=== PATIENT | female | born 1950 | race Caucasian/White ===

== ENCOUNTER 2017-03-31 23:53 | Emergency (ER) | payer OTHER ==
[2017-04-01] VITALS: BP 119/67; BMI 22.4
--- NOTE | 2017-04-01 00:27 | DR.GENAD ---
HPI - PCP Primary Care Physician: Vik - HPI Comment HPI Comment: PATIENT TOOK MEDS AT HOME THAT IS NOT HELPING. NO FEVER. NON PRODUCTIVE COUGH AND SOB PRESENT. DENIES DIARRHEA. - Complaint/Symptoms Chief Complaint Doctors Comments: CHEST PAIN, VOMINTING AND HEADACHE AT HOME FOR SEVERAL HOURS. Chief Complaint:: " Im steading throwing up and my chest is hurting and i did have a bad headache." Self Treatment fo Chief Complaint: Tylenol - Nurses notes reviewed Nurses Notes Review: Yes - Source History Provided: Patient - Mode of Arrival Mode of Arrival: Ambulatory - Timing Onset of Chief Complaint: 03/31/17 Came on: Suddenly - Duration Duration: Constant Duration: Days - Severity Severity: Moderate PMH - PMH Past Medical History: Yes Past Medical History: Arthritis, COPD, GERD, Hypertension Past Surgical History: Yes Surgical History: Cholecystectomy, INKER Surgery, Hysterectomy - Family History History of Family Medical Conditions: Yes Family Medical History: Diabetes Mellitus, Cancer, [place], Hypertension - Social History Do you use any recreational Drugs:: No - infectious screening Have you traveled outside the country in the last 6 months?: No ROS - Review of Systems Constitutional: Malaise, Weakness, Fatigue, Loss of Appetite. negative: Chills , Diaphoresis, Fever Eyes: No Symptoms Reported. negative: Eye Pain, Discharge ENTM: Nose Congestion. negative: Ear Pain, Nose Discharge, Throat Pain Respiratoy: Non-Productive Cough, Short of Breath, Wheezing. negative: Productive Cough, Hemoptysis Cardiovascular: Chest Pain, Palpitations. negative: Edema, Syncope Gastrointestinal/Abdominal: Abdominal Pain, Nausea, Vomiting Genitourinary: No Symptoms Reported. negative: Dysuria, Frequency, Hematuria Neurological: Headache, Weakness, Dizziness Musculoskeletal: Back Pain, Joint Pain, Joint Swelling, Muscle Pain, Back Integumentary: Dryness. negative: Bruises Endocrine: No Symptoms Reported. negative: Increased Thirst, Increased Urine All Other Systems: Reviewed and Negative PE - Vital Signs Vitals: Temperature 98.0 F Pulse Rate 91 Respiratory Rate 18 Blood Pressure [Left Arm] 141/61 Blood Pressure [Right Arm] 136/71 Blood Pressure 119/67 O2 Sat by Pulse Oximetry 98 - General Limitations: No Limitations General Appearance: Alert - Head Head Exam: Normal Inspection - Eyes Eye exam: Normal Appearance - ENT ENT Exam: Normal External Ear Exam External Ear Exam: Normal External Inspection TM/Canal Exam: Bilateral Normal Nose Exam: Normal Nose Exam Mouth Exam: Normal Inspection Throat Exam: Normal Inspection - Neck Neck Exam: Trachea Midline - Chest Chest Inspection: Symmetric Chest Wall Rise - Respiratory Respiratory Exam: Normal Lung Sounds Bilat Respiratory Exam: Bilateral Clear to Auscultation - Cardiovascular Cardiovascular Exam: Regular Rate, Normal Rhythm, Normal Heart Sounds - Abdominal Exam Abdominal Exam: Normal Bowel Sounds, Soft, Tenderness Abdominal Tenderness: Diffuse, Moderate - Extremities Extremities Exam: Normal Inspection, Joint Swelling (KNEES). negative: Calf Tenderness - Back Back Exam: Paraspinal Tenderness - Neurologic Neurological Exam: Alert, Oriented X3 - Psychiatric Psychiatric Exam: Anxious - Skin Skin Exam: Normal Color MDM - Additional Information Additional Information Obtained From: Family - Differential Diagnosis Differential Diagnosis: CHEST PAIN, HEADACHE, ABDOMINAL PAIN, NAUSEA/VOMITING, HEADACHE Course - Treatment Treatment: SEE ORDERS. MEDS IN ED. N/V PERSIST. - Education/Counseling Education/Counseling: Patient, Family, Education Educated On: Treatment, Diagnosis, Needs for Follow Up ROR - Labs Reviewed Laboratory Results Reviewed?: Yes Result Diagrams: 04/01/17 00:50 04/01/17 00:50 Laboratory: WBC 9.9 X10^3/uL (3.6-10.0) 04/01/17 00:50 RBC 4.65 X10^6/uL (3.5-5.4) 04/01/17 00:50 Hgb 11.2 g/dL (12.0-16.0) L 04/01/17 00:50 Hct 34.9 % (36.0-47.0) L 04/01/17 00:50 MCV 75.0 fL (80.0-100.0) L 04/01/17 00:50 MCH 24.2 pg (27.0-34.0) L 04/01/17 00:50 MCHC 32.2 g/dL (33.0-35.0) L 04/01/17 00:50 RDW 18.2 % (11.6-16.5) H 04/01/17 00:50 Plt Count 296 X10^3/uL (150.0-450.0) 04/01/17 00:50 Plt Count Comment Adequate (ADEQUATE) 04/01/17 00:50 MPV 9.9 fL (7.4-11.0) 04/01/17 00:50 Neut % 78.4 % (42.0-75.0) H 04/01/17 00:50 Lymph % 16.4 % (21.0-51.0) L 04/01/17 00:50 Mower % 4.5 % (0.0-13.0) 04/01/17 00:50 Eos % 0.0 % (0.9-2.9) L 04/01/17 00:50 Baso % 0.7 % (0.2-1.0) 04/01/17 00:50 Neut # 7.7 x10^3/uL (2.2-4.8) H 04/01/17 00:50 Lymph # 1.6 X10^3/uL (1.3-2.9) 04/01/17 00:50 Mower # 0.4 x10^3/uL (0.3-0.8) 04/01/17 00:50 Eos # 0.0 x10^3/uL (0.0-0.2) 04/01/17 00:50 Baso # 0.1 X10^3/uL (0.0-0.1) 04/01/17 00:50 Absolute Nucleated RBC 0.0 /100WBC 04/01/17 00:50 Plt Morphology Comment Normal (NORMAL) 04/01/17 00:50 RBC Morphology Normal (NORMAL) 04/01/17 00:50 Sodium 137 mmol/L (136-145) 04/01/17 00:50 Corrected Sodium 138 mmol/L (136-145) 04/01/17 00:50 Potassium 3.6 mmol/L (3.5-5.1) 04/01/17 00:50 Chloride 104 mmol/L (98-107) 04/01/17 00:50 Carbon Dioxide 23.1 mmol/L (21-32) 04/01/17 00:50 BUN 7 mg/dL (7-18) 04/01/17 00:50 Creatinine 0.76 mg/dL (0.55-1.02) 04/01/17 00:50 Est GFR (MDRD) Af Amer > 60 (>60) 04/01/17 00:50 Est GFR (MDRD) Non-Af > 60 (>60) 04/01/17 00:50 Glucose 146 mg/dL (65-99) H 04/01/17 00:50 Calcium 9.2 mg/dL (8.5-10.1) 04/01/17 00:50 Corrected Calcium TNP 04/01/17 00:50 Total Bilirubin 0.30 mg/dL (0.2-1.0) 04/01/17 00:50 AST 13 Units/L (15-37) L 04/01/17 00:50 ALT 15 Units/L (12-78) 04/01/17 00:50 Alkaline Phosphatase 124 Units/L (46-116) H 04/01/17 00:50 Creatine Kinase 110 Units/L (26-192) 04/01/17 00:50 CK-MB (CK-2) < 1.0 ng/mL (0-4.0) 04/01/17 00:50 CK/CKMB % Calc 0.9 % (<4) 04/01/17 00:50 Troponin I < 0.02 ng/mL (0-1.5) 04/01/17 00:50 B-Natriuretic Peptide 56.2 pg/mL (0-79) 04/01/17 00:50 Total Protein 7.0 g/dL (6.4-8.2) 04/01/17 00:50 Albumin 3.5 g/dL (3.4-5.0) 04/01/17 00:50 Globulin 3.5 g/dL (2.5-4.5) 04/01/17 00:50 Albumin/Globulin Ratio 1.0 Ratio (1.1-2.1) L 04/01/17 00:50 Amylase 36 Units/L (25-115) 04/01/17 00:50 Lipase 56 Units/L (73-393) L 04/01/17 00:50 Specimen Type Clean catch urine 04/01/17 01:09 Urine Color Yellow (YELLOW) 04/01/17 01:09 Urine Appearance Clear (CLEAR) 04/01/17 01:09 Urine pH 5.0 (5.0 - 8.0) 04/01/17 01:09 Ur Specific [place] 1.025 (1.000-1.030) 04/01/17 01:09 Urine Protein 1+ (NEGATIVE) 04/01/17 01:09 Urine Glucose (UA) Negative (NEGATIVE) 04/01/17 01:09 Urine Ketones Negative (NEGATIVE) 04/01/17 01:09 Urine Occult Blood Negative (NEGATIVE) 04/01/17 01:09 Urine Nitrite Negative (NEGATIVE) 04/01/17 01:09 Urine Bilirubin Negative (NEGATIVE) 04/01/17 01:09 Urine Urobilinogen Normal (NORMAL) 04/01/17 01:09 Ur Leukocyte Esterase Negative (NEGATIVE) 04/01/17 01:09 Urine RBC None seen /HPF (NEGATIVE) 04/01/17 01:09 Urine WBC 0-3 /HPF (NEGATIVE) 04/01/17 01:09 Ur Squamous Epith Cells Rare /HPF (NEGATIVE) 04/01/17 01:09 Urine Bacteria Trace /HPF (NEGATIVE) 04/01/17 01:09 Urine Mucus Moderate /HPF (NEGATIVE) 04/01/17 01:09 Ur Culture Indicated? No/not indicated 04/01/17 01:09 - XRAY XRAY Interpreted by: Radiologist XRAY Findings: DISCUSS WITH PATIENT AND HER . - EKG Rhythm: NSR (EKG NOTED.) - Diagnosis Discharge Problem: Abdominal pain Qualifiers: Abdominal location: upper abdomen, unspecified Qualified Code(s): R10.10 - Upper abdominal pain, unspecified Chest pain Qualifiers: Chest pain type: precordial pain Qualified Code(s): R07.2 - Precordial pain Headache Qualifiers: Headache type: unspecified Headache chronicity pattern: acute headache Intractability: intractable Qualified Code(s): R51 - Headache - Discharge Plan Disposition: HOME, SELF-CARE Condition: Stable Prescriptions: Ondansetron HCl [Zofran Tab 4 mg] 4 mg PO Q8H PRN #12 tab PRN Reason: Nausea/Vomiting - Follow ups/Referrals Follow ups/Referrals: Sanket Chery [Primary Care Provider] - 1 day - Instructions Instructions: Chest Pain Observation, Abdominal Pain, Adult, [id number] Additional Instructions: rRETURN TO ED IF WORSE.
[2017-04-01 01:02] LABS: BASOPHILS # (AUTO) 0.1 X10^3/uL (0.0-0.1); BASOPHILS % (AUTO) 0.7 % (0.2-1.0); HEMATOCRIT 34.9 % (36.0-47.0); HEMOGLOBIN 11.2 g/dL (12.0-16.0); LYMPHOCYTES # (AUTO) 1.6 X10^3/uL (1.3-2.9); LYMPHOCYTES % (AUTO) 16.4 % (21.0-51.0); MEAN CORPUSCULAR HEMOGLOBIN 24.2 pg (27.0-34.0); MEAN CORPUSCULAR HGB CONC 32.2 g/dL (33.0-35.0); MEAN PLATELET VOLUME 9.9 fL (7.4-11.0); MONOCYTES # (AUTO) 0.4 x10^3/uL (0.3-0.8); MONOCYTES % (AUTO) 4.5 % (0.0-13.0); NEUTROPHILS # (AUTO) 7.7 x10^3/uL (2.2-4.8); NEUTROPHILS % (AUTO) 78.4 % (42.0-75.0); PLATELET COUNT 296 X10^3/uL (150.0-450.0); RED BLOOD COUNT 4.65 X10^6/uL (3.5-5.4); RED CELL DISTRIBUTION WIDTH 18.2 % (11.6-16.5); WHITE BLOOD COUNT 9.9 X10^3/uL (3.6-10.0)
--- NOTE | 2017-04-01 01:15 | RAD ---
EXAM: Chest X-ray INDICATION: Chest pain COMPARISION: Prior exam from August 15, 2012 TECHNIQUE: Single view FINDINGS: The lungs are clear and the lung volumes are within normal limits. No pleural effusion or pneumothor ax. The cardiac silhouette and mediastinum are normal. The regional skeleton is intact. IMPRESSION: No acute abnormality identified Reported By:
[2017-04-01 01:16] LABS: BLOOD UREA NITROGEN 7 mg/dL (7-18); CALCIUM 9.2 mg/dL (8.5-10.1); CARBON DIOXIDE 23.1 mmol/L (21-32); CHLORIDE 104 mmol/L (98-107); COR NA(FOR HYPERGLY) 138 mmol/L (136-145); CREATININE 0.76 mg/dL (0.55-1.02); GLUCOSE 146 mg/dL (65-99); SODIUM 137 mmol/L (136-145); TROPONIN I < 0.02 ng/mL (0-1.5); eGFR BLACK RACES > 60 (>60); eGFR NON BLACK RACES > 60 (>60)
[2017-04-01 01:16] LABS: BILIRUBIN,URINE NEGATIVE (NEGATIVE); BLOOD/HEMOGLOBIN,URINE NEGATIVE (NEGATIVE); GLUCOSE, URINE NEGATIVE (NEGATIVE); KETONES,URINE NEGATIVE (NEGATIVE); LEUKOCYTE ESTERASE ,URINE NEGATIVE (NEGATIVE); NITRITES,URINE NEGATIVE (NEGATIVE); PROTEIN,URINE 1+ (NEGATIVE); UROBILINOGEN,URINE NORMAL (NORMAL)
[2017-04-01 01:17] LABS: PLATELET MORPHOLOGY COMMENT NORMAL (NORMAL)
[2017-04-01 01:20] LABS: ALANINE AMINOTRANSFERASE 15 Units/L (12-78); ALBUMIN 3.5 g/dL (3.4-5.0); ALKALINE PHOSPHATASE 124 Units/L (46-116); ASPARTATE AMINO TRANSFERASE 13 Units/L (15-37); CKMB % 0.9 % (<4); CREATINE KINASE 110 Units/L (26-192); CREATINE KINASE MB < 1.0 ng/mL (0-4.0)
[2017-04-01 01:23] LABS: APPEARANCE,URINE CLEAR (CLEAR); BACTERIA,URINE TRACE /HPF (NEGATIVE); COLOR,URINE YELLOW (YELLOW); MUCUS,URINE MODERATE /HPF (NEGATIVE); RBC,URINE NONE SEEN /HPF (NEGATIVE); SQUAMOUS EPITHELIAL CELL,UR RARE /HPF (NEGATIVE)
[2017-04-01 01:25] LABS: B-TYPE NATRIURETIC PEPTIDE 56.2 pg/mL (0-79)
[2017-04-01] MEDS ORDERED: ZOFRAN INJ 4 MG VIAL IVP ONE (01:42)
[2017-04-01] MEDS ORDERED: PEPCID 20 MG IV PREMIX* 20 MG/50 ML BAG IV ONE ×2 (01:42→02:09)
[2017-04-01] MEDS ORDERED: MORPHINE SULFATE INJ 4 MG IVP ONE (01:42)
[2017-04-01] MEDS ORDERED: ZOFRAN INJ 4 MG VIAL ONE (01:46)
[2017-04-01] MEDS ORDERED: MORPHINE SULFATE INJ 4 MG ONE (01:47)
[2017-04-01 01:56] LABS: AMYLASE 36 Units/L (25-115); LIPASE 56 Units/L (73-393)
--- NOTE | 2017-04-01 03:14 | CT ---
EXAM: CT ABDOMEN AND PELVIS WITHOUT CONTRAST INDICATION: Abdominal pain COMPARISION: No priors available for comparison TECHNIQUE: Axial CT examination of the abdomen and pelvis was performed without intravenous contrast. Coronal a nd sagittal reconstructions were created using the axial data. FINDINGS: The lung bases are clear. The liver, spleen, pancreas, adrenal glands, and kidneys are normal. The g allbladder has been removed. There is no evidence of biliary ductal dilatation. The aorta and infer ior vena cava are normal in caliber. The bowel loops are nonobstructed. No abnormal mass, lymphadenopathy, or fluid collection. Urinary bladder is normal. The uterus has been removed. The appendix is not visualized. No inflamma tion is seen in the right lower quadrant. The regional skeleton is intact. IMPRESSION: Normal CT examination of the abdomen and pelvis. Reported By:
[2017-04-01] MEDS ORDERED: PHENERGAN INJ 25 MG IVP ONE (03:33)
[2017-04-01] MEDS ORDERED: PHENERGAN INJ 25 MG ONE (03:37)
[2017-04-01] MEDS ORDERED: DUONEB 0.5 MG/3 MG ONE (03:49)
== END 2017-04-01 04:40 | disposition home or self-care (01) ==
LOC: ER 23:53
DX: R10.11 Right upper quadrant pain (principal); R10.12 Left upper quadrant pain; R07.2 Precordial pain; R51 Headache
CPT/HCPCS: 36415; 71010; 74176; 80053; 81001; 82150; 82550; 82553; 83690; 83880; 84484; 85025; 93005; 96374; 96375; 99283; S0028; J2270; J2405; J2550; J7620

== ENCOUNTER 2017-10-13 06:54 | Observation (INO) | payer OTHER ==
[2017-10-13 07:02] VITALS: BMI 22.6
[2017-10-13 07:49] LABS: BASOPHILS # (AUTO) 0.1 X10^3/uL (0.0-0.1); EOSINOPHILS # (AUTO) 0.2 x10^3/uL (0.0-0.2); EOSINOPHILS % (AUTO) 2.1 % (0.9-2.9); HEMATOCRIT 36.5 % (36.0-47.0); HEMOGLOBIN 11.8 g/dL (12.0-16.0); LYMPHOCYTES % (AUTO) 24.5 % (21.0-51.0); MEAN CORPUSCULAR HEMOGLOBIN 25.5 pg (27.0-34.0); MEAN CORPUSCULAR HGB CONC 32.4 g/dL (33.0-35.0); MEAN CORPUSCULAR VOLUME 78.6 fL (80.0-100.0); MEAN PLATELET VOLUME 9.6 fL (7.4-11.0); MONOCYTES # (AUTO) 0.7 x10^3/uL (0.3-0.8); NEUTROPHILS # (AUTO) 5.3 x10^3/uL (2.2-4.8); NEUTROPHILS % (AUTO) 64.4 % (42.0-75.0); PLATELET COUNT 246 X10^3/uL (150.0-450.0); RED BLOOD COUNT 4.65 X10^6/uL (3.5-5.4); WHITE BLOOD COUNT 8.2 X10^3/uL (3.6-10.0)
[2017-10-13 08:02] LABS: ALANINE AMINOTRANSFERASE 16 Units/L (12-78); ALBUMIN 3.6 g/dL (3.4-5.0); ALKALINE PHOSPHATASE 130 Units/L (46-116); ASPARTATE AMINO TRANSFERASE 17 Units/L (15-37); BLOOD UREA NITROGEN 5 mg/dL (7-18); CALCIUM 10.1 mg/dL (8.5-10.1); CARBON DIOXIDE 27.8 mmol/L (21-32); CHLORIDE 105 mmol/L (98-107); COR NA(FOR HYPERGLY) 141 mmol/L (136-145); CREATININE 1.01 mg/dL (0.55-1.02); SODIUM 141 mmol/L (136-145); eGFR BLACK RACES > 60 (>60); eGFR NON BLACK RACES 58 (>60)
[2017-10-13 08:04] LABS: PLATELET MORPHOLOGY COMMENT NORMAL (NORMAL)
--- NOTE | 2017-10-13 08:45 | DR.GENAD ---
HPI - PCP Primary Care Physician: patrick - HPI Comment HPI Comment: SHE IS WEAK AND GETTING WORSE. DENIES FEVER. MEDICATION FOR VOMITING NOT HELPING. NOT HOLDING DOWN MEDICATION. DENIES FEVER. SOB AND SLIGHT CHEST DISCOMFORT PRESENT. - Complaint/Symptoms Chief Complaint Doctors Comments: PERSISTENT VOMITING FOR FEW DAYS. COUGH AND CONGESTION ON MED FOR BRONCHITIS. ON ZITHROMAX. Chief Complaint:: patient stated for the past couple of days she has been vomiting and very sick last night she. 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, 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 - Family History History of Family Medical Conditions: Yes Family Medical History: Diabetes Mellitus, Cancer, [place], Coronary Artery Disease, Hypertension - Social History Does patient currently use any type of tobacco product: No Have you used tobacco products in the last 12 months: No Type of Tobacco Use: None Does any household member use tobacco: No Alcohol Use: None Do you use any recreational Drugs:: No Lives With: Family Lives Where: Home - infectious screening In the last 2 months have you had wt loss of >10#?: NO Have you had fever, night sweats or hemotysis?: No Have you traveled outside the country in the last 6 months?: No Isolation: Standard ROS - Review of Systems Constitutional: Weakness, Fatigue Eyes: No Symptoms Reported ENTM: Nose Discharge, Nose Congestion Respiratoy: Productive Cough Cardiovascular: No Symptoms Reported Gastrointestinal/Abdominal: No Symptoms Reported Genitourinary: No Symptoms Reported Neurological: Weakness, Dizziness Musculoskeletal: No Symptoms Reported Integumentary: No Symptoms Reported Hematologic/Lymphatic: No Symptoms Reported Endocrine: No Symptoms Reported All Other Systems: Reviewed and Negative PE - Vital Signs Vitals: Temperature 98.3 F Pulse Rate 105 Respiratory Rate 16 Blood Pressure [Left Arm] 145/83 Blood Pressure [Right Arm] 169/89 Blood Pressure 128/78 O2 Sat by Pulse Oximetry 98 - General Limitations: No Limitations General Appearance: Alert - Head Head Exam: Normal Inspection - Eyes Eye exam: Normal Appearance - ENT ENT Exam: Normal External Ear Exam External Ear Exam: Normal External Inspection TM/Canal Exam: Bilateral Bulging Nose Exam: Normal Nose Exam Mouth Exam: Normal Inspection Throat Exam: Normal Inspection - Neck Neck Exam: Trachea Midline - Chest Chest Inspection: Symmetric Chest Wall Rise - Respiratory Respiratory Exam: Normal Lung Sounds Bilat Respiratory Exam: Bilateral Clear to Auscultation - Cardiovascular Cardiovascular Exam: Regular Rate, Normal Rhythm, Normal Heart Sounds - Abdominal Exam Abdominal Exam: Normal Bowel Sounds, Soft. negative: Tenderness - Extremities Extremities Exam: Normal Inspection - Back Back Exam: Normal Inspection - Neurologic Neurological Exam: Alert, Oriented X3 - Psychiatric Psychiatric Exam: Normal Affect, Normal Mood - Skin Skin Exam: Normal Color MDM - Additional Information Additional Information Obtained From: Family - Differential Diagnosis Differential Diagnosis: SINUSITIS, BRONCHITIS, GASTROENTERITIS, PERSISTENT VOMITING, GASTRITIS Course - Treatment Treatment: SEE ORDERS. - Consultation Consultation Comments: PATIENT WAS DISCUSS WITH DR. CLARK AND HE WILL ADMIT PATIENT. - Education/Counseling Education/Counseling: Patient, Family, Education Educated On: Diagnosis, Needs for Follow Up ROR - Labs Reviewed Laboratory Results Reviewed?: Yes Result Diagrams: 10/13/17 07:42 10/13/17 07:42 Laboratory: WBC 8.2 X10^3/uL (3.6-10.0) 10/13/17 07:42 RBC 4.65 X10^6/uL (3.5-5.4) 10/13/17 07:42 Hgb 11.8 g/dL (12.0-16.0) L 10/13/17 07:42 Hct 36.5 % (36.0-47.0) 10/13/17 07:42 MCV 78.6 fL (80.0-100.0) L 10/13/17 07:42 MCH 25.5 pg (27.0-34.0) L 10/13/17 07:42 MCHC 32.4 g/dL (33.0-35.0) L 10/13/17 07:42 RDW 17.0 % (11.6-16.5) H 10/13/17 07:42 Plt Count 246 X10^3/uL (150.0-450.0) 10/13/17 07:42 Plt Count Comment Adequate (ADEQUATE) 10/13/17 07:42 MPV 9.6 fL (7.4-11.0) 10/13/17 07:42 Neut % 64.4 % (42.0-75.0) 10/13/17 07:42 Lymph % 24.5 % (21.0-51.0) 10/13/17 07:42 Ritchie % 8.0 % (0.0-13.0) 10/13/17 07:42 Eos % 2.1 % (0.9-2.9) 10/13/17 07:42 Baso % 1.0 % (0.2-1.0) 10/13/17 07:42 Neut # 5.3 x10^3/uL (2.2-4.8) H 10/13/17 07:42 Lymph # 2.0 X10^3/uL (1.3-2.9) 10/13/17 07:42 Ritchie # 0.7 x10^3/uL (0.3-0.8) 10/13/17 07:42 Eos # 0.2 x10^3/uL (0.0-0.2) 10/13/17 07:42 Baso # 0.1 X10^3/uL (0.0-0.1) 10/13/17 07:42 Absolute Nucleated RBC 0.0 /100WBC 10/13/17 07:42 Plt Morphology Comment Normal (NORMAL) 10/13/17 07:42 RBC Morphology Normal (NORMAL) 10/13/17 07:42 Sodium 141 mmol/L (136-145) 10/13/17 07:42 Corrected Sodium 141 mmol/L (136-145) 10/13/17 07:42 Potassium 4.6 mmol/L (3.5-5.1) 10/13/17 07:42 Chloride 105 mmol/L (98-107) 10/13/17 07:42 Carbon Dioxide 27.8 mmol/L (21-32) 10/13/17 07:42 BUN 5 mg/dL (7-18) L 10/13/17 07:42 Creatinine 1.01 mg/dL (0.55-1.02) 10/13/17 07:42 Est GFR (MDRD) Af Amer > 60 (>60) 10/13/17 07:42 Est GFR (MDRD) Non-Af 58 (>60) L 10/13/17 07:42 Glucose 117 mg/dL (65-99) H 10/13/17 07:42 Calcium 10.1 mg/dL (8.5-10.1) 10/13/17 07:42 Corrected Calcium TNP 10/13/17 07:42 Total Bilirubin 0.40 mg/dL (0.2-1.0) 10/13/17 07:42 AST 17 Units/L (15-37) 10/13/17 07:42 ALT 16 Units/L (12-78) 10/13/17 07:42 Alkaline Phosphatase 130 Units/L (46-116) H 10/13/17 07:42 Total Protein 7.0 g/dL (6.4-8.2) 10/13/17 07:42 Albumin 3.6 g/dL (3.4-5.0) 10/13/17 07:42 Globulin 3.4 g/dL (2.5-4.5) 10/13/17 07:42 Albumin/Globulin Ratio 1.1 Ratio (1.1-2.1) 10/13/17 07:42 Amylase 41 Units/L (25-115) 10/13/17 07:42 Lipase 88 Units/L (73-393) 10/13/17 07:42 - XRAY XRAY Interpreted by: Radiologist XRAY Findings: REPORT DISCUSS WITH PATIENT. - Diagnosis Discharge Problem: Vomiting, persistent, in adult, Bronchitis Gastritis Qualifiers: Gastritis type: unspecified gastritis Chronicity: acute Gastritis bleeding: without bleeding Qualified Code(s): K29.00 - Acute gastritis without bleeding - Discharge Plan Disposition: ADMITTED INPATIENT Condition: Stable - Follow ups/Referrals - Instructions
[2017-10-13 09:02] LABS: AMYLASE 41 Units/L (25-115); LIPASE 88 Units/L (73-393)
--- NOTE | 2017-10-13 09:28 | RAD ---
History: Vomiting Study: Acute abdominal series Comparison: April 18 2016 Findings: The lungs are clear and the heart and mediastinum are unremarkable. The gallbladder surgically absent. The bowel gas pattern is within normal limits. There is no free ai r and there is no abnormal calcification demonstrated. No significant bony abnormality is suggested. Impression: No acute disease Reported By:
[2017-10-13] MEDS ORDERED: PHENERGAN INJ 25 MG IVP PRN (10:20)
[2017-10-13] MEDS: NS 1000 ML 1,000 ML IV SCH ×2 (11:14→21:34)
[2017-10-13] MEDS: PEPCID 20 MG IV PREMIX* 20 MG/50 ML BAG IV PRN (11:14)
[2017-10-13] MEDS ORDERED: VIT D3 PO SCH (13:15)
[2017-10-13] MEDS ORDERED: CALCIUM PHOSPHATE TRIB PO SCH (13:15)
[2017-10-13] MEDS: ATARAX TAB 25 MG PO SCH ×2 (14:03→21:30)
[2017-10-13] MEDS: ZOFRAN INJ 4 MG VIAL IVP PRN (19:42)
[2017-10-13] MEDS ORDERED: PATIENT'S HOME MEDICATION (Fluticasone-Salmeterol 500/50 1 PUFF) INH SCH (21:00)
[2017-10-13] MEDS: REQUIP PO SCH (21:30)
[2017-10-13] MEDS: LIPITOR TAB 40 MG PO SCH (21:30)
[2017-10-13] MEDS: MUCINEX EXPECTORANT PO SCH (21:31)
[2017-10-13] MEDS: COREG TAB 3.125 MG PO SCH (21:31)
[2017-10-13] MEDS: UNIPHYL TAB 400 MG PO SCH (21:31)
[2017-10-13] MEDS: PULMICORT NEB TX 0.5 MG NEB SCH (21:44)
[2017-10-13] MEDS: DUONEB 0.5 MG/3 MG NEB SCH (21:44)
[2017-10-14] MEDS: ZOFRAN INJ 4 MG VIAL IVP PRN (03:20)
[2017-10-14] MEDS: PERCOCET TAB 5/325 MG PO PRN ×4 (03:26→20:32)
[2017-10-14] MEDS: ATARAX TAB 25 MG PO SCH ×3 (05:14→21:30)
[2017-10-14] MEDS: NS 1000 ML 1,000 ML IV SCH ×2 (05:59→16:35)
[2017-10-14 06:32] LABS: BASOPHILS # (AUTO) 0.1 X10^3/uL (0.0-0.1); BASOPHILS % (AUTO) 0.8 % (0.2-1.0); EOSINOPHILS # (AUTO) 0.2 x10^3/uL (0.0-0.2); EOSINOPHILS % (AUTO) 3.2 % (0.9-2.9); HEMATOCRIT 34.8 % (36.0-47.0); HEMOGLOBIN 11.3 g/dL (12.0-16.0); LYMPHOCYTES # (AUTO) 2.2 X10^3/uL (1.3-2.9); MEAN CORPUSCULAR HEMOGLOBIN 25.4 pg (27.0-34.0); MEAN CORPUSCULAR HGB CONC 32.5 g/dL (33.0-35.0); MEAN CORPUSCULAR VOLUME 78.3 fL (80.0-100.0); MONOCYTES # (AUTO) 0.7 x10^3/uL (0.3-0.8); MONOCYTES % (AUTO) 10.7 % (0.0-13.0); NEUTROPHILS # (AUTO) 3.1 x10^3/uL (2.2-4.8); NEUTROPHILS % (AUTO) 50.3 % (42.0-75.0); PLATELET COUNT 198 X10^3/uL (150.0-450.0); RED BLOOD COUNT 4.45 X10^6/uL (3.5-5.4); RED CELL DISTRIBUTION WIDTH 16.8 % (11.6-16.5); WHITE BLOOD COUNT 6.2 X10^3/uL (3.6-10.0)
[2017-10-14 06:52] LABS: ALANINE AMINOTRANSFERASE 18 Units/L (12-78); ALBUMIN 3.3 g/dL (3.4-5.0); ALKALINE PHOSPHATASE 119 Units/L (46-116); ASPARTATE AMINO TRANSFERASE 19 Units/L (15-37); BLOOD UREA NITROGEN 3 mg/dL (7-18); CALCIUM 9.1 mg/dL (8.5-10.1); CARBON DIOXIDE 26.1 mmol/L (21-32); CHLORIDE 106 mmol/L (98-107); COR CA(FOR HYPOALB) 9.7 mg/dL (8.5-10.1); CREATININE 0.77 mg/dL (0.55-1.02); SODIUM 140 mmol/L (136-145); TOTAL PROTEIN 6.5 g/dL (6.4-8.2); eGFR BLACK RACES > 60 (>60); eGFR NON BLACK RACES > 60 (>60)
[2017-10-14 07:19] LABS: PLATELET MORPHOLOGY COMMENT NORMAL (NORMAL)
[2017-10-14] MEDS ORDERED: TIOTROPIUM BROMIDE INH SCH (09:00)
[2017-10-14] MEDS: COREG TAB 3.125 MG PO SCH ×2 (09:25→20:27)
[2017-10-14] MEDS: DALIRESP PO SCH (09:25)
[2017-10-14] MEDS: MICRO K EXTEN CAP 10 MEQ PO SCH (09:26)
[2017-10-14] MEDS: PriLOSEC PO SCH (09:26)
[2017-10-14] MEDS: FOLIC ACID TAB 1 MG PO SCH (09:26)
[2017-10-14] MEDS: UNIPHYL TAB 400 MG PO SCH ×2 (09:27→20:28)
[2017-10-14] MEDS: SINGULAIR TAB 10 MG PO SCH (09:27)
[2017-10-14] MEDS: PULMICORT NEB TX 0.5 MG NEB SCH ×2 (12:42→20:34)
[2017-10-14] MEDS: DUONEB 0.5 MG/3 MG NEB SCH ×2 (12:42→20:34)
[2017-10-14] MEDS: FLONASE NASAL SPRAY ENOSTRIL SCH (14:59)
[2017-10-14] MEDS: PEPCID 20 MG IV PREMIX* 20 MG/50 ML BAG IV PRN (20:27)
[2017-10-14] MEDS: LIPITOR TAB 40 MG PO SCH (20:27)
[2017-10-14] MEDS: MUCINEX EXPECTORANT PO SCH (20:27)
[2017-10-14] MEDS: REQUIP PO SCH (20:29)
--- NOTE | 2017-10-14 23:52 | DR.H&P ---
H&P - History & Physical for Day of: H&P Date: 10/13/17 - Chief Complaint Chief Complaint: nausea, vomiting, cough, congestion - Allergies Allergies/Adverse Reactions: Allergies Allergy/AdvReac Type Severity Reaction Status Date / Time cefdinir Allergy Verified 10/13/17 06:55 ciprofloxacin Allergy Verified 10/13/17 06:55 clarithromycin Allergy Verified 10/13/17 06:55 clindamycin Allergy Verified 10/13/17 06:55 doxycycline Allergy Verified 10/13/17 06:55 erythromycin base Allergy Verified 10/13/17 06:55 gabapentin [From Neurontin] Allergy Verified 10/13/17 06:55 levofloxacin [From Levaquin] Allergy Verified 10/13/17 06:55 nitrofurantoin Allergy Verified 10/13/17 06:55 Penicillins Allergy Verified 10/13/17 06:55 phenazopyridine Allergy Verified 10/13/17 06:55 rifampin Allergy Verified 10/13/17 06:55 - History of Present Illness History of Present Illness: is a 67 year old patient of ours who presented to the emergency room with complaints of persistent vomiting, cough, and congestion. Patient reports that symptoms have been present for several days and have progressively gotten worse despite taking Zofran and Zithromax that she had at home. Associated symptoms include weakness, fatigue, nasal discharge, nasal congestion, productive cough, and dizziness. She denies fever or diarrhea. Medical history includes arthritis, COPD, GERD, and hypertension. On examination, heart is regular in rate and rhythm. Lung sounds are diminished. Abdomen is round, soft, and non-tender with normal bowel sounds noted in all quadrants. There is normal range of motion noted to all extremities. On arrival to the emergency room, vital signs were 98.2, 101, 18, 95%NC 2LPM, 158/71. Labs and abdomen xray were obtained. Abnormal lab values include the following: Abnormal Labs: Hgb 11.8, MCV 78.6, MCH 25.5, MCHC 32.4, RDW 17.0, BUN 5, GFR(non) 58, Glucose 117, Alk PHos 130, Theophylline 8.8. Abdomen xray reported: No acute disease. She was given Pepcid 20mg iv in the ER and started on normal saline at 100ml/hr. Only slight improvement in symptoms noted. Patient was admitted for further treatment and evaluation. We plan to follow up with am labs and chest xray and continue to monitor patient. 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 - Family History Family Medical History: Diabetes Mellitus, Cancer, [place], Coronary Artery Disease, Hypertension - Social History Does patient currently use any type of tobacco product: No Have you used tobacco products in the last 12 months: No Type of Tobacco Use: None Does any household member use tobacco: No Alcohol Use: None Drug Use: None - Medications Home Medications: Clarithromycin [CLARITHROMYCIN 500 MG TAB *] 250 mg PO BID 10/13/17 [History Confirmed 10/13/17] Hydroxyzine HCl 25 mg Tab [ATARAX *] 25 mg PO TID 10/13/17 [History Confirmed ] - Review of Systems Constitutional: Weakness, Malaise Eyes: No Symptoms Reported. denies: See HPI, Pain, Vision Change, Conjunctivae Inflammation, Eyelid Inflammation, Redness, Other ENT: See HPI, Nose Discharge, Nose Congestion Respiratory: See HPI, Cough, Shortness of Breath Cardiovascular: Chest Pain, Light Headedness Gastrointestinal: Nausea, Vomiting. denies: Diarrhea, Constipation, Melena, Hematochezia Genitourinary: No Symptoms Reported Musculoskeletal: No Symptoms Reported Skin: No Symptoms Reported Neurological: Weakness - Physical Exam Vital Signs: Temperature 98.2 F Pulse Rate [Apical] 81 Pulse Rate [Right Brachial] 90 Pulse Rate 80 Respiratory Rate 20 Blood Pressure [Left Arm] 125/64 Blood Pressure [Right Arm] 169/89 Blood Pressure 128/78 O2 Sat by Pulse Oximetry 100 Oriented: Normal Eyes: Normal Ear: Normal Nose: Discharge Throat: Normal Respiratory: Clear Throughout Cardiovascular: Normal : Normal Auscultation: Bowel Sounds: Increased Palpation: Normal Tenderness: Normal Skin: Normal Musculoskeletal: Normal Psychiatric: Normal Affect: Normal Speech Pattern: Clear - Assessment/Plan (1) Gastritis Qualifiers: Gastritis type: unspecified gastritis Chronicity: acute Gastritis bleeding: without bleeding Qualified Code(s): K29.00 - Acute gastritis without bleeding Status: Acute Plan: pepcid 20mg iv bid prn, prilosec 20mg po daily, phenergan 12.5mg iv q6h prn, zofran 40mg iv q6h prn, normal saline @ 100ml/hr, continue to monitor labs (2) Bronchitis Status: Acute Plan: continue duonebs, continue mucinex, continue to monitor labs and chest xray
[2017-10-15 00:48] LABS: BILIRUBIN,URINE NEGATIVE (NEGATIVE); BLOOD/HEMOGLOBIN,URINE NEGATIVE (NEGATIVE); GLUCOSE, URINE NEGATIVE (NEGATIVE); KETONES,URINE NEGATIVE (NEGATIVE); LEUKOCYTE ESTERASE ,URINE NEGATIVE (NEGATIVE); NITRITES,URINE NEGATIVE (NEGATIVE); PROTEIN,URINE NEGATIVE (NEGATIVE); UROBILINOGEN,URINE NORMAL (NORMAL)
[2017-10-15 01:01] LABS: APPEARANCE,URINE CLEAR (CLEAR); BACTERIA,URINE NEGATIVE /HPF (NEGATIVE); COLOR,URINE PALE YELLOW (YELLOW); RBC,URINE 0-3 /HPF (NEGATIVE); SQUAMOUS EPITHELIAL CELL,UR RARE /HPF (NEGATIVE)
[2017-10-15] MEDS: ATARAX TAB 25 MG PO SCH (05:36)
[2017-10-15] MEDS: NS 1000 ML 1,000 ML IV SCH (05:39)
[2017-10-15] MEDS: PERCOCET TAB 5/325 MG PO PRN (06:05)
[2017-10-15 06:12] LABS: BASOPHILS # (AUTO) 0.1 X10^3/uL (0.0-0.1); BASOPHILS % (AUTO) 1.2 % (0.2-1.0); EOSINOPHILS # (AUTO) 0.2 x10^3/uL (0.0-0.2); EOSINOPHILS % (AUTO) 3.6 % (0.9-2.9); HEMATOCRIT 34.1 % (36.0-47.0); HEMOGLOBIN 11.4 g/dL (12.0-16.0); LYMPHOCYTES # (AUTO) 2.5 X10^3/uL (1.3-2.9); LYMPHOCYTES % (AUTO) 43.3 % (21.0-51.0); MEAN CORPUSCULAR HEMOGLOBIN 25.8 pg (27.0-34.0); MEAN CORPUSCULAR HGB CONC 33.3 g/dL (33.0-35.0); MEAN CORPUSCULAR VOLUME 77.4 fL (80.0-100.0); MONOCYTES # (AUTO) 0.6 x10^3/uL (0.3-0.8); MONOCYTES % (AUTO) 10.1 % (0.0-13.0); NEUTROPHILS # (AUTO) 2.4 x10^3/uL (2.2-4.8); NEUTROPHILS % (AUTO) 41.8 % (42.0-75.0); PLATELET COUNT 200 X10^3/uL (150.0-450.0); RED BLOOD COUNT 4.41 X10^6/uL (3.5-5.4); RED CELL DISTRIBUTION WIDTH 16.9 % (11.6-16.5); WHITE BLOOD COUNT 5.8 X10^3/uL (3.6-10.0)
[2017-10-15 06:30] LABS: ALANINE AMINOTRANSFERASE 14 Units/L (12-78); ALBUMIN 3.3 g/dL (3.4-5.0); ALKALINE PHOSPHATASE 118 Units/L (46-116); ASPARTATE AMINO TRANSFERASE 14 Units/L (15-37); BLOOD UREA NITROGEN 3 mg/dL (7-18); CALCIUM 9.4 mg/dL (8.5-10.1); CARBON DIOXIDE 24.5 mmol/L (21-32); CHLORIDE 109 mmol/L (98-107); CREATININE 0.67 mg/dL (0.55-1.02); SODIUM 142 mmol/L (136-145); TOTAL PROTEIN 6.5 g/dL (6.4-8.2); eGFR BLACK RACES > 60 (>60); eGFR NON BLACK RACES > 60 (>60)
[2017-10-15 06:43] LABS: PLATELET MORPHOLOGY COMMENT NORMAL (NORMAL)
[2017-10-15 08:40] VITALS: BP 141/66
[2017-10-15] MEDS: FLONASE NASAL SPRAY ENOSTRIL SCH (09:37)
[2017-10-15] MEDS: MICRO K EXTEN CAP 10 MEQ PO SCH (09:38)
[2017-10-15] MEDS: FOLIC ACID TAB 1 MG PO SCH (09:38)
[2017-10-15] MEDS: DALIRESP PO SCH (09:39)
[2017-10-15] MEDS: PriLOSEC PO SCH (09:39)
[2017-10-15] MEDS: COREG TAB 3.125 MG PO SCH (09:39)
[2017-10-15] MEDS: SINGULAIR TAB 10 MG PO SCH (09:39)
[2017-10-15] MEDS: UNIPHYL TAB 400 MG PO SCH (09:39)
[2017-10-15] MEDS: DUONEB 0.5 MG/3 MG NEB SCH (10:10)
[2017-10-15] MEDS: PULMICORT NEB TX 0.5 MG NEB SCH (10:10)
--- NOTE | 2017-10-15 17:44 | PCM.PROG ---
Progress Note - Progress Note for Day of Date: 10/14/17 - Subjective Subjective: WAS ADMITTED FOR PERSISTENT NAUSEA AND VOMITING, GASTRITIS , AND BRONCHITIS. TODAY, SHE CONTINUES WITH COMPLAINTS OF NAUSEA AND COUGH. SHE IS ALSO NOTED WITH COMPLAINTS OF NASAL CONGESTION. ON EXAMINATION, HEART IS REGULAR IN RATE AND RHYTHM. LUNG SOUNDS ARE DIMINISHED THROUGHOUT. ABDOMEN IS ROUND, SOFT, AND NOTED WITH MILD EPIGASTRIC TENDERNESS ON PALPATION. NORMAL BOWEL SOUNDS NOTED IN ALL QUADRANTS. HER VITAL SIGNS THIS MORNING ARE 98.6-99-20 -96%-128/60. LABS WERE OBTAINED THIS MORNING. ABNORMAL LAB VALUES INCLUDE THE FOLLOWING: HGB 11.3, HCT 34.8, BUN 3, ALK PHOS 119, ALBUMIN 3.3. SHE CONTINUES TO RECEIVE ANTIEMETICS AND INHALERS FOR COPD AND BRONCHITIS. TODAY, WE WILL START FLONASE 2 SPRAYS TO EACH NOSTRIL DAILY. WE WILL ORDER A GASTRIC EMPTYING TEST FOR IN THE MONR[place]. OTHERWISE, WE WILL CONTINUE WITH CURRENT PLAN OF CARE. WE PLAN TO FOLLOW UP WITH AM LABS AND CONTINUE TO MONITOR PATIENT. - Past Medical Family Social History Past Med/Fam/Surg Hx: No changes since H&P Allergies: Allergies cefdinir Allergy (Verified 10/13/17 06:55) ciprofloxacin Allergy (Verified 10/13/17 06:55) clarithromycin Allergy (Verified 10/13/17 06:55) clindamycin Allergy (Verified 10/13/17 06:55) doxycycline Allergy (Verified 10/13/17 06:55) erythromycin base Allergy (Verified 10/13/17 06:55) gabapentin [From Neurontin] Allergy (Verified 10/13/17 06:55) levofloxacin [From Levaquin] Allergy (Verified 10/13/17 06:55) nitrofurantoin Allergy (Verified 10/13/17 06:55) Penicillins Allergy (Verified 10/13/17 06:55) phenazopyridine Allergy (Verified 10/13/17 06:55) rifampin Allergy (Verified 10/13/17 06:55) - Review of Systems ROS: No change since H&P - Vital Signs and I&O's Vital Signs: Temperature 98.4 F Pulse Rate [Apical] 90 Pulse Rate [Right Brachial] 90 Pulse Rate 80 Respiratory Rate 18 Blood Pressure [Left Arm] 141/66 Blood Pressure [Right Arm] 169/89 Blood Pressure 128/78 O2 Sat by Pulse Oximetry 92 Intake and Output: Intake & Output 10/13/17 10/14/17 10/15/17 10/16/17 11:59 11:59 11:59 11:59 Intake Total 1680 3175 Output Total 1200 Balance 1680 1974 - Physical Exam Oriented: Normal Eyes: Normal Ear: Normal Nose: Other (NASAL CONGESTION) Throat: Normal Respiratory: Right, Left, Generalized, Diminished Cardiovascular: Normal : Normal Auscultation: Bowel Sounds: Increased Palpation: Normal Tenderness: Normal Skin: Normal Musculoskeletal: Normal Psychiatric: Normal Affect: Normal Speech Pattern: Clear, Appropriate - Laboratory and Diagnostics Result Diagrams: 10/15/17 05:38 10/15/17 05:38 Labs: Laboratory WBC 5.8 X10^3/uL (3.6-10.0) 10/15/17 05:38 RBC 4.41 X10^6/uL (3.5-5.4) 10/15/17 05:38 Hgb 11.4 g/dL (12.0-16.0) L 10/15/17 05:38 Hct 34.1 % (36.0-47.0) L 10/15/17 05:38 MCV 77.4 fL (80.0-100.0) L 10/15/17 05:38 MCH 25.8 pg (27.0-34.0) L 10/15/17 05:38 MCHC 33.3 g/dL (33.0-35.0) 10/15/17 05:38 RDW 16.9 % (11.6-16.5) H 10/15/17 05:38 Plt Count 200 X10^3/uL (150.0-450.0) 10/15/17 05:38 Plt Count Comment Adequate (ADEQUATE) 10/15/17 05:38 MPV 10.0 fL (7.4-11.0) 10/15/17 05:38 Neut % 41.8 % (42.0-75.0) L 10/15/17 05:38 Lymph % 43.3 % (21.0-51.0) 10/15/17 05:38 [place] % 10.1 % (0.0-13.0) 10/15/17 05:38 Eos % 3.6 % (0.9-2.9) H 10/15/17 05:38 Baso % 1.2 % (0.2-1.0) H 10/15/17 05:38 Neut # 2.4 x10^3/uL (2.2-4.8) 10/15/17 05:38 Lymph # 2.5 X10^3/uL (1.3-2.9) 10/15/17 05:38 [place] # 0.6 x10^3/uL (0.3-0.8) 10/15/17 05:38 Eos # 0.2 x10^3/uL (0.0-0.2) 10/15/17 05:38 Baso # 0.1 X10^3/uL (0.0-0.1) 10/15/17 05:38 Absolute Nucleated RBC 0.1 /100WBC 10/15/17 05:38 Plt Morphology Comment Normal (NORMAL) 10/15/17 05:38 RBC Morphology Normal (NORMAL) 10/15/17 05:38 Sodium 142 mmol/L (136-145) 10/15/17 05:38 Corrected Sodium TNP 10/15/17 05:38 Potassium 3.7 mmol/L (3.5-5.1) 10/15/17 05:38 Chloride 109 mmol/L (98-107) H 10/15/17 05:38 Carbon Dioxide 24.5 mmol/L (21-32) 10/15/17 05:38 BUN 3 mg/dL (7-18) L 10/15/17 05:38 Creatinine 0.67 mg/dL (0.55-1.02) 10/15/17 05:38 Est GFR (MDRD) Af Amer > 60 (>60) 10/15/17 05:38 Est GFR (MDRD) Non-Af > 60 (>60) 10/15/17 05:38 Glucose 97 mg/dL (65-99) 10/15/17 05:38 Calcium 9.4 mg/dL (8.5-10.1) 10/15/17 05:38 Corrected Calcium 10.0 mg/dL (8.5-10.1) 10/15/17 05:38 Magnesium 1.7 mg/dL (1.7-2.9) 10/15/17 05:38 Total Bilirubin 0.30 mg/dL (0.2-1.0) 10/15/17 05:38 AST 14 Units/L (15-37) L 10/15/17 05:38 ALT 14 Units/L (12-78) 10/15/17 05:38 Alkaline Phosphatase 118 Units/L (46-116) H 10/15/17 05:38 Total Protein 6.5 g/dL (6.4-8.2) 10/15/17 05:38 Albumin 3.3 g/dL (3.4-5.0) L 10/15/17 05:38 Globulin 3.2 g/dL (2.5-4.5) 10/15/17 05:38 Albumin/Globulin Ratio 1.0 Ratio (1.1-2.1) L 10/15/17 05:38 Amylase 41 Units/L (25-115) 10/13/17 07:42 Lipase 88 Units/L (73-393) 10/13/17 07:42 Specimen Type Clean catch urine 10/15/17 00:32 Urine Color Pale yellow (YELLOW) 10/15/17 00:32 Urine Appearance Clear (CLEAR) 10/15/17 00:32 Urine pH 7.0 (5.0 - 8.0) 10/15/17 00:32 Ur Specific Moodus 1.010 (1.000-1.030) 10/15/17 00:32 Urine Protein Negative (NEGATIVE) 10/15/17 00:32 Urine Glucose (UA) Negative (NEGATIVE) 10/15/17 00:32 Urine Ketones Negative (NEGATIVE) 10/15/17 00:32 Urine Occult Blood Negative (NEGATIVE) 10/15/17 00:32 Urine Nitrite Negative (NEGATIVE) 10/15/17 00:32 Urine Bilirubin Negative (NEGATIVE) 10/15/17 00:32 Urine Urobilinogen Normal (NORMAL) 10/15/17 00:32 Ur Leukocyte Esterase Negative (NEGATIVE) 10/15/17 00:32 Urine RBC 0-3 /HPF (NEGATIVE) 10/15/17 00:32 Urine WBC 0-3 /HPF (NEGATIVE) 10/15/17 00:32 Ur Squamous Epith Cells Rare /HPF (NEGATIVE) 10/15/17 00:32 Urine Bacteria Negative /HPF (NEGATIVE) 10/15/17 00:32 Ur Culture Indicated? No/not indicated 01/12/18 00:32 Theophylline 8.8 ug/mL (10-20) L 10/13/17 07:42 - Plan (1) Intractable vomiting with nausea Status: Acute Qualifiers: Vomiting type: unspecified Qualified Code(s): R11.2 - Nausea with vomiting , unspecified Plan: continue phenergan 12.5mg iv q6h prn, continue zofran 40mg iv q6h prn (2) Gastritis Status: Acute Qualifiers: Gastritis type: unspecified gastritis Chronicity: acute Gastritis bleeding: without bleeding Qualified Code(s): K29.00 - Acute gastritis without bleeding Plan: pepcid 20mg iv bid prn, prilosec 20mg po daily, phenergan 12.5mg iv q6h prn, zofran 40mg iv q6h prn, normal saline @ 100ml/hr, continue to monitor labs (3) Bronchitis Status: Acute Plan: continue duonebs, continue mucinex, continue to monitor labs and chest xray (4) COPD (chronic obstructive pulmonary disease) Status: Chronic Qualifiers: COPD type: COPD with acute exacerbation Qualified Code(s): J44.1 - Chronic obstructive pulmonary disease with (acute) exacerbation Plan: continue spiriva, continue theophylline, continue advair, continue daliresp, continue to monitor
== END 2017-10-15 10:30 | disposition home or self-care (01) | DRG 392 ==
LOC: ER 06:54 → OBS 11:16
PROVIDERS: ADMIT Internal Medicine; ATTEND Internal Medicine
DX: R11.2 Nausea with vomiting, unspecified (principal); J44.1 Chronic obstructive pulmonary disease with (acute) exacerbation; K29.00 Acute gastritis without bleeding; J20.8 Acute bronchitis due to other specified organisms; K52.89 Other specified noninfective gastroenteritis and colitis; R06.02 Shortness of breath; K21.9 Gastro-esophageal reflux disease without esophagitis; I10 Essential (primary) hypertension; R53.1 Weakness; R53.83 Other fatigue
CPT/HCPCS: 36415; 74022; 80053; 80198; 81001; 82150; 83690; 83735; 85025; 94640; 94760; 96365; 96374; 99282; 99284; A4222; S0028; G0378; J2405; J2550; J7620; J7626

== ENCOUNTER → 2017-11-01 | Outpatient (CLI) | payer OTHER ==
[2017-04-03 16:28] VITALS: BP 169/89
--- NOTE | 2017-11-02 16:04 | CT ---
HISTORY: Lung nodule. Study: CT chest without contrast. Comparison: Chest radiograph dated 10/13/2017. CT abdomen pelvis dated 04/02/2017. Technique: Multiple axial images of the chest were obtained from the thoracic inlet to the upper abdo men without the administration of IV contrast. Findings: The thyroid is grossly unremarkable. There is no axillary, mediastinal or hilar lymphadenop athy based on size criteria. There are calcifications of the nonaneurysmal thoracic aorta and coronar y arteries. The heart is normal in size without pericardial effusion. Included portions of the upper abdomen demonstrate the gallbladder to be surgically absent, but are otherwise grossly unremarkable i n their noncontrast CT appearance. There is a chronic appearing compression deformity of the superior endplate of the T3 vertebral body with less than 10% loss of vertebral body height. Evaluation of th e lung parenchyma demonstrates centrilobular emphysematous changes throughout both lungs. There is a 2 mm subpleural granuloma in the left upper lobe. There is nonspecific pleural thickening and subjace nt scarring within the lingula. There is pleural thickening and atelectasis in the left lung base. Fo cris pleural thickening is noted within the mesial aspect of right middle lobe as well (image 47 serie s 4). There are several tiny calcified granulomas in the right lung. IMPRESSION: Unchanged nonspecific pleural thickening involving the lingula, left lower lobe and right middle lobe superimposed on a background of centrilobular emphysematous change. Follow-up chest CT in 6 months i s suggested to evaluate for continued stability. Tiny bilateral granulomas without a suspicious pulmonary nodule evident. Reported By:
== END ==
LOC: RAD 13:37
PROVIDERS: ATTEND Internal Medicine Sleep Medicine
DX: R91.1 Solitary pulmonary nodule (principal)
CPT/HCPCS: 71250

== ENCOUNTER 2018-03-31 10:56 | Inpatient (IN) ==
[2018-03-31] MEDS ORDERED: NS 1/2 1000 ML IV 1,000 ML IV ONE ×2 (11:08→23:13)
[2018-03-31] MEDS ORDERED: DUONEB 0.5 MG/3 MG ONE (11:09)
--- NOTE | 2018-03-31 11:18 | DR.SOBA ---
HPI - Time Seen Time seen: 11:15 - Primary Care Physician Primary Care Physician: CEDRICK VALERA - HPI Comment HPI Comment: GETTING WORSE. PATIENT HAVE COPD ON 2L/MIN OXYGEN. TODAY DUE TO SEE PULMOLOGIST BUT GOT POSTPOND. INCREASE OXYGEN TO 3L BUT DID NOT IMPROVE SOB. - Complaints Chief Complaint Doctors Comments: INCREASING SOB, CHEST PAIN, WEAKNESS AND FEVER TIMES 2 WEEKS. 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 CANCELLED IT ,,,, PT IS SOB WHILE SITTING IN TRIAGE AND WHILE TALKING, PTS LUNGS ARE DEMINISHED AND PT DOES NOT HAVE ALOT OF AIR MOVING,, BR - Reviewed Nurses Notes Reviewed: Yes - Source History Provided: Patient, Family Member - Mode of Arrival Mode of Arrival: Wheelchair - Timing Onset of Chief Complaint: 03/17/18 - Duration Duration: Weeks - Context Onset:: At Rest PE Risk Factors:: None History of:: COPD Prehospital Care:: O2, Inhaled B2 - Associated Signs and Symptoms Associated Signs and Symptoms: Fever, Wheeze, Cough, Chest Pain - If Chest Pain Quality: Pleuritic, Other (TIGHTNESS.) Location: Right Upper Chest, Right Lower Chest, Left Upper Chest, Left Lower Chest - If Cough Cough: Productive, Yellow PMH - PMH Past Medical History: Yes Past Medical History: Arthritis, COPD, GERD, Hypertension Past Surgical History: Yes Surgical History: Abdominal Surgery, Cholecystectomy, 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 - Family History History of Family Medical Conditions: Yes Family Medical History: Diabetes Mellitus, Cancer, [place], Coronary Artery Disease, Hypertension - Social History Does patient currently use any type of tobacco product: No Have you used tobacco products in the last 12 months: No Type of Tobacco Use: None Does any household member use tobacco: No Alcohol Use: None Do you use any recreational Drugs:: No Lives Where: Home - infectious screening In the last 2 months have you had wt loss of >10#?: NO Have you had fever, night sweats or hemotysis?: No Have you traveled outside the country in the last 6 months?: No Isolation: Standard ROS - Review of Systems Constitutional: Fever, Malaise, Weakness, Fatigue. negative: Chills Eyes: negative: Eye Pain, Discharge ENTM: Nose Discharge, Nose Congestion. negative: Ear Pain, Throat Pain Respiratoy: Productive Cough, Short of Breath, Wheezing. negative: Hemoptysis Cardiovascular: Chest Pain Gastrointestinal/Abdominal: No Symptoms Reported Genitourinary: No Symptoms Reported Neurological: Headache, Weakness, Dizziness Musculoskeletal: Muscle Pain Integumentary: No Symptoms Reported Hematologic/Lymphatic: Easy Bleeding, Easy Bruising Endocrine: No Symptoms Reported All Other Systems: Reviewed and Negative PE - General Limitations: No Limitations General Appearance: Alert - Head Head Exam: Normal Inspection - Eyes Eye exam: Normal Appearance - ENT ENT Exam: Normal External Ear Exam - Neck Neck Exam: Trachea Midline - Chest Chest Inspection: Symmetric Chest Wall Rise - Respiratory Respiratory Exam: Normal Lung Sounds Bilat Respiratory Exam: Bilateral Wheezing, Bilateral Rhonchi, Right Wheezing, Right Rhonchi, Upper Wheezing, Upper Rhonchi, Lower Wheezing, Lower Rhonchi - Cardiovascular Cardiovascular Exam: Regular Rate, Normal Rhythm, Normal Heart Sounds - Abdominal Exam Abdominal Exam: Normal Bowel Sounds, Soft. negative: Tenderness - Extremities Extremities Exam: Normal Inspection - Back Back Exam: Normal Inspection - Neurologic Neurological Exam: Alert, Oriented X3, CN II-XII Intact. negative: Motor Sensory Deficit - Psychiatric Psychiatric Exam: Anxious - Skin Skin Exam: Normal Color - Vital Signs Vitals: Temperature 99.6 F Pulse Rate 114 Respiratory Rate 24 Blood Pressure [Left Arm] 137/73 Blood Pressure [Right Arm] 169/89 Blood Pressure 120/57 O2 Sat by Pulse Oximetry 96 MDM - Additional Information Obtained Additional Information Obtained From: Family - Differential Diagnosis Differential Diagnosis: Bronchitis, CHF, COPD, Mycardial Infarction, Pneumonia, Pneumothorax, Respiratory Failure Course - Treatment Treatment: NEB TREATMENT AND IV ANTIBIOTIC IN ED. - Reevaluation 1st: Improved - Consultation Consultation Comments: DISCUSS PATIENT WITH DR. PHILIP. HE WILL ADMIT PATIENT. - Education/Counseling Education/Counseling: Patient, Family, Education Educated On: Treatment, Diagnosis, Needs for Follow Up ROR - Labs Reviewed Laboratory Results Reviewed?: Yes Result Diagrams: 03/31/18 11:30 03/31/18 11:30 - XRAY XRAY Interpreted by: Radiologist XRAY Findings: REPORT DISCUSS WITH PATIENT AND HER . - EKG Rhythm: NSR (EKG NOTED) - Labs Reviewed Laboratory: 03/31/18 12:05 Sputum - Expectorated Sputum - Final WBC 22.3 X10^3/uL (3.6-10.0) H 03/31/18 11:30 RBC 5.12 X10^6/uL (3.5-5.4) 03/31/18 11:30 Hgb 13.1 g/dL (12.0-16.0) 03/31/18 11:30 Hct 39.9 % (36.0-47.0) 03/31/18 11:30 MCV 77.9 fL (80.0-100.0) L 03/31/18 11:30 MCH 25.6 pg (27.0-34.0) L 03/31/18 11:30 MCHC 32.9 g/dL (33.0-35.0) L 03/31/18 11:30 RDW 17.7 % (11.6-16.5) H 03/31/18 11:30 Plt Count 504 X10^3/uL (150.0-450.0) H 03/31/18 11:30 Plt Count Comment Increased (ADEQUATE) A 03/31/18 11:30 MPV 8.0 fL (7.4-11.0) 03/31/18 11:30 Neut % (Auto) 82.5 % (42.0-75.0) H 03/31/18 11:30 Lymph % (Auto) 7.2 % (21.0-51.0) L 03/31/18 11:30 [place] % (Auto) 9.1 % (0.0-13.0) 03/31/18 11:30 Eos % (Auto) 0.7 % (0.9-2.9) L 03/31/18 11:30 Baso % (Auto) 0.5 % (0.2-1.0) 03/31/18 11:30 Neut # (Auto) 18.4 x10^3/uL (2.2-4.8) H 03/31/18 11:30 Lymph # (Auto) 1.6 X10^3/uL (1.3-2.9) 03/31/18 11:30 [place] # (Auto) 2.0 x10^3/uL (0.3-0.8) H 03/31/18 11:30 Eos # (Auto) 0.2 x10^3/uL (0.0-0.2) 03/31/18 11:30 Baso # (Auto) 0.1 X10^3/uL (0.0-0.1) 03/31/18 11:30 Absolute Nucleated RBC 0.0 /100WBC 03/31/18 11:30 Total Counted 100 03/31/18 11:30 Neutrophils % (Manual) 84 % (39-76) H 03/31/18 11:30 Band Neutrophils % 5 % (0-10) 03/31/18 11:30 Lymphocytes % (Manual) 8 % (13-43) L 03/31/18 11:30 Monocytes % (Manual) 3 % (4-9) L 03/31/18 11:30 Plt Morphology Comment Normal (NORMAL) 03/31/18 11:30 RBC Morphology Normal (NORMAL) 03/31/18 11:30 Sample Site Lra 03/31/18 12:05 ABG pH 7.490 (7.35-7.45) H 03/31/18 12:05 ABG pCO2 35.0 mmHg (35.0-45.0) 03/31/18 12:05 ABG pO2 61.0 mmHg (80.0-100.0) L 03/31/18 12:05 ABG HCO3 26.7 mmol/L (22-26) H 03/31/18 12:05 ABG O2 Saturation 93.0 % (90-100) 03/31/18 12:05 ABG Base Excess 3.5 mmol/L (-2.0-2.0) H 03/31/18 12:05 Earle Test Pos 03/31/18 12:05 A-a Gradient 95.0 mmHg 03/31/18 12:05 FiO2 28.000 03/31/18 12:05 Blood Gas Comments Andre well cs 03/31/18 12:05 Sodium 135 mmol/L (136-145) L 03/31/18 11:30 Corrected Sodium 136 mmol/L (136-145) 03/31/18 11:30 Potassium 4.0 mmol/L (3.5-5.1) 03/31/18 11:30 Chloride 98 mmol/L (98-107) 03/31/18 11:30 Carbon Dioxide 27.6 mmol/L (21-32) 03/31/18 11:30 BUN 6 mg/dL (7-18) L 03/31/18 11:30 Creatinine 0.76 mg/dL (0.55-1.02) 03/31/18 11:30 Est GFR (MDRD) Af Amer > 60 (>60) 03/31/18 11:30 Est GFR (MDRD) Non-Af > 60 (>60) 03/31/18 11:30 Glucose 143 mg/dL (65-99) H 03/31/18 11:30 Lactic Acid 1.1 mmol/L (0.4-2.0) 03/31/18 11:30 Calcium 10.2 mg/dL (8.5-10.1) H 03/31/18 11:30 Corrected Calcium 11.4 mg/dL (8.5-10.1) H 03/31/18 11:30 Total Bilirubin 0.40 mg/dL (0.2-1.0) 03/31/18 11:30 AST 12 Units/L (15-37) L 03/31/18 11:30 ALT 11 Units/L (12-78) L 03/31/18 11:30 Alkaline Phosphatase 192 Units/L (46-116) H 03/31/18 11:30 Total Protein 8.1 g/dL (6.4-8.2) 03/31/18 11:30 Albumin 2.5 g/dL (3.4-5.0) L 03/31/18 11:30 Globulin 5.6 g/dL (2.5-4.5) H 03/31/18 11:30 Albumin/Globulin Ratio 0.4 Ratio (1.1-2.1) L 03/31/18 11:30 - Diagnosis Discharge Problem: COPD with acute exacerbation, Acute bronchitis, Respiratory distress - Discharge Plan Disposition: ADMITTED INPATIENT Condition: Stable
[2018-03-31] MEDS ORDERED: DUONEB 0.5 MG/3 MG NEB ONE (11:29)
[2018-03-31] MEDS ORDERED: SOLU-Medrol 125 MG VIAL IVP ONE (11:46)
[2018-03-31 11:47] LABS: BASOPHILS # (AUTO) 0.1 X10^3/uL (0.0-0.1); BASOPHILS % (AUTO) 0.5 % (0.2-1.0); EOSINOPHILS # (AUTO) 0.2 x10^3/uL (0.0-0.2); EOSINOPHILS % (AUTO) 0.7 % (0.9-2.9); HEMATOCRIT 39.9 % (36.0-47.0); HEMOGLOBIN 13.1 g/dL (12.0-16.0); LYMPHOCYTES # (AUTO) 1.6 X10^3/uL (1.3-2.9); LYMPHOCYTES % (AUTO) 7.2 % (21.0-51.0); MEAN CORPUSCULAR HEMOGLOBIN 25.6 pg (27.0-34.0); MEAN CORPUSCULAR HGB CONC 32.9 g/dL (33.0-35.0); MEAN CORPUSCULAR VOLUME 77.9 fL (80.0-100.0); MONOCYTES % (AUTO) 9.1 % (0.0-13.0); NEUTROPHILS # (AUTO) 18.4 x10^3/uL (2.2-4.8); NEUTROPHILS % (AUTO) 82.5 % (42.0-75.0); PLATELET COUNT 504 X10^3/uL (150.0-450.0); RED BLOOD COUNT 5.12 X10^6/uL (3.5-5.4); RED CELL DISTRIBUTION WIDTH 17.7 % (11.6-16.5); WHITE BLOOD COUNT 22.3 X10^3/uL (3.6-10.0)
[2018-03-31] MEDS ORDERED: TYLENOL 325 MG TAB PO ONE ×2 (11:52→12:01)
[2018-03-31] MEDS ORDERED: SOLU-Medrol 125 MG VIAL ONE (11:52)
--- NOTE | 2018-03-31 11:58 | RAD ---
HISTORY: Shortness of breath Study: Single-view chest Comparison: CT chest done 11/01/2017. Findings: Trachea is midline. Heart size is upper normal with mild aortic uncoiling. There is hyperinflation of the lungs with increased interstitial markings and emphysematous changes present involving the right upper lobe. Findings have the appearance of COPD. No infiltrate, CHF, pleural fluid or pneumothorax is seen. Osseous structures are intact. IMPRESSION: COPD without acute abnormality. Hypertensive configuration. Reported By:
[2018-03-31 11:59] LABS: ALANINE AMINOTRANSFERASE 11 Units/L (12-78); ALBUMIN 2.5 g/dL (3.4-5.0); ALKALINE PHOSPHATASE 192 Units/L (46-116); ASPARTATE AMINO TRANSFERASE 12 Units/L (15-37); BLOOD UREA NITROGEN 6 mg/dL (7-18); CALCIUM 10.2 mg/dL (8.5-10.1); CARBON DIOXIDE 27.6 mmol/L (21-32); CHLORIDE 98 mmol/L (98-107); COR CA(FOR HYPOALB) 11.4 mg/dL (8.5-10.1); COR NA(FOR HYPERGLY) 136 mmol/L (136-145); CREATININE 0.76 mg/dL (0.55-1.02); SODIUM 135 mmol/L (136-145); TOTAL PROTEIN 8.1 g/dL (6.4-8.2); eGFR NON BLACK RACES > 60 (>60)
[2018-03-31] MEDS: NS 1/2 1000 ML IV 1,000 ML IV SCH (12:01)
[2018-03-31 12:02] LABS: LACTIC ACID 1.1 mmol/L (0.4-2.0)
[2018-03-31 12:08] LABS: BAND NEUTROPHILS % 5 % (0-10)
[2018-03-31 12:09] LABS: PLATELET MORPHOLOGY COMMENT NORMAL (NORMAL)
[2018-03-31 12:14] LABS: ABG BASE EXCESS 3.5 mmol/L (-2.0-2.0); ABG HCO3 26.7 mmol/L (22-26)
[2018-03-31 12:15] LABS: ABG ALLEN TEST POS
[2018-03-31] MEDS ORDERED: ROCEPHIN 1 GRAM IV PREMIX 1 G/50 ML IV.SOLN. IV ONE (12:49)
[2018-03-31] MEDS ORDERED: ROCEPHIN VIAL 1 GRAM 1 G in NS 100 ML IV + SPIKE MINIBAG* 100 ML IV SCH (13:00)
[2018-03-31] MEDS ORDERED: ZOFRAN INJ 4 MG VIAL ONE (13:45)
[2018-03-31] MEDS ORDERED: ZOFRAN INJ 4 MG VIAL IVP ONE (13:48)
[2018-03-31] MEDS ORDERED: FORTAZ or TAZICEF VIAL INJ 1 G in NS 50 ML IV + SPIKE MINIBAG* 50 ML IV SCH (14:00)
[2018-03-31] MEDS: ZITHROMAX INJ 500 MG VIAL 250 MG in NS 250 ML IV 250 ML IV SCH (14:28)
[2018-03-31] MEDS ORDERED: ZITHROMAX INJ 500 MG VIAL IV ONE (14:29)
[2018-03-31] MEDS ORDERED: NS 250 ML IV 250 ML IV ONE (14:29)
[2018-03-31 16:10] LABS: BILIRUBIN,URINE NEGATIVE (NEGATIVE); BLOOD/HEMOGLOBIN,URINE NEGATIVE (NEGATIVE); GLUCOSE, URINE NEGATIVE (NEGATIVE); KETONES,URINE 1+ (NEGATIVE); LEUKOCYTE ESTERASE ,URINE NEGATIVE (NEGATIVE); NITRITES,URINE NEGATIVE (NEGATIVE); PROTEIN,URINE 1+ (NEGATIVE); UROBILINOGEN,URINE NORMAL (NORMAL)
[2018-03-31 16:11] LABS: APPEARANCE,URINE CLEAR (CLEAR); COLOR,URINE YELLOW (YELLOW)
[2018-03-31] MEDS: DUONEB 0.5 MG/3 MG NEB SCH ×2 (16:15→21:02)
[2018-03-31 16:18] LABS: BACTERIA,URINE NEGATIVE /HPF (NEGATIVE); RBC,URINE 0-2 /HPF (NONE SEEN); SQUAMOUS EPITHELIAL CELL,UR RARE /HPF (NEGATIVE)
[2018-03-31 16:19] VITALS: BMI 30.3
[2018-03-31 16:19] LABS: MUCUS,URINE FEW /HPF (NEGATIVE)
[2018-03-31] MEDS: FORTAZ or TAZICEF VIAL INJ 1 G in NS 100 ML IV + SPIKE MINIBAG* 100 ML IV SCH ×2 (18:00→21:49)
[2018-03-31] MEDS ORDERED: ATARAX TAB 25 MG PO PRN (18:17)
[2018-03-31 18:24] LABS: CKMB % 4.4 % (<4); CREATINE KINASE 23 Units/L (26-192); TROPONIN I < 0.02 ng/mL (0-1.5)
[2018-03-31] MEDS: REQUIP PO SCH (20:03)
[2018-03-31] MEDS: PEPCID TAB 20 MG PO SCH (20:03)
[2018-03-31] MEDS: LIPITOR TAB 40 MG PO SCH (20:03)
[2018-03-31] MEDS: COREG TAB 3.125 MG PO SCH (20:03)
[2018-03-31] MEDS: ROXICODONE TAB 15 MG PO PRN (20:04)
[2018-03-31] MEDS: THEO-DUR TAB 200 MG PO SCH (20:04)
[2018-03-31] MEDS ORDERED: UNIPHYL TAB 400 MG PO SCH (21:00)
[2018-03-31] MEDS: PULMICORT NEB TX 0.5 MG NEB SCH (21:02)
[2018-03-31] MEDS ORDERED: AYR NASAL DROPS PRN (22:54)
[2018-04-01 00:50] LABS: CKMB % 5.4 % (<4); CREATINE KINASE 26 Units/L (26-192); CREATINE KINASE MB 1.4 ng/mL (0-4.0); TROPONIN I < 0.02 ng/mL (0-1.5)
[2018-04-01] MEDS: DUONEB 0.5 MG/3 MG NEB SCH ×6 (01:14→20:10)
[2018-04-01] MEDS: NS 1/2 1000 ML IV 1,000 ML IV SCH ×2 (01:47→18:06)
[2018-04-01] MEDS: PHENERGAN TAB 25 MG PO PRN (02:20)
[2018-04-01 05:24] LABS: BASOPHILS % (AUTO) 0.1 % (0.2-1.0); HEMATOCRIT 33.2 % (36.0-47.0); HEMOGLOBIN 11.1 g/dL (12.0-16.0); LYMPHOCYTES % (AUTO) 6.1 % (21.0-51.0); MEAN CORPUSCULAR HEMOGLOBIN 25.7 pg (27.0-34.0); MEAN CORPUSCULAR HGB CONC 33.5 g/dL (33.0-35.0); MEAN CORPUSCULAR VOLUME 76.9 fL (80.0-100.0); MEAN PLATELET VOLUME 8.3 fL (7.4-11.0); MONOCYTES # (AUTO) 0.6 x10^3/uL (0.3-0.8); MONOCYTES % (AUTO) 3.4 % (0.0-13.0); NEUTROPHILS # (AUTO) 14.6 x10^3/uL (2.2-4.8); NEUTROPHILS % (AUTO) 90.4 % (42.0-75.0); PLATELET COUNT 407 X10^3/uL (150.0-450.0); RED BLOOD COUNT 4.32 X10^6/uL (3.5-5.4); RED CELL DISTRIBUTION WIDTH 17.6 % (11.6-16.5); WHITE BLOOD COUNT 16.2 X10^3/uL (3.6-10.0)
[2018-04-01 05:33] LABS: ALANINE AMINOTRANSFERASE 8 Units/L (12-78); ALBUMIN 1.9 g/dL (3.4-5.0); ALKALINE PHOSPHATASE 155 Units/L (46-116); ASPARTATE AMINO TRANSFERASE 11 Units/L (15-37); BLOOD UREA NITROGEN 8 mg/dL (7-18); CALCIUM 9.7 mg/dL (8.5-10.1); CARBON DIOXIDE 25.8 mmol/L (21-32); CHLORIDE 103 mmol/L (98-107); COR CA(FOR HYPOALB) 11.4 mg/dL (8.5-10.1); COR NA(FOR HYPERGLY) 139 mmol/L (136-145); CREATININE 0.68 mg/dL (0.55-1.02); SODIUM 138 mmol/L (136-145); TOTAL PROTEIN 6.6 g/dL (6.4-8.2); eGFR NON BLACK RACES > 60 (>60)
[2018-04-01] MEDS: FORTAZ or TAZICEF VIAL INJ 1 G in NS 100 ML IV + SPIKE MINIBAG* 100 ML IV SCH ×3 (05:43→21:16)
--- NOTE | 2018-04-01 06:14 | RAD ---
Examination: AP chest history SOB Comparison reference 03/31/2018 Findings: Continued normal heart size with clear lungs and pleural spaces. Impression: No change; no acute findings. Reported By:
[2018-04-01 06:18] LABS: BAND NEUTROPHILS % 3 % (0-10)
[2018-04-01 06:19] LABS: PLATELET MORPHOLOGY COMMENT NORMAL (NORMAL)
[2018-04-01] MEDS: SOLU-Medrol 40 MG VIAL IVP SCH ×2 (08:31→17:08)
[2018-04-01] MEDS: VITAMIN D3 PO SCH (08:31)
[2018-04-01] MEDS: ZITHROMAX INJ 500 MG VIAL 250 MG in NS 250 ML IV 250 ML IV SCH (08:31)
[2018-04-01] MEDS: PriLOSEC PO SCH (08:32)
[2018-04-01] MEDS: CITRACAL + VITAMIN D PO SCH (08:32)
[2018-04-01] MEDS: MICRO K EXTEN CAP 10 MEQ PO SCH (08:32)
[2018-04-01] MEDS: SINGULAIR TAB 10 MG PO SCH (08:33)
[2018-04-01] MEDS: DALIRESP PO SCH (08:33)
[2018-04-01] MEDS: VITAMIN C PO SCH (08:33)
[2018-04-01] MEDS: ZINC SULFATE PO SCH (08:33)
[2018-04-01] MEDS: FOLIC ACID TAB 1 MG PO SCH (08:33)
[2018-04-01] MEDS: COREG TAB 3.125 MG PO SCH ×2 (08:33→20:37)
[2018-04-01] MEDS: THEO-DUR TAB 200 MG PO SCH ×2 (08:34→20:37)
[2018-04-01] MEDS: ROXICODONE TAB 15 MG PO PRN ×3 (08:45→20:41)
[2018-04-01] MEDS ORDERED: TIOTROPIUM BROMIDE IN SCH (09:00)
[2018-04-01] MEDS ORDERED: PATIENT'S HOME MEDICATION (Fluticasone-Salmeterol 1 PUFF) IN SCH (09:00)
[2018-04-01] MEDS: PULMICORT NEB TX 0.5 MG NEB SCH ×2 (09:35→20:10)
[2018-04-01] MEDS ORDERED: TUSSIONEX PENNKINETIC SUSP PO PRN (09:52)
[2018-04-01] MEDS ORDERED: TESSALON PERLES PO PRN (09:52)
[2018-04-01] MEDS: MUCINEX DM PO SCH ×2 (10:43→20:37)
[2018-04-01] MEDS ORDERED: NS 1/2 1000 ML IV 1,000 ML IV ONE (18:02)
[2018-04-01] MEDS: PEPCID TAB 20 MG PO SCH (20:37)
[2018-04-01] MEDS: LIPITOR TAB 40 MG PO SCH (20:37)
[2018-04-01] MEDS: REQUIP PO SCH (20:37)
[2018-04-02] MEDS: DUONEB 0.5 MG/3 MG NEB SCH ×6 (00:25→20:09)
[2018-04-02] MEDS: SOLU-Medrol 40 MG VIAL IVP SCH ×3 (01:35→17:43)
[2018-04-02] MEDS: PHENERGAN TAB 25 MG PO PRN ×2 (02:11→20:06)
[2018-04-02] MEDS: FORTAZ or TAZICEF VIAL INJ 1 G in NS 100 ML IV + SPIKE MINIBAG* 100 ML IV SCH ×3 (05:46→21:05)
[2018-04-02 06:05] LABS: BASOPHILS % (AUTO) 0.1 % (0.2-1.0); HEMATOCRIT 32.9 % (36.0-47.0); LYMPHOCYTES # (AUTO) 1.5 X10^3/uL (1.3-2.9); LYMPHOCYTES % (AUTO) 6.6 % (21.0-51.0); MEAN CORPUSCULAR HEMOGLOBIN 25.7 pg (27.0-34.0); MEAN CORPUSCULAR HGB CONC 33.4 g/dL (33.0-35.0); MEAN CORPUSCULAR VOLUME 77.1 fL (80.0-100.0); MEAN PLATELET VOLUME 8.2 fL (7.4-11.0); MONOCYTES # (AUTO) 0.9 x10^3/uL (0.3-0.8); MONOCYTES % (AUTO) 4.1 % (0.0-13.0); NEUTROPHILS # (AUTO) 19.9 x10^3/uL (2.2-4.8); NEUTROPHILS % (AUTO) 89.2 % (42.0-75.0); PLATELET COUNT 488 X10^3/uL (150.0-450.0); RED BLOOD COUNT 4.27 X10^6/uL (3.5-5.4); RED CELL DISTRIBUTION WIDTH 17.5 % (11.6-16.5); WHITE BLOOD COUNT 22.3 X10^3/uL (3.6-10.0)
[2018-04-02 06:24] LABS: ALANINE AMINOTRANSFERASE 10 Units/L (12-78); ALKALINE PHOSPHATASE 139 Units/L (46-116); ASPARTATE AMINO TRANSFERASE 15 Units/L (15-37); BLOOD UREA NITROGEN 9 mg/dL (7-18); CALCIUM 9.7 mg/dL (8.5-10.1); CHLORIDE 105 mmol/L (98-107); COR CA(FOR HYPOALB) 11.3 mg/dL (8.5-10.1); COR NA(FOR HYPERGLY) 140 mmol/L (136-145); CREATININE 0.71 mg/dL (0.55-1.02); SODIUM 139 mmol/L (136-145); TOTAL PROTEIN 6.4 g/dL (6.4-8.2); eGFR NON BLACK RACES > 60 (>60)
[2018-04-02] MEDS: ROXICODONE TAB 15 MG PO PRN ×3 (06:26→20:06)
[2018-04-02 06:29] LABS: PLATELET MORPHOLOGY COMMENT NORMAL (NORMAL)
--- NOTE | 2018-04-02 07:38 | RAD ---
Examination: AP chest History: SOB Comparison reference 04/01/2018 Findings: Continued normal heart size with probably normal lungs and pleural spaces. A diffuse increa se in opacity over the left danielle thorax may be related to rotation or other technical factors. There is no definite pneumothorax or large pleural effusion. Impression: No significant change or acute findings. Reported By:
[2018-04-02] MEDS: ZITHROMAX INJ 500 MG VIAL 250 MG in NS 250 ML IV 250 ML IV SCH (08:20)
[2018-04-02] MEDS: FOLIC ACID TAB 1 MG PO SCH (08:21)
[2018-04-02] MEDS: MICRO K EXTEN CAP 10 MEQ PO SCH (08:21)
[2018-04-02] MEDS: ZINC SULFATE PO SCH (08:21)
[2018-04-02] MEDS: MUCINEX DM PO SCH ×2 (08:21→20:05)
[2018-04-02] MEDS: THEO-DUR TAB 200 MG PO SCH ×2 (08:21→20:06)
[2018-04-02] MEDS: PriLOSEC PO SCH (08:22)
[2018-04-02] MEDS: CITRACAL + VITAMIN D PO SCH (08:22)
[2018-04-02] MEDS: SINGULAIR TAB 10 MG PO SCH (08:22)
[2018-04-02] MEDS: VITAMIN C PO SCH (08:22)
[2018-04-02] MEDS: COREG TAB 3.125 MG PO SCH ×2 (08:22→20:05)
[2018-04-02] MEDS: DALIRESP PO SCH (08:22)
[2018-04-02] MEDS: PULMICORT NEB TX 0.5 MG NEB SCH ×2 (09:15→20:09)
[2018-04-02] MEDS ORDERED: NS 1/2 1000 ML IV 1,000 ML IV ONE (11:51)
[2018-04-02] MEDS: NS 1/2 1000 ML IV 1,000 ML IV SCH ×2 (11:53→19:53)
[2018-04-02] MEDS: VITAMIN D3 PO SCH (13:04)
[2018-04-02] MEDS: PEPCID TAB 20 MG PO SCH (20:05)
[2018-04-02] MEDS: REQUIP PO SCH (20:05)
[2018-04-02] MEDS: LIPITOR TAB 40 MG PO SCH (20:05)
[2018-04-03] MEDS ORDERED: NS 1/2 1000 ML IV 1,000 ML IV ONE ×2 (00:05→16:20)
[2018-04-03] MEDS: DUONEB 0.5 MG/3 MG NEB SCH ×6 (00:25→21:58)
[2018-04-03] MEDS: NS 1/2 1000 ML IV 1,000 ML IV SCH ×4 (00:27→19:32)
[2018-04-03] MEDS: SOLU-Medrol 40 MG VIAL IVP SCH ×3 (00:41→16:30)
[2018-04-03] MEDS: ROXICODONE TAB 15 MG PO PRN ×3 (02:37→18:18)
[2018-04-03] MEDS: FORTAZ or TAZICEF VIAL INJ 1 G in NS 100 ML IV + SPIKE MINIBAG* 100 ML IV SCH ×3 (05:14→22:11)
[2018-04-03 05:23] LABS: HEMATOCRIT 33.9 % (36.0-47.0); HEMOGLOBIN 11.2 g/dL (12.0-16.0); MEAN CORPUSCULAR HEMOGLOBIN 25.6 pg (27.0-34.0); MEAN CORPUSCULAR HGB CONC 33.1 g/dL (33.0-35.0); MEAN CORPUSCULAR VOLUME 77.3 fL (80.0-100.0); RED BLOOD COUNT 4.38 X10^6/uL (3.5-5.4); WHITE BLOOD COUNT 17.8 X10^3/uL (3.6-10.0)
[2018-04-03 05:24] LABS: BASOPHILS % (AUTO) 0.1 % (0.2-1.0); LYMPHOCYTES # (AUTO) 1.3 X10^3/uL (1.3-2.9); LYMPHOCYTES % (AUTO) 7.5 % (21.0-51.0); MEAN PLATELET VOLUME 8.1 fL (7.4-11.0); MONOCYTES # (AUTO) 0.4 x10^3/uL (0.3-0.8); MONOCYTES % (AUTO) 2.2 % (0.0-13.0); NEUTROPHILS % (AUTO) 90.2 % (42.0-75.0); PLATELET COUNT 527 X10^3/uL (150.0-450.0); RED CELL DISTRIBUTION WIDTH 17.7 % (11.6-16.5)
[2018-04-03 05:40] LABS: ALANINE AMINOTRANSFERASE 19 Units/L (12-78); ALBUMIN 2.2 g/dL (3.4-5.0); ALKALINE PHOSPHATASE 139 Units/L (46-116); ASPARTATE AMINO TRANSFERASE 26 Units/L (15-37); BLOOD UREA NITROGEN 11 mg/dL (7-18); CALCIUM 9.7 mg/dL (8.5-10.1); CARBON DIOXIDE 29.8 mmol/L (21-32); CHLORIDE 104 mmol/L (98-107); COR CA(FOR HYPOALB) 11.1 mg/dL (8.5-10.1); COR NA(FOR HYPERGLY) 140 mmol/L (136-145); CREATININE 0.83 mg/dL (0.55-1.02); SODIUM 139 mmol/L (136-145); TOTAL PROTEIN 6.9 g/dL (6.4-8.2); eGFR NON BLACK RACES > 60 (>60)
--- NOTE | 2018-04-03 06:15 | RAD ---
Examination: AP chest History: SOB Comparison reference 04/02/2018 Findings: Continued normal heart size with no evidence for acute developing pulmonary or pleural lesi on. Pulmonary inflation is symmetric and normal. No consolidation, pneumothorax or large pleural effu robel. Impression: No change. Reported By:
[2018-04-03 06:26] LABS: BAND NEUTROPHILS % 3 % (0-10)
[2018-04-03 06:27] LABS: PLATELET MORPHOLOGY COMMENT NORMAL (NORMAL)
[2018-04-03] MEDS: COREG TAB 3.125 MG PO SCH ×2 (08:26→20:42)
[2018-04-03] MEDS: DALIRESP PO SCH (08:26)
[2018-04-03] MEDS: SINGULAIR TAB 10 MG PO SCH (08:26)
[2018-04-03] MEDS: FOLIC ACID TAB 1 MG PO SCH (08:26)
[2018-04-03] MEDS: PriLOSEC PO SCH (08:26)
[2018-04-03] MEDS: ZINC SULFATE PO SCH (08:27)
[2018-04-03] MEDS: MICRO K EXTEN CAP 10 MEQ PO SCH (08:27)
[2018-04-03] MEDS: ZITHROMAX INJ 500 MG VIAL 250 MG in NS 250 ML IV 250 ML IV SCH (08:27)
[2018-04-03] MEDS: VITAMIN C PO SCH (08:27)
[2018-04-03] MEDS: CITRACAL + VITAMIN D PO SCH (08:36)
[2018-04-03] MEDS: THEO-DUR TAB 200 MG PO SCH ×2 (08:36→20:42)
[2018-04-03] MEDS: MUCINEX DM PO SCH ×2 (08:36→20:42)
[2018-04-03] MEDS: PULMICORT NEB TX 0.5 MG NEB SCH ×2 (08:53→21:58)
[2018-04-03] MEDS: VITAMIN D3 PO SCH (11:23)
--- NOTE | 2018-04-03 11:38 | DR.H&P ---
H&P - History & Physical for Day of: H&P Date: 03/31/18 - Chief Complaint Chief Complaint: short of breath, cough - History of Present Illness History of Present Illness: is a 68 year old patient of ours who presented to the emergency room with reports of increasing shortness of breath, chest pain, weakness and fever. Patient reports symptoms started two weeks ago and have progressively gotten worse since. She is noted with shortness of breath at rest and on exertion. She has a medical history significant for COPD and CHF and uses oxygen at home. On arrival to the hospital, vitals were 101.6, 114, 40, 87% 2L NC, 120/57. Labs were obtained. Abnormal lab values include the following: Abnormal Labs: WBC 22.3, MCV 77.9, MCH 25.6, MCHC 32.9, RDW 17.7, Plt Count 504, Sodium 135, BUN 6, Glucose 143, Calcium 10.2, Corrected Calcium 11.4, AST 12, ALT 11, Alk Phos 192, Creatine Kinase 23, Albumin 2.5, Globulin 5.6, A/G Ratio 0.4. Blood Cultures x2 Pending. Sputum Culture Pending; Gram Stain - Gram Pos Cocci Pairs. Chest X-Ray: COPD without acute abnormality. Hypertensive configuration. EKG: Sinus Tachycardia. Gdxy=332. ABG revealed: pH 7.490, pO2 61.0, HCO3 26.7, Base Excess 3.5. Patient noted with a productive cough with thick yellow sputum. On auscultuation of lung lu patient noted with rhonchi and wheezing throughout. Patient admitted to the hospital with acute exacerbation of COPD and respiratory distress. She started on IV antibiotics, IV steroids, and respiratory treatments. We plan to follow up with AM labs and continue to monitor patient. 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, [employer]OD [employer] TE[employer]ER Surgery - Family History Family Medical History: Diabetes Mellitus, Cancer, [place], Coronary Artery Disease, Hypertension - Social History Does patient currently use any type of tobacco product: No Have you used tobacco products in the last 12 months: No Type of Tobacco Use: None Does any household member use tobacco: No Alcohol Use: None Drug Use: None - Medications Home Medications: cefdinir Allergy (Verified 10/13/17 06:55) ciprofloxacin Allergy (Verified 10/13/17 06:55) clarithromycin Allergy (Verified 10/13/17 06:55) clindamycin Allergy (Verified 10/13/17 06:55) doxycycline Allergy (Verified 10/13/17 06:55) erythromycin base Allergy (Verified 10/13/17 06:55) gabapentin [From Neurontin] Allergy (Verified 10/13/17 06:55) levofloxacin [From Levaquin] Allergy (Verified 10/13/17 06:55) nitrofurantoin Allergy (Verified 10/13/17 06:55) Penicillins Allergy (Verified 10/13/17 06:55) phenazopyridine Allergy (Verified 10/13/17 06:55) rifampin Allergy (Verified 10/13/17 06:55) CONTINUE taking the following medications ascorbic acid (vitamin C) [Vitamin C] 1 tab PO DAILY 03/31/18 [History] atorvastatin 1 tab PO HS 03/31/18 [History] calcium citrate-vitamin D3 1 tab PO DAILY 03/31/18 [History] cholecalciferol (vitamin D3) [Vitamin D3] 1 tab PO DAILY 03/31/18 [History] famotidine [Pepcid] 1 tab PO 03/31/18 [History] fluticasone-salmeterol [Advair Diskus] 1 puff INHALATION DAILY 03/31/18 [History ] hydroxyzine HCl 1 tab PO .Q6-8HR PRN 03/31/18 [History] omeprazole magnesium [Prilosec OTC] 1 tab PO DAILY 03/31/18 [History] oxycodone 1 tab PO QID PRN 03/31/18 [History] promethazine 1 tab PO BID PRN 03/31/18 [History] roflumilast [Daliresp] 1 tab PO DAILY 03/31/18 [History] ropinirole 1 tab PO HS 03/31/18 [History] tiotropium bromide [Spiriva with HandiHaler] 1 inh INHALATION DAILY 03/31/18 [ History] zinc 1 tab PO DAILY 03/31/18 [History] - Review of Systems Constitutional: Weakness Eyes: No Symptoms Reported ENT: No Symptoms Reported Respiratory: See HPI, Cough, Shortness of Breath, Sputum, Wheezing Cardiovascular: Chest Pain Gastrointestinal: No Symptoms Reported Genitourinary: No Symptoms Reported Musculoskeletal: No Symptoms Reported Skin: No Symptoms Reported Neurological: Weakness - Physical Exam Vital Signs: Temperature 98.9 F Pulse Rate [Left Brachial] 102 Pulse Rate 113 Respiratory Rate 20 Blood Pressure [Left Arm] 124/79 Blood Pressure [Right Arm] 134/86 Blood Pressure 120/57 O2 Sat by Pulse Oximetry 97 Oriented: Normal Eyes: Normal Ear: Normal Nose: Normal Throat: Normal Respiratory: Rhonchi Throughout, Wheezes Throughout Cardiovascular: Normal : Normal Auscultation: Bowel Sounds: Normal Palpation: Normal Tenderness: Normal Skin: Normal Musculoskeletal: Normal Psychiatric: Normal Mood Description: Calm Affect: Normal Speech Pattern: Clear - Assessment/Plan (1) COPD with acute exacerbation Status: Acute Plan: admit, solumedrol iv q8h, respiratory treatments, supplemental oxygen, continue to monitor (2) Bronchopneumonia Status: Acute Plan: iv antibiotics, respiratory treatments, supplemental oxygen, continue to monitor - Allergies Allergies/Adverse Reactions: Allergies Allergy/AdvReac Type Severity Reaction Status Date / Time cefdinir Allergy Verified 10/13/17 06:55 ciprofloxacin Allergy Verified 10/13/17 06:55 clarithromycin Allergy Verified 10/13/17 06:55 clindamycin Allergy Verified 10/13/17 06:55 doxycycline Allergy Verified 10/13/17 06:55 erythromycin base Allergy Verified 10/13/17 06:55 gabapentin [From Neurontin] Allergy Verified 10/13/17 06:55 levofloxacin [From Levaquin] Allergy Verified 10/13/17 06:55 nitrofurantoin Allergy Verified 10/13/17 06:55 Penicillins Allergy Verified 10/13/17 06:55 phenazopyridine Allergy Verified 10/13/17 06:55 rifampin Allergy Verified 10/13/17 06:55
--- NOTE | 2018-04-03 11:45 | PCM.PROG ---
Progress Note - Progress Note for Day of Date of Exam: 04/01/18 - Subjective Subjective: WAS ADMITTED FOR AN ACUTE COPD EXACERBATION AND BRONCHOPNEUMONIA. TODAY, SHE IS ALERT AND ORIENTED, LYING IN BED ON MORNING ROUNDS. SHE CONTINUE WITH COMPLAINTS OF SHORTNESS OF BREATH AND COUGH. ON EXAMINATION, SHE IS NOTED TO BE TACHYCARDIC WITH HR 125. BILATERAL LUNGS CONTINUE WITH SCATTERED WHEEZING AND RHONCHI THROUGHOUT. ABDOMEN IS ROUND, SOFT , AND NON-TENDER WITH NORMAL BOWEL SOUNDS NOTED IN ALL QUADRANTS. HER VITALS TODAY ARE 98.3-125-28-95% NC, 152/69. LABS WERE OBTAINED. ABNORMAL LAB VALUES INCLUDE THE FOLLOWING: WBC 16.2, HGB 11.1, HCT 33.2, GLUCOSE 158, AST 11, ALT 8 , GLUCOSE 155, ALBUMIN 1.9. CARDIAC ENZYMES AND EKGS WITHIN NORMAL LIMITS. BLOOD AND SPUTUM CULTURES ARE PENDING. TODAYS CHEST XRAY REPORTS NO CHANGE. TODAY, WE WILL START TUSSIONEX 5ML Q12H PRN, TESSALON PERLES TWO CAPSULES EVERY 8 HOURS PRN, AND MUCINEX BID. OTHERWISE, WE WILL CONTINUE WITH IV ANTIBIOTICS, RESPIRATORY TREATMENTS, AND CURRENT PLAN OF CARE. WE WILL FOLLOW UP WITH AM LABS AND CONTINUE TO MONITOR PATIENT. - Past Medical Family Social History Past Med/Fam/Surg Hx: No changes since H&P Allergies: Allergies cefdinir Allergy (Verified 10/13/17 06:55) ciprofloxacin Allergy (Verified 10/13/17 06:55) clarithromycin Allergy (Verified 10/13/17 06:55) clindamycin Allergy (Verified 10/13/17 06:55) doxycycline Allergy (Verified 10/13/17 06:55) erythromycin base Allergy (Verified 10/13/17 06:55) gabapentin [From Neurontin] Allergy (Verified 10/13/17 06:55) levofloxacin [From Levaquin] Allergy (Verified 10/13/17 06:55) nitrofurantoin Allergy (Verified 10/13/17 06:55) Penicillins Allergy (Verified 10/13/17 06:55) phenazopyridine Allergy (Verified 10/13/17 06:55) rifampin Allergy (Verified 10/13/17 06:55) - Review of Systems ROS: No change since H&P - Vital Signs and I&O's Vital Signs: Temperature 98.9 F Pulse Rate [Left Brachial] 102 Pulse Rate 113 Respiratory Rate 20 Blood Pressure [Left Arm] 124/79 Blood Pressure [Right Arm] 134/86 Blood Pressure 120/57 O2 Sat by Pulse Oximetry 97 Intake and Output: Intake & Output 03/31/18 04/01/18 04/02/18 04/03/18 11:59 11:59 11:59 11:59 Intake Total 1852 / 1852 3450 / 3450 3927 / 3927 Output Total 1700 / 1700 1400 / 1400 800 / 800 Balance 152 / 152 2050 / 2050 3127 / 3127 - Physical Exam Oriented: Normal Eyes: Normal Ear: Normal Nose: Normal Throat: Normal Respiratory: Generalized, Wheezes, Rhonchi Cardiovascular: Tachycardia : Normal Auscultation: Bowel Sounds: Normal Palpation: Normal Tenderness: Normal Skin: Normal Musculoskeletal: Normal Psychiatric: Normal Mood Description: Calm Affect: Normal Speech Pattern: Clear - Laboratory and Diagnostics Result Diagrams: 04/03/18 05:00 04/03/18 05:00 Labs: 03/31/18 12:05 Sputum - Expectorated Sputum Sputum Culture - Preliminary Klebsiella Pneumoniae 03/31/18 12:05 Sputum - Expectorated Sputum - Final 03/31/18 11:20 Blood Blood Culture - Preliminary 03/31/18 11:30 Blood Blood Culture - Preliminary Laboratory WBC 17.8 X10^3/uL (3.6-10.0) H 04/03/18 05:00 RBC 4.38 X10^6/uL (3.5-5.4) 04/03/18 05:00 Hgb 11.2 g/dL (12.0-16.0) L 04/03/18 05:00 Hct 33.9 % (36.0-47.0) L 04/03/18 05:00 MCV 77.3 fL (80.0-100.0) L 04/03/18 05:00 MCH 25.6 pg (27.0-34.0) L 04/03/18 05:00 MCHC 33.1 g/dL (33.0-35.0) 04/03/18 05:00 RDW 17.7 % (11.6-16.5) H 04/03/18 05:00 Plt Count 527 X10^3/uL (150.0-450.0) H 04/03/18 05:00 Plt Count Comment Adequate (ADEQUATE) 04/03/18 05:00 MPV 8.1 fL (7.4-11.0) 04/03/18 05:00 Neut % (Auto) 90.2 % (42.0-75.0) H 04/03/18 05:00 Lymph % (Auto) 7.5 % (21.0-51.0) L 04/03/18 05:00 [place] % (Auto) 2.2 % (0.0-13.0) 04/03/18 05:00 Eos % (Auto) 0.0 % (0.9-2.9) L 04/03/18 05:00 Baso % (Auto) 0.1 % (0.2-1.0) L 04/03/18 05:00 Neut # (Auto) 16.0 x10^3/uL (2.2-4.8) H 04/03/18 05:00 Lymph # (Auto) 1.3 X10^3/uL (1.3-2.9) 04/03/18 05:00 [place] # (Auto) 0.4 x10^3/uL (0.3-0.8) 04/03/18 05:00 Eos # (Auto) 0.0 x10^3/uL (0.0-0.2) 04/03/18 05:00 Baso # (Auto) 0.0 X10^3/uL (0.0-0.1) 04/03/18 05:00 Absolute Nucleated RBC 0.0 /100WBC 04/03/18 05:00 Total Counted 100 04/03/18 05:00 Neutrophils % (Manual) 84 % (39-76) H 04/03/18 05:00 Band Neutrophils % 3 % (0-10) 04/03/18 05:00 Lymphocytes % (Manual) 13 % (13-43) 04/03/18 05:00 Monocytes % (Manual) 4 % (4-9) 04/02/18 05:28 Plt Morphology Comment Normal (NORMAL) 04/03/18 05:00 RBC Morphology Normal (NORMAL) 04/03/18 05:00 Sample Site Lra 03/31/18 12:05 ABG pH 7.490 (7.35-7.45) H 03/31/18 12:05 ABG pCO2 35.0 mmHg (35.0-45.0) 03/31/18 12:05 ABG pO2 61.0 mmHg (80.0-100.0) L 03/31/18 12:05 ABG HCO3 26.7 mmol/L (22-26) H 03/31/18 12:05 ABG O2 Saturation 93.0 % (90-100) 03/31/18 12:05 ABG Base Excess 3.5 mmol/L (-2.0-2.0) H 03/31/18 12:05 Earle Test Pos 03/31/18 12:05 A-a Gradient 95.0 mmHg 03/31/18 12:05 FiO2 28.000 03/31/18 12:05 Blood Gas Comments Andre well cs 03/31/18 12:05 Sodium 139 mmol/L (136-145) 04/03/18 05:00 Corrected Sodium 140 mmol/L (136-145) 04/03/18 05:00 Potassium 4.7 mmol/L (3.5-5.1) 04/03/18 05:00 Chloride 104 mmol/L (98-107) 04/03/18 05:00 Carbon Dioxide 29.8 mmol/L (21-32) 04/03/18 05:00 BUN 11 mg/dL (7-18) 04/03/18 05:00 Creatinine 0.83 mg/dL (0.55-1.02) 04/03/18 05:00 Est GFR (MDRD) Af Amer > 60 (>60) 04/03/18 05:00 Est GFR (MDRD) Non-Af > 60 (>60) 04/03/18 05:00 Glucose 135 mg/dL (65-99) H 04/03/18 05:00 Lactic Acid 1.1 mmol/L (0.4-2.0) 03/31/18 11:30 Calcium 9.7 mg/dL (8.5-10.1) 04/03/18 05:00 Corrected Calcium 11.1 mg/dL (8.5-10.1) H 04/03/18 05:00 Magnesium 2.0 mg/dL (1.7-2.9) 04/01/18 04:31 Total Bilirubin 0.20 mg/dL (0.2-1.0) 04/03/18 05:00 AST 26 Units/L (15-37) 04/03/18 05:00 ALT 19 Units/L (12-78) 04/03/18 05:00 Alkaline Phosphatase 139 Units/L (46-116) H 04/03/18 05:00 Creatine Kinase 26 Units/L (26-192) 04/01/18 00:14 CK-MB (CK-2) 1.4 ng/mL (0-4.0) 04/01/18 00:14 CK/CKMB % Calc 5.4 % (<4) 04/01/18 00:14 Troponin I < 0.02 ng/mL (0-1.5) 04/01/18 00:14 Total Protein 6.9 g/dL (6.4-8.2) 04/03/18 05:00 Albumin 2.2 g/dL (3.4-5.0) L 04/03/18 05:00 Globulin 4.7 g/dL (2.5-4.5) H 04/03/18 05:00 Albumin/Globulin Ratio 0.5 Ratio (1.1-2.1) L 04/03/18 05:00 Specimen Type Random urine 03/31/18 16:03 Urine Color Yellow (YELLOW) 03/31/18 16:03 Urine Appearance Clear (CLEAR) 03/31/18 16:03 Urine pH 7.0 (5.0 - 8.0) 03/31/18 16:03 Ur Specific [place] 1.005 (1.000-1.030) 03/31/18 16:03 Urine Protein 1+ (NEGATIVE) 03/31/18 16:03 Urine Glucose (UA) Negative (NEGATIVE) 03/31/18 16:03 Urine Ketones 1+ (NEGATIVE) 03/31/18 16:03 Urine Occult Blood Negative (NEGATIVE) 03/31/18 16:03 Urine Nitrite Negative (NEGATIVE) 03/31/18 16:03 Urine Bilirubin Negative (NEGATIVE) 03/31/18 16:03 Urine Urobilinogen Normal (NORMAL) 03/31/18 16:03 Ur Leukocyte Esterase Negative (NEGATIVE) 03/31/18 16:03 Urine RBC 0-2 /HPF (NONE SEEN) 03/31/18 16:03 Urine WBC 0-2 /HPF (NONE SEEN) 03/31/18 16:03 Ur Squamous Epith Cells Rare /HPF (NEGATIVE) 03/31/18 16:03 Urine Bacteria Negative /HPF (NEGATIVE) 03/31/18 16:03 Urine Mucus Few /HPF (NEGATIVE) 03/31/18 16:03 Ur Culture Indicated? No/not indicated 03/31/18 16:03 - Plan (1) COPD with acute exacerbation Status: Acute Plan: admit, solumedrol iv q8h, respiratory treatments, supplemental oxygen, continue to monitor (2) Bronchopneumonia Status: Acute Plan: TESSALON PERLES, TUSSIONEX, MUCINEX, iv antibiotics, respiratory treatments, supplemental oxygen, continue to monitor
--- NOTE | 2018-04-03 12:08 | PCM.PROG ---
Progress Note - Progress Note for Day of Date of Exam: 04/02/18 - Subjective Subjective: WAS ADMITTED FOR AN ACUTE COPD EXACERBATION AND BRONCHOPNEUMONIA. TODAY, SHE IS ALERT AND ORIENTED, LYING IN BED ON MORNING ROUNDS. SHE CONTINUE WITH COMPLAINTS OF SHORTNESS OF BREATH AND A PRODUCTIVE COUGH. ON EXAMINATION, SHE CONTINUES TO BE TACHYCARDIC WITH HR 110. WOMEN SPECIALIST REVEALS SINUS TACHYCARDIA. BILATERAL LUNGS CONTINUE WITH SCATTERED WHEEZING AND RHONCHI THROUGHOUT. ABDOMEN IS ROUND, SOFT, AND NON-TENDER WITH NORMAL BOWEL SOUNDS NOTED IN ALL QUADRANTS. HER VITALS TODAY ARE 98.4-94-23-96%- 140/77. LABS WERE OBTAINED. ABNORMAL LAB VALUES INCLUDE THE FOLLOWING: WBC INCREASED TO 22.3, HGB 11.0, HCT 32.9, GLUCOSE 134, ALT 10, ALK PHOS 139, ALBUMIN 2.0. BLOOD AND SPUTUM CULTURES ARE PENDING. TODAYS CHEST XRAY REPORTS A DIFFUSE INCREASE IN OPACITY OVER THE LEFT FIONA THORAX. OTHERWISE, NO CHANGE. TODAY, WE WILL CONTINUE WITH IV ANTIBIOTICS, RESPIRATORY TREATMENTS, AND CURRENT PLAN OF CARE. WE WILL FOLLOW UP WITH AM LABS AND CONTINUE TO MONITOR PATIENT. - Past Medical Family Social History Past Med/Fam/Surg Hx: No changes since H&P Allergies: Allergies cefdinir Allergy (Verified 10/13/17 06:55) ciprofloxacin Allergy (Verified 10/13/17 06:55) clarithromycin Allergy (Verified 10/13/17 06:55) clindamycin Allergy (Verified 10/13/17 06:55) doxycycline Allergy (Verified 10/13/17 06:55) erythromycin base Allergy (Verified 10/13/17 06:55) gabapentin [From Neurontin] Allergy (Verified 10/13/17 06:55) levofloxacin [From Levaquin] Allergy (Verified 10/13/17 06:55) nitrofurantoin Allergy (Verified 10/13/17 06:55) Penicillins Allergy (Verified 10/13/17 06:55) phenazopyridine Allergy (Verified 10/13/17 06:55) rifampin Allergy (Verified 10/13/17 06:55) - Review of Systems ROS: No change since H&P - Vital Signs and I&O's Vital Signs: Temperature 98.9 F Pulse Rate [Left Brachial] 102 Pulse Rate 113 Respiratory Rate 20 Blood Pressure [Left Arm] 124/79 Blood Pressure [Right Arm] 134/86 Blood Pressure 120/57 O2 Sat by Pulse Oximetry 97 Intake and Output: Intake & Output 04/01/18 04/02/18 04/03/18 04/04/18 11:59 11:59 11:59 11:59 Intake Total 1852 / 1852 3450 / 3450 3927 / 3927 Output Total 1700 / 1700 1400 / 1400 800 / 800 Balance 152 / 152 2050 / 2050 3127 / 3127 - Physical Exam Oriented: Normal Eyes: Normal Ear: Normal Nose: Normal Throat: Normal Respiratory: Generalized, Wheezes, Rhonchi Cardiovascular: Tachycardia : Normal Auscultation: Bowel Sounds: Normal Palpation: Normal Tenderness: Normal Skin: Normal Musculoskeletal: Normal Psychiatric: Normal Mood Description: Calm Affect: Normal Speech Pattern: Clear - Laboratory and Diagnostics Result Diagrams: 04/03/18 05:00 04/03/18 05:00 Labs: 03/31/18 12:05 Sputum - Expectorated Sputum Sputum Culture - Preliminary Klebsiella Pneumoniae 03/31/18 12:05 Sputum - Expectorated Sputum - Final 03/31/18 11:20 Blood Blood Culture - Preliminary 03/31/18 11:30 Blood Blood Culture - Preliminary Laboratory WBC 17.8 X10^3/uL (3.6-10.0) H 04/03/18 05:00 RBC 4.38 X10^6/uL (3.5-5.4) 04/03/18 05:00 Hgb 11.2 g/dL (12.0-16.0) L 04/03/18 05:00 Hct 33.9 % (36.0-47.0) L 04/03/18 05:00 MCV 77.3 fL (80.0-100.0) L 04/03/18 05:00 MCH 25.6 pg (27.0-34.0) L 04/03/18 05:00 MCHC 33.1 g/dL (33.0-35.0) 04/03/18 05:00 RDW 17.7 % (11.6-16.5) H 04/03/18 05:00 Plt Count 527 X10^3/uL (150.0-450.0) H 04/03/18 05:00 Plt Count Comment Adequate (ADEQUATE) 04/03/18 05:00 MPV 8.1 fL (7.4-11.0) 04/03/18 05:00 Neut % (Auto) 90.2 % (42.0-75.0) H 04/03/18 05:00 Lymph % (Auto) 7.5 % (21.0-51.0) L 04/03/18 05:00 [place] % (Auto) 2.2 % (0.0-13.0) 04/03/18 05:00 Eos % (Auto) 0.0 % (0.9-2.9) L 04/03/18 05:00 Baso % (Auto) 0.1 % (0.2-1.0) L 04/03/18 05:00 Neut # (Auto) 16.0 x10^3/uL (2.2-4.8) H 04/03/18 05:00 Lymph # (Auto) 1.3 X10^3/uL (1.3-2.9) 04/03/18 05:00 [place] # (Auto) 0.4 x10^3/uL (0.3-0.8) 04/03/18 05:00 Eos # (Auto) 0.0 x10^3/uL (0.0-0.2) 04/03/18 05:00 Baso # (Auto) 0.0 X10^3/uL (0.0-0.1) 04/03/18 05:00 Absolute Nucleated RBC 0.0 /100WBC 04/03/18 05:00 Total Counted 100 04/03/18 05:00 Neutrophils % (Manual) 84 % (39-76) H 04/03/18 05:00 Band Neutrophils % 3 % (0-10) 04/03/18 05:00 Lymphocytes % (Manual) 13 % (13-43) 04/03/18 05:00 Monocytes % (Manual) 4 % (4-9) 04/02/18 05:28 Plt Morphology Comment Normal (NORMAL) 04/03/18 05:00 RBC Morphology Normal (NORMAL) 04/03/18 05:00 Sample Site a 03/31/18 12:05 ABG pH 7.490 (7.35-7.45) H 03/31/18 12:05 ABG pCO2 35.0 mmHg (35.0-45.0) 03/31/18 12:05 ABG pO2 61.0 mmHg (80.0-100.0) L 03/31/18 12:05 ABG HCO3 26.7 mmol/L (22-26) H 03/31/18 12:05 ABG O2 Saturation 93.0 % (90-100) 03/31/18 12:05 ABG Base Excess 3.5 mmol/L (-2.0-2.0) H 03/31/18 12:05 Earle Test Pos 03/31/18 12:05 A-a Gradient 95.0 mmHg 03/31/18 12:05 FiO2 28.000 03/31/18 12:05 Blood Gas Comments Andre well cs 03/31/18 12:05 Sodium 139 mmol/L (136-145) 04/03/18 05:00 Corrected Sodium 140 mmol/L (136-145) 04/03/18 05:00 Potassium 4.7 mmol/L (3.5-5.1) 04/03/18 05:00 Chloride 104 mmol/L (98-107) 04/03/18 05:00 Carbon Dioxide 29.8 mmol/L (21-32) 04/03/18 05:00 BUN 11 mg/dL (7-18) 04/03/18 05:00 Creatinine 0.83 mg/dL (0.55-1.02) 04/03/18 05:00 Est GFR (MDRD) Af Amer > 60 (>60) 04/03/18 05:00 Est GFR (MDRD) Non-Af > 60 (>60) 04/03/18 05:00 Glucose 135 mg/dL (65-99) H 04/03/18 05:00 Lactic Acid 1.1 mmol/L (0.4-2.0) 03/31/18 11:30 Calcium 9.7 mg/dL (8.5-10.1) 04/03/18 05:00 Corrected Calcium 11.1 mg/dL (8.5-10.1) H 04/03/18 05:00 Magnesium 2.0 mg/dL (1.7-2.9) 04/01/18 04:31 Total Bilirubin 0.20 mg/dL (0.2-1.0) 04/03/18 05:00 AST 26 Units/L (15-37) 04/03/18 05:00 ALT 19 Units/L (12-78) 04/03/18 05:00 Alkaline Phosphatase 139 Units/L (46-116) H 04/03/18 05:00 Creatine Kinase 26 Units/L (26-192) 04/01/18 00:14 CK-MB (CK-2) 1.4 ng/mL (0-4.0) 04/01/18 00:14 CK/CKMB % Calc 5.4 % (<4) 04/01/18 00:14 Troponin I < 0.02 ng/mL (0-1.5) 04/01/18 00:14 Total Protein 6.9 g/dL (6.4-8.2) 04/03/18 05:00 Albumin 2.2 g/dL (3.4-5.0) L 04/03/18 05:00 Globulin 4.7 g/dL (2.5-4.5) H 04/03/18 05:00 Albumin/Globulin Ratio 0.5 Ratio (1.1-2.1) L 04/03/18 05:00 Specimen Type Random urine 03/31/18 16:03 Urine Color Yellow (YELLOW) 03/31/18 16:03 Urine Appearance Clear (CLEAR) 03/31/18 16:03 Urine pH 7.0 (5.0 - 8.0) 03/31/18 16:03 Ur Specific [place] 1.005 (1.000-1.030) 03/31/18 16:03 Urine Protein 1+ (NEGATIVE) 03/31/18 16:03 Urine Glucose (UA) Negative (NEGATIVE) 03/31/18 16:03 Urine Ketones 1+ (NEGATIVE) 03/31/18 16:03 Urine Occult Blood Negative (NEGATIVE) 03/31/18 16:03 Urine Nitrite Negative (NEGATIVE) 03/31/18 16:03 Urine Bilirubin Negative (NEGATIVE) 03/31/18 16:03 Urine Urobilinogen Normal (NORMAL) 03/31/18 16:03 Ur Leukocyte Esterase Negative (NEGATIVE) 03/31/18 16:03 Urine RBC 0-2 /HPF (NONE SEEN) 03/31/18 16:03 Urine WBC 0-2 /HPF (NONE SEEN) 03/31/18 16:03 Ur Squamous Epith Cells Rare /HPF (NEGATIVE) 03/31/18 16:03 Urine Bacteria Negative /HPF (NEGATIVE) 03/31/18 16:03 Urine Mucus Few /HPF (NEGATIVE) 03/31/18 16:03 Ur Culture Indicated? No/not indicated 03/31/18 16:03 - Plan (1) COPD with acute exacerbation Status: Acute Plan: admit, solumedrol iv q8h, respiratory treatments, supplemental oxygen, continue to monitor (2) Bronchopneumonia Status: Acute Plan: TESSALON PERLES, TUSSIONEX, MUCINEX, iv antibiotics, respiratory treatments, supplemental oxygen, continue to monitor (3) CAD (coronary artery disease) Status: Chronic Qualifiers: Coronary Disease-Associated Artery/Lesion type: [place] artery [place] vs. transplanted heart: [place] heart Associated angina: angina presence unspecified Qualified Code(s): I25.10 - Atherosclerotic heart disease of [place] coronary artery without angina pectoris Plan: CONTINUE HOME MEDICATIONS, CONTINUE TO MONITOR (4) CHF (congestive heart failure) Status: Chronic Qualifiers: Heart failure type: unspecified Heart failure chronicity: chronic Qualified Code(s): I50.9 - Heart failure, unspecified Plan: CONTINUE HOME MEDICATIONS, CONTINUE TO MONITOR (5) GERD (gastroesophageal reflux disease) Status: Chronic Qualifiers: Esophagitis presence: esophagitis presence not specified Qualified Code(s) : K21.9 - Gastro-esophageal reflux disease without esophagitis Plan: CONTINUE HOME MEDS (6) HTN (hypertension) Status: Chronic Qualifiers: Hypertension type: essential hypertension Qualified Code(s): I10 - Essential (primary) hypertension Plan: CONTINUE HOME MEDICATIONS (7) Hyperlipidemia Status: Chronic Qualifiers: Hyperlipidemia type: mixed hyperlipidemia Qualified Code(s): E78.2 - Mixed hyperlipidemia Plan: CONTINUE HOME MEDICATIONS
[2018-04-03] MEDS: LIPITOR TAB 40 MG PO SCH (20:42)
[2018-04-03] MEDS: REQUIP PO SCH (20:42)
[2018-04-03] MEDS: PEPCID TAB 20 MG PO SCH (20:42)
--- NOTE | 2018-04-03 21:33 | PCM.PROG ---
Progress Note - Progress Note for Day of Date of Exam: 04/03/18 - Subjective Subjective: WAS ADMITTED FOR AN ACUTE COPD EXACERBATION AND BRONCHOPNEUMONIA. TODAY, SHE IS ALERT AND ORIENTED, LYING IN BED ON MORNING ROUNDS. SHE CONTINUE WITH COMPLAINTS OF SHORTNESS OF BREATH AND A PRODUCTIVE COUGH. ON EXAMINATION, SHE CONTINUES TO BE TACHYCARDIC WITH HR 120. LATRINE CLEANER REVEALS SINUS TACHYCARDIA. BILATERAL LUNGS CONTINUE WITH SCATTERED WHEEZING AND RHONCHI THROUGHOUT. ABDOMEN IS ROUND, SOFT, AND NON-TENDER WITH NORMAL BOWEL SOUNDS NOTED IN ALL QUADRANTS. HER VITALS TODAY ARE 98.9-120-23-95% -164/72. LABS WERE OBTAINED. ABNORMAL LAB VALUES INCLUDE THE FOLLOWING: WBC DECREASED TO 17.8, HGB 11.2, HCT 33.9, GLUCOSE 135, ALK PHOS 139, ALBUMIN 2.2, GLOBULIN 4.7. SPUTUM CULTURE REPORTS GROWTH OF KLEBSIELLA PNEUMONIAE. TODAYS CHEST XRAY REPORTS NO CHANGE. TODAY, WE WILL CONTINUE WITH IV ANTIBIOTICS, RESPIRATORY TREATMENTS, AND CURRENT PLAN OF CARE. WE WILL FOLLOW UP WITH AM LABS AND CONTINUE TO MONITOR PATIENT. - Past Medical Family Social History Past Med/Fam/Surg Hx: No changes since H&P Allergies: Allergies cefdinir Allergy (Verified 10/13/17 06:55) ciprofloxacin Allergy (Verified 10/13/17 06:55) clarithromycin Allergy (Verified 10/13/17 06:55) clindamycin Allergy (Verified 10/13/17 06:55) doxycycline Allergy (Verified 10/13/17 06:55) erythromycin base Allergy (Verified 10/13/17 06:55) gabapentin [From Neurontin] Allergy (Verified 10/13/17 06:55) levofloxacin [From Levaquin] Allergy (Verified 10/13/17 06:55) nitrofurantoin Allergy (Verified 10/13/17 06:55) Penicillins Allergy (Verified 10/13/17 06:55) phenazopyridine Allergy (Verified 10/13/17 06:55) rifampin Allergy (Verified 10/13/17 06:55) - Review of Systems ROS: No change since H&P - Vital Signs and I&O's Vital Signs: Temperature 98.5 F Pulse Rate [Left Brachial] 112 Pulse Rate 115 Respiratory Rate 20 Blood Pressure [Left Arm] 113/61 Blood Pressure [Right Arm] 134/86 Blood Pressure 120/57 O2 Sat by Pulse Oximetry 96 Intake and Output: Intake & Output 04/01/18 04/02/18 04/03/18 04/04/18 11:59 11:59 11:59 11:59 Intake Total 1852 / 1852 3450 / 3450 3927 / 3927 1390 / 1390 Output Total 1700 / 1700 1400 / 1400 800 / 800 1350 / 1350 Balance 152 / 152 2050 / 2050 3127 / 3127 40 / 40 - Physical Exam Oriented: Normal Eyes: Normal Ear: Normal Nose: Normal Throat: Normal Respiratory: Generalized, Wheezes, Rhonchi Cardiovascular: Tachycardia : Normal Auscultation: Bowel Sounds: Normal Palpation: Normal Tenderness: Normal Skin: Normal Musculoskeletal: Normal Psychiatric: Normal Mood Description: Calm Affect: Normal Speech Pattern: Clear, Appropriate - Laboratory and Diagnostics Result Diagrams: 04/03/18 05:00 04/03/18 05:00 Labs: 03/31/18 12:05 Sputum - Expectorated Sputum Sputum Culture - Preliminary Klebsiella Pneumoniae 03/31/18 12:05 Sputum - Expectorated Sputum - Final 03/31/18 11:20 Blood Blood Culture - Preliminary 03/31/18 11:30 Blood Blood Culture - Preliminary Laboratory WBC 17.8 X10^3/uL (3.6-10.0) H 04/03/18 05:00 RBC 4.38 X10^6/uL (3.5-5.4) 04/03/18 05:00 Hgb 11.2 g/dL (12.0-16.0) L 04/03/18 05:00 Hct 33.9 % (36.0-47.0) L 04/03/18 05:00 MCV 77.3 fL (80.0-100.0) L 04/03/18 05:00 MCH 25.6 pg (27.0-34.0) L 04/03/18 05:00 MCHC 33.1 g/dL (33.0-35.0) 04/03/18 05:00 RDW 17.7 % (11.6-16.5) H 04/03/18 05:00 Plt Count 527 X10^3/uL (150.0-450.0) H 04/03/18 05:00 Plt Count Comment Adequate (ADEQUATE) 04/03/18 05:00 MPV 8.1 fL (7.4-11.0) 04/03/18 05:00 Neut % (Auto) 90.2 % (42.0-75.0) H 04/03/18 05:00 Lymph % (Auto) 7.5 % (21.0-51.0) L 04/03/18 05:00 [place] % (Auto) 2.2 % (0.0-13.0) 04/03/18 05:00 Eos % (Auto) 0.0 % (0.9-2.9) L 04/03/18 05:00 Baso % (Auto) 0.1 % (0.2-1.0) L 04/03/18 05:00 Neut # (Auto) 16.0 x10^3/uL (2.2-4.8) H 04/03/18 05:00 Lymph # (Auto) 1.3 X10^3/uL (1.3-2.9) 04/03/18 05:00 [place] # (Auto) 0.4 x10^3/uL (0.3-0.8) 04/03/18 05:00 Eos # (Auto) 0.0 x10^3/uL (0.0-0.2) 04/03/18 05:00 Baso # (Auto) 0.0 X10^3/uL (0.0-0.1) 04/03/18 05:00 Absolute Nucleated RBC 0.0 /100WBC 04/03/18 05:00 Total Counted 100 04/03/18 05:00 Neutrophils % (Manual) 84 % (39-76) H 04/03/18 05:00 Band Neutrophils % 3 % (0-10) 04/03/18 05:00 Lymphocytes % (Manual) 13 % (13-43) 04/03/18 05:00 Monocytes % (Manual) 4 % (4-9) 04/02/18 05:28 Plt Morphology Comment Normal (NORMAL) 04/03/18 05:00 RBC Morphology Normal (NORMAL) 04/03/18 05:00 Sample Site Lra 03/31/18 12:05 ABG pH 7.490 (7.35-7.45) H 03/31/18 12:05 ABG pCO2 35.0 mmHg (35.0-45.0) 03/31/18 12:05 ABG pO2 61.0 mmHg (80.0-100.0) L 03/31/18 12:05 ABG HCO3 26.7 mmol/L (22-26) H 03/31/18 12:05 ABG O2 Saturation 93.0 % (90-100) 03/31/18 12:05 ABG Base Excess 3.5 mmol/L (-2.0-2.0) H 03/31/18 12:05 Earle Test Pos 03/31/18 12:05 A-a Gradient 95.0 mmHg 03/31/18 12:05 FiO2 28.000 03/31/18 12:05 Blood Gas Comments Andre well cs 03/31/18 12:05 Sodium 139 mmol/L (136-145) 04/03/18 05:00 Corrected Sodium 140 mmol/L (136-145) 04/03/18 05:00 Potassium 4.7 mmol/L (3.5-5.1) 04/03/18 05:00 Chloride 104 mmol/L (98-107) 04/03/18 05:00 Carbon Dioxide 29.8 mmol/L (21-32) 04/03/18 05:00 BUN 11 mg/dL (7-18) 04/03/18 05:00 Creatinine 0.83 mg/dL (0.55-1.02) 04/03/18 05:00 Est GFR (MDRD) Af Amer > 60 (>60) 04/03/18 05:00 Est GFR (MDRD) Non-Af > 60 (>60) 04/03/18 05:00 Glucose 135 mg/dL (65-99) H 04/03/18 05:00 Lactic Acid 1.1 mmol/L (0.4-2.0) 03/31/18 11:30 Calcium 9.7 mg/dL (8.5-10.1) 04/03/18 05:00 Corrected Calcium 11.1 mg/dL (8.5-10.1) H 04/03/18 05:00 Magnesium 2.0 mg/dL (1.7-2.9) 04/01/18 04:31 Total Bilirubin 0.20 mg/dL (0.2-1.0) 04/03/18 05:00 AST 26 Units/L (15-37) 04/03/18 05:00 ALT 19 Units/L (12-78) 04/03/18 05:00 Alkaline Phosphatase 139 Units/L (46-116) H 04/03/18 05:00 Creatine Kinase 26 Units/L (26-192) 04/01/18 00:14 CK-MB (CK-2) 1.4 ng/mL (0-4.0) 04/01/18 00:14 CK/CKMB % Calc 5.4 % (<4) 04/01/18 00:14 Troponin I < 0.02 ng/mL (0-1.5) 04/01/18 00:14 Total Protein 6.9 g/dL (6.4-8.2) 04/03/18 05:00 Albumin 2.2 g/dL (3.4-5.0) L 04/03/18 05:00 Globulin 4.7 g/dL (2.5-4.5) H 04/03/18 05:00 Albumin/Globulin Ratio 0.5 Ratio (1.1-2.1) L 04/03/18 05:00 Specimen Type Random urine 03/31/18 16:03 Urine Color Yellow (YELLOW) 03/31/18 16:03 Urine Appearance Clear (CLEAR) 03/31/18 16:03 Urine pH 7.0 (5.0 - 8.0) 03/31/18 16:03 Ur Specific [place] 1.005 (1.000-1.030) 03/31/18 16:03 Urine Protein 1+ (NEGATIVE) 03/31/18 16:03 Urine Glucose (UA) Negative (NEGATIVE) 03/31/18 16:03 Urine Ketones 1+ (NEGATIVE) 03/31/18 16:03 Urine Occult Blood Negative (NEGATIVE) 03/31/18 16:03 Urine Nitrite Negative (NEGATIVE) 03/31/18 16:03 Urine Bilirubin Negative (NEGATIVE) 03/31/18 16:03 Urine Urobilinogen Normal (NORMAL) 03/31/18 16:03 Ur Leukocyte Esterase Negative (NEGATIVE) 03/31/18 16:03 Urine RBC 0-2 /HPF (NONE SEEN) 03/31/18 16:03 Urine WBC 0-2 /HPF (NONE SEEN) 03/31/18 16:03 Ur Squamous Epith Cells Rare /HPF (NEGATIVE) 03/31/18 16:03 Urine Bacteria Negative /HPF (NEGATIVE) 03/31/18 16:03 Urine Mucus Few /HPF (NEGATIVE) 03/31/18 16:03 Ur Culture Indicated? No/not indicated 03/31/18 16:03 - Plan (1) COPD with acute exacerbation Status: Acute Plan: admit, solumedrol iv q8h, respiratory treatments, supplemental oxygen, continue to monitor (2) Bronchopneumonia Status: Acute Plan: TESSALON PERLES, TUSSIONEX, MUCINEX, iv antibiotics, respiratory treatments, supplemental oxygen, continue to monitor (3) CAD (coronary artery disease) Status: Chronic Qualifiers: Coronary Disease-Associated Artery/Lesion type: [place] artery [place] vs. transplanted heart: [place] heart Associated angina: angina presence unspecified Qualified Code(s): I25.10 - Atherosclerotic heart disease of [place] coronary artery without angina pectoris Plan: CONTINUE HOME MEDICATIONS, CONTINUE TO MONITOR (4) CHF (congestive heart failure) Status: Chronic Qualifiers: Heart failure type: unspecified Heart failure chronicity: chronic Qualified Code(s): I50.9 - Heart failure, unspecified Plan: CONTINUE HOME MEDICATIONS, CONTINUE TO MONITOR (5) GERD (gastroesophageal reflux disease) Status: Chronic Qualifiers: Esophagitis presence: esophagitis presence not specified Qualified Code(s) : K21.9 - Gastro-esophageal reflux disease without esophagitis Plan: CONTINUE HOME MEDS (6) HTN (hypertension) Status: Chronic Qualifiers: Hypertension type: essential hypertension Qualified Code(s): I10 - Essential (primary) hypertension Plan: CONTINUE HOME MEDICATIONS (7) Hyperlipidemia Status: Chronic Qualifiers: Hyperlipidemia type: mixed hyperlipidemia Qualified Code(s): E78.2 - Mixed hyperlipidemia Plan: CONTINUE HOME MEDICATIONS
[2018-04-04] MEDS: DUONEB 0.5 MG/3 MG NEB SCH ×6 (00:53→21:15)
[2018-04-04] MEDS: SOLU-Medrol 40 MG VIAL IVP SCH ×2 (01:11→08:09)
[2018-04-04 05:46] LABS: BASOPHILS % (AUTO) 0.2 % (0.2-1.0); EOSINOPHILS # (AUTO) 0.1 x10^3/uL (0.0-0.2); EOSINOPHILS % (AUTO) 0.5 % (0.9-2.9); HEMATOCRIT 32.7 % (36.0-47.0); HEMOGLOBIN 10.9 g/dL (12.0-16.0); LYMPHOCYTES # (AUTO) 1.6 X10^3/uL (1.3-2.9); LYMPHOCYTES % (AUTO) 10.4 % (21.0-51.0); MEAN CORPUSCULAR HEMOGLOBIN 25.6 pg (27.0-34.0); MEAN CORPUSCULAR HGB CONC 33.3 g/dL (33.0-35.0); MEAN PLATELET VOLUME 8.1 fL (7.4-11.0); MONOCYTES # (AUTO) 0.6 x10^3/uL (0.3-0.8); MONOCYTES % (AUTO) 3.8 % (0.0-13.0); NEUTROPHILS # (AUTO) 13.3 x10^3/uL (2.2-4.8); NEUTROPHILS % (AUTO) 85.1 % (42.0-75.0); PLATELET COUNT 498 X10^3/uL (150.0-450.0); RED BLOOD COUNT 4.24 X10^6/uL (3.5-5.4); RED CELL DISTRIBUTION WIDTH 18.1 % (11.6-16.5); WHITE BLOOD COUNT 15.7 X10^3/uL (3.6-10.0)
[2018-04-04] MEDS ORDERED: NS 1/2 1000 ML IV 1,000 ML IV ONE (05:48)
[2018-04-04] MEDS: NS 1/2 1000 ML IV 1,000 ML IV SCH ×3 (05:49→20:24)
[2018-04-04] MEDS: FORTAZ or TAZICEF VIAL INJ 1 G in NS 100 ML IV + SPIKE MINIBAG* 100 ML IV SCH (05:49)
[2018-04-04 05:50] LABS: ALANINE AMINOTRANSFERASE 9 Units/L (12-78); ALBUMIN 2.1 g/dL (3.4-5.0); ALKALINE PHOSPHATASE 118 Units/L (46-116); ASPARTATE AMINO TRANSFERASE 23 Units/L (15-37); BLOOD UREA NITROGEN 11 mg/dL (7-18); CALCIUM 9.6 mg/dL (8.5-10.1); CARBON DIOXIDE 30.4 mmol/L (21-32); CHLORIDE 106 mmol/L (98-107); COR CA(FOR HYPOALB) 11.1 mg/dL (8.5-10.1); COR NA(FOR HYPERGLY) 141 mmol/L (136-145); CREATININE 0.74 mg/dL (0.55-1.02); SODIUM 140 mmol/L (136-145); eGFR NON BLACK RACES > 60 (>60)
[2018-04-04 06:43] LABS: BAND NEUTROPHILS % 4 % (0-10); PLATELET MORPHOLOGY COMMENT NORMAL (NORMAL)
[2018-04-04] MEDS: MICRO K EXTEN CAP 10 MEQ PO SCH (08:09)
[2018-04-04] MEDS: SINGULAIR TAB 10 MG PO SCH (08:09)
[2018-04-04] MEDS: PriLOSEC PO SCH (08:09)
[2018-04-04] MEDS: THEO-DUR TAB 200 MG PO SCH ×2 (08:09→20:29)
[2018-04-04] MEDS: ZITHROMAX INJ 500 MG VIAL 250 MG in NS 250 ML IV 250 ML IV SCH (08:09)
[2018-04-04] MEDS: COREG TAB 3.125 MG PO SCH ×2 (08:09→20:28)
[2018-04-04] MEDS: VITAMIN C PO SCH (08:09)
[2018-04-04] MEDS: FOLIC ACID TAB 1 MG PO SCH (08:09)
[2018-04-04] MEDS: DALIRESP PO SCH (08:09)
[2018-04-04] MEDS: CITRACAL + VITAMIN D PO SCH (08:09)
[2018-04-04] MEDS: MUCINEX DM PO SCH ×2 (08:09→20:29)
[2018-04-04] MEDS: ZINC SULFATE PO SCH (08:09)
[2018-04-04] MEDS: ROXICODONE TAB 15 MG PO PRN ×3 (08:10→20:28)
[2018-04-04] MEDS: MILK OF MAGNESIA PO SCH ×2 (08:16→20:26)
[2018-04-04] MEDS: VITAMIN D3 PO SCH (09:06)
[2018-04-04] MEDS: INVANZ INJ 1 GM VIAL 1 GM in NS 100 ML IV + SPIKE MINIBAG* 100 ML IV SCH (09:42)
[2018-04-04] MEDS: PHENERGAN TAB 25 MG PO PRN (10:58)
--- NOTE | 2018-04-04 16:47 | PCM.PROG ---
Progress Note - Progress Note for Day of Date of Exam: 04/04/18 - Subjective Subjective: WAS ADMITTED FOR AN ACUTE COPD EXACERBATION AND BRONCHOPNEUMONIA. TODAY, SHE IS ALERT AND ORIENTED, LYING IN BED ON MORNING ROUNDS. SHE CONTINUE WITH COMPLAINTS OF SHORTNESS OF BREATH AND A PRODUCTIVE COUGH. ON EXAMINATION, SHE CONTINUES TO BE TACHYCARDIC WITH HR 120. GRAVEL TRUCK DRIVER REVEALS SINUS TACHYCARDIA. BILATERAL LUNGS CONTINUE WITH SCATTERED WHEEZING AND RHONCHI THROUGHOUT. ABDOMEN IS ROUND, SOFT, AND NON-TENDER WITH NORMAL BOWEL SOUNDS NOTED IN ALL QUADRANTS. HER VITALS TODAY ARE 99.0-109-21-98% -135/74. LABS WERE OBTAINED. ABNORMAL LAB VALUES INCLUDE THE FOLLOWING: WBC 15.7 , HGB 10.9, HCT 32.7, PLT COUNT 498, GLUCOSE 143, ALT 9, ALK PHOS 118, TOTAL PROTEIN 6.0, ALBUMIN 2.1. SPUTUM CULTURE REPORTS GROWTH OF SERRATIA [place] KLEBSIELLA PNEUMONIAE. THE SERRATIA IS NOT SENSITIVE TO THE FORTAZ THAT SHE IS CURRENTLY RECEIVING. TODAY, WE WILL DISCONTINUE THE FORTAZ AND START INVANZ 1GM IV DAILY. OTHERWISE, WE WILL CONTINUE WITH CURRENT PLAN OF CARE. WE WILL FOLLOW UP WITH AM LABS AND CONTINUE TO MONITOR PATIENT. - Past Medical Family Social History Past Med/Fam/Surg Hx: No changes since H&P Allergies: Allergies cefdinir Allergy (Verified 10/13/17 06:55) ciprofloxacin Allergy (Verified 10/13/17 06:55) clarithromycin Allergy (Verified 10/13/17 06:55) clindamycin Allergy (Verified 10/13/17 06:55) doxycycline Allergy (Verified 10/13/17 06:55) erythromycin base Allergy (Verified 10/13/17 06:55) gabapentin [From Neurontin] Allergy (Verified 10/13/17 06:55) levofloxacin [From Levaquin] Allergy (Verified 10/13/17 06:55) nitrofurantoin Allergy (Verified 10/13/17 06:55) Penicillins Allergy (Verified 10/13/17 06:55) phenazopyridine Allergy (Verified 10/13/17 06:55) rifampin Allergy (Verified 10/13/17 06:55) - Review of Systems ROS: No change since H&P - Vital Signs and I&O's Vital Signs: Temperature 99.0 F Pulse Rate [Left Brachial] 105 Pulse Rate 103 Respiratory Rate 21 Blood Pressure [Left Arm] 131/66 Blood Pressure [Right Arm] 134/86 Blood Pressure 120/57 O2 Sat by Pulse Oximetry 98 Intake and Output: Intake & Output 04/02/18 04/03/18 04/04/18 04/05/18 11:59 11:59 11:59 11:59 Intake Total 3450 / 3450 3927 / 3927 3222 / 3222 1051 / 1051 Output Total 1400 / 1400 800 / 800 5150 / 5150 1300 / 1300 Balance 2049 3127 / 3127 -1928 / -1928 -249 / -249 - Physical Exam Oriented: Normal Eyes: Normal Ear: Normal Nose: Normal Throat: Normal Respiratory: Generalized, Wheezes, Rhonchi Cardiovascular: Tachycardia : Normal Auscultation: Bowel Sounds: Normal Palpation: Normal Tenderness: Normal Skin: Normal Musculoskeletal: Normal Psychiatric: Normal Mood Description: Calm Affect: Normal Speech Pattern: Clear, Appropriate - Laboratory and Diagnostics Result Diagrams: 04/04/18 05:15 04/04/18 05:15 Labs: 03/31/18 12:05 Sputum - Expectorated Sputum Sputum Culture - Final Serratia Marcescens Klebsiella Pneumoniae 03/31/18 12:05 Sputum - Expectorated Sputum - Final 03/31/18 11:20 Blood Blood Culture - Preliminary 03/31/18 11:30 Blood Blood Culture - Preliminary Laboratory WBC 15.7 X10^3/uL (3.6-10.0) H 04/04/18 05:15 RBC 4.24 X10^6/uL (3.5-5.4) 04/04/18 05:15 Hgb 10.9 g/dL (12.0-16.0) L 04/04/18 05:15 Hct 32.7 % (36.0-47.0) L 04/04/18 05:15 MCV 77.0 fL (80.0-100.0) L 04/04/18 05:15 MCH 25.6 pg (27.0-34.0) L 04/04/18 05:15 MCHC 33.3 g/dL (33.0-35.0) 04/04/18 05:15 RDW 18.1 % (11.6-16.5) H 04/04/18 05:15 Plt Count 498 X10^3/uL (150.0-450.0) H 04/04/18 05:15 Plt Count Comment Increased (ADEQUATE) A 04/04/18 05:15 MPV 8.1 fL (7.4-11.0) 04/04/18 05:15 Neut % (Auto) 85.1 % (42.0-75.0) H 04/04/18 05:15 Lymph % (Auto) 10.4 % (21.0-51.0) L 04/04/18 05:15 [place] % (Auto) 3.8 % (0.0-13.0) 04/04/18 05:15 Eos % (Auto) 0.5 % (0.9-2.9) L 04/04/18 05:15 Baso % (Auto) 0.2 % (0.2-1.0) 04/04/18 05:15 Neut # (Auto) 13.3 x10^3/uL (2.2-4.8) H 04/04/18 05:15 Lymph # (Auto) 1.6 X10^3/uL (1.3-2.9) 04/04/18 05:15 [place] # (Auto) 0.6 x10^3/uL (0.3-0.8) 04/04/18 05:15 Eos # (Auto) 0.1 x10^3/uL (0.0-0.2) 04/04/18 05:15 Baso # (Auto) 0.0 X10^3/uL (0.0-0.1) 04/04/18 05:15 Absolute Nucleated RBC 0.3 /100WBC 04/04/18 05:15 Total Counted 100 04/04/18 05:15 Neutrophils % (Manual) 72 % (39-76) 04/04/18 05:15 Band Neutrophils % 4 % (0-10) 04/04/18 05:15 Lymphocytes % (Manual) 22 % (13-43) 04/04/18 05:15 Monocytes % (Manual) 2 % (4-9) L 04/04/18 05:15 Plt Morphology Comment Normal (NORMAL) 04/04/18 05:15 RBC Morphology Normal (NORMAL) 04/04/18 05:15 Sample Site Lra 03/31/18 12:05 ABG pH 7.490 (7.35-7.45) H 03/31/18 12:05 ABG pCO2 35.0 mmHg (35.0-45.0) 03/31/18 12:05 ABG pO2 61.0 mmHg (80.0-100.0) L 03/31/18 12:05 ABG HCO3 26.7 mmol/L (22-26) H 03/31/18 12:05 ABG O2 Saturation 93.0 % (90-100) 03/31/18 12:05 ABG Base Excess 3.5 mmol/L (-2.0-2.0) H 03/31/18 12:05 Earle Test Pos 03/31/18 12:05 A-a Gradient 95.0 mmHg 03/31/18 12:05 FiO2 28.000 03/31/18 12:05 Blood Gas Comments Anrde well cs 03/31/18 12:05 Sodium 140 mmol/L (136-145) 04/04/18 05:15 Corrected Sodium 141 mmol/L (136-145) 04/04/18 05:15 Potassium 4.3 mmol/L (3.5-5.1) 04/04/18 05:15 Chloride 106 mmol/L (98-107) 04/04/18 05:15 Carbon Dioxide 30.4 mmol/L (21-32) 04/04/18 05:15 BUN 11 mg/dL (7-18) 04/04/18 05:15 Creatinine 0.74 mg/dL (0.55-1.02) 04/04/18 05:15 Est GFR (MDRD) Af Amer > 60 (>60) 04/04/18 05:15 Est GFR (MDRD) Non-Af > 60 (>60) 04/04/18 05:15 Glucose 143 mg/dL (65-99) H 04/04/18 05:15 Lactic Acid 1.1 mmol/L (0.4-2.0) 03/31/18 11:30 Calcium 9.6 mg/dL (8.5-10.1) 04/04/18 05:15 Corrected Calcium 11.1 mg/dL (8.5-10.1) H 04/04/18 05:15 Magnesium 2.0 mg/dL (1.7-2.9) 04/01/18 04:31 Total Bilirubin 0.20 mg/dL (0.2-1.0) 04/04/18 05:15 AST 23 Units/L (15-37) 04/04/18 05:15 ALT 9 Units/L (12-78) L 04/04/18 05:15 Alkaline Phosphatase 118 Units/L (46-116) H 04/04/18 05:15 Creatine Kinase 26 Units/L (26-192) 04/01/18 00:14 CK-MB (CK-2) 1.4 ng/mL (0-4.0) 04/01/18 00:14 CK/CKMB % Calc 5.4 % (<4) 04/01/18 00:14 Troponin I < 0.02 ng/mL (0-1.5) 04/01/18 00:14 Total Protein 6.0 g/dL (6.4-8.2) L 04/04/18 05:15 Albumin 2.1 g/dL (3.4-5.0) L 04/04/18 05:15 Globulin 3.9 g/dL (2.5-4.5) 04/04/18 05:15 Albumin/Globulin Ratio 0.5 Ratio (1.1-2.1) L 04/04/18 05:15 Specimen Type Random urine 03/31/18 16:03 Urine Color Yellow (YELLOW) 03/31/18 16:03 Urine Appearance Clear (CLEAR) 03/31/18 16:03 Urine pH 7.0 (5.0 - 8.0) 03/31/18 16:03 Ur Specific [place] 1.005 (1.000-1.030) 03/31/18 16:03 Urine Protein 1+ (NEGATIVE) 03/31/18 16:03 Urine Glucose (UA) Negative (NEGATIVE) 03/31/18 16:03 Urine Ketones 1+ (NEGATIVE) 03/31/18 16:03 Urine Occult Blood Negative (NEGATIVE) 03/31/18 16:03 Urine Nitrite Negative (NEGATIVE) 03/31/18 16:03 Urine Bilirubin Negative (NEGATIVE) 03/31/18 16:03 Urine Urobilinogen Normal (NORMAL) 03/31/18 16:03 Ur Leukocyte Esterase Negative (NEGATIVE) 03/31/18 16:03 Urine RBC 0-2 /HPF (NONE SEEN) 03/31/18 16:03 Urine WBC 0-2 /HPF (NONE SEEN) 03/31/18 16:03 Ur Squamous Epith Cells Rare /HPF (NEGATIVE) 03/31/18 16:03 Urine Bacteria Negative /HPF (NEGATIVE) 03/31/18 16:03 Urine Mucus Few /HPF (NEGATIVE) 03/31/18 16:03 Ur Culture Indicated? No/not indicated 03/31/18 16:03 - Plan (1) COPD with acute exacerbation Status: Acute Plan: admit, solumedrol iv q8h, respiratory treatments, supplemental oxygen, continue to monitor (2) Bronchopneumonia Status: Acute Plan: TESSALON PERLES, TUSSIONEX, MUCINEX, iv antibiotics, respiratory treatments, supplemental oxygen, continue to monitor (3) CAD (coronary artery disease) Status: Chronic Qualifiers: Coronary Disease-Associated Artery/Lesion type: [place] artery [place] vs. transplanted heart: [place] heart Associated angina: angina presence unspecified Qualified Code(s): I25.10 - Atherosclerotic heart disease of [place] coronary artery without angina pectoris Plan: CONTINUE HOME MEDICATIONS, CONTINUE TO MONITOR (4) CHF (congestive heart failure) Status: Chronic Qualifiers: Heart failure type: unspecified Heart failure chronicity: chronic Qualified Code(s): I50.9 - Heart failure, unspecified Plan: CONTINUE HOME MEDICATIONS, CONTINUE TO MONITOR (5) GERD (gastroesophageal reflux disease) Status: Chronic Qualifiers: Esophagitis presence: esophagitis presence not specified Qualified Code(s) : K21.9 - Gastro-esophageal reflux disease without esophagitis Plan: CONTINUE HOME MEDS (6) HTN (hypertension) Status: Chronic Qualifiers: Hypertension type: essential hypertension Qualified Code(s): I10 - Essential (primary) hypertension Plan: CONTINUE HOME MEDICATIONS (7) Hyperlipidemia Status: Chronic Qualifiers: Hyperlipidemia type: mixed hyperlipidemia Qualified Code(s): E78.2 - Mixed hyperlipidemia Plan: CONTINUE HOME MEDICATIONS
[2018-04-04] MEDS: REQUIP PO SCH (20:27)
[2018-04-04] MEDS: COLACE CAP 100 MG PO SCH (20:27)
[2018-04-04] MEDS: LIPITOR TAB 40 MG PO SCH (20:27)
[2018-04-04] MEDS: PEPCID TAB 20 MG PO SCH (20:28)
[2018-04-04] MEDS: PULMICORT NEB TX 0.5 MG NEB SCH (21:15)
[2018-04-04] MEDS ORDERED: ULTRAM ONE (23:06)
[2018-04-04] MEDS: ULTRAM PO PRN (23:09)
[2018-04-05] MEDS: DUONEB 0.5 MG/3 MG NEB SCH ×6 (01:33→20:06)
[2018-04-05] MEDS: ROXICODONE TAB 15 MG PO PRN ×2 (01:54→14:29)
[2018-04-05] MEDS ORDERED: NS 1/2 1000 ML IV 1,000 ML IV ONE ×2 (02:59→19:26)
[2018-04-05] MEDS: NS 1/2 1000 ML IV 1,000 ML IV SCH ×3 (03:00→20:39)
[2018-04-05 05:39] LABS: BASOPHILS % (AUTO) 0.1 % (0.2-1.0); HEMOGLOBIN 10.8 g/dL (12.0-16.0); LYMPHOCYTES # (AUTO) 2.3 X10^3/uL (1.3-2.9); MEAN CORPUSCULAR HEMOGLOBIN 25.4 pg (27.0-34.0); MEAN CORPUSCULAR HGB CONC 32.7 g/dL (33.0-35.0); MEAN CORPUSCULAR VOLUME 77.5 fL (80.0-100.0); MEAN PLATELET VOLUME 7.8 fL (7.4-11.0); MONOCYTES # (AUTO) 1.4 x10^3/uL (0.3-0.8); MONOCYTES % (AUTO) 9.3 % (0.0-13.0); NEUTROPHILS # (AUTO) 11.7 x10^3/uL (2.2-4.8); NEUTROPHILS % (AUTO) 75.6 % (42.0-75.0); PLATELET COUNT 461 X10^3/uL (150.0-450.0); RED BLOOD COUNT 4.26 X10^6/uL (3.5-5.4); RED CELL DISTRIBUTION WIDTH 17.7 % (11.6-16.5); WHITE BLOOD COUNT 15.5 X10^3/uL (3.6-10.0)
[2018-04-05 05:58] LABS: ALANINE AMINOTRANSFERASE 35 Units/L (12-78); ALKALINE PHOSPHATASE 119 Units/L (46-116); ASPARTATE AMINO TRANSFERASE 38 Units/L (15-37); BLOOD UREA NITROGEN 12 mg/dL (7-18); CALCIUM 9.1 mg/dL (8.5-10.1); CARBON DIOXIDE 31.5 mmol/L (21-32); CHLORIDE 104 mmol/L (98-107); COR CA(FOR HYPOALB) 10.7 mg/dL (8.5-10.1); SODIUM 139 mmol/L (136-145); TOTAL PROTEIN 5.6 g/dL (6.4-8.2); eGFR NON BLACK RACES > 60 (>60)
[2018-04-05] MEDS: ULTRAM PO PRN ×2 (06:10→19:42)
[2018-04-05 06:43] LABS: BAND NEUTROPHILS % 5 % (0-10)
[2018-04-05 06:44] LABS: PLATELET MORPHOLOGY COMMENT NORMAL (NORMAL)
[2018-04-05] MEDS: MILK OF MAGNESIA PO SCH ×2 (08:15→20:37)
[2018-04-05] MEDS: VITAMIN C PO SCH (08:15)
[2018-04-05] MEDS: INVANZ INJ 1 GM VIAL 1 GM in NS 100 ML IV + SPIKE MINIBAG* 100 ML IV SCH (08:15)
[2018-04-05] MEDS: ZINC SULFATE PO SCH (08:15)
[2018-04-05] MEDS: MICRO K EXTEN CAP 10 MEQ PO SCH (08:15)
[2018-04-05] MEDS: DALIRESP PO SCH (08:16)
[2018-04-05] MEDS: THEO-DUR TAB 200 MG PO SCH ×2 (08:16→20:38)
[2018-04-05] MEDS: FOLIC ACID TAB 1 MG PO SCH (08:16)
[2018-04-05] MEDS: COREG TAB 3.125 MG PO SCH ×2 (08:16→20:37)
[2018-04-05] MEDS: CITRACAL + VITAMIN D PO SCH (08:16)
[2018-04-05] MEDS: SINGULAIR TAB 10 MG PO SCH (08:16)
[2018-04-05] MEDS: PriLOSEC PO SCH (08:16)
[2018-04-05] MEDS: VITAMIN D3 PO SCH (08:16)
[2018-04-05] MEDS: MUCINEX DM PO SCH ×2 (08:16→20:37)
[2018-04-05] MEDS: ZITHROMAX INJ 500 MG VIAL 250 MG in NS 250 ML IV 250 ML IV SCH (08:17)
[2018-04-05] MEDS: PULMICORT NEB TX 0.5 MG NEB SCH ×2 (08:57→20:06)
--- NOTE | 2018-04-05 14:41 | PCM.PROG ---
Progress Note - Progress Note for Day of Date of Exam: 04/05/18 - Subjective Subjective: WAS ADMITTED FOR AN ACUTE COPD EXACERBATION AND BRONCHOPNEUMONIA. TODAY, SHE IS ALERT AND ORIENTED, LYING IN BED ON MORNING ROUNDS. SHE CONTINUE WITH COMPLAINTS OF SHORTNESS OF BREATH AND A PRODUCTIVE COUGH, BUT REPORTS SLIGHT IMPROVEMENT SINCE YESTERDAY. ON EXAMINATION, HEART IS REGULAR IN RATE AND RHYTHM. BILATERAL LUNGS CONTINUE WITH SCATTERED WHEEZING AND RHONCHI THROUGHOUT. ABDOMEN IS ROUND, SOFT, AND NON-TENDER WITH NORMAL BOWEL SOUNDS NOTED IN ALL QUADRANTS. HER VITALS TODAY ARE 97.9-97-18-97%-145/ 82. LABS WERE OBTAINED. ABNORMAL LAB VALUES INCLUDE THE FOLLOWING: WBC 15.5, HGB 10.8, HCT 33.0, GLUCOSE 106, AST 38, ALK PHOS 119, TOTAL PROTEIN 5.6, ALBUMIN 2.0. SPUTUM CULTURE REPORTS GROWTH OF SERRATIA MARCESCENS WELL KLEBSIELLA PNEUMONIAE. SHE CONTINUES ON INVANZ 1GM IV DAILY WELL RESPIRATORY TREATMENTS AND SUPPLEMENTAL OXYGEN. TODAY, WE WILL DISCONTINUE THE SOLU-MEDROL THAT SHE IS ON. OTHERWISE, WE WILL CONTINUE WITH CURRENT PLAN OF CARE. WE WILL FOLLOW UP WITH AM LABS AND CONTINUE TO MONITOR PATIENT. - Past Medical Family Social History Past Med/Fam/Surg Hx: No changes since H&P Allergies: Allergies cefdinir Allergy (Verified 10/13/17 06:55) ciprofloxacin Allergy (Verified 10/13/17 06:55) clarithromycin Allergy (Verified 10/13/17 06:55) clindamycin Allergy (Verified 10/13/17 06:55) doxycycline Allergy (Verified 10/13/17 06:55) erythromycin base Allergy (Verified 10/13/17 06:55) gabapentin [From Neurontin] Allergy (Verified 10/13/17 06:55) levofloxacin [From Levaquin] Allergy (Verified 10/13/17 06:55) nitrofurantoin Allergy (Verified 10/13/17 06:55) Penicillins Allergy (Verified 10/13/17 06:55) phenazopyridine Allergy (Verified 10/13/17 06:55) rifampin Allergy (Verified 10/13/17 06:55) - Review of Systems ROS: No change since H&P - Vital Signs and I&O's Vital Signs: Temperature 99.1 F Pulse Rate [Left Brachial] 84 Pulse Rate 83 Respiratory Rate 19 Blood Pressure [Left Arm] 130/66 Blood Pressure [Right Arm] 134/86 Blood Pressure 120/57 O2 Sat by Pulse Oximetry 97 Intake and Output: Intake & Output 04/03/18 04/04/18 04/05/18 04/06/18 11:59 11:59 11:59 11:59 Intake Total 3927 / 3927 3222 / 3222 2482 / 2482 Output Total 800 / 800 5150 / 5150 2900 / 2900 Balance 3127 / 3127 -1928 / -1928 -418 / -418 - Physical Exam Oriented: Normal Eyes: Normal Ear: Normal Nose: Normal Throat: Normal Respiratory: Generalized, Wheezes, Rhonchi Cardiovascular: Tachycardia : Normal Auscultation: Bowel Sounds: Normal Palpation: Normal Tenderness: Normal Skin: Normal Musculoskeletal: Normal Psychiatric: Normal Mood Description: Calm Affect: Normal Speech Pattern: Clear, Appropriate - Laboratory and Diagnostics Result Diagrams: 04/05/18 05:00 04/05/18 05:00 Labs: 03/31/18 11:30 Blood Blood Culture - Final 03/31/18 11:20 Blood Blood Culture - Final 03/31/18 12:05 Sputum - Expectorated Sputum Sputum Culture - Final Serratia Marcescens Klebsiella Pneumoniae 03/31/18 12:05 Sputum - Expectorated Sputum - Final Laboratory WBC 15.5 X10^3/uL (3.6-10.0) H 04/05/18 05:00 RBC 4.26 X10^6/uL (3.5-5.4) 04/05/18 05:00 Hgb 10.8 g/dL (12.0-16.0) L 04/05/18 05:00 Hct 33.0 % (36.0-47.0) L 04/05/18 05:00 MCV 77.5 fL (80.0-100.0) L 04/05/18 05:00 MCH 25.4 pg (27.0-34.0) L 04/05/18 05:00 MCHC 32.7 g/dL (33.0-35.0) L 04/05/18 05:00 RDW 17.7 % (11.6-16.5) H 04/05/18 05:00 Plt Count 461 X10^3/uL (150.0-450.0) H 04/05/18 05:00 Plt Count Comment Adequate (ADEQUATE) 04/05/18 05:00 MPV 7.8 fL (7.4-11.0) 04/05/18 05:00 Neut % (Auto) 75.6 % (42.0-75.0) H 04/05/18 05:00 Lymph % (Auto) 15.0 % (21.0-51.0) L 04/05/18 05:00 [place] % (Auto) 9.3 % (0.0-13.0) 04/05/18 05:00 Eos % (Auto) 0.0 % (0.9-2.9) L 04/05/18 05:00 Baso % (Auto) 0.1 % (0.2-1.0) L 04/05/18 05:00 Neut # (Auto) 11.7 x10^3/uL (2.2-4.8) H 04/05/18 05:00 Lymph # (Auto) 2.3 X10^3/uL (1.3-2.9) 04/05/18 05:00 [place] # (Auto) 1.4 x10^3/uL (0.3-0.8) H 04/05/18 05:00 Eos # (Auto) 0.0 x10^3/uL (0.0-0.2) 04/05/18 05:00 Baso # (Auto) 0.0 X10^3/uL (0.0-0.1) 04/05/18 05:00 Absolute Nucleated RBC 0.2 /100WBC 04/05/18 05:00 Total Counted 100 04/05/18 05:00 Neutrophils % (Manual) 71 % (39-76) 04/05/18 05:00 Band Neutrophils % 5 % (0-10) 04/05/18 05:00 Lymphocytes % (Manual) 19 % (13-43) 04/05/18 05:00 Monocytes % (Manual) 5 % (4-9) 04/05/18 05:00 Plt Morphology Comment Normal (NORMAL) 04/05/18 05:00 RBC Morphology Normal (NORMAL) 04/05/18 05:00 Sample Site a 03/31/18 12:05 ABG pH 7.490 (7.35-7.45) H 03/31/18 12:05 ABG pCO2 35.0 mmHg (35.0-45.0) 03/31/18 12:05 ABG pO2 61.0 mmHg (80.0-100.0) L 03/31/18 12:05 ABG HCO3 26.7 mmol/L (22-26) H 03/31/18 12:05 ABG O2 Saturation 93.0 % (90-100) 03/31/18 12:05 ABG Base Excess 3.5 mmol/L (-2.0-2.0) H 03/31/18 12:05 Earle Test Pos 03/31/18 12:05 A-a Gradient 95.0 mmHg 03/31/18 12:05 FiO2 28.000 03/31/18 12:05 Blood Gas Comments Andre well cs 03/31/18 12:05 Sodium 139 mmol/L (136-145) 04/05/18 05:00 Corrected Sodium TNP 04/05/18 05:00 Potassium 4.5 mmol/L (3.5-5.1) 04/05/18 05:00 Chloride 104 mmol/L (98-107) 04/05/18 05:00 Carbon Dioxide 31.5 mmol/L (21-32) 04/05/18 05:00 BUN 12 mg/dL (7-18) 04/05/18 05:00 Creatinine 0.70 mg/dL (0.55-1.02) 04/05/18 05:00 Est GFR (MDRD) Af Amer > 60 (>60) 04/05/18 05:00 Est GFR (MDRD) Non-Af > 60 (>60) 04/05/18 05:00 Glucose 106 mg/dL (65-99) H 04/05/18 05:00 Lactic Acid 1.1 mmol/L (0.4-2.0) 03/31/18 11:30 Calcium 9.1 mg/dL (8.5-10.1) 04/05/18 05:00 Corrected Calcium 10.7 mg/dL (8.5-10.1) H 04/05/18 05:00 Magnesium 2.0 mg/dL (1.7-2.9) 04/01/18 04:31 Total Bilirubin 0.20 mg/dL (0.2-1.0) 04/05/18 05:00 AST 38 Units/L (15-37) H 04/05/18 05:00 ALT 35 Units/L (12-78) 04/05/18 05:00 Alkaline Phosphatase 119 Units/L (46-116) H 04/05/18 05:00 Creatine Kinase 26 Units/L (26-192) 04/01/18 00:14 CK-MB (CK-2) 1.4 ng/mL (0-4.0) 04/01/18 00:14 CK/CKMB % Calc 5.4 % (<4) 04/01/18 00:14 Troponin I < 0.02 ng/mL (0-1.5) 04/01/18 00:14 Total Protein 5.6 g/dL (6.4-8.2) L 04/05/18 05:00 Albumin 2.0 g/dL (3.4-5.0) L 04/05/18 05:00 Globulin 3.6 g/dL (2.5-4.5) 04/05/18 05:00 Albumin/Globulin Ratio 0.6 Ratio (1.1-2.1) L 04/05/18 05:00 Specimen Type Random urine 03/31/18 16:03 Urine Color Yellow (YELLOW) 03/31/18 16:03 Urine Appearance Clear (CLEAR) 03/31/18 16:03 Urine pH 7.0 (5.0 - 8.0) 03/31/18 16:03 Ur Specific [place] 1.005 (1.000-1.030) 03/31/18 16:03 Urine Protein 1+ (NEGATIVE) 03/31/18 16:03 Urine Glucose (UA) Negative (NEGATIVE) 03/31/18 16:03 Urine Ketones 1+ (NEGATIVE) 03/31/18 16:03 Urine Occult Blood Negative (NEGATIVE) 03/31/18 16:03 Urine Nitrite Negative (NEGATIVE) 03/31/18 16:03 Urine Bilirubin Negative (NEGATIVE) 03/31/18 16:03 Urine Urobilinogen Normal (NORMAL) 03/31/18 16:03 Ur Leukocyte Esterase Negative (NEGATIVE) 03/31/18 16:03 Urine RBC 0-2 /HPF (NONE SEEN) 03/31/18 16:03 Urine WBC 0-2 /HPF (NONE SEEN) 03/31/18 16:03 Ur Squamous Epith Cells Rare /HPF (NEGATIVE) 03/31/18 16:03 Urine Bacteria Negative /HPF (NEGATIVE) 03/31/18 16:03 Urine Mucus Few /HPF (NEGATIVE) 03/31/18 16:03 Ur Culture Indicated? No/not indicated 03/31/18 16:03 - Plan (1) COPD with acute exacerbation Status: Acute Plan: respiratory treatments, supplemental oxygen, continue to monitor (2) Bronchopneumonia Status: Acute Plan: TESSALON PERLES, TUSSIONEX, MUCINEX, iv antibiotics, respiratory treatments, supplemental oxygen, continue to monitor (3) CAD (coronary artery disease) Status: Chronic Qualifiers: Coronary Disease-Associated Artery/Lesion type: [place] artery [place] vs. transplanted heart: [place] heart Associated angina: angina presence unspecified Qualified Code(s): I25.10 - Atherosclerotic heart disease of [place] coronary artery without angina pectoris Plan: CONTINUE HOME MEDICATIONS, CONTINUE TO MONITOR (4) CHF (congestive heart failure) Status: Chronic Qualifiers: Heart failure type: unspecified Heart failure chronicity: chronic Qualified Code(s): I50.9 - Heart failure, unspecified Plan: CONTINUE HOME MEDICATIONS, CONTINUE TO MONITOR (5) GERD (gastroesophageal reflux disease) Status: Chronic Qualifiers: Esophagitis presence: esophagitis presence not specified Qualified Code(s) : K21.9 - Gastro-esophageal reflux disease without esophagitis Plan: CONTINUE HOME MEDS (6) HTN (hypertension) Status: Chronic Qualifiers: Hypertension type: essential hypertension Qualified Code(s): I10 - Essential (primary) hypertension Plan: CONTINUE HOME MEDICATIONS (7) Hyperlipidemia Status: Chronic Qualifiers: Hyperlipidemia type: mixed hyperlipidemia Qualified Code(s): E78.2 - Mixed hyperlipidemia Plan: CONTINUE HOME MEDICATIONS
[2018-04-05] MEDS: COLACE CAP 100 MG PO SCH (20:36)
[2018-04-05] MEDS: PEPCID TAB 20 MG PO SCH (20:37)
[2018-04-05] MEDS: LIPITOR TAB 40 MG PO SCH (20:37)
[2018-04-05] MEDS: REQUIP PO SCH (20:38)
[2018-04-06] MEDS: DUONEB 0.5 MG/3 MG NEB SCH ×3 (01:05→08:50)
[2018-04-06] MEDS: NS 1/2 1000 ML IV 1,000 ML IV SCH (02:59)
[2018-04-06] MEDS: ROXICODONE TAB 15 MG PO PRN (03:00)
[2018-04-06 06:01] LABS: BASOPHILS % (AUTO) 0.2 % (0.2-1.0); EOSINOPHILS # (AUTO) 0.2 x10^3/uL (0.0-0.2); EOSINOPHILS % (AUTO) 1.2 % (0.9-2.9); HEMATOCRIT 35.7 % (36.0-47.0); HEMOGLOBIN 11.4 g/dL (12.0-16.0); LYMPHOCYTES # (AUTO) 2.4 X10^3/uL (1.3-2.9); LYMPHOCYTES % (AUTO) 17.1 % (21.0-51.0); MEAN CORPUSCULAR HEMOGLOBIN 25.4 pg (27.0-34.0); MEAN CORPUSCULAR VOLUME 79.3 fL (80.0-100.0); MEAN PLATELET VOLUME 7.8 fL (7.4-11.0); MONOCYTES # (AUTO) 1.2 x10^3/uL (0.3-0.8); MONOCYTES % (AUTO) 8.3 % (0.0-13.0); NEUTROPHILS # (AUTO) 10.3 x10^3/uL (2.2-4.8); NEUTROPHILS % (AUTO) 73.2 % (42.0-75.0); PLATELET COUNT 434 X10^3/uL (150.0-450.0); RED BLOOD COUNT 4.49 X10^6/uL (3.5-5.4); RED CELL DISTRIBUTION WIDTH 17.9 % (11.6-16.5)
[2018-04-06 06:03] LABS: ALANINE AMINOTRANSFERASE 35 Units/L (12-78); ALBUMIN 2.1 g/dL (3.4-5.0); ALKALINE PHOSPHATASE 120 Units/L (46-116); ASPARTATE AMINO TRANSFERASE 32 Units/L (15-37); BLOOD UREA NITROGEN 12 mg/dL (7-18); CALCIUM 8.7 mg/dL (8.5-10.1); CARBON DIOXIDE 33.2 mmol/L (21-32); CHLORIDE 102 mmol/L (98-107); COR CA(FOR HYPOALB) 10.2 mg/dL (8.5-10.1); COR NA(FOR HYPERGLY) 137 mmol/L (136-145); CREATININE 0.66 mg/dL (0.55-1.02); SODIUM 137 mmol/L (136-145); TOTAL PROTEIN 5.7 g/dL (6.4-8.2); eGFR NON BLACK RACES > 60 (>60)
[2018-04-06 06:22] LABS: PLATELET MORPHOLOGY COMMENT NORMAL (NORMAL)
[2018-04-06] MEDS ORDERED: NS 1/2 1000 ML IV 1,000 ML IV ONE (07:08)
--- NOTE | 2018-04-06 07:25 | RAD ---
HISTORY: Shortness of breath Study: Chest AP portable Comparison: 04/03/2018 Findings: The heart is enlarged. No congestive heart failure is noted. The annalise are normal. The lung lu are clear. The bony thorax is unremarkable. IMPRESSION: Mild cardiomegaly without congestive heart failure No infiltrates Reported By:
[2018-04-06] MEDS: PULMICORT NEB TX 0.5 MG NEB SCH (08:50)
[2018-04-06] MEDS: INVANZ INJ 1 GM VIAL 1 GM in NS 100 ML IV + SPIKE MINIBAG* 100 ML IV SCH (09:05)
[2018-04-06] MEDS: ZITHROMAX INJ 500 MG VIAL 250 MG in NS 250 ML IV 250 ML IV SCH (09:06)
[2018-04-06] MEDS: COREG TAB 3.125 MG PO SCH (09:08)
[2018-04-06] MEDS: ZINC SULFATE PO SCH (09:08)
[2018-04-06] MEDS: FOLIC ACID TAB 1 MG PO SCH (09:09)
[2018-04-06] MEDS: MICRO K EXTEN CAP 10 MEQ PO SCH (09:09)
[2018-04-06] MEDS: PriLOSEC PO SCH (09:09)
[2018-04-06] MEDS: SINGULAIR TAB 10 MG PO SCH (09:10)
[2018-04-06] MEDS: VITAMIN C PO SCH (09:10)
[2018-04-06] MEDS: DALIRESP PO SCH (09:10)
[2018-04-06] MEDS: MILK OF MAGNESIA PO SCH (09:10)
[2018-04-06] MEDS ORDERED: BACTRIM DS TAB PO NR (09:15)
[2018-04-06] MEDS: CITRACAL + VITAMIN D PO SCH (09:44)
[2018-04-06] MEDS: MUCINEX DM PO SCH (09:44)
[2018-04-06] MEDS: THEO-DUR TAB 200 MG PO SCH (09:45)
[2018-04-06] MEDS: VITAMIN D3 PO SCH (09:45)
[2018-04-06 10:18] VITALS: BP 124/60
--- NOTE | 2018-04-25 17:49 | DR.CARTERD ---
- Discharge Summary for: Discharge Summary for Date of:: 04/06/18 - Admission Date Date of Admission: 03/31/18 - Admission Diagnoses Admission Diagnosis: (1) COPD with acute exacerbation (2) Bronchopneumonia - Discharge Date Discharge Date: 04/06/18 - Discharge Diagnoses Discharge Diagnosis: (1) COPD with acute exacerbation (2) Bronchopneumonia (3) CAD (coronary artery disease) (4) CHF (congestive heart failure) (5) GERD (gastroesophageal reflux disease) (6) HTN (hypertension) (7) Hyperlipidemia - Hospital Course Hospital Course: DAY ONE, MS. PHILLIPS IS A 68 YEAR OLD PATIENT OF OURS WHO PRESENTED TO THE EMERGENCY ROOM WITH REPORTS OF INCREASING SHORTNESS OF BREATH, CHEST PAIN, WEAKNESS, AND FEVER. PATIENT REPORTED SYMPTOMS STARTED TWO WEEKS PRIOR AND HAD PROGRESSIVELY WORSENED. SHE WAS NOTED WITH SHORTNESS OF BREATH AT REST AND ON EXERTION. SHE HAS A MEDICAL HISTORY SIGNIFICANT FOR COPD AND CHF AND USES OXYGEN AT HOME. PATIENT WAS NOTED WITH A PRODUCTIVE COUGH WITH THICK YELLOW SPUTUM. ON AUSCULTATION, LUNGS WERE NOTED WITH RHONCHI AND WHEEZING THROUGHOUT. ON ARRIVAL TO THE HOSPITAL, VITALS WERE 101.6-114-40-87% 2L NC-120/57. ABNORMAL LABS WERE: WBC 22.3, MCV 77.9, MCH 25.6, MCHC 32.9, RDW 17.7, PLT COUNT 504, SODIUM 135, BUN 6, GLUCOSE 143, CALCIUM 10.2, CORRECTED CALCIUM 11.4, AST 12, ALT 11, ALK PHOS 192, CREATINE KINASE 23, ALBUMIN 2.5, GLOBULIN 5.6, A/G RATIO 0.4. BLOOD AND SPUTUM CULTURES OBTAINED. CHEST XRAY: COPD WITHOUT ACUTE ABNORMALITY; HYPERTENSIVE CONFIGURATION. EKG: SINUS TACHYCARDIA, RATE 110. ABG: PH 7.490, PO2 61.0, HCO3 26.7, BASE EXCESS 3.5. PATIENT ADMITTED TO THE HOSPITAL WITH ACUTE EXACERBATION OF COPD AND RESPIRATORY DISTRESS. SHE WAS STARTED ON IV ANTIBIOTICS, IV STEROIDS, AND RESPIRATORY TREATMENTS. DAY TWO, MS. PHILLIPS WAS ADMITTED FOR AN ACUTE COPD EXACERBATION AND BRONCHOPNEUMONIA. SHE WAS ALERT AND ORIENTED, LYING IN BED ON MORNING ROUNDS. SHE CONTINUED WITH COMPLAINTS OF SHORTNESS OF BREATH AND COUGH. ON EXAMINATION, SHE WAS NOTED TO BE TACHYCARDIC WITH HR 125. BILATERAL LUNGS CONTINUED WITH SCATTERED WHEEZING AND RHONCHI THROUGHOUT. ABDOMEN WAS ROUND, SOFT, AND NON- TENDER WITH NORMAL BOWEL SOUNDS NOTED IN ALL QUADRANTS. HER VITALS WERE 98.3-125 -28-95% NC, 152/69. LABS WERE OBTAINED. ABNORMAL LAB VALUES INCLUDED THE FOLLOWING: WBC 16.2, HGB 11.1, HCT 33.2, GLUCOSE 158, AST 11, ALT 8, GLUCOSE 155 , ALBUMIN 1.9. CARDIAC ENZYMES AND EKGS WITHIN NORMAL LIMITS. BLOOD AND SPUTUM CULTURES WERE PENDING. CHEST XRAY REPORTED NO CHANGE. WE STARTED TUSSIONEX 5ML Q12H PRN, TESSALON PERLES TWO CAPSULES EVERY 8 HOURS PRN, AND MUCINEX BID. WE CONTINUED WITH IV ANTIBIOTICS AND RESPIRATORY TREATMENTS. DAY THREE, SHE WAS ALERT AND ORIENTED, LYING IN BED ON MORNING ROUNDS. SHE CONTINUED WITH COMPLAINTS OF SHORTNESS OF BREATH AND A PRODUCTIVE COUGH. ON EXAMINATION, SHE CONTINUED TO BE TACHYCARDIC WITH HR 110. FILTER WASHER REVEALED SINUS TACHYCARDIA. BILATERAL LUNGS CONTINUED WITH SCATTERED WHEEZING AND RHONCHI THROUGHOUT. ABDOMEN WAS ROUND, SOFT, AND NON-TENDER WITH NORMAL BOWEL SOUNDS NOTED IN ALL QUADRANTS. HER VITALS WERE 98.4-94-23-96%-140/77. LABS WERE OBTAINED. ABNORMAL LAB VALUES INCLUDED THE FOLLOWING: WBC INCREASED TO 22.3, HGB 11.0, HCT 32.9, GLUCOSE 134, ALT 10, ALK PHOS 139, ALBUMIN 2.0. CHEST XRAY REPORTED A DIFFUSE INCREASE IN OPACITY OVER THE LEFT FIONA THORAX, OTHERWISE, NO CHANGE. WE CONTINUED WITH IV ANTIBIOTICS AND RESPIRATORY TREATMENTS. DAY FOUR, SHE CONTINUED WITH COMPLAINTS OF SHORTNESS OF BREATH AND A PRODUCTIVE COUGH. ON EXAMINATION, SHE CONTINUED TO BE TACHYCARDIC WITH HR 120. FILTER WASHER REVEALED SINUS TACHYCARDIA. BILATERAL LUNGS CONTINUED WITH SCATTERED WHEEZING AND RHONCHI THROUGHOUT. ABDOMEN WAS ROUND, SOFT, AND NON-TENDER WITH NORMAL BOWEL SOUNDS NOTED IN ALL QUADRANTS. HER VITALS WERE 98.9-120-23-95%-164/ 72. LABS WERE OBTAINED. ABNORMAL LAB VALUES INCLUDED THE FOLLOWING: WBC DECREASED TO 17.8, HGB 11.2, HCT 33.9, GLUCOSE 135, ALK PHOS 139, ALBUMIN 2.2, GLOBULIN 4.7. SPUTUM CULTURE REPORTED GROWTH OF KLEBSIELLA PNEUMONIAE. CHEST XRAY REPORTED NO CHANGE. WE CONTINUED WITH IV ANTIBIOTICS AND RESPIRATORY TREATMENTS. DAY FIVE, SHE CONTINUED WITH COMPLAINTS OF SHORTNESS OF BREATH AND A PRODUCTIVE COUGH. ON EXAMINATION, SHE CONTINUED TO BE TACHYCARDIC WITH HR 120. FILTER WASHER REVEALED SINUS TACHYCARDIA. BILATERAL LUNGS CONTINUED WITH SCATTERED WHEEZING AND RHONCHI THROUGHOUT. ABDOMEN WAS ROUND, SOFT, AND NON-TENDER WITH NORMAL BOWEL SOUNDS NOTED IN ALL QUADRANTS. HER VITALS WERE 99.0-109-21-98%-135/ 74. LABS WERE OBTAINED. ABNORMAL LAB VALUES INCLUDED THE FOLLOWING: WBC 15.7, HGB 10.9, HCT 32.7, PLT COUNT 498, GLUCOSE 143, ALT 9, ALK PHOS 118, TOTAL PROTEIN 6.0, ALBUMIN 2.1. SPUTUM CULTURE REPORTED GROWTH OF SERRATIA MARCESCENS WELL KLEBSIELLA PNEUMONIAE. THE SERRATIA WAS NOT SENSITIVE TO THE FORTAZ THAT SHE WAS ON. WE DISCONTINUED THE FORTAZ AND STARTED INVANZ 1GM IV DAILY. DAY SIX, SHE WAS ALERT AND ORIENTED, LYING IN BED ON MORNING ROUNDS. SHE CONTINUED WITH COMPLAINTS OF SHORTNESS OF BREATH AND A PRODUCTIVE COUGH, BUT REPORTED SLIGHT IMPROVEMENT SINCE THE DAY BEFORE. ON EXAMINATION, HEART WAS REGULAR IN RATE AND RHYTHM. BILATERAL LUNGS CONTINUED WITH SCATTERED WHEEZING AND RHONCHI THROUGHOUT. ABDOMEN WAS ROUND, SOFT, AND NON-TENDER WITH NORMAL BOWEL SOUNDS NOTED IN ALL QUADRANTS. HER VITALS WERE 97.9-97-18-97%-145/82. LABS WERE OBTAINED. ABNORMAL LAB VALUES INCLUDED THE FOLLOWING: WBC 15.5, HGB 10.8, HCT 33.0, GLUCOSE 106, AST 38, ALK PHOS 119, TOTAL PROTEIN 5.6, ALBUMIN 2.0. SPUTUM CULTURE REPORTED GROWTH OF SERRATIA MARCESCENS WELL KLEBSIELLA PNEUMONIAE. SHE CONTINUED ON INVANZ 1GM IV DAILY WELL RESPIRATORY TREATMENTS AND SUPPLEMENTAL OXYGEN. WE DISCONTINUED SOLU-MEDROL. DAY SEVEN, PATIENT WAS DOING WELL UPON ROUNDS. SHE REPORTED THAT SHE FELT MUCH BETTER. NO DISTRESS NOTED. PATIENT REPORTED COUGH WAS INTERMITTENT; SPUTUM THIN AND EASY TO EXPEL. ON AUSCULTATION, LUNGS CONTINUED WITH SCATTERED RHONCHI THROUGHOUT. VITAL SIGNS STABLE. LABS WNL. WE PLANNED FOR DISCHARGE. INSTRUCTIONS FOR MEDICATIONS AND FOLLOW UP WERE DISCUSSED WITH PATIENT AND FAMILY, BOTH VOICED UNDERSTANDING. PATIENT DISCHARGED HOME IN STABLE CONDITION WITH FAMILY. - Discharge Medications Discharge Medications: Home Medication List ascorbic acid (vitamin C) [Vitamin C] 1 tab PO DAILY 03/31/18 [History] atorvastatin 1 tab PO HS 03/31/18 [History] calcium citrate-vitamin D3 1 tab PO DAILY 03/31/18 [History] cholecalciferol (vitamin D3) [Vitamin D3] 1 tab PO DAILY 03/31/18 [History] famotidine [Pepcid] 1 tab PO HS 03/31/18 [History] fluticasone-salmeterol [Advair Diskus] 1 puff INHALATION DAILY 03/31/18 [History ] hydroxyzine HCl 1 tab PO .Q6-8HR PRN 03/31/18 [History] omeprazole magnesium [Prilosec OTC] 1 tab PO DAILY 03/31/18 [History] oxycodone 1 tab PO QID PRN 03/31/18 [History] promethazine 1 tab PO BID PRN 03/31/18 [History] roflumilast [Daliresp] 1 tab PO DAILY 03/31/18 [History] ropinirole 1 tab PO HS 03/31/18 [History] tiotropium bromide [Spiriva with HandiHaler] 1 inh INHALATION DAILY 03/31/18 [ History] zinc 1 tab PO DAILY 03/31/18 [History] benzonatate 200 mg PO TID PRN #40 cap 04/06/18 [Rx] hydrocodone-chlorpheniramine [Tussionex Pennkinetic ER] 5 ml PO Q12H PRN #100 ml 04/06/18 [Rx] ipratropium-albuterol 1 ea NEB TID #50 ml 04/06/18 [Rx] sulfamethoxazole-trimethoprim [Bactrim] 1 tab PO BID #28 tab 04/06/18 [Rx] Prescriptions: benzonatate Sanket Chery hydrocodone-chlorpheniramine [Tussionex Pennkinetic ER] Sanket Chery ipratropium-albuterol Snaket Chery sulfamethoxazole-trimethoprim [Bactrim] Sanket Chery Home medications carvedilol 1 tab PO BID 09/29/16 folic acid 1 tab PO DAILY 09/29/16 montelukast 1 tab PO DAILY 09/29/16 potassium chloride 3 cap PO DAILY 09/29/16 theophylline 0.5 tab PO BID 09/29/16 - Discharge Disposition Discharge Disposition: PATIENT IS TO FOLLOW UP IN OUR OFFICE IN ONE WEEK.
== END 2018-04-06 11:25 | disposition home or self-care (01) | DRG 194 ==
LOC: ER 10:56 → ICU 13:42
PROVIDERS: ADMIT Internal Medicine; ATTEND Internal Medicine
DX: J18.0 Bronchopneumonia, unspecified organism; I50.9 Heart failure, unspecified; Z99.81 Dependence on supplemental oxygen; R06.02 Shortness of breath; R26.89 Other abnormalities of gait and mobility; K21.9 Gastro-esophageal reflux disease without esophagitis; J44.1 Chronic obstructive pulmonary disease with (acute) exacerbation; J20.8 Acute bronchitis due to other specified organisms; R07.89 Other chest pain; R06.03 Acute respiratory distress; E78.2 Mixed hyperlipidemia; R53.1 Weakness; I25.10 Atherosclerotic heart disease of native coronary artery without angina pectoris
CPT/HCPCS: 36415; 36600; 71010; 71045; 80053; 81001; 82550; 82553; 82803; 83605; 83735; 84484; 85025; 87040; 87070; 87077; 87186; 87205; 93005; 93010; 94640; 96365; 96367; 96374; 96375; 97110; 97162; 97166; 97530; 99284; 99285; A4218; A4222; Q0169; J0456; J0696; J0713; J1335; J2405; J2920; J2930; J3490; J7050; J7620; J7626

== ENCOUNTER 2018-09-17 11:31 | Inpatient (IN) ==
[2018-09-17 11:43] VITALS: BMI 27.3
--- NOTE | 2018-09-17 12:23 | DR.GENAD ---
HPI Time Seen Time Seen by Provider: 09/17/18 12:22 PCP Primary Care Physician: Vik HPI Comment HPI Comment: PATIENT TREATED OUT PATIENT WITH IM STRIODS AMD IM ROCEPHIN WITHOUT IMPROVEMENT. INCREASE EXERTIONAL DYSPNEA. COUGH PRODUCTIVE YELLOW SPUTUM. SHE IS ON HOME OXYGEN AND STILL SOB. NEB TREATMENT IS NOT HELPING. Complaint/Symptoms Chief Complaint Doctors Comments: INCREASING SOB AND COUGH TIMES ONE WEEK. Chief Complaint:: Patient states that she has been sick for the past week and has been to the doctor twice. She has had 2 shots and started on a new antibiotic today but feels worse now. Nurses notes reviewed Nurses Notes Review: Yes Source History Provided: Patient and Family Member Mode of Arrival Mode of Arrival: Wheelchair Timing Onset of Chief Complaint: 09/10/18 Came on: Gradually Duration Duration: Constant Duration: Days Severity Severity: Moderate Modifying Factors Worsens:: DEEP BREATHING, EXERTION, LAYING DOWN Improves:: SITTING UP, REST. Associated Signs and Symptoms Associated Signs and Symptoms: WEAKNESS AND FATIGUE. PMH PMH Past Medical History: Yes Past Medical History: Arthritis, COPD, GERD and Hypertension Past Surgical History: Yes Surgical History: Abdominal Surgery, Cholecystectomy and REMARKETING REP Surgery Family History History of Family Medical Conditions: Yes Family Medical History: Diabetes Mellitus, Cancer, [place], Coronary Artery Disease and Hypertension Social History Does patient currently use any type of tobacco product: No Have you used tobacco products in the last 12 months: No Type of Tobacco Use: None Does any household member use tobacco: No Alcohol Use: None Do you use any recreational Drugs:: No Lives With: Spouse Lives Where: Home infectious screening In the last 2 months have you had wt loss of >10#?: NO Have you had fever, night sweats or hemotysis?: No Have you traveled outside the country in the last 6 months?: No Isolation: Standard ROS Review of Systems Constitutional: Malaise, Weakness, Fatigue and Loss of Appetite Eyes: No Symptoms Reported ENTM: Nose Congestion Respiratoy: Productive Cough, Short of Breath and Wheezing Cardiovascular: Chest Pain and Palpitations Gastrointestinal/Abdominal: Nausea Genitourinary: No Symptoms Reported Neurological: Headache, Weakness and Dizziness Musculoskeletal: Muscle Pain Integumentary: No Symptoms Reported Hematologic/Lymphatic: No Symptoms Reported Endocrine: No Symptoms Reported Psychiatric: No Symptoms Reported All Other Systems: Reviewed and Negative PE Vital Signs Vitals: Temperature 98.2 F Pulse Rate 122 Respiratory Rate 20 Blood Pressure [Left Arm] 124/60 Blood Pressure [Right Arm] 134/86 Blood Pressure 141/93 O2 Sat by Pulse Oximetry 94 General Limitations: No Limitations General Appearance: Alert and In Distress Head Head Exam: Normal Inspection ENT ENT Exam: Normal External Ear Exam External Ear Exam: Normal External Inspection TM/Canal Exam: Bilateral: Normal Nose Exam: Normal Nose Exam Mouth Exam: Normal Inspection Throat Exam: Normal Inspection Neck Neck Exam: Normal Inspection and Trachea Midline Chest Chest Inspection: Symmetric Chest Wall Rise Respiratory Respiratory Exam: Bilateral: Wheezing and Bilateral: Rhonchi and Lower: Wheezing and Lower: Rhonchi Cardiovascular Cardiovascular Exam: Tachycardia Abdominal Exam Abdominal Exam: Normal Bowel Sounds and Soft; negative Tenderness Extremities Extremities Exam: Normal Inspection Back Back Exam: Normal Inspection Neurologic Neurological Exam: Alert and Oriented X3; negative Motor Sensory Deficit Skin Skin Exam: Dry MDM Additional Information Additional Information Obtained From: Family Differential Diagnosis Differential Diagnosis: PNEUMONI, PE, COPD EXACERBATION, BRONCHITIS, [place], CHF COURSE Treatment Treatment: SEE ORDERS. Consultation Consultation Comments: DISCUSS PATIENT WITH DR. PEÑA. HE WILL ADMIT PATIENT. Education/Counseling Education/Counseling: Patient and Family Educated On: Diagnosis ROR Labs Reviewed Laboratory Results Reviewed?: Yes Result Diagrams: 09/17/18 12:47 09/17/18 12:47 Laboratory: 09/17/18 14:40 Sputum - Expectorated Sputum - Final WBC 21.5 X10^3/uL (3.6-10.0) H 09/17/18 12:47 RBC 4.99 X10^6/uL (3.5-5.4) 09/17/18 12:47 Hgb 12.4 g/dL (12.0-16.0) 09/17/18 12:47 Hct 39.1 % (36.0-47.0) 09/17/18 12:47 MCV 78.4 fL (80.0-100.0) L 09/17/18 12:47 MCH 24.9 pg (27.0-34.0) L 09/17/18 12:47 MCHC 31.8 g/dL (33.0-35.0) L 09/17/18 12:47 RDW 17.6 % (11.6-16.5) H 09/17/18 12:47 Plt Count 346 X10^3/uL (150.0-450.0) 09/17/18 12:47 Plt Count Comment Adequate (ADEQUATE) 09/17/18 12:47 MPV 8.8 fL (7.4-11.0) 09/17/18 12:47 Neut % (Auto) 87.0 % (42.0-75.0) H 09/17/18 12:47 Lymph % (Auto) 5.0 % (21.0-51.0) L 09/17/18 12:47 [place] % (Auto) 7.6 % (0.0-13.0) 09/17/18 12:47 Eos % (Auto) 0.0 % (0.9-2.9) L 09/17/18 12:47 Baso % (Auto) 0.4 % (0.2-1.0) 09/17/18 12:47 Neut # (Auto) 18.7 x10^3/uL (2.2-4.8) H 09/17/18 12:47 Lymph # (Auto) 1.1 X10^3/uL (1.3-2.9) L 09/17/18 12:47 [place] # (Auto) 1.6 x10^3/uL (0.3-0.8) H 09/17/18 12:47 Eos # (Auto) 0.0 x10^3/uL (0.0-0.2) 09/17/18 12:47 Baso # (Auto) 0.1 X10^3/uL (0.0-0.1) 09/17/18 12:47 Absolute Nucleated RBC 0.0 /100WBC 09/17/18 12:47 Total Counted 100 09/17/18 12:47 Neutrophils % (Manual) 88 % (39-76) H 09/17/18 12:47 Lymphocytes % (Manual) 5 % (13-43) L 09/17/18 12:47 Monocytes % (Manual) 7 % (4-9) 09/17/18 12:47 Plt Morphology Comment Normal (NORMAL) 09/17/18 12:47 RBC Morphology Abnormal (NORMAL) A 09/17/18 12:47 Hypochromasia Slight A 09/17/18 12:47 Anisocytosis Slight A 09/17/18 12:47 D-Dimer < 100 ng/mL (0-400) 09/17/18 12:47 Sample Site Left radial 09/17/18 12:37 ABG pH 7.480 (7.35-7.45) H 09/17/18 12:37 ABG pCO2 38.0 mmHg (35.0-45.0) 09/17/18 12:37 ABG pO2 72.0 mmHg (80.0-100.0) L 09/17/18 12:37 ABG HCO3 28.3 mmol/L (22-26) H 09/17/18 12:37 ABG O2 Saturation 95.0 % (90-100) 09/17/18 12:37 ABG Base Excess 4.6 mmol/L (-2.0-2.0) H 09/17/18 12:37 Earle Test Pos 09/17/18 12:37 A-a Gradient 109.0 mmHg 09/17/18 12:37 FiO2 32.0 09/17/18 12:37 Blood Gas Comments Andre well aw 09/17/18 12:37 Sodium 140 mmol/L (136-145) 09/17/18 12:47 Corrected Sodium 142 mmol/L (136-145) 09/17/18 12:47 Potassium 4.3 mmol/L (3.5-5.1) 09/17/18 12:47 Chloride 104 mmol/L (98-107) 09/17/18 12:47 Carbon Dioxide 27.4 mmol/L (21-32) 09/17/18 12:47 BUN 17 mg/dL (7-18) 09/17/18 12:47 Creatinine 0.78 mg/dL (0.55-1.02) 09/17/18 12:47 Est GFR (MDRD) Af Amer > 60 (>60) 09/17/18 12:47 Est GFR (MDRD) Non-Af > 60 (>60) 09/17/18 12:47 Glucose 199 mg/dL (65-99) H 09/17/18 12:47 Calcium 9.6 mg/dL (8.5-10.1) 09/17/18 12:47 Corrected Calcium 10.2 mg/dL (8.5-10.1) H 09/17/18 12:47 Total Bilirubin 0.30 mg/dL (0.2-1.0) 09/17/18 12:47 AST 15 Units/L (15-37) 09/17/18 12:47 ALT 26 Units/L (12-78) 09/17/18 12:47 Alkaline Phosphatase 124 Units/L (46-116) H 09/17/18 12:47 Creatine Kinase 91 Units/L (26-192) 09/17/18 12:47 CK-MB (CK-2) 2.2 ng/mL (0-4.0) 09/17/18 12:47 CK/CKMB % Calc 2.4 % (<4) 09/17/18 12:47 Troponin I < 0.02 ng/mL (0-1.5) 09/17/18 12:47 B-Natriuretic Peptide 105 pg/mL (0-79) H 09/17/18 12:47 Total Protein 6.9 g/dL (6.4-8.2) 09/17/18 12:47 Albumin 3.2 g/dL (3.4-5.0) L 09/17/18 12:47 Globulin 3.7 g/dL (2.5-4.5) 09/17/18 12:47 Albumin/Globulin Ratio 0.9 Ratio (1.1-2.1) L 09/17/18 12:47 Influenza Type A (PCR) Negative (NEGATIVE) 09/17/18 14:40 Influenza Type B (PCR) Negative (NEGATIVE) 09/17/18 14:40 XRAY XRAY Interpreted by: Radiologist XRAY Findings: REPORT DISCUSS WITH PATIENT. Procedures Procedure Comments Procedures: SEE ORDERS. Diagnosis Discharge Problem: Chronic obstructive pulmonary disease
[2018-09-17 12:52] LABS: ABG ALLEN TEST POS; ABG BASE EXCESS 4.6 mmol/L (-2.0-2.0); ABG HCO3 28.3 mmol/L (22-26)
[2018-09-17 13:11] LABS: BASOPHILS # (AUTO) 0.1 X10^3/uL (0.0-0.1); BASOPHILS % (AUTO) 0.4 % (0.2-1.0); HEMATOCRIT 39.1 % (36.0-47.0); HEMOGLOBIN 12.4 g/dL (12.0-16.0); LYMPHOCYTES # (AUTO) 1.1 X10^3/uL (1.3-2.9); MEAN CORPUSCULAR HEMOGLOBIN 24.9 pg (27.0-34.0); MEAN CORPUSCULAR HGB CONC 31.8 g/dL (33.0-35.0); MEAN CORPUSCULAR VOLUME 78.4 fL (80.0-100.0); MEAN PLATELET VOLUME 8.8 fL (7.4-11.0); MONOCYTES # (AUTO) 1.6 x10^3/uL (0.3-0.8); MONOCYTES % (AUTO) 7.6 % (0.0-13.0); NEUTROPHILS # (AUTO) 18.7 x10^3/uL (2.2-4.8); PLATELET COUNT 346 X10^3/uL (150.0-450.0); RED BLOOD COUNT 4.99 X10^6/uL (3.5-5.4); RED CELL DISTRIBUTION WIDTH 17.6 % (11.6-16.5); WHITE BLOOD COUNT 21.5 X10^3/uL (3.6-10.0)
[2018-09-17 13:34] LABS: BLOOD UREA NITROGEN 17 mg/dL (7-18); CALCIUM 9.6 mg/dL (8.5-10.1); CARBON DIOXIDE 27.4 mmol/L (21-32); CHLORIDE 104 mmol/L (98-107); COR NA(FOR HYPERGLY) 142 mmol/L (136-145); CREATININE 0.78 mg/dL (0.55-1.02); SODIUM 140 mmol/L (136-145); TROPONIN I < 0.02 ng/mL (0-1.5); eGFR NON BLACK RACES > 60 (>60)
[2018-09-17 13:36] LABS: ALANINE AMINOTRANSFERASE 26 Units/L (12-78); ALBUMIN 3.2 g/dL (3.4-5.0); ALKALINE PHOSPHATASE 124 Units/L (46-116); ASPARTATE AMINO TRANSFERASE 15 Units/L (15-37); CKMB % 2.4 % (<4); COR CA(FOR HYPOALB) 10.2 mg/dL (8.5-10.1); CREATINE KINASE 91 Units/L (26-192); CREATINE KINASE MB 2.2 ng/mL (0-4.0); TOTAL PROTEIN 6.9 g/dL (6.4-8.2)
[2018-09-17 13:39] LABS: ANISOCYTOSIS SLIGHT; HYPOCHROMASIA SLIGHT; PLATELET MORPHOLOGY COMMENT NORMAL (NORMAL)
--- NOTE | 2018-09-17 15:17 | RAD ---
Examination: Chest, PA and lateral views History: SOB Comparison 04/06/2018 Findings: Continued normal heart size. There is no evidence for acute pulmonary, hilar or pleural lesion. Slight deformity of the left costophrenic angle may reflect pleural thickening. No definite pleural effusion or pneumothorax. Impression: No acute chest abnormality Reported By:
[2018-09-17] MEDS ORDERED: TUSSIONEX PENNKINETIC SUSP PO PRN (16:38)
[2018-09-17] MEDS ORDERED: PHENERGAN TAB 25 MG PO PRN (16:38)
[2018-09-17] MEDS: DUONEB 0.5 MG/3 MG NEB SCH ×2 (17:05→21:12)
[2018-09-17 18:58] LABS: CKMB % 1.9 % (<4); CREATINE KINASE 126 Units/L (26-192); CREATINE KINASE MB 2.4 ng/mL (0-4.0); TROPONIN I < 0.02 ng/mL (0-1.5)
[2018-09-17] MEDS: REQUIP PO SCH (20:10)
[2018-09-17] MEDS: LIPITOR TAB 40 MG PO SCH (20:11)
[2018-09-17] MEDS: THEO-DUR TAB 200 MG PO SCH (20:11)
[2018-09-17] MEDS: ZyrTEC TAB 10 MG PO SCH (20:11)
[2018-09-17] MEDS: PEPCID TAB 20 MG PO SCH (20:11)
[2018-09-17] MEDS: CITRACAL + VITAMIN D PO SCH (20:11)
[2018-09-17] MEDS: COREG TAB 3.125 MG PO SCH (20:12)
[2018-09-17] MEDS: ROXICODONE TAB 15 MG PO PRN (20:41)
[2018-09-17] MEDS ORDERED: OSCAL+D or CALTRATE+D PO SCH (21:00)
[2018-09-17] MEDS ORDERED: NS 250 ML IV 0 ML IV ONE (21:07)
[2018-09-17] MEDS: PULMICORT NEB TX 0.5 MG NEB SCH (21:12)
[2018-09-17] MEDS: FORTAZ or TAZICEF VIAL INJ IVP SCH (21:45)
[2018-09-17] MEDS: VALIUM PO PRN (21:47)
[2018-09-17] MEDS: TESSALON PERLES PO PRN (22:15)
[2018-09-18 01:21] LABS: CKMB % 1.8 % (<4); CREATINE KINASE 189 Units/L (26-192); CREATINE KINASE MB 3.4 ng/mL (0-4.0); TROPONIN I < 0.02 ng/mL (0-1.5)
[2018-09-18] MEDS: ROXICODONE TAB 15 MG PO PRN ×3 (03:00→17:12)
[2018-09-18 06:07] LABS: ALANINE AMINOTRANSFERASE 26 Units/L (12-78); ALKALINE PHOSPHATASE 111 Units/L (46-116); ASPARTATE AMINO TRANSFERASE 22 Units/L (15-37); BLOOD UREA NITROGEN 15 mg/dL (7-18); CALCIUM 9.8 mg/dL (8.5-10.1); CARBON DIOXIDE 28.5 mmol/L (21-32); CHLORIDE 101 mmol/L (98-107); COR CA(FOR HYPOALB) 10.6 mg/dL (8.5-10.1); COR NA(FOR HYPERGLY) 140 mmol/L (136-145); CREATININE 0.77 mg/dL (0.55-1.02); SODIUM 139 mmol/L (136-145); TOTAL PROTEIN 6.6 g/dL (6.4-8.2); eGFR NON BLACK RACES > 60 (>60)
[2018-09-18 06:09] LABS: BASOPHILS % (AUTO) 0.2 % (0.2-1.0); EOSINOPHILS % (AUTO) 0.1 % (0.9-2.9); HEMATOCRIT 39.2 % (36.0-47.0); HEMOGLOBIN 12.5 g/dL (12.0-16.0); LYMPHOCYTES # (AUTO) 1.6 X10^3/uL (1.3-2.9); LYMPHOCYTES % (AUTO) 8.3 % (21.0-51.0); MEAN PLATELET VOLUME 8.8 fL (7.4-11.0); MONOCYTES # (AUTO) 2.4 x10^3/uL (0.3-0.8); MONOCYTES % (AUTO) 12.1 % (0.0-13.0); NEUTROPHILS # (AUTO) 15.8 x10^3/uL (2.2-4.8); NEUTROPHILS % (AUTO) 79.3 % (42.0-75.0); PLATELET COUNT 302 X10^3/uL (150.0-450.0); RED BLOOD COUNT 5.02 X10^6/uL (3.5-5.4); RED CELL DISTRIBUTION WIDTH 17.9 % (11.6-16.5); WHITE BLOOD COUNT 19.9 X10^3/uL (3.6-10.0)
[2018-09-18] MEDS: FORTAZ or TAZICEF VIAL INJ IVP SCH ×3 (06:29→22:00)
[2018-09-18] MEDS: XOPENEX 1.25 MG/3 ML NEBULE NEB SCH ×3 (06:40→21:42)
[2018-09-18 07:02] LABS: ANISOCYTOSIS SLIGHT; HYPOCHROMASIA SLIGHT; PLATELET MORPHOLOGY COMMENT NORMAL (NORMAL)
[2018-09-18] MEDS: ZINC SULFATE PO SCH (08:06)
[2018-09-18] MEDS: VALIUM PO PRN (08:06)
[2018-09-18] MEDS: TESSALON PERLES PO PRN ×2 (08:06→17:09)
[2018-09-18] MEDS: COREG TAB 3.125 MG PO SCH ×2 (08:07→21:01)
[2018-09-18] MEDS: VITAMIN D3 PO SCH (08:07)
[2018-09-18] MEDS: DALIRESP PO SCH (08:07)
[2018-09-18] MEDS: VITAMIN C PO SCH (08:07)
[2018-09-18] MEDS: THEO-DUR TAB 200 MG PO SCH ×2 (08:07→21:00)
[2018-09-18] MEDS: CITRACAL + VITAMIN D PO SCH ×2 (08:08→21:01)
[2018-09-18] MEDS: SINGULAIR TAB 10 MG PO SCH (08:08)
[2018-09-18] MEDS: FOLIC ACID TAB 1 MG PO SCH (08:08)
[2018-09-18] MEDS ORDERED: PREDNISONE TAB 10 MG PO SCH (09:00)
[2018-09-18] MEDS ORDERED: PATIENT'S HOME MEDICATION (Tiotropium Bromide Monohydrate 1 INH) IN SCH (09:00)
[2018-09-18] MEDS: PULMICORT NEB TX 0.5 MG NEB SCH ×2 (09:31→21:42)
[2018-09-18] MEDS: SOLU-Medrol 40 MG VIAL IVP SCH ×3 (10:50→22:00)
[2018-09-18] MEDS: ZOFRAN TAB 4 MG PO PRN (12:21)
[2018-09-18] MEDS: LIPITOR TAB 40 MG PO SCH (21:00)
[2018-09-18] MEDS: REQUIP PO SCH (21:00)
[2018-09-18] MEDS: ZyrTEC TAB 10 MG PO SCH (21:00)
[2018-09-18] MEDS: PEPCID TAB 20 MG PO SCH (21:00)
[2018-09-18] MEDS ORDERED: RESTORIL CAP 15 MG PO PRN (22:48)
[2018-09-19 06:22] LABS: BASOPHILS % (AUTO) 0.1 % (0.2-1.0); HEMATOCRIT 38.4 % (36.0-47.0); HEMOGLOBIN 12.2 g/dL (12.0-16.0); LYMPHOCYTES # (AUTO) 0.8 X10^3/uL (1.3-2.9); LYMPHOCYTES % (AUTO) 6.4 % (21.0-51.0); MEAN CORPUSCULAR HEMOGLOBIN 24.9 pg (27.0-34.0); MEAN CORPUSCULAR HGB CONC 31.7 g/dL (33.0-35.0); MEAN CORPUSCULAR VOLUME 78.3 fL (80.0-100.0); MEAN PLATELET VOLUME 9.2 fL (7.4-11.0); MONOCYTES # (AUTO) 0.5 x10^3/uL (0.3-0.8); MONOCYTES % (AUTO) 3.8 % (0.0-13.0); NEUTROPHILS # (AUTO) 11.4 x10^3/uL (2.2-4.8); NEUTROPHILS % (AUTO) 89.7 % (42.0-75.0); PLATELET COUNT 253 X10^3/uL (150.0-450.0); RED CELL DISTRIBUTION WIDTH 17.4 % (11.6-16.5); WHITE BLOOD COUNT 12.8 X10^3/uL (3.6-10.0)
[2018-09-19] MEDS: XOPENEX 1.25 MG/3 ML NEBULE NEB SCH ×3 (06:24→20:16)
[2018-09-19 06:41] LABS: ALANINE AMINOTRANSFERASE 24 Units/L (12-78); ALBUMIN 2.6 g/dL (3.4-5.0); ALKALINE PHOSPHATASE 101 Units/L (46-116); ASPARTATE AMINO TRANSFERASE 28 Units/L (15-37); BLOOD UREA NITROGEN 16 mg/dL (7-18); CALCIUM 10.3 mg/dL (8.5-10.1); CARBON DIOXIDE 31.3 mmol/L (21-32); CHLORIDE 103 mmol/L (98-107); COR CA(FOR HYPOALB) 11.4 mg/dL (8.5-10.1); COR NA(FOR HYPERGLY) 144 mmol/L (136-145); CREATININE 0.67 mg/dL (0.55-1.02); SODIUM 142 mmol/L (136-145); TOTAL PROTEIN 6.2 g/dL (6.4-8.2); eGFR NON BLACK RACES > 60 (>60)
[2018-09-19] MEDS: FORTAZ or TAZICEF VIAL INJ IVP SCH ×3 (06:46→21:29)
[2018-09-19] MEDS: SOLU-Medrol 40 MG VIAL IVP SCH ×3 (06:47→21:30)
[2018-09-19 06:57] LABS: HYPOCHROMASIA SLIGHT; PLATELET MORPHOLOGY COMMENT NORMAL (NORMAL)
--- NOTE | 2018-09-19 07:02 | RAD ---
HISTORY: Shortness of breath Study: Chest AP portable Comparison: 09/17/2018, 04/06/2018 Findings: The heart is mildly enlarged. No congestive heart failure is noted. The lungs are well inflated and free of acute alveolar infiltrates. No pleural effusions are identified. The bony thorax is unremarkable. IMPRESSION: Moderate cardiomegaly without congestive heart failure No infiltrates Reported By:
[2018-09-19 08:42] LABS: ABG BASE EXCESS 11.3 mmol/L (-2.0-2.0)
[2018-09-19 08:43] LABS: ABG ALLEN TEST POS; ABG HCO3 35.9 mmol/L (22-26)
[2018-09-19] MEDS ORDERED: NARCAN INJ IVP ONE (08:45)
[2018-09-19] MEDS ORDERED: NARCAN INJ ONE (08:45)
[2018-09-19 09:33] LABS: BILIRUBIN,URINE NEGATIVE (NEGATIVE); BLOOD/HEMOGLOBIN,URINE NEGATIVE (NEGATIVE); GLUCOSE, URINE NEGATIVE (NEGATIVE); KETONES,URINE NEGATIVE (NEGATIVE); LEUKOCYTE ESTERASE ,URINE NEGATIVE (NEGATIVE); NITRITES,URINE NEGATIVE (NEGATIVE); PH,URINE 6.5 (5.0 - 8.0); PROTEIN,URINE NEGATIVE (NEGATIVE); UROBILINOGEN,URINE NORMAL (NORMAL)
[2018-09-19 09:48] LABS: APPEARANCE,URINE CLEAR (CLEAR); COLOR,URINE YELLOW (YELLOW)
[2018-09-19] MEDS: SINGULAIR TAB 10 MG PO SCH (09:52)
[2018-09-19] MEDS: DALIRESP PO SCH (09:52)
[2018-09-19] MEDS: COREG TAB 3.125 MG PO SCH ×2 (09:52→21:30)
[2018-09-19] MEDS: FOLIC ACID TAB 1 MG PO SCH (09:52)
[2018-09-19] MEDS: CITRACAL + VITAMIN D PO SCH ×2 (09:52→21:29)
[2018-09-19] MEDS: ZINC SULFATE PO SCH (09:53)
[2018-09-19] MEDS: VITAMIN C PO SCH (09:53)
[2018-09-19] MEDS: THEO-DUR TAB 200 MG PO SCH ×2 (09:53→21:29)
[2018-09-19] MEDS: VITAMIN D3 PO SCH (09:53)
--- NOTE | 2018-09-19 09:54 | CT ---
HISTORY: Altered mental status Study: CT brain without contrast Comparison: None Technique: Multiple axial images of the brain were obtained from the skull base to the vertex without administration of IV contrast. Findings: No acute intraparenchymal hemorrhage or mass can be identified. No extra-axial fluid collections are seen. No alteration in the attenuation of the brain parenchyma can be identified to suggest acute or subacute ischemic change. The ventricular system is symmetric and nondilated. The extracranial structures are grossly unremarkable. IMPRESSION: 1. No acute intracranial process can be identified. Reported By:
[2018-09-19] MEDS: PULMICORT NEB TX 0.5 MG NEB SCH ×2 (09:55→20:16)
[2018-09-19 10:38] LABS: CKMB % 1.5 % (<4); CREATINE KINASE 201 Units/L (26-192); CREATINE KINASE MB 3.1 ng/mL (0-4.0); TROPONIN I < 0.02 ng/mL (0-1.5)
[2018-09-19] MEDS: MORPHINE SULFATE INJ 2 MG INJ IVP PRN ×2 (11:23→22:25)
--- NOTE | 2018-09-19 13:16 | DR.H&P ---
H&P - History & Physical for Day of: H&P Date: 09/17/18 - Chief Complaint Chief Complaint: IS A 68 YEAR OLD PATIENT OF OURS WHO PRESENTED TO THE EMERGENCY ROOM WITH COMPLAINTS OF INCREASING SHORTNESS OF BREATH AND COUGH FOR THE PAST WEEK. PATIENT REPORTS THAT SHE WAS TREATMENT IN THE OFFICE WITH IM STEROIDS, IM ROCEPHIN, AND ORAL ANTIBIOTICS WELL BREATHING TREATMENTS AND HOME OXYGEN. SHE DENIES IMPROVEMENT IN SYMPTOMS. SHE REPORTS A PRODUCTIVE COUGH WITH YELLOW SPUTUM. ON ARRIVAL, VITALS WERE 98.2-122-24-95%-141/93. LABS WERE OBTAINED. ABNORMAL LAB VALUES INCLUDE THE FOLLOWING: WBC 21.5, GLUCOSE 199, ALK PHOS 124, BNP 105, ALBUMIN 3.2. CARDIAC ENZYMES WITHIN NORMAL LIMITS. ABG OBTAINED AND REVEALED: PH 7.480, PC02 38.0, P02 72.0, HC03 28.3, 02 95.0, BASE EXCESS 4.6. EKG OBTAINED AND REVEALED: SINUS TACHYCARDIA WITH HR 121. A CHEST XRAY WAS OBTAINED AND REVEALED: Continued normal heart size. There is no evidence for acute pulmonary, hilar or pleural lesion. Slight deformity of the left costophrenic angle may reflect pleural thickening. No definite pleural effusion or pneumothorax. SHE BALJEET ADMITTED TO THE HOSPITAL FOR FURTHER EVAULATION AND TREATMENT OF ACUTE COPD EXACERBATION, ACUTE BRONCHITIS, AND RESPIRATORY DISTRESS. SHE WAS STARTED ON RESPIRATORY TREATMENTS, SUPPLEMENTAL OXYGEN, FORTAZ 1GM IV Q8H PRN, AND HOME MEDICATIONS RESUMED. WE PLAN TO FOLLOW UP WITH AM LABS AND CONTINUE TO MONITOR PATIENT. - Past Medical History Past Medical History: Hypertension, COPD, GERD, Arthritis - Past Surgical History Surgical History: Abdominal Surgery, Cholecystectomy, CRUCIBLE PACKER Surgery - Family History Family Medical History: Diabetes Mellitus, Cancer, [place], Coronary Artery Disease, Hypertension - Social History Does patient currently use any type of tobacco product: No (quit 15 years ago) Have you used tobacco products in the last 12 months: No Type of Tobacco Use: None Does any household member use tobacco: No Alcohol Use: None Drug Use: None - Medications Home Medications: cefdinir Allergy (Verified 10/13/17 06:55) ciprofloxacin Allergy (Verified 10/13/17 06:55) clarithromycin Allergy (Verified 10/13/17 06:55) clindamycin Allergy (Verified 10/13/17 06:55) doxycycline Allergy (Verified 10/13/17 06:55) erythromycin base Allergy (Verified 10/13/17 06:55) gabapentin [From Neurontin] Allergy (Verified 10/13/17 06:55) levofloxacin [From Levaquin] Allergy (Verified 10/13/17 06:55) nitrofurantoin Allergy (Verified 10/13/17 06:55) Penicillins Allergy (Verified 10/13/17 06:55) phenazopyridine Allergy (Verified 10/13/17 06:55) rifampin Allergy (Verified 10/13/17 06:55) CONTINUE taking the following medications benzonatate 200 mg PO BID 09/17/18 [History] cefuroxime axetil 500 mg PO BID 09/17/18 [History] cetirizine 10 mg PO HS 09/17/18 [History] ondansetron 8 mg PO QID PRN 09/17/18 [History] oxycodone 15 mg PO QID PRN 09/17/18 [History] prednisone 10 mg PO DAILY 09/17/18 [History] - Review of Systems Constitutional: Weakness Eyes: No Symptoms Reported ENT: No Symptoms Reported Respiratory: Cough, Shortness of Breath, Wheezing Cardiovascular: No Symptoms Reported Gastrointestinal: No Symptoms Reported Genitourinary: No Symptoms Reported Musculoskeletal: No Symptoms Reported Skin: No Symptoms Reported Neurological: Weakness - Physical Exam Vital Signs: Temperature 98.6 F Pulse Rate [Left Brachial] 129 Pulse Rate 120 Respiratory Rate 29 Blood Pressure [Left Arm] 155/105 Blood Pressure [Right Arm] 134/86 Blood Pressure 141/93 O2 Sat by Pulse Oximetry 95 Oriented: Normal Eyes: Normal Ear: Normal Nose: Normal Throat: Normal Respiratory: Wheezes Throughout Cardiovascular: Normal. negative: S3, S4, Murmur : Normal Palpation: Normal Tenderness: Normal Skin: Normal Musculoskeletal: Normal Psychiatric: Normal Mood Description: Calm Affect: Normal Speech Pattern: Clear - Allergies Allergies/Adverse Reactions: Allergies Allergy/AdvReac Type Severity Reaction Status Date / Time cefdinir Allergy Verified 10/13/17 06:55 ciprofloxacin Allergy Verified 10/13/17 06:55 clarithromycin Allergy Verified 10/13/17 06:55 clindamycin Allergy Verified 10/13/17 06:55 doxycycline Allergy Verified 10/13/17 06:55 erythromycin base Allergy Verified 10/13/17 06:55 gabapentin [From Neurontin] Allergy Verified 10/13/17 06:55 levofloxacin [From Levaquin] Allergy Verified 10/13/17 06:55 nitrofurantoin Allergy Verified 10/13/17 06:55 Penicillins Allergy Verified 10/13/17 06:55 phenazopyridine Allergy Verified 10/13/17 06:55 rifampin Allergy Verified 10/13/17 06:55
[2018-09-19] MEDS: TESSALON PERLES PO PRN ×2 (13:42→21:29)
[2018-09-19 14:19] LABS: CKMB % 1.5 % (<4); CREATINE KINASE 154 Units/L (26-192); CREATINE KINASE MB 2.3 ng/mL (0-4.0); TROPONIN I < 0.02 ng/mL (0-1.5)
[2018-09-19 19:06] LABS: CKMB % 1.7 % (<4); CREATINE KINASE 117 Units/L (26-192); TROPONIN I < 0.02 ng/mL (0-1.5)
[2018-09-19] MEDS: ZyrTEC TAB 10 MG PO SCH (21:29)
[2018-09-19] MEDS: LIPITOR TAB 40 MG PO SCH (21:30)
[2018-09-19] MEDS: PEPCID TAB 20 MG PO SCH (21:30)
[2018-09-19] MEDS: REQUIP PO SCH (21:30)
[2018-09-20] MEDS: FORTAZ or TAZICEF VIAL INJ IVP SCH ×3 (05:53→21:30)
[2018-09-20] MEDS: SOLU-Medrol 40 MG VIAL IVP SCH ×3 (05:54→21:28)
[2018-09-20] MEDS: MORPHINE SULFATE INJ 2 MG INJ IVP PRN (06:00)
[2018-09-20] MEDS: XOPENEX 1.25 MG/3 ML NEBULE NEB SCH ×3 (06:08→20:28)
[2018-09-20 06:31] LABS: ALANINE AMINOTRANSFERASE 21 Units/L (12-78); ALBUMIN 2.5 g/dL (3.4-5.0); ALKALINE PHOSPHATASE 90 Units/L (46-116); ASPARTATE AMINO TRANSFERASE 24 Units/L (15-37); BLOOD UREA NITROGEN 29 mg/dL (7-18); CARBON DIOXIDE 29.7 mmol/L (21-32); CHLORIDE 106 mmol/L (98-107); COR CA(FOR HYPOALB) 11.2 mg/dL (8.5-10.1); COR NA(FOR HYPERGLY) 145 mmol/L (136-145); SODIUM 143 mmol/L (136-145); TOTAL PROTEIN 6.1 g/dL (6.4-8.2); eGFR NON BLACK RACES > 60 (>60)
[2018-09-20 06:49] LABS: BASOPHILS % (AUTO) 0.2 % (0.2-1.0); HEMATOCRIT 38.4 % (36.0-47.0); HEMOGLOBIN 12.4 g/dL (12.0-16.0); LYMPHOCYTES # (AUTO) 0.7 X10^3/uL (1.3-2.9); LYMPHOCYTES % (AUTO) 3.7 % (21.0-51.0); MEAN CORPUSCULAR HEMOGLOBIN 25.1 pg (27.0-34.0); MEAN CORPUSCULAR HGB CONC 32.3 g/dL (33.0-35.0); MEAN CORPUSCULAR VOLUME 77.8 fL (80.0-100.0); MEAN PLATELET VOLUME 9.2 fL (7.4-11.0); MONOCYTES # (AUTO) 0.9 x10^3/uL (0.3-0.8); MONOCYTES % (AUTO) 4.6 % (0.0-13.0); NEUTROPHILS # (AUTO) 17.6 x10^3/uL (2.2-4.8); NEUTROPHILS % (AUTO) 91.5 % (42.0-75.0); PLATELET COUNT 296 X10^3/uL (150.0-450.0); RED BLOOD COUNT 4.93 X10^6/uL (3.5-5.4); RED CELL DISTRIBUTION WIDTH 17.9 % (11.6-16.5); WHITE BLOOD COUNT 19.3 X10^3/uL (3.6-10.0)
[2018-09-20 07:37] LABS: BAND NEUTROPHILS % 4 % (0-10)
[2018-09-20 07:38] LABS: PLATELET MORPHOLOGY COMMENT NORMAL (NORMAL)
[2018-09-20] MEDS ORDERED: TORADOL 30 MG VIAL IVP PRN (10:05)
[2018-09-20] MEDS: COREG TAB 3.125 MG PO SCH ×2 (10:20→21:29)
[2018-09-20] MEDS: THEO-DUR TAB 200 MG PO SCH ×2 (10:22→21:29)
[2018-09-20] MEDS: DALIRESP PO SCH (10:22)
[2018-09-20] MEDS: FOLIC ACID TAB 1 MG PO SCH (10:23)
[2018-09-20] MEDS: ZINC SULFATE PO SCH (10:23)
[2018-09-20] MEDS: ROXICODONE TAB 15 MG PO SCH ×3 (10:24→23:00)
[2018-09-20] MEDS: SINGULAIR TAB 10 MG PO SCH (10:25)
[2018-09-20] MEDS: VITAMIN C PO SCH (10:26)
[2018-09-20] MEDS: PULMICORT NEB TX 0.5 MG NEB SCH ×2 (12:13→20:28)
[2018-09-20] MEDS: CITRACAL + VITAMIN D PO SCH ×2 (15:17→21:26)
[2018-09-20] MEDS: VITAMIN D3 PO SCH (15:17)
[2018-09-20] MEDS: PEPCID TAB 20 MG PO SCH (21:28)
[2018-09-20] MEDS: REQUIP PO SCH (21:28)
[2018-09-20] MEDS: LIPITOR TAB 40 MG PO SCH (21:29)
[2018-09-20] MEDS: TESSALON PERLES PO PRN (21:29)
[2018-09-20] MEDS: ZyrTEC TAB 10 MG PO SCH (21:30)
--- NOTE | 2018-09-20 22:25 | PCM.PROG ---
Progress Note - Progress Note for Day of Date of Exam: 09/18/18 - Subjective Subjective: WAS ADMITTED FOR ACUTE COPD EXACERBATION, ACUTE BRONCHITIS, AND RESPIRATORY DISTRESS. TODAY, SHE IS ALERT AND ORIENTED, LYING IN BED ON MORNING ROUNDS. SHE CONTINUES WITH COMPLAINTS OF SHORTNESS OF BREATH AND A PRDUCTIVE COUGH. ON EXAMINATION, HEART IS REGULAR IN RATE AND RHYTHM. BILATERAL LUNGS ARE NOTED WITH SCATTERED WHEEZING, DIMINISHED. ABDOMEN IS ROUND, SOFT, AND NON-TENDER WITH NORMAL BOWEL SOUNDS NOTED IN ALL QUADRANTS. HER VITALS THIS MORNING ARE 98.4-120-93%-22-160/82. LABS WERE OBTAINED. ABNORMAL LAB VALUES INCLUDE THE FOLLOWING: WBC 19.9, GLUCOSE 132, ALBUMIN 3.0. CARDIAC ENZYMES AND EKGS HAVE BEEN STABLE AND UNCHANGED. SHE IS CURRENTLY RECEIVING IV FORTAZ, RESPIRATORY TREATMENTS, SUPPLEMENTAL OXYGEN, AND HOME MEDICATIONS WERE RESUMED. TODAY, WE PLAN TO DISCONTINUE THE PREDNISONE THAT SHE WAS RECEIVING AT HOME AND START SOLU-MEDROL 80MG IV Q8H. OTHERWISE, WE WILL CONTINUE WITH CURRENT PLAN OF CARE. WE WILL FOLLOW UP WITH AM LABS AND CONTINUE TO MONITOR. - Past Medical Family Social History Past Med/Fam/Surg Hx: No changes since H&P Allergies: Allergies cefdinir Allergy (Verified 10/13/17 06:55) ciprofloxacin Allergy (Verified 10/13/17 06:55) clarithromycin Allergy (Verified 10/13/17 06:55) clindamycin Allergy (Verified 10/13/17 06:55) doxycycline Allergy (Verified 10/13/17 06:55) erythromycin base Allergy (Verified 10/13/17 06:55) gabapentin [From Neurontin] Allergy (Verified 10/13/17 06:55) levofloxacin [From Levaquin] Allergy (Verified 10/13/17 06:55) nitrofurantoin Allergy (Verified 10/13/17 06:55) Penicillins Allergy (Verified 10/13/17 06:55) phenazopyridine Allergy (Verified 10/13/17 06:55) rifampin Allergy (Verified 10/13/17 06:55) - Review of Systems ROS: No change since H&P - Vital Signs and I&O's Vital Signs: Temperature 97.6 F Pulse Rate [Left Brachial] 127 Pulse Rate 126 Respiratory Rate 42 Blood Pressure [Left Arm] 163/85 Blood Pressure [Right Arm] 134/86 Blood Pressure 180/94 O2 Sat by Pulse Oximetry 95 Intake and Output: Intake & Output 09/18/18 09/19/18 09/20/18 09/21/18 11:59 11:59 11:59 11:59 Intake Total 420 / 420 1200 / 1200 700 / 700 390 / 390 Output Total 1300 / 1300 300 / 300 Balance 420 / 420 1200 / 1200 -600 / -600 90 / 90 - Physical Exam Oriented: Normal Eyes: Normal Ear: Normal Nose: Normal Throat: Normal Respiratory: Generalized, Diminished, Wheezes Cardiovascular: Normal. negative: S3, S4, Murmur : Normal Auscultation: Bowel Sounds: Normal Palpation: Normal Tenderness: Normal Skin: Normal Musculoskeletal: Normal Psychiatric: Normal Mood Description: Calm Affect: Normal Speech Pattern: Clear, Appropriate - Laboratory and Diagnostics Result Diagrams: 09/20/18 05:38 09/20/18 05:38 Labs: 09/17/18 14:40 Sputum - Expectorated Sputum Sputum Culture - Preliminary 09/17/18 14:40 Sputum - Expectorated Sputum - Final 09/17/18 16:24 Blood Blood Culture - Preliminary 09/17/18 16:10 Blood Blood Culture - Preliminary Laboratory WBC 19.3 X10^3/uL (3.6-10.0) H 09/20/18 05:38 RBC 4.93 X10^6/uL (3.5-5.4) 09/20/18 05:38 Hgb 12.4 g/dL (12.0-16.0) 09/20/18 05:38 Hct 38.4 % (36.0-47.0) 09/20/18 05:38 MCV 77.8 fL (80.0-100.0) L 09/20/18 05:38 MCH 25.1 pg (27.0-34.0) L 09/20/18 05:38 MCHC 32.3 g/dL (33.0-35.0) L 09/20/18 05:38 RDW 17.9 % (11.6-16.5) H 09/20/18 05:38 Plt Count 296 X10^3/uL (150.0-450.0) 09/20/18 05:38 Plt Count Comment Adequate (ADEQUATE) 09/20/18 05:38 MPV 9.2 fL (7.4-11.0) 09/20/18 05:38 Neut % (Auto) 91.5 % (42.0-75.0) H 09/20/18 05:38 Lymph % (Auto) 3.7 % (21.0-51.0) L 09/20/18 05:38 [place] % (Auto) 4.6 % (0.0-13.0) 09/20/18 05:38 Eos % (Auto) 0.0 % (0.9-2.9) L 09/20/18 05:38 Baso % (Auto) 0.2 % (0.2-1.0) 09/20/18 05:38 Neut # (Auto) 17.6 x10^3/uL (2.2-4.8) H 09/20/18 05:38 Lymph # (Auto) 0.7 X10^3/uL (1.3-2.9) L 09/20/18 05:38 [place] # (Auto) 0.9 x10^3/uL (0.3-0.8) H 09/20/18 05:38 Eos # (Auto) 0.0 x10^3/uL (0.0-0.2) 09/20/18 05:38 Baso # (Auto) 0.0 X10^3/uL (0.0-0.1) 09/20/18 05:38 Absolute Nucleated RBC 0.0 /100WBC 09/20/18 05:38 Total Counted 100 09/20/18 05:38 Neutrophils % (Manual) 84 % (39-76) H 09/20/18 05:38 Band Neutrophils % 4 % (0-10) 09/20/18 05:38 Lymphocytes % (Manual) 4 % (13-43) L 09/20/18 05:38 Monocytes % (Manual) 5 % (4-9) 09/20/18 05:38 Eosinophils % (Manual) 3 % (0-6) 09/20/18 05:38 Plt Morphology Comment Normal (NORMAL) 09/20/18 05:38 RBC Morphology Normal (NORMAL) 09/20/18 05:38 Hypochromasia Slight A 09/19/18 05:25 Anisocytosis Slight A 09/18/18 05:15 D-Dimer < 100 ng/mL (0-400) 09/17/18 12:47 Sample Site Left radial 09/19/18 08:27 ABG pH 7.500 (7.35-7.45) H 09/19/18 08:27 ABG pCO2 46.0 mmHg (35.0-45.0) H 09/19/18 08:27 ABG pO2 58.0 mmHg (80.0-100.0) L 09/19/18 08:27 ABG HCO3 35.9 mmol/L (22-26) H* 09/19/18 08:27 ABG O2 Saturation 92.0 % (90-100) 09/19/18 08:27 ABG Base Excess 11.3 mmol/L (-2.0-2.0) H 09/19/18 08:27 Earle Test Pos 09/19/18 08:27 A-a Gradient 84.0 mmHg 09/19/18 08:27 FiO2 28.0 09/19/18 08:27 Blood Gas Comments Andre well aw 09/19/18 08:27 Sodium 143 mmol/L (136-145) 09/20/18 05:38 Corrected Sodium 145 mmol/L (136-145) 09/20/18 05:38 Potassium 4.1 mmol/L (3.5-5.1) 09/20/18 05:38 Chloride 106 mmol/L (98-107) 09/20/18 05:38 Carbon Dioxide 29.7 mmol/L (21-32) 09/20/18 05:38 BUN 29 mg/dL (7-18) H 09/20/18 05:38 Creatinine 0.70 mg/dL (0.55-1.02) 09/20/18 05:38 Est GFR (MDRD) Af Amer > 60 (>60) 09/20/18 05:38 Est GFR (MDRD) Non-Af > 60 (>60) 09/20/18 05:38 Glucose 179 mg/dL (65-99) H 09/20/18 05:38 Calcium 10.0 mg/dL (8.5-10.1) 09/20/18 05:38 Corrected Calcium 11.2 mg/dL (8.5-10.1) H 09/20/18 05:38 Total Bilirubin 0.30 mg/dL (0.2-1.0) 09/20/18 05:38 AST 24 Units/L (15-37) 09/20/18 05:38 ALT 21 Units/L (12-78) 09/20/18 05:38 Alkaline Phosphatase 90 Units/L (46-116) 09/20/18 05:38 Creatine Kinase 117 Units/L (26-192) 09/19/18 17:56 CK-MB (CK-2) 2.0 ng/mL (0-4.0) 09/19/18 17:56 CK/CKMB % Calc 1.7 % (<4) 09/19/18 17:56 Troponin I < 0.02 ng/mL (0-1.5) 09/19/18 17:56 B-Natriuretic Peptide 105 pg/mL (0-79) H 09/17/18 12:47 Total Protein 6.1 g/dL (6.4-8.2) L 09/20/18 05:38 Albumin 2.5 g/dL (3.4-5.0) L 09/20/18 05:38 Globulin 3.6 g/dL (2.5-4.5) 09/20/18 05:38 Albumin/Globulin Ratio 0.7 Ratio (1.1-2.1) L 09/20/18 05:38 Specimen Type Catherized urine 09/19/18 09:00 Urine Color Yellow (YELLOW) 09/19/18 09:00 Urine Appearance Clear (CLEAR) 09/19/18 09:00 Urine pH 6.5 (5.0 - 8.0) 09/19/18 09:00 Ur Specific [place] 1.015 (1.000-1.030) 09/19/18 09:00 Urine Protein Negative (NEGATIVE) 09/19/18 09:00 Urine Glucose (UA) Negative (NEGATIVE) 09/19/18 09:00 Urine Ketones Negative (NEGATIVE) 09/19/18 09:00 Urine Occult Blood Negative (NEGATIVE) 09/19/18 09:00 Urine Nitrite Negative (NEGATIVE) 09/19/18 09:00 Urine Bilirubin Negative (NEGATIVE) 09/19/18 09:00 Urine Urobilinogen Normal (NORMAL) 09/19/18 09:00 Ur Leukocyte Esterase Negative (NEGATIVE) 09/19/18 09:00 Urine Opiates Screen Negative (NEG=<300) 09/19/18 09:00 Urine Methadone Screen Negative (NEG=<300) 09/19/18 09:00 Ur Barbiturates Screen Negative (NEG=<200) 09/19/18 09:00 Ur Phencyclidine Scrn Negative (NEG=<25) 09/19/18 09:00 Ur Amphetamines Screen Negative (NEG=<1000) 09/19/18 09:00 U Benzodiazepines Scrn Negative (NEG=<200) 09/19/18 09:00 Urine Cocaine Screen Negative (NEG=<300) 09/19/18 09:00 U Marijuana (THC) Screen Negative (NEG=<50) 09/19/18 09:00 Influenza Type A (PCR) Negative (NEGATIVE) 09/17/18 14:40 Influenza Type B (PCR) Negative (NEGATIVE) 09/17/18 14:40 - Plan (1) Bronchitis Status: Acute Plan: IV ANTIBIOTICS, RESPIRATORY TREATMENTS, SUPPLEMENTAL OXYGEN, CONTINUE TO MONITOR. (2) COPD with acute exacerbation Status: Acute Plan: SOLU-MEDROL 80MG IV Q8H, RESPIRATORY TREATMENTS, SUPPLEMENTAL OXYGEN, CONTINUE TO MONITOR (3) Respiratory distress Status: Acute Plan: SOLU-MEDROL 80MG IV Q8H, RESPIRATORY TREATMENTS, SUPPLEMENTAL OXYGEN, CONTINUE TO MONITOR
[2018-09-21] MEDS ORDERED: NORMODYNE INJ 100 MG VIAL ONE (00:14)
[2018-09-21] MEDS: NORMODYNE INJ 20 MG VIAL IVP PRN ×3 (00:25→19:30)
[2018-09-21] MEDS: ROXICODONE TAB 15 MG PO SCH ×4 (05:04→23:00)
[2018-09-21] MEDS: FORTAZ or TAZICEF VIAL INJ IVP SCH ×3 (05:42→21:29)
[2018-09-21] MEDS: SOLU-Medrol 40 MG VIAL IVP SCH (05:42)
[2018-09-21] MEDS: XOPENEX 1.25 MG/3 ML NEBULE NEB SCH ×2 (05:56→20:06)
[2018-09-21 06:33] LABS: BASOPHILS % (AUTO) 0.2 % (0.2-1.0); HEMATOCRIT 35.9 % (36.0-47.0); HEMOGLOBIN 11.4 g/dL (12.0-16.0); LYMPHOCYTES # (AUTO) 0.9 X10^3/uL (1.3-2.9); MEAN CORPUSCULAR HEMOGLOBIN 24.7 pg (27.0-34.0); MEAN CORPUSCULAR HGB CONC 31.7 g/dL (33.0-35.0); MONOCYTES # (AUTO) 0.4 x10^3/uL (0.3-0.8); MONOCYTES % (AUTO) 2.9 % (0.0-13.0); NEUTROPHILS # (AUTO) 13.2 x10^3/uL (2.2-4.8); NEUTROPHILS % (AUTO) 90.9 % (42.0-75.0); PLATELET COUNT 252 X10^3/uL (150.0-450.0); WHITE BLOOD COUNT 14.6 X10^3/uL (3.6-10.0)
[2018-09-21 06:47] LABS: ALANINE AMINOTRANSFERASE 18 Units/L (12-78); ALBUMIN 2.3 g/dL (3.4-5.0); ALKALINE PHOSPHATASE 78 Units/L (46-116); ASPARTATE AMINO TRANSFERASE 17 Units/L (15-37); BLOOD UREA NITROGEN 29 mg/dL (7-18); CALCIUM 9.9 mg/dL (8.5-10.1); CARBON DIOXIDE 30.1 mmol/L (21-32); CHLORIDE 104 mmol/L (98-107); COR CA(FOR HYPOALB) 11.3 mg/dL (8.5-10.1); COR NA(FOR HYPERGLY) 144 mmol/L (136-145); CREATININE 0.81 mg/dL (0.55-1.02); SODIUM 142 mmol/L (136-145); TOTAL PROTEIN 5.7 g/dL (6.4-8.2); eGFR NON BLACK RACES > 60 (>60)
[2018-09-21 07:06] LABS: BAND NEUTROPHILS % 8 % (0-10)
[2018-09-21 07:07] LABS: PLATELET MORPHOLOGY COMMENT NORMAL (NORMAL)
[2018-09-21] MEDS: CITRACAL + VITAMIN D PO SCH ×2 (08:24→21:29)
[2018-09-21] MEDS: COREG TAB 3.125 MG PO SCH ×2 (08:26→21:29)
[2018-09-21] MEDS: DALIRESP PO SCH (08:26)
[2018-09-21] MEDS: FOLIC ACID TAB 1 MG PO SCH (08:26)
[2018-09-21] MEDS: SINGULAIR TAB 10 MG PO SCH (08:27)
[2018-09-21] MEDS: THEO-DUR TAB 200 MG PO SCH ×2 (08:27→21:29)
[2018-09-21] MEDS: VITAMIN C PO SCH (08:28)
[2018-09-21] MEDS: ZINC SULFATE PO SCH (08:28)
[2018-09-21] MEDS: PULMICORT NEB TX 0.5 MG NEB SCH ×2 (08:31→20:07)
[2018-09-21] MEDS: VITAMIN D3 PO SCH (09:00)
[2018-09-21] MEDS ORDERED: CATAPRES-TTS-1 TD ONE (09:36)
[2018-09-21] MEDS: SEROquel TAB 100 MG PO SCH ×2 (09:57→17:43)
[2018-09-21] MEDS ORDERED: CATAPRES-TTS-1 TD SCH ×2 (10:00)
[2018-09-21] MEDS ORDERED: LASIX IVP ONE ×2 (12:50→12:51)
--- NOTE | 2018-09-21 13:16 | RAD ---
HISTORY: Congestion, shortness of breath. Prior history of COPD and hypertension. Study: Single-view chest Comparison: 09/19/2018. Findings: Trachea is midline. Heart is again seen to be mildly enlarged. Increased interstitial markings are present bilaterally which are stable compared to prior studies. No infiltrate, CHF, pleural fluid or pneumothorax is seen. Osseous structures are intact. IMPRESSION: Cardiomegaly without CHF. Stable increased interstitial markings bilaterally. No acute abnormalities seen. Reported By:
--- NOTE | 2018-09-21 14:44 | CT ---
HISTORY: Altered mental status, history of hypertension Study: CT brain without contrast Comparison: 09/19/2018 Technique: Multiple axial images of the brain were obtained from the skull base to the vertex without administration of IV contrast. Findings: Imaging of the brain demonstrates multi focal low-attenuation within the left middle cerebellar peduncle and anterior left cerebellum as well as scattered within the right cerebellar hemisphere, possibly reflecting beam hardening artifact. However, if there is concern for acute to early subacute infarct, correlation with MRI of the brain would be beneficial. There is no intracranial hemorrhage, mass effect, or midline shift. No extra-axial fluid collection is identified. Mild global atrophy is noted with associated mild ex vacuo dilatation of the ventricles. There are low attenuating foci within the periventricular and deep white matter, likely reflecting chronic small vessel disease. The basilar cisterns are patent. The bony structures are intact. IMPRESSION: 1. Global atrophy and chronic small vessel disease. There are multiple focal low attenuating foci within the cerebellum and left cerebellar peduncle, possibly reflecting beam hardening artifact within the posterior fossa. However, if there is concern for acute to early subacute infarct, correlation with MRI of the brain is recommended. Reported By:
--- NOTE | 2018-09-21 17:56 | PCM.PROG ---
Progress Note - Progress Note for Day of Date of Exam: 09/19/18 - Subjective Subjective: WAS ADMITTED FOR ACUTE COPD EXACERBATION, ACUTE BRONCHITIS, AND RESPIRATORY DISTRESS. STAFF AND FAMILY REPORT THAT PATIENT HAS BEEN DISORIENTED THROUGHOUT THE NIGHT AND ROAMING THE HALLS. PRIOR TO MORNING ROUNDS, STAFF REPORTS THAT PATIENT IS ONLY RESPONSIVE TO DEEP STERNAL RUB AND IS NOTED WITH SLURRED SPEECH. ON MORNING ROUNDS, SHE IS NOTED TO BE LETHARGIC AND DIFFICULT TO AROUSE. ON EXAMINATION, PUPILS ARE CONSTRICTED. SHE IS TACHYCARDIC. BILATERAL LUNGS ARE NOTED WITH SCATTERED WHEEZING, DIMINISHED. ABDOMEN IS ROUND, SOFT, AND NON-TENDER WITH NORMAL BOWEL SOUNDS NOTED IN ALL QUADRANTS. HER VITALS THIS MORNING ARE 98.6-101-22-89%NC-103/85. LABS WERE OBTAINED. ABNORMAL LAB VALUES INCLUDE THE FOLLOWING: WBC 12.8, GLUCOSE 170, CALCIUM 10.3, TOTAL PROTEIN 6.2, ALBUMIN 2.6. AN ABG WAS OBTAINED AND REVEALED: PH 7.500, PC02 46.0, P02 58.0, HC03 35.9, BASE EXCESS 11.3. CHEST XRAY REVEALED: Moderate cardiomegaly without congestive heart failure. No infiltrates. BRAIN CT REVEALED: NO ACUTE INTRACRANIAL PROCESS CAN BE IDENTIFIED. WITHIN THE PAST 24 HOURS, SHE HAS RECEIVIED ROXICODONE 15MG PO X 2 DOSES, TUSSIONEX 5ML PO X 1 DOSE, AND VALIUM 5MG PO X 1 DOSE WELL HER SCHEDULED MEDICATIONS. FAMILY DENIES PATIENT TAKING ANY OF HER MEDICATIONS FROM HOME. WE ADMINISTERED NARCAN 2MG IV X 1 DOSE. PATIENT BECAME MORE ALERT AND RESPONSIVE. PUPILS REACTIVE. SHE IS CURRENTLY R ECEIVING IV FORTAZ,IV SOLU-MEDROL, RESPIRATORY TREATMENTS, SUPPLEMENTAL OXYGEN, AND HER HOME MEDICATIONS. TODAY, WE PLAN TO OBTAIN SERIAL CARDIAC ENZYMES AND EKGS. WE WILL DISCONTINUE HER OXYCODONE AND TUSSIONEX AND START MORPHINE 1MG-2MG IV Q4H PRN PAIN. OTHERWISE, WE WILL CONTINUE WITH CURRENT PLAN OF CARE. WE WILL FOLLOW UP WITH AM LABS AND CONTINUE TO MONITOR. - Past Medical Family Social History Past Med/Fam/Surg Hx: No changes since H&P Allergies: Allergies cefdinir Allergy (Verified 10/13/17 06:55) ciprofloxacin Allergy (Verified 10/13/17 06:55) clarithromycin Allergy (Verified 10/13/17 06:55) clindamycin Allergy (Verified 10/13/17 06:55) doxycycline Allergy (Verified 10/13/17 06:55) erythromycin base Allergy (Verified 10/13/17 06:55) gabapentin [From Neurontin] Allergy (Verified 10/13/17 06:55) levofloxacin [From Levaquin] Allergy (Verified 10/13/17 06:55) nitrofurantoin Allergy (Verified 10/13/17 06:55) Penicillins Allergy (Verified 10/13/17 06:55) phenazopyridine Allergy (Verified 10/13/17 06:55) rifampin Allergy (Verified 10/13/17 06:55) - Review of Systems ROS: No change since H&P - Vital Signs and I&O's Vital Signs: Temperature 97.7 F Pulse Rate [Left Brachial] 120 Pulse Rate 118 Respiratory Rate 22 Blood Pressure [Left Arm] 174/96 Blood Pressure [Right Arm] 134/86 Blood Pressure 158/95 O2 Sat by Pulse Oximetry 96 Intake and Output: Intake & Output 09/19/18 09/20/18 09/21/18 09/22/18 11:59 11:59 11:59 11:59 Intake Total 1200 / 1200 700 / 700 1310 / 1310 220 / 220 Output Total 1300 / 1300 900 / 900 Balance 1200 / 1200 -600 / -600 410 / 410 220 / 220 - Physical Exam Oriented: Unable to test Eyes: Other (PUPILS CONSTRICTED ) Ear: Normal Nose: Normal Throat: Normal Respiratory: Generalized, Diminished, Wheezes Cardiovascular: Normal. negative: S3, S4, Murmur : Normal Auscultation: Bowel Sounds: Normal Tenderness: Normal Skin: Normal Musculoskeletal: Normal Psychiatric: Other (LETHARGIC) Speech Pattern: Inappropriate, Slurred - Laboratory and Diagnostics Result Diagrams: 09/21/18 05:44 09/21/18 05:44 Labs: 09/17/18 14:40 Sputum - Expectorated Sputum Sputum Culture - Preliminary 09/17/18 14:40 Sputum - Expectorated Sputum - Final 09/17/18 16:24 Blood Blood Culture - Preliminary 09/17/18 16:10 Blood Blood Culture - Preliminary Laboratory WBC 14.6 X10^3/uL (3.6-10.0) H 09/21/18 05:44 RBC 4.60 X10^6/uL (3.5-5.4) 09/21/18 05:44 Hgb 11.4 g/dL (12.0-16.0) L 09/21/18 05:44 Hct 35.9 % (36.0-47.0) L 09/21/18 05:44 MCV 78.0 fL (80.0-100.0) L 09/21/18 05:44 MCH 24.7 pg (27.0-34.0) L 09/21/18 05:44 MCHC 31.7 g/dL (33.0-35.0) L 09/21/18 05:44 RDW 17.0 % (11.6-16.5) H 09/21/18 05:44 Plt Count 252 X10^3/uL (150.0-450.0) 09/21/18 05:44 Plt Count Comment Adequate (ADEQUATE) 09/21/18 05:44 MPV 9.0 fL (7.4-11.0) 09/21/18 05:44 Neut % (Auto) 90.9 % (42.0-75.0) H 09/21/18 05:44 Lymph % (Auto) 6.0 % (21.0-51.0) L 09/21/18 05:44 [place] % (Auto) 2.9 % (0.0-13.0) 09/21/18 05:44 Eos % (Auto) 0.0 % (0.9-2.9) L 09/21/18 05:44 Baso % (Auto) 0.2 % (0.2-1.0) 09/21/18 05:44 Neut # (Auto) 13.2 x10^3/uL (2.2-4.8) H 09/21/18 05:44 Lymph # (Auto) 0.9 X10^3/uL (1.3-2.9) L 09/21/18 05:44 [place] # (Auto) 0.4 x10^3/uL (0.3-0.8) 09/21/18 05:44 Eos # (Auto) 0.0 x10^3/uL (0.0-0.2) 09/21/18 05:44 Baso # (Auto) 0.0 X10^3/uL (0.0-0.1) 09/21/18 05:44 Absolute Nucleated RBC 0.0 /100WBC 09/21/18 05:44 Total Counted 100 09/21/18 05:44 Neutrophils % (Manual) 81 % (39-76) H 09/21/18 05:44 Band Neutrophils % 8 % (0-10) 09/21/18 05:44 Lymphocytes % (Manual) 8 % (13-43) L 09/21/18 05:44 Monocytes % (Manual) 3 % (4-9) L 09/21/18 05:44 Eosinophils % (Manual) 3 % (0-6) 09/20/18 05:38 Plt Morphology Comment Normal (NORMAL) 09/21/18 05:44 RBC Morphology Normal (NORMAL) 09/21/18 05:44 Hypochromasia Slight A 09/19/18 05:25 Anisocytosis Slight A 09/18/18 05:15 D-Dimer < 100 ng/mL (0-400) 09/17/18 12:47 Sample Site Left radial 09/19/18 08:27 ABG pH 7.500 (7.35-7.45) H 09/19/18 08:27 ABG pCO2 46.0 mmHg (35.0-45.0) H 09/19/18 08:27 ABG pO2 58.0 mmHg (80.0-100.0) L 09/19/18 08:27 ABG HCO3 35.9 mmol/L (22-26) H* 09/19/18 08:27 ABG O2 Saturation 92.0 % (90-100) 09/19/18 08:27 ABG Base Excess 11.3 mmol/L (-2.0-2.0) H 09/19/18 08:27 Earle Test Pos 09/19/18 08:27 A-a Gradient 84.0 mmHg 09/19/18 08:27 FiO2 28.0 09/19/18 08:27 Blood Gas Comments Andre well aw 09/19/18 08:27 Sodium 142 mmol/L (136-145) 09/21/18 05:44 Corrected Sodium 144 mmol/L (136-145) 09/21/18 05:44 Potassium 3.8 mmol/L (3.5-5.1) 09/21/18 05:44 Chloride 104 mmol/L (98-107) 09/21/18 05:44 Carbon Dioxide 30.1 mmol/L (21-32) 09/21/18 05:44 BUN 29 mg/dL (7-18) H 09/21/18 05:44 Creatinine 0.81 mg/dL (0.55-1.02) 09/21/18 05:44 Est GFR (MDRD) Af Amer > 60 (>60) 09/21/18 05:44 Est GFR (MDRD) Non-Af > 60 (>60) 09/21/18 05:44 Glucose 183 mg/dL (65-99) H 09/21/18 05:44 Calcium 9.9 mg/dL (8.5-10.1) 09/21/18 05:44 Corrected Calcium 11.3 mg/dL (8.5-10.1) H 09/21/18 05:44 Total Bilirubin 0.20 mg/dL (0.2-1.0) 09/21/18 05:44 AST 17 Units/L (15-37) 09/21/18 05:44 ALT 18 Units/L (12-78) 09/21/18 05:44 Alkaline Phosphatase 78 Units/L (46-116) 09/21/18 05:44 Creatine Kinase 117 Units/L (26-192) 09/19/18 17:56 CK-MB (CK-2) 2.0 ng/mL (0-4.0) 09/19/18 17:56 CK/CKMB % Calc 1.7 % (<4) 09/19/18 17:56 Troponin I < 0.02 ng/mL (0-1.5) 09/19/18 17:56 B-Natriuretic Peptide 105 pg/mL (0-79) H 09/17/18 12:47 Total Protein 5.7 g/dL (6.4-8.2) L 09/21/18 05:44 Albumin 2.3 g/dL (3.4-5.0) L 09/21/18 05:44 Globulin 3.4 g/dL (2.5-4.5) 09/21/18 05:44 Albumin/Globulin Ratio 0.7 Ratio (1.1-2.1) L 09/21/18 05:44 Specimen Type Catherized urine 09/19/18 09:00 Urine Color Yellow (YELLOW) 09/19/18 09:00 Urine Appearance Clear (CLEAR) 09/19/18 09:00 Urine pH 6.5 (5.0 - 8.0) 09/19/18 09:00 Ur Specific [place] 1.015 (1.000-1.030) 09/19/18 09:00 Urine Protein Negative (NEGATIVE) 09/19/18 09:00 Urine Glucose (UA) Negative (NEGATIVE) 09/19/18 09:00 Urine Ketones Negative (NEGATIVE) 09/19/18 09:00 Urine Occult Blood Negative (NEGATIVE) 09/19/18 09:00 Urine Nitrite Negative (NEGATIVE) 09/19/18 09:00 Urine Bilirubin Negative (NEGATIVE) 09/19/18 09:00 Urine Urobilinogen Normal (NORMAL) 09/19/18 09:00 Ur Leukocyte Esterase Negative (NEGATIVE) 09/19/18 09:00 Urine Opiates Screen Negative (NEG=<300) 09/19/18 09:00 Urine Methadone Screen Negative (NEG=<300) 09/19/18 09:00 Ur Barbiturates Screen Negative (NEG=<200) 09/19/18 09:00 Ur Phencyclidine Scrn Negative (NEG=<25) 09/19/18 09:00 Ur Amphetamines Screen Negative (NEG=<1000) 09/19/18 09:00 U Benzodiazepines Scrn Negative (NEG=<200) 09/19/18 09:00 Urine Cocaine Screen Negative (NEG=<300) 09/19/18 09:00 U Marijuana (THC) Screen Negative (NEG=<50) 09/19/18 09:00 Influenza Type A (PCR) Negative (NEGATIVE) 09/17/18 14:40 Influenza Type B (PCR) Negative (NEGATIVE) 09/17/18 14:40 - Plan (1) Bronchitis Status: Acute Plan: IV ANTIBIOTICS, RESPIRATORY TREATMENTS, SUPPLEMENTAL OXYGEN, CONTINUE TO MONITOR. (2) COPD with acute exacerbation Status: Acute Plan: SOLU-MEDROL 80MG IV Q8H, RESPIRATORY TREATMENTS, SUPPLEMENTAL OXYGEN, CONTINUE TO MONITOR (3) Respiratory distress Status: Acute Plan: SOLU-MEDROL 80MG IV Q8H, RESPIRATORY TREATMENTS, SUPPLEMENTAL OXYGEN, CONTINUE TO MONITOR (4) Altered mental status, unspecified Status: Acute Qualifiers: Altered mental status type: transient alteration of awareness Qualified Code(s): R40.4 - Transient alteration of awareness
--- NOTE | 2018-09-21 19:04 | PCM.PROG ---
Progress Note - Progress Note for Day of Date of Exam: 09/20/18 - Subjective Subjective: WAS ADMITTED FOR ACUTE COPD EXACERBATION, ACUTE BRONCHITIS, AND RESPIRATORY DISTRESS. FAMILY REPORTS THAT SHE HAS BEEN AGITATED THROUGHOUT THE NIGHT. SHE COMPLAINS OF NECK PAIN THIS MONRING. ON EXAMINATION, PUPILS ARE DILATED. SHE IS TACHYCARDIC. SHE APPEARS TO BE HAVING SYMPTOMS OF WITHDRAW. BILATERAL LUNGS ARE NOTED WITH SCATTERED WHEEZING, DIMINISHED. ABDOMEN IS ROUND, SOFT, AND NON-TENDER WITH NORMAL BOWEL SOUNDS NOTED IN ALL QUADRANTS. HER VITALS THIS MORNING ARE 98.2-108-22-94%RA-148/80. LABS WERE OBTAINED. ABNORMAL LAB VALUES INCLUDE THE FOLLOWING: WBC 19.3, BUN 29, GLUCOSE 179, CALCIUM 11.2, TOTAL PROTEIN 6.1, ALBUMIN 2.5. CARDIAC ENZYMES HAVE BEEN WITHIN NORMAL LIMITS. BLOOD AND SPUTUM CULTURES ARE PENDING. SHE IS CURRENTLY RECEIVING IV FORTAZ, IV SOLU- MEDROL, RESPIRATORY TREATMENTS, SUPPLEMENTAL OXYGEN, AND HER HOME MEDICATIONS. TODAY, WE WILL RESUME HER ROXICODONE AND START SEROQUEL 50MG PO BID AND TORADOL 30MG IV Q6H PRN PAIN. WE WILL DISCONTINUE THE VALIUM. OTHERWISE, WE WILL CONTINUE WITH CURRENT PLAN OF CARE. WE WILL FOLLOW UP WITH AM LABS AND CONTINUE TO MONITOR. - Past Medical Family Social History Past Med/Fam/Surg Hx: No changes since H&P Allergies: Allergies cefdinir Allergy (Verified 10/13/17 06:55) ciprofloxacin Allergy (Verified 10/13/17 06:55) clarithromycin Allergy (Verified 10/13/17 06:55) clindamycin Allergy (Verified 10/13/17 06:55) doxycycline Allergy (Verified 10/13/17 06:55) erythromycin base Allergy (Verified 10/13/17 06:55) gabapentin [From Neurontin] Allergy (Verified 10/13/17 06:55) levofloxacin [From Levaquin] Allergy (Verified 10/13/17 06:55) nitrofurantoin Allergy (Verified 10/13/17 06:55) Penicillins Allergy (Verified 10/13/17 06:55) phenazopyridine Allergy (Verified 10/13/17 06:55) rifampin Allergy (Verified 10/13/17 06:55) - Review of Systems ROS: No change since H&P - Vital Signs and I&O's Vital Signs: Temperature 97.7 F Pulse Rate [Left Brachial] 120 Pulse Rate 118 Respiratory Rate 22 Blood Pressure [Left Arm] 174/96 Blood Pressure [Right Arm] 186/119 Blood Pressure 158/95 O2 Sat by Pulse Oximetry 94 Intake and Output: Intake & Output 09/19/18 09/20/18 09/21/18 09/22/18 11:59 11:59 11:59 11:59 Intake Total 1200 / 1200 700 / 700 1310 / 1310 220 / 220 Output Total 1300 / 1300 900 / 900 Balance 1200 / 1200 -600 / -600 410 / 410 220 / 220 - Physical Exam Oriented: Normal Eyes: Normal Ear: Normal Nose: Normal Throat: Normal Respiratory: Generalized, Diminished, Wheezes Cardiovascular: Normal. negative: S3, S4, Murmur : Normal Auscultation: Bowel Sounds: Normal Palpation: Normal Tenderness: Normal Skin: Normal Musculoskeletal: Normal Psychiatric: Normal Mood Description: Calm Affect: Normal Speech Pattern: Clear - Laboratory and Diagnostics Result Diagrams: 09/21/18 05:44 09/21/18 05:44 Labs: 09/17/18 14:40 Sputum - Expectorated Sputum Sputum Culture - Preliminary 09/17/18 14:40 Sputum - Expectorated Sputum - Final 09/17/18 16:24 Blood Blood Culture - Preliminary 09/17/18 16:10 Blood Blood Culture - Preliminary Laboratory WBC 14.6 X10^3/uL (3.6-10.0) H 09/21/18 05:44 RBC 4.60 X10^6/uL (3.5-5.4) 09/21/18 05:44 Hgb 11.4 g/dL (12.0-16.0) L 09/21/18 05:44 Hct 35.9 % (36.0-47.0) L 09/21/18 05:44 MCV 78.0 fL (80.0-100.0) L 09/21/18 05:44 MCH 24.7 pg (27.0-34.0) L 09/21/18 05:44 MCHC 31.7 g/dL (33.0-35.0) L 09/21/18 05:44 RDW 17.0 % (11.6-16.5) H 09/21/18 05:44 Plt Count 252 X10^3/uL (150.0-450.0) 09/21/18 05:44 Plt Count Comment Adequate (ADEQUATE) 09/21/18 05:44 MPV 9.0 fL (7.4-11.0) 09/21/18 05:44 Neut % (Auto) 90.9 % (42.0-75.0) H 09/21/18 05:44 Lymph % (Auto) 6.0 % (21.0-51.0) L 09/21/18 05:44 [place] % (Auto) 2.9 % (0.0-13.0) 09/21/18 05:44 Eos % (Auto) 0.0 % (0.9-2.9) L 09/21/18 05:44 Baso % (Auto) 0.2 % (0.2-1.0) 09/21/18 05:44 Neut # (Auto) 13.2 x10^3/uL (2.2-4.8) H 09/21/18 05:44 Lymph # (Auto) 0.9 X10^3/uL (1.3-2.9) L 09/21/18 05:44 Hardy # (Auto) 0.4 x10^3/uL (0.3-0.8) 09/21/18 05:44 Eos # (Auto) 0.0 x10^3/uL (0.0-0.2) 09/21/18 05:44 Baso # (Auto) 0.0 X10^3/uL (0.0-0.1) 09/21/18 05:44 Absolute Nucleated RBC 0.0 /100WBC 09/21/18 05:44 Total Counted 100 09/21/18 05:44 Neutrophils % (Manual) 81 % (39-76) H 09/21/18 05:44 Band Neutrophils % 8 % (0-10) 09/21/18 05:44 Lymphocytes % (Manual) 8 % (13-43) L 09/21/18 05:44 Monocytes % (Manual) 3 % (4-9) L 09/21/18 05:44 Eosinophils % (Manual) 3 % (0-6) 09/20/18 05:38 Plt Morphology Comment Normal (NORMAL) 09/21/18 05:44 RBC Morphology Normal (NORMAL) 09/21/18 05:44 Hypochromasia Slight A 09/19/18 05:25 Anisocytosis Slight A 09/18/18 05:15 D-Dimer < 100 ng/mL (0-400) 09/17/18 12:47 Sample Site Left radial 09/19/18 08:27 ABG pH 7.500 (7.35-7.45) H 09/19/18 08:27 ABG pCO2 46.0 mmHg (35.0-45.0) H 09/19/18 08:27 ABG pO2 58.0 mmHg (80.0-100.0) L 09/19/18 08:27 ABG HCO3 35.9 mmol/L (22-26) H* 09/19/18 08:27 ABG O2 Saturation 92.0 % (90-100) 09/19/18 08:27 ABG Base Excess 11.3 mmol/L (-2.0-2.0) H 09/19/18 08:27 Earle Test Pos 09/19/18 08:27 A-a Gradient 84.0 mmHg 09/19/18 08:27 FiO2 28.0 09/19/18 08:27 Blood Gas Comments Andre well aw 09/19/18 08:27 Sodium 142 mmol/L (136-145) 09/21/18 05:44 Corrected Sodium 144 mmol/L (136-145) 09/21/18 05:44 Potassium 3.8 mmol/L (3.5-5.1) 09/21/18 05:44 Chloride 104 mmol/L (98-107) 09/21/18 05:44 Carbon Dioxide 30.1 mmol/L (21-32) 09/21/18 05:44 BUN 29 mg/dL (7-18) H 09/21/18 05:44 Creatinine 0.81 mg/dL (0.55-1.02) 09/21/18 05:44 Est GFR (MDRD) Af Amer > 60 (>60) 09/21/18 05:44 Est GFR (MDRD) Non-Af > 60 (>60) 09/21/18 05:44 Glucose 183 mg/dL (65-99) H 09/21/18 05:44 Calcium 9.9 mg/dL (8.5-10.1) 09/21/18 05:44 Corrected Calcium 11.3 mg/dL (8.5-10.1) H 09/21/18 05:44 Total Bilirubin 0.20 mg/dL (0.2-1.0) 09/21/18 05:44 AST 17 Units/L (15-37) 09/21/18 05:44 ALT 18 Units/L (12-78) 09/21/18 05:44 Alkaline Phosphatase 78 Units/L (46-116) 09/21/18 05:44 Creatine Kinase 117 Units/L (26-192) 09/19/18 17:56 CK-MB (CK-2) 2.0 ng/mL (0-4.0) 09/19/18 17:56 CK/CKMB % Calc 1.7 % (<4) 09/19/18 17:56 Troponin I < 0.02 ng/mL (0-1.5) 09/19/18 17:56 B-Natriuretic Peptide 105 pg/mL (0-79) H 09/17/18 12:47 Total Protein 5.7 g/dL (6.4-8.2) L 09/21/18 05:44 Albumin 2.3 g/dL (3.4-5.0) L 09/21/18 05:44 Globulin 3.4 g/dL (2.5-4.5) 09/21/18 05:44 Albumin/Globulin Ratio 0.7 Ratio (1.1-2.1) L 09/21/18 05:44 Specimen Type Catherized urine 09/19/18 09:00 Urine Color Yellow (YELLOW) 09/19/18 09:00 Urine Appearance Clear (CLEAR) 09/19/18 09:00 Urine pH 6.5 (5.0 - 8.0) 09/19/18 09:00 Ur Specific [place] 1.015 (1.000-1.030) 09/19/18 09:00 Urine Protein Negative (NEGATIVE) 09/19/18 09:00 Urine Glucose (UA) Negative (NEGATIVE) 09/19/18 09:00 Urine Ketones Negative (NEGATIVE) 09/19/18 09:00 Urine Occult Blood Negative (NEGATIVE) 09/19/18 09:00 Urine Nitrite Negative (NEGATIVE) 09/19/18 09:00 Urine Bilirubin Negative (NEGATIVE) 09/19/18 09:00 Urine Urobilinogen Normal (NORMAL) 09/19/18 09:00 Ur Leukocyte Esterase Negative (NEGATIVE) 09/19/18 09:00 Urine Opiates Screen Negative (NEG=<300) 09/19/18 09:00 Urine Methadone Screen Negative (NEG=<300) 09/19/18 09:00 Ur Barbiturates Screen Negative (NEG=<200) 09/19/18 09:00 Ur Phencyclidine Scrn Negative (NEG=<25) 09/19/18 09:00 Ur Amphetamines Screen Negative (NEG=<1000) 09/19/18 09:00 U Benzodiazepines Scrn Negative (NEG=<200) 09/19/18 09:00 Urine Cocaine Screen Negative (NEG=<300) 09/19/18 09:00 U Marijuana (THC) Screen Negative (NEG=<50) 09/19/18 09:00 Influenza Type A (PCR) Negative (NEGATIVE) 09/17/18 14:40 Influenza Type B (PCR) Negative (NEGATIVE) 09/17/18 14:40 - Plan (1) Bronchitis Status: Acute Plan: IV ANTIBIOTICS, RESPIRATORY TREATMENTS, SUPPLEMENTAL OXYGEN, CONTINUE TO MONITOR. (2) COPD with acute exacerbation Status: Acute Plan: SOLU-MEDROL 80MG IV Q8H, RESPIRATORY TREATMENTS, SUPPLEMENTAL OXYGEN, CONTINUE TO MONITOR (3) Respiratory distress Status: Acute Plan: SOLU-MEDROL 80MG IV Q8H, RESPIRATORY TREATMENTS, SUPPLEMENTAL OXYGEN, CONTINUE TO MONITOR (4) Altered mental status, unspecified Status: Acute Qualifiers: Altered mental status type: transient alteration of awareness Qualified Code(s): R40.4 - Transient alteration of awareness Plan: SEROQUEL 50MG PO BID, CONTINUE TO MONITOR
--- NOTE | 2018-09-21 20:16 | PCM.PROG ---
Progress Note - Progress Note for Day of Date of Exam: 09/21/18 - Subjective Subjective: WAS ADMITTED FOR ACUTE COPD EXACERBATION, ACUTE BRONCHITIS, AND RESPIRATORY DISTRESS. FAMILY REPORTS THAT SHE HAS CONTINUED WITH AGITATION AND CONFUSION SINCE YESTERDAY. SHE DENIES PAIN ON MORNING ROUNDS. ON EXAMINATION, SHE CONTINUES TO BE TACHYCARDIC. BILATERAL LUNGS CONTINUE WITH SCATTERED WHEEZING. ABDOMEN IS ROUND, SOFT, AND NON-TENDER WITH NORMAL BOWEL SOUNDS NOTED IN ALL QUADRANTS. HER VITALS THIS MORNING ARE 98.2-105-26-92%NC-166/100. LABS WERE OBTAINED. ABNORMAL LAB VALUES INCLUDE THE FOLLOWING: WBC 14.6, HGB 11.4, HCT 35.9, BUN 29, GLUCOSE 183, CALCIUM 11.3, TOTAL PROTEIN 5.7, ALBUMIN 2.3. BLOOD AND SPUTUM CULTURES ARE PENDING. PRELIMINARY SPUTUM CULTURE REPORTS GROWTH OF GRAM NEGATIVE RODS. SHE IS CURRENTLY RECEIVING IV FORTAZ, IV SOLU-MEDROL, RESPIRATORY TREATMENTS, SUPPLEMENTAL OXYGEN, AND HER HOME MEDICATIONS. TODAY, WE WILL INCREASE HER SEROQUEL TO 100MG PO BID AND START A CLONIDINE 0.1MG PATCH. OTHERWISE, WE WILL CONTINUE WITH CURRENT PLAN OF CARE. WE WILL FOLLOW UP WITH AM LABS AND CONTINUE TO MONITOR. - Past Medical Family Social History Past Med/Fam/Surg Hx: No changes since H&P Allergies: Allergies cefdinir Allergy (Verified 10/13/17 06:55) ciprofloxacin Allergy (Verified 10/13/17 06:55) clarithromycin Allergy (Verified 10/13/17 06:55) clindamycin Allergy (Verified 10/13/17 06:55) doxycycline Allergy (Verified 10/13/17 06:55) erythromycin base Allergy (Verified 10/13/17 06:55) gabapentin [From Neurontin] Allergy (Verified 10/13/17 06:55) levofloxacin [From Levaquin] Allergy (Verified 10/13/17 06:55) nitrofurantoin Allergy (Verified 10/13/17 06:55) Penicillins Allergy (Verified 10/13/17 06:55) phenazopyridine Allergy (Verified 10/13/17 06:55) rifampin Allergy (Verified 10/13/17 06:55) - Review of Systems ROS: No change since H&P - Vital Signs and I&O's Vital Signs: Temperature 97.7 F Pulse Rate [Left Brachial] 120 Pulse Rate 113 Respiratory Rate 22 Blood Pressure [Left Arm] 174/96 Blood Pressure [Right Arm] 186/119 Blood Pressure 158/95 O2 Sat by Pulse Oximetry 97 Intake and Output: Intake & Output 09/19/18 09/20/18 09/21/18 09/22/18 11:59 11:59 11:59 11:59 Intake Total 1200 / 1200 700 / 700 1310 / 1310 220 / 220 Output Total 1300 / 1300 900 / 900 Balance 1200 / 1200 -600 / -600 410 / 410 220 / 220 - Physical Exam Oriented: Person Eyes: Normal Ear: Normal Nose: Normal Throat: Normal Respiratory: Generalized, Diminished, Wheezes Cardiovascular: Normal. negative: S3, S4, Murmur : Normal Auscultation: Bowel Sounds: Normal Palpation: Normal Tenderness: Normal Skin: Normal Musculoskeletal: Normal Psychiatric: Normal Mood Description: Calm Affect: Normal Speech Pattern: Clear - Laboratory and Diagnostics Result Diagrams: 09/21/18 05:44 09/21/18 05:44 Labs: 09/17/18 14:40 Sputum - Expectorated Sputum Sputum Culture - Preliminary 09/17/18 14:40 Sputum - Expectorated Sputum - Final 09/17/18 16:24 Blood Blood Culture - Preliminary 09/17/18 16:10 Blood Blood Culture - Preliminary Laboratory WBC 14.6 X10^3/uL (3.6-10.0) H 09/21/18 05:44 RBC 4.60 X10^6/uL (3.5-5.4) 09/21/18 05:44 Hgb 11.4 g/dL (12.0-16.0) L 09/21/18 05:44 Hct 35.9 % (36.0-47.0) L 09/21/18 05:44 MCV 78.0 fL (80.0-100.0) L 09/21/18 05:44 MCH 24.7 pg (27.0-34.0) L 09/21/18 05:44 MCHC 31.7 g/dL (33.0-35.0) L 09/21/18 05:44 RDW 17.0 % (11.6-16.5) H 09/21/18 05:44 Plt Count 252 X10^3/uL (150.0-450.0) 09/21/18 05:44 Plt Count Comment Adequate (ADEQUATE) 09/21/18 05:44 MPV 9.0 fL (7.4-11.0) 09/21/18 05:44 Neut % (Auto) 90.9 % (42.0-75.0) H 09/21/18 05:44 Lymph % (Auto) 6.0 % (21.0-51.0) L 09/21/18 05:44 [place] % (Auto) 2.9 % (0.0-13.0) 09/21/18 05:44 Eos % (Auto) 0.0 % (0.9-2.9) L 09/21/18 05:44 Baso % (Auto) 0.2 % (0.2-1.0) 09/21/18 05:44 Neut # (Auto) 13.2 x10^3/uL (2.2-4.8) H 09/21/18 05:44 Lymph # (Auto) 0.9 X10^3/uL (1.3-2.9) L 09/21/18 05:44 [place] # (Auto) 0.4 x10^3/uL (0.3-0.8) 09/21/18 05:44 Eos # (Auto) 0.0 x10^3/uL (0.0-0.2) 09/21/18 05:44 Baso # (Auto) 0.0 X10^3/uL (0.0-0.1) 09/21/18 05:44 Absolute Nucleated RBC 0.0 /100WBC 09/21/18 05:44 Total Counted 100 09/21/18 05:44 Neutrophils % (Manual) 81 % (39-76) H 09/21/18 05:44 Band Neutrophils % 8 % (0-10) 09/21/18 05:44 Lymphocytes % (Manual) 8 % (13-43) L 09/21/18 05:44 Monocytes % (Manual) 3 % (4-9) L 09/21/18 05:44 Eosinophils % (Manual) 3 % (0-6) 09/20/18 05:38 Plt Morphology Comment Normal (NORMAL) 09/21/18 05:44 RBC Morphology Normal (NORMAL) 09/21/18 05:44 Hypochromasia Slight A 09/19/18 05:25 Anisocytosis Slight A 09/18/18 05:15 D-Dimer < 100 ng/mL (0-400) 09/17/18 12:47 Sample Site Left radial 09/19/18 08:27 ABG pH 7.500 (7.35-7.45) H 09/19/18 08:27 ABG pCO2 46.0 mmHg (35.0-45.0) H 09/19/18 08:27 ABG pO2 58.0 mmHg (80.0-100.0) L 09/19/18 08:27 ABG HCO3 35.9 mmol/L (22-26) H* 09/19/18 08:27 ABG O2 Saturation 92.0 % (90-100) 09/19/18 08:27 ABG Base Excess 11.3 mmol/L (-2.0-2.0) H 09/19/18 08:27 Earle Test Pos 09/19/18 08:27 A-a Gradient 84.0 mmHg 09/19/18 08:27 FiO2 28.0 09/19/18 08:27 Blood Gas Comments Andre well aw 09/19/18 08:27 Sodium 142 mmol/L (136-145) 09/21/18 05:44 Corrected Sodium 144 mmol/L (136-145) 09/21/18 05:44 Potassium 3.8 mmol/L (3.5-5.1) 09/21/18 05:44 Chloride 104 mmol/L (98-107) 09/21/18 05:44 Carbon Dioxide 30.1 mmol/L (21-32) 09/21/18 05:44 BUN 29 mg/dL (7-18) H 09/21/18 05:44 Creatinine 0.81 mg/dL (0.55-1.02) 09/21/18 05:44 Est GFR (MDRD) Af Amer > 60 (>60) 09/21/18 05:44 Est GFR (MDRD) Non-Af > 60 (>60) 09/21/18 05:44 Glucose 183 mg/dL (65-99) H 09/21/18 05:44 Calcium 9.9 mg/dL (8.5-10.1) 09/21/18 05:44 Corrected Calcium 11.3 mg/dL (8.5-10.1) H 09/21/18 05:44 Total Bilirubin 0.20 mg/dL (0.2-1.0) 09/21/18 05:44 AST 17 Units/L (15-37) 09/21/18 05:44 ALT 18 Units/L (12-78) 09/21/18 05:44 Alkaline Phosphatase 78 Units/L (46-116) 09/21/18 05:44 Creatine Kinase 117 Units/L (26-192) 09/19/18 17:56 CK-MB (CK-2) 2.0 ng/mL (0-4.0) 09/19/18 17:56 CK/CKMB % Calc 1.7 % (<4) 09/19/18 17:56 Troponin I < 0.02 ng/mL (0-1.5) 09/19/18 17:56 B-Natriuretic Peptide 105 pg/mL (0-79) H 09/17/18 12:47 Total Protein 5.7 g/dL (6.4-8.2) L 09/21/18 05:44 Albumin 2.3 g/dL (3.4-5.0) L 09/21/18 05:44 Globulin 3.4 g/dL (2.5-4.5) 09/21/18 05:44 Albumin/Globulin Ratio 0.7 Ratio (1.1-2.1) L 09/21/18 05:44 Specimen Type Catherized urine 09/19/18 09:00 Urine Color Yellow (YELLOW) 09/19/18 09:00 Urine Appearance Clear (CLEAR) 09/19/18 09:00 Urine pH 6.5 (5.0 - 8.0) 09/19/18 09:00 Ur Specific [place] 1.015 (1.000-1.030) 09/19/18 09:00 Urine Protein Negative (NEGATIVE) 09/19/18 09:00 Urine Glucose (UA) Negative (NEGATIVE) 09/19/18 09:00 Urine Ketones Negative (NEGATIVE) 09/19/18 09:00 Urine Occult Blood Negative (NEGATIVE) 09/19/18 09:00 Urine Nitrite Negative (NEGATIVE) 09/19/18 09:00 Urine Bilirubin Negative (NEGATIVE) 09/19/18 09:00 Urine Urobilinogen Normal (NORMAL) 09/19/18 09:00 Ur Leukocyte Esterase Negative (NEGATIVE) 09/19/18 09:00 Urine Opiates Screen Negative (NEG=<300) 09/19/18 09:00 Urine Methadone Screen Negative (NEG=<300) 09/19/18 09:00 Ur Barbiturates Screen Negative (NEG=<200) 09/19/18 09:00 Ur Phencyclidine Scrn Negative (NEG=<25) 09/19/18 09:00 Ur Amphetamines Screen Negative (NEG=<1000) 09/19/18 09:00 U Benzodiazepines Scrn Negative (NEG=<200) 09/19/18 09:00 Urine Cocaine Screen Negative (NEG=<300) 09/19/18 09:00 U Marijuana (THC) Screen Negative (NEG=<50) 09/19/18 09:00 Influenza Type A (PCR) Negative (NEGATIVE) 09/17/18 14:40 Influenza Type B (PCR) Negative (NEGATIVE) 09/17/18 14:40 - Plan (1) Bronchitis Status: Acute Plan: IV ANTIBIOTICS, RESPIRATORY TREATMENTS, SUPPLEMENTAL OXYGEN, CONTINUE TO MONITOR. (2) COPD with acute exacerbation Status: Acute Plan: SOLU-MEDROL 80MG IV Q8H, RESPIRATORY TREATMENTS, SUPPLEMENTAL OXYGEN, CONTINUE HOME MEDS, CONTINUE TO MONITOR (3) Respiratory distress Status: Acute Plan: SOLU-MEDROL 80MG IV Q8H, RESPIRATORY TREATMENTS, SUPPLEMENTAL OXYGEN, CONTINUE TO MONITOR (4) Altered mental status, unspecified Status: Acute Qualifiers: Altered mental status type: transient alteration of awareness Qualified Code(s): R40.4 - Transient alteration of awareness Plan: SEROQUEL 100MG PO BID, CONTINUE TO MONITOR (5) HTN (hypertension) Status: Chronic Qualifiers: Hypertension type: essential hypertension Qualified Code(s): I10 - Essential (primary) hypertension Plan: CLONIDINE 0.1MG PATCH, COREG 6.25MG PO BID, CONTINUE TO MONITOR (6) Hypothyroidism Status: Acute Qualifiers: Hypothyroidism type: acquired Qualified Code(s): E03.9 - Hypothyroidism, unspecified Plan: CONTINUE SYNTHROID (7) Hyperlipidemia Status: Chronic Qualifiers: Hyperlipidemia type: mixed hyperlipidemia Qualified Code(s): E78.2 - Mixed hyperlipidemia Plan: CONTINUE LIPITOR
[2018-09-21] MEDS: TESSALON PERLES PO PRN (21:28)
[2018-09-21] MEDS: REQUIP PO SCH (21:28)
[2018-09-21] MEDS: LIPITOR TAB 40 MG PO SCH (21:29)
[2018-09-21] MEDS: PEPCID TAB 20 MG PO SCH (21:29)
[2018-09-21] MEDS: ZyrTEC TAB 10 MG PO SCH (21:29)
[2018-09-22] MEDS: XOPENEX 1.25 MG/3 ML NEBULE NEB SCH ×3 (05:08→20:03)
[2018-09-22] MEDS: ROXICODONE TAB 15 MG PO SCH ×2 (06:56→14:08)
[2018-09-22] MEDS: FORTAZ or TAZICEF VIAL INJ IVP SCH ×3 (06:56→21:36)
--- NOTE | 2018-09-22 07:04 | RAD ---
HISTORY: Congestion, shortness of breath Study: Chest AP portable Comparison: 09/21/2018 Findings: The heart is mildly enlarged. No congestive heart failure is noted. The lungs are mildly hyperinflated but free of acute infiltrates. Mild interstitial lung changes are present. There are likely some emphysematous changes in the right upper lobe. No pleural effusions are identified. The bony thorax is unremarkable. IMPRESSION: Mild cardiomegaly without congestive heart failure Stable mild interstitial lung changes Suspect emphysematous changes in the right upper lobe Reported By:
[2018-09-22] MEDS ORDERED: MORPHINE SULFATE INJ 2 MG INJ IVP PRN (10:07)
[2018-09-22] MEDS ORDERED: HALDOL INJ IM ONE (10:07)
[2018-09-22] MEDS: PULMICORT NEB TX 0.5 MG NEB SCH ×2 (11:41→20:03)
[2018-09-22 12:02] LABS: ABG BASE EXCESS 12.3 mmol/L (-2.0-2.0)
[2018-09-22 12:03] LABS: ABG HCO3 35.9 mmol/L (22-26)
[2018-09-22] MEDS: CATAPRES-TTS-2 TD SCH (12:41)
[2018-09-22] MEDS: VITAMIN D3 PO SCH (12:41)
[2018-09-22] MEDS: ZINC SULFATE PO SCH (12:41)
[2018-09-22] MEDS: CITRACAL + VITAMIN D PO SCH ×2 (12:41→20:02)
[2018-09-22] MEDS: FOLIC ACID TAB 1 MG PO SCH (12:42)
[2018-09-22] MEDS: VITAMIN C PO SCH (12:42)
[2018-09-22] MEDS: THEO-DUR TAB 200 MG PO SCH ×2 (12:42→20:02)
[2018-09-22] MEDS: DALIRESP PO SCH (12:42)
[2018-09-22] MEDS: SEROquel TAB 100 MG PO SCH ×3 (12:42→18:08)
[2018-09-22] MEDS: COREG TAB 3.125 MG PO SCH ×3 (12:42→20:02)
[2018-09-22] MEDS: SINGULAIR TAB 10 MG PO SCH (12:42)
[2018-09-22] MEDS ORDERED: LASIX IVP NR (15:00)
[2018-09-22 15:01] LABS: BILIRUBIN,URINE NEGATIVE (NEGATIVE); BLOOD/HEMOGLOBIN,URINE 5+ (NEGATIVE); GLUCOSE, URINE NEGATIVE (NEGATIVE); KETONES,URINE NEGATIVE (NEGATIVE); LEUKOCYTE ESTERASE ,URINE 1+ (NEGATIVE); NITRITES,URINE NEGATIVE (NEGATIVE); PROTEIN,URINE 2+ (NEGATIVE); UROBILINOGEN,URINE NORMAL (NORMAL)
[2018-09-22 15:10] LABS: AMORPHOUS SEDIMENT,UR 1+ /HPF (NEGATIVE); APPEARANCE,URINE SLIGHTLY HAZY (CLEAR); BACTERIA,URINE TRACE /HPF (NEGATIVE); COLOR,URINE YELLOW (YELLOW); SQUAMOUS EPITHELIAL CELL,UR RARE /HPF (NEGATIVE)
[2018-09-22] MEDS ORDERED: TORADOL 15 MG VIAL IVP PRN (16:00)
[2018-09-22] MEDS ORDERED: LANOXIN INJ IVP ONE (18:18)
[2018-09-22] MEDS ORDERED: LANOXIN INJ ONE (18:20)
[2018-09-22] MEDS: LIPITOR TAB 40 MG PO SCH (20:02)
[2018-09-22] MEDS: PEPCID TAB 20 MG PO SCH (20:02)
[2018-09-22] MEDS: REQUIP PO SCH (20:02)
[2018-09-22] MEDS ORDERED: MILK OF MAGNESIA PO PRN (21:33)
[2018-09-23] MEDS: ROXICODONE TAB 15 MG PO PRN ×3 (00:38→11:16)
[2018-09-23] MEDS: FORTAZ or TAZICEF VIAL INJ IVP SCH ×3 (06:08→21:14)
[2018-09-23] MEDS: XOPENEX 1.25 MG/3 ML NEBULE NEB SCH ×3 (06:50→20:06)
[2018-09-23 07:07] LABS: ALANINE AMINOTRANSFERASE 25 Units/L (12-78); ALBUMIN 2.7 g/dL (3.4-5.0); ALKALINE PHOSPHATASE 91 Units/L (46-116); ASPARTATE AMINO TRANSFERASE 21 Units/L (15-37); BLOOD UREA NITROGEN 23 mg/dL (7-18); CALCIUM 10.2 mg/dL (8.5-10.1); CARBON DIOXIDE 32.6 mmol/L (21-32); CHLORIDE 98 mmol/L (98-107); COR CA(FOR HYPOALB) 11.2 mg/dL (8.5-10.1); COR NA(FOR HYPERGLY) 140 mmol/L (136-145); CREATININE 0.96 mg/dL (0.55-1.02); SODIUM 139 mmol/L (136-145); TOTAL PROTEIN 6.6 g/dL (6.4-8.2); eGFR NON BLACK RACES > 60 (>60)
[2018-09-23 07:20] LABS: BASOPHILS % (AUTO) 0.2 % (0.2-1.0); EOSINOPHILS % (AUTO) 0.1 % (0.9-2.9); HEMATOCRIT 41.8 % (36.0-47.0); HEMOGLOBIN 13.9 g/dL (12.0-16.0); LYMPHOCYTES # (AUTO) 1.5 X10^3/uL (1.3-2.9); LYMPHOCYTES % (AUTO) 10.4 % (21.0-51.0); MEAN CORPUSCULAR HEMOGLOBIN 25.4 pg (27.0-34.0); MEAN CORPUSCULAR HGB CONC 33.2 g/dL (33.0-35.0); MEAN CORPUSCULAR VOLUME 76.5 fL (80.0-100.0); MEAN PLATELET VOLUME 8.9 fL (7.4-11.0); MONOCYTES # (AUTO) 1.8 x10^3/uL (0.3-0.8); MONOCYTES % (AUTO) 12.6 % (0.0-13.0); NEUTROPHILS # (AUTO) 11.1 x10^3/uL (2.2-4.8); NEUTROPHILS % (AUTO) 76.7 % (42.0-75.0); PLATELET COUNT 270 X10^3/uL (150.0-450.0); RED BLOOD COUNT 5.46 X10^6/uL (3.5-5.4); RED CELL DISTRIBUTION WIDTH 17.2 % (11.6-16.5); WHITE BLOOD COUNT 14.4 X10^3/uL (3.6-10.0)
[2018-09-23] MEDS ORDERED: K-RIDER 10 MEQ/NS 100 ML 10 MEQ/100 ML BAG IV PRN (07:21)
[2018-09-23] MEDS ORDERED: K-DUR TAB 20 MEQ PO PRN (07:21)
[2018-09-23] MEDS ORDERED: POTASSIUM CHL 60 MEQ/NS 0.45% 500 ML IV PRN (07:21)
[2018-09-23] MEDS ORDERED: KLOR-CON PO PRN (07:21)
[2018-09-23] MEDS ORDERED: POTASSIUM CHLORIDE LIQ 20 MEQ UDC PO PRN (07:21)
[2018-09-23] MEDS ORDERED: POTASSIUM CHL 40 MEQ/NS 0.45% 500 ML IV PRN (07:21)
[2018-09-23] MEDS: VITAMIN C PO SCH (08:33)
[2018-09-23] MEDS: CITRACAL + VITAMIN D PO SCH ×2 (08:33→21:13)
[2018-09-23] MEDS: THEO-DUR TAB 200 MG PO SCH ×2 (08:34→21:14)
[2018-09-23] MEDS: COREG TAB 3.125 MG PO SCH ×2 (08:34→21:15)
[2018-09-23] MEDS: DALIRESP PO SCH (08:34)
[2018-09-23] MEDS: VITAMIN D3 PO SCH (08:35)
[2018-09-23] MEDS: ZINC SULFATE PO SCH (08:35)
[2018-09-23] MEDS: FOLIC ACID TAB 1 MG PO SCH (08:35)
[2018-09-23 08:45] LABS: ANISOCYTOSIS SLIGHT; PLATELET MORPHOLOGY COMMENT NORMAL (NORMAL)
[2018-09-23 08:46] LABS: POIKILOCYTOSIS SLIGHT
[2018-09-23] MEDS: PULMICORT NEB TX 0.5 MG NEB SCH ×2 (09:30→20:07)
[2018-09-23] MEDS: SEROquel TAB 100 MG PO SCH ×2 (09:32→21:14)
[2018-09-23] MEDS ORDERED: MAALOX or MYLANTA PO PRN (10:20)
[2018-09-23] MEDS ORDERED: DIFLUCAN 100 MG IV (MIX by PHARMACY)* 100 MG/50 ML BAG IV SCH (11:00)
[2018-09-23] MEDS: DIFLUCAN 200 MG IV PREMIX* 200 MG/100 ML BAG IV SCH (11:16)
--- NOTE | 2018-09-23 12:16 | RAD ---
History: Chest pain and dyspnea. Exam: Single portable view of the chest. Comparison: 09/22/2018. Findings: The trachea is midline. The cardiomediastinal silhouette is mildly enlarged but stable. There is no evidence for CHF or pulmonary edema. There is no pneumothorax or mediastinal shift. The lungs are clear without consolidation, effusion, or pneumothorax. The chest is hyperinflated with an increased AP dimension of the chest, diaphragmatic flattening, and central interstitial changes which would be compatible with changes of obstructive airways disease. Biapical pleural thickening remains. No acute bony abnormalities are seen. Impression: 1. No acute cardiopulmonary changes seen. 2. Findings of obstructive airways disease. Reported By:
[2018-09-23] MEDS ORDERED: COLACE CAP 100 MG PO SCH (21:00)
[2018-09-23] MEDS: LIPITOR TAB 40 MG PO SCH (21:15)
[2018-09-23] MEDS: REQUIP PO SCH (21:15)
[2018-09-23] MEDS: PEPCID TAB 20 MG PO SCH (21:15)
[2018-09-24] MEDS: XOPENEX 1.25 MG/3 ML NEBULE NEB SCH ×3 (05:43→21:34)
--- NOTE | 2018-09-24 05:44 | RAD ---
Examination: AP chest History: SOB Comparison 09/23/2018 Findings: Continued normal heart size. There is now noted a small area of atelectasis developing in the medial right lung base. The left lung is grossly clear. No definite pneumothorax or pleural fluid. Impression: Small focus of right lower lobe atelectasis. No change otherwise. Reported By:
[2018-09-24 06:07] LABS: BASOPHILS % (AUTO) 0.1 % (0.2-1.0); EOSINOPHILS % (AUTO) 0.1 % (0.9-2.9); HEMOGLOBIN 13.2 g/dL (12.0-16.0); LYMPHOCYTES # (AUTO) 1.2 X10^3/uL (1.3-2.9); MEAN CORPUSCULAR HEMOGLOBIN 25.4 pg (27.0-34.0); MEAN CORPUSCULAR HGB CONC 32.2 g/dL (33.0-35.0); MEAN CORPUSCULAR VOLUME 78.7 fL (80.0-100.0); MEAN PLATELET VOLUME 9.2 fL (7.4-11.0); MONOCYTES # (AUTO) 1.2 x10^3/uL (0.3-0.8); MONOCYTES % (AUTO) 8.2 % (0.0-13.0); NEUTROPHILS # (AUTO) 12.5 x10^3/uL (2.2-4.8); NEUTROPHILS % (AUTO) 83.6 % (42.0-75.0); PLATELET COUNT 224 X10^3/uL (150.0-450.0); RED BLOOD COUNT 5.21 X10^6/uL (3.5-5.4); RED CELL DISTRIBUTION WIDTH 16.9 % (11.6-16.5); WHITE BLOOD COUNT 14.9 X10^3/uL (3.6-10.0)
[2018-09-24] MEDS: FORTAZ or TAZICEF VIAL INJ IVP SCH ×3 (06:07→21:03)
[2018-09-24 06:24] LABS: PLATELET MORPHOLOGY COMMENT NORMAL (NORMAL)
[2018-09-24 06:25] LABS: ANISOCYTOSIS SLIGHT; HYPOCHROMASIA SLIGHT
[2018-09-24 06:41] LABS: ALANINE AMINOTRANSFERASE 20 Units/L (12-78); ALBUMIN 2.4 g/dL (3.4-5.0); ALKALINE PHOSPHATASE 84 Units/L (46-116); ASPARTATE AMINO TRANSFERASE 18 Units/L (15-37); BLOOD UREA NITROGEN 20 mg/dL (7-18); CALCIUM 10.4 mg/dL (8.5-10.1); CARBON DIOXIDE 31.8 mmol/L (21-32); CHLORIDE 101 mmol/L (98-107); COR CA(FOR HYPOALB) 11.7 mg/dL (8.5-10.1); COR NA(FOR HYPERGLY) 141 mmol/L (136-145); CREATININE 0.88 mg/dL (0.55-1.02); SODIUM 139 mmol/L (136-145); TOTAL PROTEIN 6.2 g/dL (6.4-8.2); eGFR NON BLACK RACES > 60 (>60)
[2018-09-24] MEDS: DIFLUCAN 200 MG IV PREMIX* 200 MG/100 ML BAG IV SCH (08:18)
[2018-09-24] MEDS: THEO-DUR TAB 200 MG PO SCH ×2 (08:19→20:48)
[2018-09-24] MEDS: VITAMIN D3 PO SCH (08:19)
[2018-09-24] MEDS: VITAMIN C PO SCH (08:20)
[2018-09-24] MEDS: ZINC SULFATE PO SCH (08:20)
[2018-09-24] MEDS: MICRO K EXTEN CAP 10 MEQ PO PRN (08:20)
[2018-09-24] MEDS: DALIRESP PO SCH (08:20)
[2018-09-24] MEDS: CITRACAL + VITAMIN D PO SCH ×2 (08:21→20:48)
[2018-09-24] MEDS: COREG TAB 3.125 MG PO SCH ×2 (08:21→20:48)
[2018-09-24] MEDS: FOLIC ACID TAB 1 MG PO SCH (08:21)
[2018-09-24] MEDS: SEROquel TAB 100 MG PO SCH ×2 (08:23→18:18)
[2018-09-24] MEDS: ROXICODONE TAB 15 MG PO PRN (08:34)
[2018-09-24] MEDS: PULMICORT NEB TX 0.5 MG NEB SCH ×2 (10:02→21:34)
[2018-09-24] MEDS: BROVANA IN SCH ×2 (10:02→21:34)
[2018-09-24] MEDS: MUCOMYST 20% 200 MG/ML NEB SCH ×2 (13:03→21:33)
[2018-09-24] MEDS: MUCINEX DM PO SCH ×2 (13:56→20:49)
[2018-09-24] MEDS: PROCALAMINE 3 % 1,000 ML IV SCH (13:56)
[2018-09-24] MEDS: REQUIP PO SCH (20:48)
[2018-09-24] MEDS: ROXICODONE TAB 5 MG PO PRN (20:48)
[2018-09-24] MEDS: LIPITOR TAB 40 MG PO SCH (20:48)
[2018-09-24] MEDS: PEPCID TAB 20 MG PO SCH (20:49)
--- NOTE | 2018-09-25 05:28 | RAD ---
Examination: AP chest History: Respiratory distress Comparison 09/24/2018 Findings: Continued normal heart size. The lungs and pleural spaces are now essentially clear. Previously described linear atelectasis at the right base is no longer identified. Impression: No acute chest findings on the current study. Reported By:
[2018-09-25] MEDS: XOPENEX 1.25 MG/3 ML NEBULE NEB SCH ×4 (05:48→20:39)
[2018-09-25 06:05] LABS: BASOPHILS % (AUTO) 0.1 % (0.2-1.0); EOSINOPHILS % (AUTO) 0.3 % (0.9-2.9); HEMATOCRIT 37.2 % (36.0-47.0); LYMPHOCYTES # (AUTO) 1.3 X10^3/uL (1.3-2.9); LYMPHOCYTES % (AUTO) 10.4 % (21.0-51.0); MEAN CORPUSCULAR HEMOGLOBIN 25.2 pg (27.0-34.0); MEAN CORPUSCULAR HGB CONC 32.2 g/dL (33.0-35.0); MEAN CORPUSCULAR VOLUME 78.3 fL (80.0-100.0); MEAN PLATELET VOLUME 9.4 fL (7.4-11.0); MONOCYTES # (AUTO) 0.7 x10^3/uL (0.3-0.8); NEUTROPHILS % (AUTO) 83.2 % (42.0-75.0); PLATELET COUNT 193 X10^3/uL (150.0-450.0); RED BLOOD COUNT 4.75 X10^6/uL (3.5-5.4); RED CELL DISTRIBUTION WIDTH 16.8 % (11.6-16.5); WHITE BLOOD COUNT 12.1 X10^3/uL (3.6-10.0)
[2018-09-25] MEDS: FORTAZ or TAZICEF VIAL INJ IVP SCH ×3 (06:05→21:15)
[2018-09-25 06:09] LABS: ALANINE AMINOTRANSFERASE 17 Units/L (12-78); ALBUMIN 2.2 g/dL (3.4-5.0); ALKALINE PHOSPHATASE 75 Units/L (46-116); ASPARTATE AMINO TRANSFERASE 13 Units/L (15-37); BLOOD UREA NITROGEN 20 mg/dL (7-18); CALCIUM 9.6 mg/dL (8.5-10.1); CARBON DIOXIDE 30.5 mmol/L (21-32); CHLORIDE 102 mmol/L (98-107); COR NA(FOR HYPERGLY) 140 mmol/L (136-145); CREATININE 0.77 mg/dL (0.55-1.02); SODIUM 139 mmol/L (136-145); TOTAL PROTEIN 5.8 g/dL (6.4-8.2); eGFR NON BLACK RACES > 60 (>60)
[2018-09-25 06:16] LABS: PLATELET MORPHOLOGY COMMENT NORMAL (NORMAL)
[2018-09-25 06:17] LABS: ANISOCYTOSIS SLIGHT; HYPOCHROMASIA SLIGHT
[2018-09-25 06:22] LABS: ABG BASE EXCESS 11.1 mmol/L (-2.0-2.0)
[2018-09-25] MEDS: MICRO K EXTEN CAP 10 MEQ PO PRN (06:22)
[2018-09-25 06:24] LABS: ABG HCO3 33.9 mmol/L (22-26)
[2018-09-25] MEDS: PULMICORT NEB TX 0.5 MG NEB SCH ×2 (08:08→20:39)
[2018-09-25] MEDS: BROVANA IN SCH ×2 (08:08→20:39)
[2018-09-25] MEDS: MUCINEX DM PO SCH ×2 (09:11→21:14)
[2018-09-25] MEDS: VITAMIN C PO SCH (09:11)
[2018-09-25] MEDS: THEO-DUR TAB 200 MG PO SCH ×2 (09:11→21:14)
[2018-09-25] MEDS: ZINC SULFATE PO SCH (09:11)
[2018-09-25] MEDS: VITAMIN D3 PO SCH (09:11)
[2018-09-25] MEDS: DIFLUCAN 200 MG IV PREMIX* 200 MG/100 ML BAG IV SCH (09:11)
[2018-09-25] MEDS: COREG TAB 3.125 MG PO SCH ×2 (09:12→21:15)
[2018-09-25] MEDS: FOLIC ACID TAB 1 MG PO SCH (09:12)
[2018-09-25] MEDS: SEROquel TAB 100 MG PO SCH ×2 (09:12→21:16)
[2018-09-25] MEDS: CITRACAL + VITAMIN D PO SCH ×2 (09:12→21:15)
[2018-09-25] MEDS: DALIRESP PO SCH (09:12)
[2018-09-25] MEDS: ROXICODONE TAB 5 MG PO PRN ×2 (09:16→21:15)
[2018-09-25] MEDS: MUCOMYST 20% 200 MG/ML NEB SCH ×3 (12:09→20:38)
[2018-09-25] MEDS: PROCALAMINE 3 % 1,000 ML IV SCH (15:08)
--- NOTE | 2018-09-25 20:43 | PCM.PROG ---
Progress Note - Progress Note for Day of Date of Exam: 09/22/18 - Subjective Subjective: WAS ADMITTED FOR ACUTE COPD EXACERBATION, ACUTE BRONCHITIS, AND RESPIRATORY DISTRESS. PATIENT CONTINUES WITH INTERMITTENT CONFUSION AND AGITATION. SHE IS REFUSING MORNING LABS AND MEDICATIONS. SHE REPORTS PAIN ALL OVER. ON EXAMINATION, SHE CONTINUES TO BE TACHYCARDIC. BILATERAL LUNGS CONTINUE WITH SCATTERED WHEEZING. ABDOMEN IS ROUND, SOFT, AND NON-TENDER WITH NORMAL BOWEL SOUNDS NOTED IN ALL QUADRANTS. HER VITALS THIS MORNING ARE 97.9-118-46-90%-155/107. LABS WERE OBTAINED. ABNORMAL LAB VALUES INCLUDE THE FOLLOWING: WBC 14.4, RBC 5.46, BUN 29, GLUCOSE 183, TOTAL PROTEIN 5.7, ALBUMIN 2.3. SPUTUM CULTURE REPORTS GROWITH OF ACINETOBACTER BAUMANII/HAEMOLY. IT IS SENSITIVE TO THE ANTIBIOTICS THAT SHE IS CURRENTLY RECEIVING. SHE IS CURRENTLY RECEIVING IV FORTAZ, IV SOLU-MEDROL, RESPIRATORY TREATMENTS, SUPPLEMENTAL OXYGEN, AND HER HOME MEDICATIONS. TODAY, WE WILL ADMINISTER HALDOL 5MG IM X 1 DOSE. AFTER PATIENT IS SETTLED AND MORE COOPERATIVE, WE WILL OBTAIN AN ABD. OTHERWISE, WE WILL CONTINUE WITH CURRENT PLAN OF CARE. WE WILL FOLLOW UP WITH AM LABS AND CONTINUE TO MONITOR. - Past Medical Family Social History Past Med/Fam/Surg Hx: No changes since H&P Allergies: Allergies cefdinir Allergy (Verified 10/13/17 06:55) ciprofloxacin Allergy (Verified 10/13/17 06:55) clarithromycin Allergy (Verified 10/13/17 06:55) clindamycin Allergy (Verified 10/13/17 06:55) doxycycline Allergy (Verified 10/13/17 06:55) erythromycin base Allergy (Verified 10/13/17 06:55) gabapentin [From Neurontin] Allergy (Verified 10/13/17 06:55) levofloxacin [From Levaquin] Allergy (Verified 10/13/17 06:55) nitrofurantoin Allergy (Verified 10/13/17 06:55) Penicillins Allergy (Verified 10/13/17 06:55) phenazopyridine Allergy (Verified 10/13/17 06:55) rifampin Allergy (Verified 10/13/17 06:55) - Review of Systems ROS: No change since H&P - Vital Signs and I&O's Vital Signs: Temperature 98.5 F Pulse Rate [Left Brachial] 120 Pulse Rate 97 Respiratory Rate 21 Blood Pressure [Left Arm] 174/96 Blood Pressure [Right Arm] 186/119 Blood Pressure 145/76 O2 Sat by Pulse Oximetry 96 Intake and Output: Intake & Output 09/23/18 09/24/18 09/25/18 09/26/18 11:59 11:59 11:59 11:59 Intake Total 660 / 660 360 / 360 599 / 599 550 / 550 Output Total 2200 / 2200 1000 / 1000 1800 / 1800 800 / 800 Balance -1540 / -1540 -640 / -640 -1201 / -1201 -250 / -250 - Physical Exam Oriented: Person Eyes: Normal Ear: Normal Nose: Normal Throat: Normal Respiratory: Generalized, Diminished, Wheezes Cardiovascular: Tachycardia. negative: S3, S4, Murmur : Normal Auscultation: Bowel Sounds: Normal Tenderness: Normal Skin: Normal Musculoskeletal: Normal Psychiatric: Normal Mood Description: Calm Affect: Normal Speech Pattern: Clear, Inappropriate - Laboratory and Diagnostics Result Diagrams: 09/25/18 04:24 09/25/18 08:35 Labs: 09/17/18 16:24 Blood Blood Culture - Final 09/17/18 16:10 Blood Blood Culture - Final 09/17/18 14:40 Sputum - Expectorated Sputum Sputum Culture - Final Acinetobacter Baumanii/Haemoly 09/17/18 14:40 Sputum - Expectorated Sputum - Final Laboratory WBC 12.1 X10^3/uL (3.6-10.0) H 09/25/18 04:24 RBC 4.75 X10^6/uL (3.5-5.4) 09/25/18 04:24 Hgb 12.0 g/dL (12.0-16.0) 09/25/18 04:24 Hct 37.2 % (36.0-47.0) 09/25/18 04:24 MCV 78.3 fL (80.0-100.0) L 09/25/18 04:24 MCH 25.2 pg (27.0-34.0) L 09/25/18 04:24 MCHC 32.2 g/dL (33.0-35.0) L 09/25/18 04:24 RDW 16.8 % (11.6-16.5) H 09/25/18 04:24 Plt Count 193 X10^3/uL (150.0-450.0) 09/25/18 04:24 Plt Count Comment Adequate (ADEQUATE) 09/25/18 04:24 MPV 9.4 fL (7.4-11.0) 09/25/18 04:24 Neut % (Auto) 83.2 % (42.0-75.0) H 09/25/18 04:24 Lymph % (Auto) 10.4 % (21.0-51.0) L 09/25/18 04:24 [place] % (Auto) 6.0 % (0.0-13.0) 09/25/18 04:24 Eos % (Auto) 0.3 % (0.9-2.9) L 09/25/18 04:24 Baso % (Auto) 0.1 % (0.2-1.0) L 09/25/18 04:24 Neut # (Auto) 10.0 x10^3/uL (2.2-4.8) H 09/25/18 04:24 Lymph # (Auto) 1.3 X10^3/uL (1.3-2.9) 09/25/18 04:24 [place] # (Auto) 0.7 x10^3/uL (0.3-0.8) 09/25/18 04:24 Eos # (Auto) 0.0 x10^3/uL (0.0-0.2) 09/25/18 04:24 Baso # (Auto) 0.0 X10^3/uL (0.0-0.1) 09/25/18 04:24 Absolute Nucleated RBC 0.0 /100WBC 09/25/18 04:24 Total Counted 100 09/21/18 05:44 Neutrophils % (Manual) 81 % (39-76) H 09/21/18 05:44 Band Neutrophils % 8 % (0-10) 09/21/18 05:44 Lymphocytes % (Manual) 8 % (13-43) L 09/21/18 05:44 Monocytes % (Manual) 3 % (4-9) L 09/21/18 05:44 Eosinophils % (Manual) 3 % (0-6) 09/20/18 05:38 Plt Morphology Comment Normal (NORMAL) 09/25/18 04:24 RBC Morphology Abnormal (NORMAL) A 09/25/18 04:24 Hypochromasia Slight A 09/25/18 04:24 Poikilocytosis Slight A 09/23/18 05:41 Anisocytosis Slight A 09/25/18 04:24 D-Dimer < 100 ng/mL (0-400) 09/17/18 12:47 Sample Site Right brachial 09/25/18 06:10 ABG pH 7.570 (7.35-7.45) H* 09/25/18 06:10 ABG pCO2 37.0 mmHg (35.0-45.0) 09/25/18 06:10 ABG pO2 105.0 mmHg (80.0-100.0) H 09/25/18 06:10 ABG HCO3 33.9 mmol/L (22-26) H* 09/25/18 06:10 ABG O2 Saturation 99.0 % (90-100) 09/25/18 06:10 ABG Base Excess 11.1 mmol/L (-2.0-2.0) H 09/25/18 06:10 Earle Test Na 09/25/18 06:10 A-a Gradient 48.0 mmHg 09/25/18 06:10 FiO2 28.0 09/25/18 06:10 Blood Gas Comments Andre well jts 09/25/18 06:10 Sodium 139 mmol/L (136-145) 09/25/18 04:24 Corrected Sodium 140 mmol/L (136-145) 09/25/18 04:24 Potassium 4.2 mmol/L (3.5-5.1) 09/25/18 08:35 Chloride 102 mmol/L (98-107) 09/25/18 04:24 Carbon Dioxide 30.5 mmol/L (21-32) 09/25/18 04:24 BUN 20 mg/dL (7-18) H 09/25/18 04:24 Creatinine 0.77 mg/dL (0.55-1.02) 09/25/18 04:24 Est GFR (MDRD) Af Amer > 60 (>60) 09/25/18 04:24 Est GFR (MDRD) Non-Af > 60 (>60) 09/25/18 04:24 Glucose 152 mg/dL (65-99) H 09/25/18 04:24 Calcium 9.6 mg/dL (8.5-10.1) 09/25/18 04:24 Corrected Calcium 11.0 mg/dL (8.5-10.1) H 09/25/18 04:24 Magnesium 2.1 mg/dL (1.7-2.9) 09/23/18 05:41 Total Bilirubin 0.40 mg/dL (0.2-1.0) 09/25/18 04:24 AST 13 Units/L (15-37) L 09/25/18 04:24 ALT 17 Units/L (12-78) 09/25/18 04:24 Alkaline Phosphatase 75 Units/L (46-116) 09/25/18 04:24 Ammonia 13 umol/L (11-32) 09/22/18 15:47 Creatine Kinase 117 Units/L (26-192) 09/19/18 17:56 CK-MB (CK-2) 2.0 ng/mL (0-4.0) 09/19/18 17:56 CK/CKMB % Calc 1.7 % (<4) 09/19/18 17:56 Troponin I < 0.02 ng/mL (0-1.5) 09/19/18 17:56 B-Natriuretic Peptide 105 pg/mL (0-79) H 09/17/18 12:47 Total Protein 5.8 g/dL (6.4-8.2) L 09/25/18 04:24 Albumin 2.2 g/dL (3.4-5.0) L 09/25/18 04:24 Globulin 3.6 g/dL (2.5-4.5) 09/25/18 04:24 Albumin/Globulin Ratio 0.6 Ratio (1.1-2.1) L 09/25/18 04:24 Specimen Type Catherized urine 09/22/18 14:47 Urine Color Yellow (YELLOW) 09/22/18 14:47 Urine Appearance Slightly hazy (CLEAR) 09/22/18 14:47 Urine pH 6.0 (5.0 - 8.0) 09/22/18 14:47 Ur Specific [place] 1.020 (1.000-1.030) 09/22/18 14:47 Urine Protein 2+ (NEGATIVE) 09/22/18 14:47 Urine Glucose (UA) Negative (NEGATIVE) 09/22/18 14:47 Urine Ketones Negative (NEGATIVE) 09/22/18 14:47 Urine Occult Blood 5+ (NEGATIVE) 09/22/18 14:47 Urine Nitrite Negative (NEGATIVE) 09/22/18 14:47 Urine Bilirubin Negative (NEGATIVE) 09/22/18 14:47 Urine Urobilinogen Normal (NORMAL) 09/22/18 14:47 Ur Leukocyte Esterase 1+ (NEGATIVE) 09/22/18 14:47 Urine RBC 10-20 /HPF (NONE SEEN) 09/22/18 14:47 Urine WBC 0-2 /HPF (NONE SEEN) 09/22/18 14:47 Ur Squamous Epith Cells Rare /HPF (NEGATIVE) 09/22/18 14:47 Amorphous Sediment 1+ /HPF (NEGATIVE) 09/22/18 14:47 Urine Bacteria Trace /HPF (NEGATIVE) 09/22/18 14:47 Ur Culture Indicated? No/not indicated 09/22/18 14:47 Salicylates 3.4 mg/dL (2.8-20) 09/22/18 15:47 Urine Opiates Screen Negative (NEG=<300) 09/19/18 09:00 Urine Methadone Screen Negative (NEG=<300) 09/19/18 09:00 Ur Barbiturates Screen Negative (NEG=<200) 09/19/18 09:00 Ur Phencyclidine Scrn Negative (NEG=<25) 09/19/18 09:00 Ur Amphetamines Screen Negative (NEG=<1000) 09/19/18 09:00 U Benzodiazepines Scrn Negative (NEG=<200) 09/19/18 09:00 Urine Cocaine Screen Negative (NEG=<300) 09/19/18 09:00 U Marijuana (THC) Screen Negative (NEG=<50) 09/19/18 09:00 Influenza Type A (PCR) Negative (NEGATIVE) 09/17/18 14:40 Influenza Type B (PCR) Negative (NEGATIVE) 09/17/18 14:40 - Plan (1) Bronchitis Status: Acute Plan: IV ANTIBIOTICS, RESPIRATORY TREATMENTS, SUPPLEMENTAL OXYGEN, CONTINUE TO MONITOR. (2) COPD with acute exacerbation Status: Acute Plan: SOLU-MEDROL 80MG IV Q8H, RESPIRATORY TREATMENTS, SUPPLEMENTAL OXYGEN, CO NTINUE HOME MEDS, CONTINUE TO MONITOR (3) Respiratory distress Status: Acute Plan: SOLU-MEDROL 80MG IV Q8H, RESPIRATORY TREATMENTS, SUPPLEMENTAL OXYGEN, CONTINUE TO MONITOR (4) Altered mental status, unspecified Status: Acute Qualifiers: Altered mental status type: transient alteration of awareness Qualified Code(s): R40.4 - Transient alteration of awareness Plan: SEROQUEL 100MG PO BID, CONTINUE TO MONITOR (5) HTN (hypertension) Status: Chronic Qualifiers: Hypertension type: essential hypertension Qualified Code(s): I10 - Essential (primary) hypertension Plan: CLONIDINE 0.1MG PATCH, COREG 6.25MG PO BID, CONTINUE TO MONITOR (6) Hypothyroidism Status: Acute Qualifiers: Hypothyroidism type: acquired Qualified Code(s): E03.9 - Hypothyroidism, unspecified Plan: CONTINUE SYNTHROID (7) Hyperlipidemia Status: Chronic Qualifiers: Hyperlipidemia type: mixed hyperlipidemia Qualified Code(s): E78.2 - Mixed hyperlipidemia Plan: CONTINUE LIPITOR
--- NOTE | 2018-09-25 21:08 | PCM.PROG ---
Progress Note - Progress Note for Day of Date of Exam: 09/23/18 - Subjective Subjective: WAS ADMITTED FOR ACUTE COPD EXACERBATION, ACUTE BRONCHITIS, AND RESPIRATORY DISTRESS. PATIENT CONTINUES WITH INTERMITTENT CONFUSION AND AGITATION. SHE IS ALERT AND ORIENTED, LYING IN BED ON MORNING ROUNDS. ON EXAMINATION, SHE CONTINUES TO BE TACHYCARDIC. BILATERAL LUNGS CONTINUE WITH SCATTERED WHEEZING. ABDOMEN IS ROUND, SOFT, AND NON-TENDER WITH NORMAL BOWEL SOUNDS NOTED IN ALL QUADRANTS. HER VITALS THIS MORNING ARE 97.5-128-19-96%-165/92. LABS WERE OBTAINED. ABNORMAL LAB VALUES INCLUDE THE FOLLOWING: WBC 14.4, RBC 5.46, BUN 29, GLUCOSE 183, TOTAL PROTEIN 5.7, ALBUMIN 2.3. SPUTUM CULTURE REPORTS GROWITH OF ACINETOBACTER BAUMANII/HAEMOLY. IT IS SENSITIVE TO THE ANTIBIOTICS THAT SHE IS CURRENTLY RECEIVING. SHE IS CURRENTLY RECEIVING IV FORTAZ, IV SOLU-MEDROL, RESPIRATORY TREATMENTS, SUPPLEMENTAL OXYGEN, AND HER HOME MEDICATIONS. TODAY, WE WILL START DIFLUCAN 100MG IV DAILY AND ORDER FOR HER TO WEAR THE SMARTVEST. WE WILL ALSO HAVE PHYSICAL THERAPY WORK WITH PATIENT. OTHERWISE, WE WILL CONTINUE WITH CURRENT PLAN OF CARE. WE WILL FOLLOW UP WITH AM LABS AND CONTINUE TO MONITOR. - Past Medical Family Social History Past Med/Fam/Surg Hx: No changes since H&P Allergies: Allergies cefdinir Allergy (Verified 10/13/17 06:55) ciprofloxacin Allergy (Verified 10/13/17 06:55) clarithromycin Allergy (Verified 10/13/17 06:55) clindamycin Allergy (Verified 10/13/17 06:55) doxycycline Allergy (Verified 10/13/17 06:55) erythromycin base Allergy (Verified 10/13/17 06:55) gabapentin [From Neurontin] Allergy (Verified 10/13/17 06:55) levofloxacin [From Levaquin] Allergy (Verified 10/13/17 06:55) nitrofurantoin Allergy (Verified 10/13/17 06:55) Penicillins Allergy (Verified 10/13/17 06:55) phenazopyridine Allergy (Verified 10/13/17 06:55) rifampin Allergy (Verified 10/13/17 06:55) - Review of Systems ROS: No change since H&P - Vital Signs and I&O's Vital Signs: Temperature 98.5 F Pulse Rate [Left Brachial] 120 Pulse Rate 93 Respiratory Rate 20 Blood Pressure [Left Arm] 174/96 Blood Pressure [Right Arm] 186/119 Blood Pressure 145/76 O2 Sat by Pulse Oximetry 95 Intake and Output: Intake & Output 09/23/18 09/24/18 09/25/18 09/26/18 11:59 11:59 11:59 11:59 Intake Total 660 / 660 360 / 360 599 / 599 550 / 550 Output Total 2200 / 2200 1000 / 1000 1800 / 1800 800 / 800 Balance -1540 / -1540 -640 / -640 -1201 / -1201 -250 / -250 - Physical Exam Oriented: Normal Eyes: Normal Ear: Normal Nose: Normal Throat: Normal Respiratory: Generalized, Diminished, Wheezes Cardiovascular: Tachycardia. negative: S3, S4, Murmur : Normal Auscultation: Bowel Sounds: Normal Tenderness: Normal Skin: Normal Musculoskeletal: Normal Psychiatric: Normal Mood Description: Calm Affect: Normal Speech Pattern: Clear, Inappropriate - Laboratory and Diagnostics Result Diagrams: 09/25/18 04:24 09/25/18 08:35 Labs: 09/17/18 16:24 Blood Blood Culture - Final 09/17/18 16:10 Blood Blood Culture - Final 09/17/18 14:40 Sputum - Expectorated Sputum Sputum Culture - Final Acinetobacter Baumanii/Haemoly 09/17/18 14:40 Sputum - Expectorated Sputum - Final Laboratory WBC 12.1 X10^3/uL (3.6-10.0) H 09/25/18 04:24 RBC 4.75 X10^6/uL (3.5-5.4) 09/25/18 04:24 Hgb 12.0 g/dL (12.0-16.0) 09/25/18 04:24 Hct 37.2 % (36.0-47.0) 09/25/18 04:24 MCV 78.3 fL (80.0-100.0) L 09/25/18 04:24 MCH 25.2 pg (27.0-34.0) L 09/25/18 04:24 MCHC 32.2 g/dL (33.0-35.0) L 09/25/18 04:24 RDW 16.8 % (11.6-16.5) H 09/25/18 04:24 Plt Count 193 X10^3/uL (150.0-450.0) 09/25/18 04:24 Plt Count Comment Adequate (ADEQUATE) 09/25/18 04:24 MPV 9.4 fL (7.4-11.0) 09/25/18 04:24 Neut % (Auto) 83.2 % (42.0-75.0) H 09/25/18 04:24 Lymph % (Auto) 10.4 % (21.0-51.0) L 09/25/18 04:24 [place] % (Auto) 6.0 % (0.0-13.0) 09/25/18 04:24 Eos % (Auto) 0.3 % (0.9-2.9) L 09/25/18 04:24 Baso % (Auto) 0.1 % (0.2-1.0) L 09/25/18 04:24 Neut # (Auto) 10.0 x10^3/uL (2.2-4.8) H 09/25/18 04:24 Lymph # (Auto) 1.3 X10^3/uL (1.3-2.9) 09/25/18 04:24 [place] # (Auto) 0.7 x10^3/uL (0.3-0.8) 09/25/18 04:24 Eos # (Auto) 0.0 x10^3/uL (0.0-0.2) 09/25/18 04:24 Baso # (Auto) 0.0 X10^3/uL (0.0-0.1) 09/25/18 04:24 Absolute Nucleated RBC 0.0 /100WBC 09/25/18 04:24 Total Counted 100 09/21/18 05:44 Neutrophils % (Manual) 81 % (39-76) H 09/21/18 05:44 Band Neutrophils % 8 % (0-10) 09/21/18 05:44 Lymphocytes % (Manual) 8 % (13-43) L 09/21/18 05:44 Monocytes % (Manual) 3 % (4-9) L 09/21/18 05:44 Eosinophils % (Manual) 3 % (0-6) 09/20/18 05:38 Plt Morphology Comment Normal (NORMAL) 09/25/18 04:24 RBC Morphology Abnormal (NORMAL) A 09/25/18 04:24 Hypochromasia Slight A 09/25/18 04:24 Poikilocytosis Slight A 09/23/18 05:41 Anisocytosis Slight A 09/25/18 04:24 D-Dimer < 100 ng/mL (0-400) 09/17/18 12:47 Sample Site Right brachial 09/25/18 06:10 ABG pH 7.570 (7.35-7.45) H* 09/25/18 06:10 ABG pCO2 37.0 mmHg (35.0-45.0) 09/25/18 06:10 ABG pO2 105.0 mmHg (80.0-100.0) H 09/25/18 06:10 ABG HCO3 33.9 mmol/L (22-26) H* 09/25/18 06:10 ABG O2 Saturation 99.0 % (90-100) 09/25/18 06:10 ABG Base Excess 11.1 mmol/L (-2.0-2.0) H 09/25/18 06:10 Earle Test Na 09/25/18 06:10 A-a Gradient 48.0 mmHg 09/25/18 06:10 FiO2 28.0 09/25/18 06:10 Blood Gas Comments Andre well jts 09/25/18 06:10 Sodium 139 mmol/L (136-145) 09/25/18 04:24 Corrected Sodium 140 mmol/L (136-145) 09/25/18 04:24 Potassium 4.2 mmol/L (3.5-5.1) 09/25/18 08:35 Chloride 102 mmol/L (98-107) 09/25/18 04:24 Carbon Dioxide 30.5 mmol/L (21-32) 09/25/18 04:24 BUN 20 mg/dL (7-18) H 09/25/18 04:24 Creatinine 0.77 mg/dL (0.55-1.02) 09/25/18 04:24 Est GFR (MDRD) Af Amer > 60 (>60) 09/25/18 04:24 Est GFR (MDRD) Non-Af > 60 (>60) 09/25/18 04:24 Glucose 152 mg/dL (65-99) H 09/25/18 04:24 Calcium 9.6 mg/dL (8.5-10.1) 09/25/18 04:24 Corrected Calcium 11.0 mg/dL (8.5-10.1) H 09/25/18 04:24 Magnesium 2.1 mg/dL (1.7-2.9) 09/23/18 05:41 Total Bilirubin 0.40 mg/dL (0.2-1.0) 09/25/18 04:24 AST 13 Units/L (15-37) L 09/25/18 04:24 ALT 17 Units/L (12-78) 09/25/18 04:24 Alkaline Phosphatase 75 Units/L (46-116) 09/25/18 04:24 Ammonia 13 umol/L (11-32) 09/22/18 15:47 Creatine Kinase 117 Units/L (26-192) 09/19/18 17:56 CK-MB (CK-2) 2.0 ng/mL (0-4.0) 09/19/18 17:56 CK/CKMB % Calc 1.7 % (<4) 09/19/18 17:56 Troponin I < 0.02 ng/mL (0-1.5) 09/19/18 17:56 B-Natriuretic Peptide 105 pg/mL (0-79) H 09/17/18 12:47 Total Protein 5.8 g/dL (6.4-8.2) L 09/25/18 04:24 Albumin 2.2 g/dL (3.4-5.0) L 09/25/18 04:24 Globulin 3.6 g/dL (2.5-4.5) 09/25/18 04:24 Albumin/Globulin Ratio 0.6 Ratio (1.1-2.1) L 09/25/18 04:24 Specimen Type Catherized urine 09/22/18 14:47 Urine Color Yellow (YELLOW) 09/22/18 14:47 Urine Appearance Slightly hazy (CLEAR) 09/22/18 14:47 Urine pH 6.0 (5.0 - 8.0) 09/22/18 14:47 Ur Specific [place] 1.020 (1.000-1.030) 09/22/18 14:47 Urine Protein 2+ (NEGATIVE) 09/22/18 14:47 Urine Glucose (UA) Negative (NEGATIVE) 09/22/18 14:47 Urine Ketones Negative (NEGATIVE) 09/22/18 14:47 Urine Occult Blood 5+ (NEGATIVE) 09/22/18 14:47 Urine Nitrite Negative (NEGATIVE) 09/22/18 14:47 Urine Bilirubin Negative (NEGATIVE) 09/22/18 14:47 Urine Urobilinogen Normal (NORMAL) 09/22/18 14:47 Ur Leukocyte Esterase 1+ (NEGATIVE) 09/22/18 14:47 Urine RBC 10-20 /HPF (NONE SEEN) 09/22/18 14:47 Urine WBC 0-2 /HPF (NONE SEEN) 09/22/18 14:47 Ur Squamous Epith Cells Rare /HPF (NEGATIVE) 09/22/18 14:47 Amorphous Sediment 1+ /HPF (NEGATIVE) 09/22/18 14:47 Urine Bacteria Trace /HPF (NEGATIVE) 09/22/18 14:47 Ur Culture Indicated? No/not indicated 09/22/18 14:47 Salicylates 3.4 mg/dL (2.8-20) 09/22/18 15:47 Urine Opiates Screen Negative (NEG=<300) 09/19/18 09:00 Urine Methadone Screen Negative (NEG=<300) 09/19/18 09:00 Ur Barbiturates Screen Negative (NEG=<200) 09/19/18 09:00 Ur Phencyclidine Scrn Negative (NEG=<25) 09/19/18 09:00 Ur Amphetamines Screen Negative (NEG=<1000) 09/19/18 09:00 U Benzodiazepines Scrn Negative (NEG=<200) 09/19/18 09:00 Urine Cocaine Screen Negative (NEG=<300) 09/19/18 09:00 U Marijuana (THC) Screen Negative (NEG=<50) 09/19/18 09:00 Influenza Type A (PCR) Negative (NEGATIVE) 09/17/18 14:40 Influenza Type B (PCR) Negative (NEGATIVE) 09/17/18 14:40 - Plan (1) Bronchitis Status: Acute Plan: IV ANTIBIOTICS, RESPIRATORY TREATMENTS, SUPPLEMENTAL OXYGEN, CONTINUE TO MONITOR. (2) COPD with acute exacerbation Status: Acute Plan: SOLU-MEDROL 80MG IV Q8H, RESPIRATORY TREATMENTS, SUPPLEMENTAL OXYGEN, CONTINUE HOME MEDS, CONTINUE TO MONITOR (3) Respiratory distress Status: Acute Plan: SOLU-MEDROL 80MG IV Q8H, RESPIRATORY TREATMENTS, SUPPLEMENTAL OXYGEN, CONTINUE TO MONITOR (4) Altered mental status, unspecified Status: Acute Qualifiers: Altered mental status type: transient alteration of awareness Qualified Code(s): R40.4 - Transient alteration of awareness Plan: SEROQUEL 100MG PO BID, CONTINUE TO MONITOR (5) HTN (hypertension) Status: Chronic Qualifiers: Hypertension type: essential hypertension Qualified Code(s): I10 - Essential (primary) hypertension Plan: CLONIDINE 0.1MG PATCH, COREG 6.25MG PO BID, CONTINUE TO MONITOR (6) Hypothyroidism Status: Acute Qualifiers: Hypothyroidism type: acquired Qualified Code(s): E03.9 - Hypothyroidism, unspecified Plan: CONTINUE SYNTHROID (7) Hyperlipidemia Status: Chronic Qualifiers: Hyperlipidemia type: mixed hyperlipidemia Qualified Code(s): E78.2 - Mixed hyperlipidemia Plan: CONTINUE LIPITOR
[2018-09-25] MEDS: REQUIP PO SCH (21:14)
[2018-09-25] MEDS: LIPITOR TAB 40 MG PO SCH (21:15)
[2018-09-25] MEDS: PEPCID TAB 20 MG PO SCH (21:15)
[2018-09-25] MEDS ORDERED: TUSSIONEX PENNKINETIC SUSP PO PRN (22:54)
[2018-09-26 05:32] LABS: BASOPHILS % (AUTO) 0.2 % (0.2-1.0); EOSINOPHILS % (AUTO) 0.3 % (0.9-2.9); HEMATOCRIT 37.6 % (36.0-47.0); HEMOGLOBIN 12.1 g/dL (12.0-16.0); LYMPHOCYTES # (AUTO) 1.4 X10^3/uL (1.3-2.9); LYMPHOCYTES % (AUTO) 10.2 % (21.0-51.0); MEAN CORPUSCULAR HEMOGLOBIN 25.1 pg (27.0-34.0); MEAN CORPUSCULAR HGB CONC 32.1 g/dL (33.0-35.0); MEAN CORPUSCULAR VOLUME 78.3 fL (80.0-100.0); MEAN PLATELET VOLUME 9.5 fL (7.4-11.0); MONOCYTES # (AUTO) 0.8 x10^3/uL (0.3-0.8); MONOCYTES % (AUTO) 5.9 % (0.0-13.0); NEUTROPHILS # (AUTO) 11.5 x10^3/uL (2.2-4.8); NEUTROPHILS % (AUTO) 83.4 % (42.0-75.0); PLATELET COUNT 210 X10^3/uL (150.0-450.0); RED BLOOD COUNT 4.81 X10^6/uL (3.5-5.4); RED CELL DISTRIBUTION WIDTH 16.9 % (11.6-16.5); WHITE BLOOD COUNT 13.9 X10^3/uL (3.6-10.0)
[2018-09-26 05:37] LABS: ALANINE AMINOTRANSFERASE 20 Units/L (12-78); ALBUMIN 2.3 g/dL (3.4-5.0); ALKALINE PHOSPHATASE 78 Units/L (46-116); ASPARTATE AMINO TRANSFERASE 19 Units/L (15-37); BLOOD UREA NITROGEN 20 mg/dL (7-18); CALCIUM 9.7 mg/dL (8.5-10.1); CARBON DIOXIDE 28.2 mmol/L (21-32); CHLORIDE 105 mmol/L (98-107); COR CA(FOR HYPOALB) 11.1 mg/dL (8.5-10.1); COR NA(FOR HYPERGLY) 141 mmol/L (136-145); CREATININE 0.76 mg/dL (0.55-1.02); SODIUM 140 mmol/L (136-145); TOTAL PROTEIN 6.1 g/dL (6.4-8.2); eGFR NON BLACK RACES > 60 (>60)
[2018-09-26] MEDS: FORTAZ or TAZICEF VIAL INJ IVP SCH ×3 (05:56→21:07)
[2018-09-26 06:03] LABS: ANISOCYTOSIS SLIGHT; BAND NEUTROPHILS % 2 % (0-10); HYPOCHROMASIA SLIGHT; PLATELET MORPHOLOGY COMMENT NORMAL (NORMAL)
[2018-09-26] MEDS: XOPENEX 1.25 MG/3 ML NEBULE NEB SCH ×3 (06:22→20:35)
[2018-09-26] MEDS: MUCOMYST 20% 200 MG/ML NEB SCH ×3 (06:22→20:35)
[2018-09-26] MEDS: PULMICORT NEB TX 0.5 MG NEB SCH ×2 (08:49→20:35)
[2018-09-26] MEDS: BROVANA IN SCH ×2 (08:49→20:35)
[2018-09-26] MEDS: COREG TAB 3.125 MG PO SCH ×2 (09:57→20:03)
[2018-09-26] MEDS: DALIRESP PO SCH (09:57)
[2018-09-26] MEDS: SEROquel TAB 100 MG PO SCH ×2 (09:57→17:54)
[2018-09-26] MEDS: MUCINEX DM PO SCH ×2 (09:58→20:04)
[2018-09-26] MEDS: ROXICODONE TAB 5 MG PO PRN ×2 (09:58→20:04)
[2018-09-26] MEDS: THEO-DUR TAB 200 MG PO SCH ×2 (09:58→20:05)
[2018-09-26] MEDS: DIFLUCAN 200 MG IV PREMIX* 200 MG/100 ML BAG IV SCH (10:10)
[2018-09-26] MEDS: CITRACAL + VITAMIN D PO SCH ×2 (10:10→20:05)
[2018-09-26] MEDS: ZINC SULFATE PO SCH (10:11)
[2018-09-26] MEDS: FOLIC ACID TAB 1 MG PO SCH (10:11)
[2018-09-26] MEDS: VITAMIN D3 PO SCH (10:11)
[2018-09-26] MEDS: VITAMIN C PO SCH (10:11)
[2018-09-26] MEDS: PROCALAMINE 3 % 1,000 ML IV SCH (17:55)
[2018-09-26] MEDS: REQUIP PO SCH (20:03)
[2018-09-26] MEDS: PEPCID TAB 20 MG PO SCH (20:04)
[2018-09-26] MEDS: LIPITOR TAB 40 MG PO SCH (20:04)
[2018-09-27] MEDS: XOPENEX 1.25 MG/3 ML NEBULE NEB SCH ×4 (05:41→20:43)
[2018-09-27] MEDS: FORTAZ or TAZICEF VIAL INJ IVP SCH ×3 (05:41→21:08)
[2018-09-27] MEDS: MUCOMYST 20% 200 MG/ML NEB SCH (05:41)
[2018-09-27 06:07] LABS: BASOPHILS % (AUTO) 0.2 % (0.2-1.0); EOSINOPHILS % (AUTO) 0.3 % (0.9-2.9); HEMATOCRIT 37.5 % (36.0-47.0); HEMOGLOBIN 11.9 g/dL (12.0-16.0); LYMPHOCYTES # (AUTO) 1.1 X10^3/uL (1.3-2.9); MEAN CORPUSCULAR HGB CONC 31.7 g/dL (33.0-35.0); MEAN CORPUSCULAR VOLUME 78.9 fL (80.0-100.0); MEAN PLATELET VOLUME 9.7 fL (7.4-11.0); MONOCYTES # (AUTO) 0.7 x10^3/uL (0.3-0.8); MONOCYTES % (AUTO) 6.3 % (0.0-13.0); NEUTROPHILS # (AUTO) 9.5 x10^3/uL (2.2-4.8); NEUTROPHILS % (AUTO) 83.2 % (42.0-75.0); PLATELET COUNT 192 X10^3/uL (150.0-450.0); RED BLOOD COUNT 4.76 X10^6/uL (3.5-5.4); RED CELL DISTRIBUTION WIDTH 16.9 % (11.6-16.5); WHITE BLOOD COUNT 11.5 X10^3/uL (3.6-10.0)
[2018-09-27 06:26] LABS: BAND NEUTROPHILS % 2 % (0-10); PLATELET MORPHOLOGY COMMENT NORMAL (NORMAL)
[2018-09-27 06:37] LABS: ALANINE AMINOTRANSFERASE 22 Units/L (12-78); ALBUMIN 2.4 g/dL (3.4-5.0); ALKALINE PHOSPHATASE 83 Units/L (46-116); ASPARTATE AMINO TRANSFERASE 19 Units/L (15-37); BLOOD UREA NITROGEN 16 mg/dL (7-18); CALCIUM 9.8 mg/dL (8.5-10.1); CARBON DIOXIDE 25.9 mmol/L (21-32); CHLORIDE 106 mmol/L (98-107); COR CA(FOR HYPOALB) 11.1 mg/dL (8.5-10.1); COR NA(FOR HYPERGLY) 142 mmol/L (136-145); CREATININE 0.66 mg/dL (0.55-1.02); SODIUM 141 mmol/L (136-145); TOTAL PROTEIN 6.2 g/dL (6.4-8.2); eGFR NON BLACK RACES > 60 (>60)
[2018-09-27] MEDS: ROXICODONE TAB 5 MG PO PRN ×2 (06:58→19:22)
[2018-09-27] MEDS: PULMICORT NEB TX 0.5 MG NEB SCH ×2 (08:28→20:43)
[2018-09-27] MEDS: BROVANA IN SCH ×2 (08:28→20:43)
[2018-09-27] MEDS: FOLIC ACID TAB 1 MG PO SCH (09:00)
[2018-09-27] MEDS: ZINC SULFATE PO SCH (09:00)
[2018-09-27] MEDS: DALIRESP PO SCH (09:00)
[2018-09-27] MEDS: VITAMIN C PO SCH (09:00)
[2018-09-27] MEDS: CITRACAL + VITAMIN D PO SCH ×2 (09:00→20:24)
[2018-09-27] MEDS: MUCINEX DM PO SCH ×2 (09:00→20:29)
[2018-09-27] MEDS: DIFLUCAN 200 MG IV PREMIX* 200 MG/100 ML BAG IV SCH (09:00)
[2018-09-27] MEDS: SEROquel TAB 100 MG PO SCH (09:00)
[2018-09-27] MEDS: COREG TAB 3.125 MG PO SCH ×2 (09:00→20:24)
[2018-09-27] MEDS: THEO-DUR TAB 200 MG PO SCH ×2 (09:00→20:25)
[2018-09-27] MEDS: VITAMIN D3 PO SCH (09:10)
[2018-09-27] MEDS: ALBUMIN HUMAN 25%- 100 ML 100 ML IV SCH (16:32)
[2018-09-27] MEDS: PROCALAMINE 3 % 1,000 ML IV SCH (16:42)
[2018-09-27] MEDS: REQUIP PO SCH (18:11)
[2018-09-27] MEDS: PEPCID TAB 20 MG PO SCH (20:25)
[2018-09-27] MEDS: LIPITOR TAB 40 MG PO SCH (20:25)
--- NOTE | 2018-09-27 20:28 | PCM.PROG ---
Progress Note - Progress Note for Day of Date of Exam: 09/24/18 - Subjective Subjective: WAS ADMITTED FOR ACUTE COPD EXACERBATION, ACUTE BRONCHITIS, AND RESPIRATORY DISTRESS. PATIENT CONTINUES WITH INTERMITTENT CONFUSION AND AGITATION. SHE IS ALERT AND ORIENTED, LYING IN BED ON MORNING ROUNDS. FAMILY REPORTS THAT SHE IS NOT EATING WELL. ON EXAMINATION, SHE CONTINUES TO BE TACHYCARDIC. BILATERAL LUNGS CONTINUE WITH SCATTERED WHEEZING. ABDOMEN IS ROUND, SOFT, AND NON-TENDER WITH NORMAL BOWEL SOUNDS NOTED IN ALL QUADRANTS. HER VITALS THIS MORNING ARE 98.0-118-21-91%-133/84. LABS WERE OBTAINED. ABNORMAL LAB VALUES INCLUDE THE FOLLOWING: WBC 14.9, BUN 20, GLUCOSE 186, CALCIUM 10.4, TOTAL PROTEIN 6.2, ALBUMIN 2.4. CHEST XRAY OBTAINED AND REVEALED: Small focus of right lower lobe atelectasis. No change otherwise. SPUTUM CULTURE REPORTS GROWITH OF ACINETOBACTER BAUMANII/HAEMOLY. SHE IS CURRENTLY RECEIVING IV FORTAZ, IV SOLU- MEDROL, RESPIRATORY TREATMENTS, SUPPLEMENTAL OXYGEN, AND HER HOME MEDICATIONS. TODAY, WE WILL START PROCALAMINE MUCINEX DM, AND DECREASE ROXICODONE TO 5MG PO Q8H. OTHERWISE, WE WILL CONTINUE WITH CURRENT PLAN OF CARE. WE WILL FOLLOW UP WITH AM LABS AND CONTINUE TO MONITOR. - Past Medical Family Social History Past Med/Fam/Surg Hx: No changes since H&P Allergies: Allergies cefdinir Allergy (Verified 10/13/17 06:55) ciprofloxacin Allergy (Verified 10/13/17 06:55) clarithromycin Allergy (Verified 10/13/17 06:55) clindamycin Allergy (Verified 10/13/17 06:55) doxycycline Allergy (Verified 10/13/17 06:55) erythromycin base Allergy (Verified 10/13/17 06:55) gabapentin [From Neurontin] Allergy (Verified 10/13/17 06:55) levofloxacin [From Levaquin] Allergy (Verified 10/13/17 06:55) nitrofurantoin Allergy (Verified 10/13/17 06:55) Penicillins Allergy (Verified 10/13/17 06:55) phenazopyridine Allergy (Verified 10/13/17 06:55) rifampin Allergy (Verified 10/13/17 06:55) - Review of Systems ROS: No change since H&P - Vital Signs and I&O's Vital Signs: Temperature 98.5 F Pulse Rate [Left Brachial] 120 Pulse Rate 104 Respiratory Rate 22 Blood Pressure [Left Arm] 174/96 Blood Pressure [Right Arm] 186/119 Blood Pressure 153/79 O2 Sat by Pulse Oximetry 98 Intake and Output: Intake & Output 09/25/18 09/26/18 09/27/18 09/28/18 11:59 11:59 11:59 11:59 Intake Total 599 / 599 1379 / 1379 1471 / 1471 326 / 326 Output Total 1800 / 1800 5 / 2075 1250 / 1250 1250 / 1250 Balance -1201 / -1201 -696 / -696 221 / 221 -924 / -924 - Physical Exam Oriented: Normal Eyes: Normal Ear: Normal Nose: Normal Throat: Normal Respiratory: Generalized, Diminished, Wheezes Cardiovascular: Tachycardia. negative: S3, S4, Murmur : Normal Auscultation: Bowel Sounds: Normal Palpation: Normal Tenderness: Normal Skin: Normal Musculoskeletal: Normal Psychiatric: Normal Mood Description: Calm Affect: Normal Speech Pattern: Clear, Inappropriate - Laboratory and Diagnostics Result Diagrams: 09/27/18 04:58 09/27/18 04:58 Labs: 09/17/18 16:24 Blood Blood Culture - Final 09/17/18 16:10 Blood Blood Culture - Final 09/17/18 14:40 Sputum - Expectorated Sputum Sputum Culture - Final Acinetobacter Baumanii/Haemoly 09/17/18 14:40 Sputum - Expectorated Sputum - Final Laboratory WBC 11.5 X10^3/uL (3.6-10.0) H 09/27/18 04:58 RBC 4.76 X10^6/uL (3.5-5.4) 09/27/18 04:58 Hgb 11.9 g/dL (12.0-16.0) L 09/27/18 04:58 Hct 37.5 % (36.0-47.0) 09/27/18 04:58 MCV 78.9 fL (80.0-100.0) L 09/27/18 04:58 MCH 25.0 pg (27.0-34.0) L 09/27/18 04:58 MCHC 31.7 g/dL (33.0-35.0) L 09/27/18 04:58 RDW 16.9 % (11.6-16.5) H 09/27/18 04:58 Plt Count 192 X10^3/uL (150.0-450.0) 09/27/18 04:58 Plt Count Comment Adequate (ADEQUATE) 09/27/18 04:58 MPV 9.7 fL (7.4-11.0) 09/27/18 04:58 Neut % (Auto) 83.2 % (42.0-75.0) H 09/27/18 04:58 Lymph % (Auto) 10.0 % (21.0-51.0) L 09/27/18 04:58 [place] % (Auto) 6.3 % (0.0-13.0) 09/27/18 04:58 Eos % (Auto) 0.3 % (0.9-2.9) L 09/27/18 04:58 Baso % (Auto) 0.2 % (0.2-1.0) 09/27/18 04:58 Neut # (Auto) 9.5 x10^3/uL (2.2-4.8) H 09/27/18 04:58 Lymph # (Auto) 1.1 X10^3/uL (1.3-2.9) L 09/27/18 04:58 [place] # (Auto) 0.7 x10^3/uL (0.3-0.8) 09/27/18 04:58 Eos # (Auto) 0.0 x10^3/uL (0.0-0.2) 09/27/18 04:58 Baso # (Auto) 0.0 X10^3/uL (0.0-0.1) 09/27/18 04:58 Absolute Nucleated RBC 0.1 /100WBC 09/27/18 04:58 Total Counted 100 09/27/18 04:58 Neutrophils % (Manual) 77 % (39-76) H 09/27/18 04:58 Band Neutrophils % 2 % (0-10) 09/27/18 04:58 Lymphocytes % (Manual) 18 % (13-43) 09/27/18 04:58 Monocytes % (Manual) 3 % (4-9) L 09/27/18 04:58 Eosinophils % (Manual) 3 % (0-6) 09/20/18 05:38 Plt Morphology Comment Normal (NORMAL) 09/27/18 04:58 RBC Morphology Normal (NORMAL) 09/27/18 04:58 Hypochromasia Slight A 09/26/18 04:03 Poikilocytosis Slight A 09/23/18 05:41 Anisocytosis Slight A 09/26/18 04:03 D-Dimer < 100 ng/mL (0-400) 09/17/18 12:47 Sample Site Right brachial 09/25/18 06:10 ABG pH 7.570 (7.35-7.45) H* 09/25/18 06:10 ABG pCO2 37.0 mmHg (35.0-45.0) 09/25/18 06:10 ABG pO2 105.0 mmHg (80.0-100.0) H 09/25/18 06:10 ABG HCO3 33.9 mmol/L (22-26) H* 09/25/18 06:10 ABG O2 Saturation 99.0 % (90-100) 09/25/18 06:10 ABG Base Excess 11.1 mmol/L (-2.0-2.0) H 09/25/18 06:10 Earle Test Na 09/25/18 06:10 A-a Gradient 48.0 mmHg 09/25/18 06:10 FiO2 28.0 09/25/18 06:10 Blood Gas Comments Andre well jts 09/25/18 06:10 Sodium 141 mmol/L (136-145) 09/27/18 04:58 Corrected Sodium 142 mmol/L (136-145) 09/27/18 04:58 Potassium 4.3 mmol/L (3.5-5.1) 09/27/18 04:58 Chloride 106 mmol/L (98-107) 09/27/18 04:58 Carbon Dioxide 25.9 mmol/L (21-32) 09/27/18 04:58 BUN 16 mg/dL (7-18) 09/27/18 04:58 Creatinine 0.66 mg/dL (0.55-1.02) 09/27/18 04:58 Est GFR (MDRD) Af Amer > 60 (>60) 09/27/18 04:58 Est GFR (MDRD) Non-Af > 60 (>60) 09/27/18 04:58 Glucose 140 mg/dL (65-99) H 09/27/18 04:58 Calcium 9.8 mg/dL (8.5-10.1) 09/27/18 04:58 Corrected Calcium 11.1 mg/dL (8.5-10.1) H 09/27/18 04:58 Magnesium 2.1 mg/dL (1.7-2.9) 09/23/18 05:41 Total Bilirubin 0.30 mg/dL (0.2-1.0) 09/27/18 04:58 AST 19 Units/L (15-37) 09/27/18 04:58 ALT 22 Units/L (12-78) 09/27/18 04:58 Alkaline Phosphatase 83 Units/L (46-116) 09/27/18 04:58 Ammonia 13 umol/L (11-32) 09/22/18 15:47 Creatine Kinase 117 Units/L (26-192) 09/19/18 17:56 CK-MB (CK-2) 2.0 ng/mL (0-4.0) 09/19/18 17:56 CK/CKMB % Calc 1.7 % (<4) 09/19/18 17:56 Troponin I < 0.02 ng/mL (0-1.5) 09/19/18 17:56 B-Natriuretic Peptide 105 pg/mL (0-79) H 09/17/18 12:47 Total Protein 6.2 g/dL (6.4-8.2) L 09/27/18 04:58 Albumin 2.4 g/dL (3.4-5.0) L 09/27/18 04:58 Globulin 3.8 g/dL (2.5-4.5) 09/27/18 04:58 Albumin/Globulin Ratio 0.6 Ratio (1.1-2.1) L 09/27/18 04:58 Specimen Type Catherized urine 09/22/18 14:47 Urine Color Yellow (YELLOW) 09/22/18 14:47 Urine Appearance Slightly hazy (CLEAR) 09/22/18 14:47 Urine pH 6.0 (5.0 - 8.0) 09/22/18 14:47 Ur Specific [place] 1.020 (1.000-1.030) 12/20/18 14:47 Urine Protein 2+ (NEGATIVE) 09/22/18 14:47 Urine Glucose (UA) Negative (NEGATIVE) 09/22/18 14:47 Urine Ketones Negative (NEGATIVE) 09/22/18 14:47 Urine Occult Blood 5+ (NEGATIVE) 09/22/18 14:47 Urine Nitrite Negative (NEGATIVE) 09/22/18 14:47 Urine Bilirubin Negative (NEGATIVE) 09/22/18 14:47 Urine Urobilinogen Normal (NORMAL) 09/22/18 14:47 Ur Leukocyte Esterase 1+ (NEGATIVE) 09/22/18 14:47 Urine RBC 10-20 /HPF (NONE SEEN) 09/22/18 14:47 Urine WBC 0-2 /HPF (NONE SEEN) 09/22/18 14:47 Ur Squamous Epith Cells Rare /HPF (NEGATIVE) 09/22/18 14:47 Amorphous Sediment 1+ /HPF (NEGATIVE) 09/22/18 14:47 Urine Bacteria Trace /HPF (NEGATIVE) 09/22/18 14:47 Ur Culture Indicated? No/not indicated 09/22/18 14:47 Salicylates 3.4 mg/dL (2.8-20) 09/22/18 15:47 Urine Opiates Screen Negative (NEG=<300) 09/19/18 09:00 Urine Methadone Screen Negative (NEG=<300) 09/19/18 09:00 Ur Barbiturates Screen Negative (NEG=<200) 09/19/18 09:00 Ur Phencyclidine Scrn Negative (NEG=<25) 09/19/18 09:00 Ur Amphetamines Screen Negative (NEG=<1000) 09/19/18 09:00 U Benzodiazepines Scrn Negative (NEG=<200) 09/19/18 09:00 Urine Cocaine Screen Negative (NEG=<300) 09/19/18 09:00 U Marijuana (THC) Screen Negative (NEG=<50) 09/19/18 09:00 Influenza Type A (PCR) Negative (NEGATIVE) 09/17/18 14:40 Influenza Type B (PCR) Negative (NEGATIVE) 09/17/18 14:40 - Plan (1) Bronchitis Status: Acute Plan: IV ANTIBIOTICS, RESPIRATORY TREATMENTS, SUPPLEMENTAL OXYGEN, CONTINUE TO MONITOR. (2) COPD with acute exacerbation Status: Acute Plan: SOLU-MEDROL 80MG IV Q8H, RESPIRATORY TREATMENTS, SUPPLEMENTAL OXYGEN, CONTINUE HOME MEDS, CONTINUE TO MONITOR (3) Respiratory distress Status: Acute Plan: SOLU-MEDROL 80MG IV Q8H, RESPIRATORY TREATMENTS, SUPPLEMENTAL OXYGEN, CONTINUE TO MONITOR (4) Altered mental status, unspecified Status: Acute Qualifiers: Altered mental status type: transient alteration of awareness Qualified Code(s): R40.4 - Transient alteration of awareness Plan: SEROQUEL 100MG PO BID, CONTINUE TO MONITOR (5) HTN (hypertension) Status: Chronic Qualifiers: Hypertension type: essential hypertension Qualified Code(s): I10 - Essent ial (primary) hypertension Plan: CLONIDINE 0.1MG PATCH, COREG 6.25MG PO BID, CONTINUE TO MONITOR (6) Hypothyroidism Status: Acute Qualifiers: Hypothyroidism type: acquired Qualified Code(s): E03.9 - Hypothyroidism, unspecified Plan: CONTINUE SYNTHROID (7) Hyperlipidemia Status: Chronic Qualifiers: Hyperlipidemia type: mixed hyperlipidemia Qualified Code(s): E78.2 - Mixed hyperlipidemia Plan: CONTINUE LIPITOR (8) Hypoproteinemia Status: Acute Plan: PROCALAMINE, CONTINUE TO MONITOR
--- NOTE | 2018-09-27 20:33 | PCM.PROG ---
Progress Note - Progress Note for Day of Date of Exam: 09/25/18 - Subjective Subjective: WAS ADMITTED FOR ACUTE COPD EXACERBATION, ACUTE BRONCHITIS, AND RESPIRATORY DISTRESS. PATIENT CONTINUES WITH INTERMITTENT CONFUSION AND AGITATION AT TIMES. SHE REPORTS A PRODUCTIVE COUGH. ON EXAMINATION, SHE CONTINUES TO BE TACHYCARDIC. BILATERAL LUNGS CONTINUE WITH SCATTERED WHEEZING. ABDOMEN IS ROUND, SOFT, AND NON-TENDER WITH NORMAL BOWEL SOUNDS NOTED IN ALL QUADRANTS. HER VITALS THIS MORNING ARE 98.3-101-25-96%-151/86. LABS WERE OBTAINED. ABNORMAL LAB VALUES INCLUDE THE FOLLOWING: WBC DECREASED TO 12.1, BUN 20, GLUCOSE 152, AST 13, TOTAL PROTEIN 5.8, ALBUMIN 2.2. CHEST XRAY OBTAINED AND REVEALED: Continued normal heart size. The lungs and pleural spaces are now essentially clear. Previously described linear atelectasis at the right base is no longer identified. SPUTUM CULTURE REPORTS GROWTH OF ACINETOBACTER BAUMANII/HAEMOLY. SHE IS CURRENTLY RECEIVING IV FORTAZ, IV SOLU-MEDROL, RESPIRATORY TREATMENTS, SUPPLEMENTAL OXYGEN, AND HER HOME MEDICATIONS. TODAY, WE WILL START TUSSIONEX 5ML PO Q12H PRN. OTHERWISE, WE WILL CONTINUE WITH CURRENT PLAN OF CARE. WE WILL FOLLOW UP WITH AM LABS AND CONTINUE TO MONITOR. - Past Medical Family Social History Past Med/Fam/Surg Hx: No changes since H&P Allergies: Allergies cefdinir Allergy (Verified 10/13/17 06:55) ciprofloxacin Allergy (Verified 10/13/17 06:55) clarithromycin Allergy (Verified 10/13/17 06:55) clindamycin Allergy (Verified 10/13/17 06:55) doxycycline Allergy (Verified 10/13/17 06:55) erythromycin base Allergy (Verified 10/13/17 06:55) gabapentin [From Neurontin] Allergy (Verified 10/13/17 06:55) levofloxacin [From Levaquin] Allergy (Verified 10/13/17 06:55) nitrofurantoin Allergy (Verified 10/13/17 06:55) Penicillins Allergy (Verified 10/13/17 06:55) phenazopyridine Allergy (Verified 10/13/17 06:55) rifampin Allergy (Verified 10/13/17 06:55) - Review of Systems ROS: No change since H&P - Vital Signs and I&O's Vital Signs: Temperature 98.0 F Pulse Rate [Left Brachial] 120 Pulse Rate 97 Respiratory Rate 25 Blood Pressure [Left Arm] 174/96 Blood Pressure [Right Arm] 186/119 Blood Pressure 131/84 O2 Sat by Pulse Oximetry 98 Intake and Output: Intake & Output 09/25/18 09/26/18 09/27/18 09/28/18 11:59 11:59 11:59 11:59 Intake Total 599 / 599 1379 / 1379 1471 / 1471 326 / 326 Output Total 1800 / 1800 2074 / 2074 1250 / 1250 1250 / 1250 Balance -1201 / -1201 -696 / -696 221 / 221 -924 / -924 - Physical Exam Oriented: Normal Eyes: Normal Ear: Normal Nose: Normal Throat: Normal Respiratory: Generalized, Diminished, Wheezes Cardiovascular: Tachycardia. negative: S3, S4, Murmur : Normal Auscultation: Bowel Sounds: Normal Tenderness: Normal Skin: Normal Musculoskeletal: Normal Psychiatric: Normal Mood Description: Calm Affect: Normal Speech Pattern: Clear, Inappropriate - Laboratory and Diagnostics Result Diagrams: 09/27/18 04:58 09/27/18 04:58 Labs: 09/17/18 16:24 Blood Blood Culture - Final 09/17/18 16:10 Blood Blood Culture - Final 09/17/18 14:40 Sputum - Expectorated Sputum Sputum Culture - Final Acinetobacter Baumanii/Haemoly 09/17/18 14:40 Sputum - Expectorated Sputum - Final Laboratory WBC 11.5 X10^3/uL (3.6-10.0) H 09/27/18 04:58 RBC 4.76 X10^6/uL (3.5-5.4) 09/27/18 04:58 Hgb 11.9 g/dL (12.0-16.0) L 09/27/18 04:58 Hct 37.5 % (36.0-47.0) 09/27/18 04:58 MCV 78.9 fL (80.0-100.0) L 09/27/18 04:58 MCH 25.0 pg (27.0-34.0) L 09/27/18 04:58 MCHC 31.7 g/dL (33.0-35.0) L 09/27/18 04:58 RDW 16.9 % (11.6-16.5) H 09/27/18 04:58 Plt Count 192 X10^3/uL (150.0-450.0) 09/27/18 04:58 Plt Count Comment Adequate (ADEQUATE) 09/27/18 04:58 MPV 9.7 fL (7.4-11.0) 09/27/18 04:58 Neut % (Auto) 83.2 % (42.0-75.0) H 09/27/18 04:58 Lymph % (Auto) 10.0 % (21.0-51.0) L 09/27/18 04:58 [place] % (Auto) 6.3 % (0.0-13.0) 09/27/18 04:58 Eos % (Auto) 0.3 % (0.9-2.9) L 09/27/18 04:58 Baso % (Auto) 0.2 % (0.2-1.0) 09/27/18 04:58 Neut # (Auto) 9.5 x10^3/uL (2.2-4.8) H 09/27/18 04:58 Lymph # (Auto) 1.1 X10^3/uL (1.3-2.9) L 09/27/18 04:58 [place] # (Auto) 0.7 x10^3/uL (0.3-0.8) 09/27/18 04:58 Eos # (Auto) 0.0 x10^3/uL (0.0-0.2) 09/27/18 04:58 Baso # (Auto) 0.0 X10^3/uL (0.0-0.1) 09/27/18 04:58 Absolute Nucleated RBC 0.1 /100WBC 09/27/18 04:58 Total Counted 100 09/27/18 04:58 Neutrophils % (Manual) 77 % (39-76) H 09/27/18 04:58 Band Neutrophils % 2 % (0-10) 09/27/18 04:58 Lymphocytes % (Manual) 18 % (13-43) 09/27/18 04:58 Monocytes % (Manual) 3 % (4-9) L 09/27/18 04:58 Eosinophils % (Manual) 3 % (0-6) 09/20/18 05:38 Plt Morphology Comment Normal (NORMAL) 09/27/18 04:58 RBC Morphology Normal (NORMAL) 09/27/18 04:58 Hypochromasia Slight A 09/26/18 04:03 Poikilocytosis Slight A 09/23/18 05:41 Anisocytosis Slight A 09/26/18 04:03 D-Dimer < 100 ng/mL (0-400) 09/17/18 12:47 Sample Site Right brachial 09/25/18 06:10 ABG pH 7.570 (7.35-7.45) H* 09/25/18 06:10 ABG pCO2 37.0 mmHg (35.0-45.0) 09/25/18 06:10 ABG pO2 105.0 mmHg (80.0-100.0) H 09/25/18 06:10 ABG HCO3 33.9 mmol/L (22-26) H* 09/25/18 06:10 ABG O2 Saturation 99.0 % (90-100) 09/25/18 06:10 ABG Base Excess 11.1 mmol/L (-2.0-2.0) H 09/25/18 06:10 Earle Test Na 09/25/18 06:10 A-a Gradient 48.0 mmHg 09/25/18 06:10 FiO2 28.0 09/25/18 06:10 Blood Gas Comments Andre well jts 09/25/18 06:10 Sodium 141 mmol/L (136-145) 09/27/18 04:58 Corrected Sodium 142 mmol/L (136-145) 09/27/18 04:58 Potassium 4.3 mmol/L (3.5-5.1) 09/27/18 04:58 Chloride 106 mmol/L (98-107) 09/27/18 04:58 Carbon Dioxide 25.9 mmol/L (21-32) 09/27/18 04:58 BUN 16 mg/dL (7-18) 09/27/18 04:58 Creatinine 0.66 mg/dL (0.55-1.02) 09/27/18 04:58 Est GFR (MDRD) Af Amer > 60 (>60) 09/27/18 04:58 Est GFR (MDRD) Non-Af > 60 (>60) 09/27/18 04:58 Glucose 140 mg/dL (65-99) H 09/27/18 04:58 Calcium 9.8 mg/dL (8.5-10.1) 09/27/18 04:58 Corrected Calcium 11.1 mg/dL (8.5-10.1) H 09/27/18 04:58 Magnesium 2.1 mg/dL (1.7-2.9) 09/23/18 05:41 Total Bilirubin 0.30 mg/dL (0.2-1.0) 09/27/18 04:58 AST 19 Units/L (15-37) 09/27/18 04:58 ALT 22 Units/L (12-78) 09/27/18 04:58 Alkaline Phosphatase 83 Units/L (46-116) 09/27/18 04:58 Ammonia 13 umol/L (11-32) 09/22/18 15:47 Creatine Kinase 117 Units/L (26-192) 09/19/18 17:56 CK-MB (CK-2) 2.0 ng/mL (0-4.0) 09/19/18 17:56 CK/CKMB % Calc 1.7 % (<4) 09/19/18 17:56 Troponin I < 0.02 ng/mL (0-1.5) 09/19/18 17:56 B-Natriuretic Peptide 105 pg/mL (0-79) H 09/17/18 12:47 Total Protein 6.2 g/dL (6.4-8.2) L 09/27/18 04:58 Albumin 2.4 g/dL (3.4-5.0) L 09/27/18 04:58 Globulin 3.8 g/dL (2.5-4.5) 09/27/18 04:58 Albumin/Globulin Ratio 0.6 Ratio (1.1-2.1) L 09/27/18 04:58 Specimen Type Catherized urine 09/22/18 14:47 Urine Color Yellow (YELLOW) 09/22/18 14:47 Urine Appearance Slightly hazy (CLEAR) 09/22/18 14:47 Urine pH 6.0 (5.0 - 8.0) 09/22/18 14:47 Ur Specific [place] 1.020 (1.000-1.030) 09/22/18 14:47 Urine Protein 2+ (NEGATIVE) 09/22/18 14:47 Urine Glucose (UA) Negative (NEGATIVE) 09/22/18 14:47 Urine Ketones Negative (NEGATIVE) 09/22/18 14:47 Urine Occult Blood 5+ (NEGATIVE) 09/22/18 14:47 Urine Nitrite Negative (NEGATIVE) 09/22/18 14:47 Urine Bilirubin Negative (NEGATIVE) 09/22/18 14:47 Urine Urobilinogen Normal (NORMAL) 09/22/18 14:47 Ur Leukocyte Esterase 1+ (NEGATIVE) 09/22/18 14:47 Urine RBC 10-20 /HPF (NONE SEEN) 09/22/18 14:47 Urine WBC 0-2 /HPF (NONE SEEN) 09/22/18 14:47 Ur Squamous Epith Cells Rare /HPF (NEGATIVE) 09/22/18 14:47 Amorphous Sediment 1+ /HPF (NEGATIVE) 09/22/18 14:47 Urine Bacteria Trace /HPF (NEGATIVE) 09/22/18 14:47 Ur Culture Indicated? No/not indicated 09/22/18 14:47 Salicylates 3.4 mg/dL (2.8-20) 09/22/18 15:47 Urine Opiates Screen Negative (NEG=<300) 09/19/18 09:00 Urine Methadone Screen Negative (NEG=<300) 09/19/18 09:00 Ur Barbiturates Screen Negative (NEG=<200) 09/19/18 09:00 Ur Phencyclidine Scrn Negative (NEG=<25) 09/19/18 09:00 Ur Amphetamines Screen Negative (NEG=<1000) 09/19/18 09:00 U Benzodiazepines Scrn Negative (NEG=<200) 09/19/18 09:00 Urine Cocaine Screen Negative (NEG=<300) 09/19/18 09:00 U Marijuana (THC) Screen Negative (NEG=<50) 09/19/18 09:00 Influenza Type A (PCR) Negative (NEGATIVE) 09/17/18 14:40 Influenza Type B (PCR) Negative (NEGATIVE) 09/17/18 14:40 - Plan (1) Bronchitis Status: Acute Plan: IV ANTIBIOTICS, RESPIRATORY TREATMENTS, SUPPLEMENTAL OXYGEN, CONTINUE TO MONITOR. (2) COPD with acute exacerbation Status: Acute Plan: SOLU-MEDROL 80MG IV Q8H, RESPIRATORY TREATMENTS, SUPPLEMENTAL OXYGEN, CONTINUE HOME MEDS, CONTINUE TO MONITOR (3) Respiratory distress Status: Acute Plan: SOLU-MEDROL 80MG IV Q8H, RESPIRATORY TREATMENTS, SUPPLEMENTAL OXYGEN, CONTINUE TO MONITOR (4) Altered mental status, unspecified Status: Acute Qualifiers: Altered mental status type: transient alteration of awareness Qualified Code(s): R40.4 - Transient alteration of awareness Plan: SEROQUEL 100MG PO BID, CONTINUE TO MONITOR (5) HTN (hypertension) Status: Chronic Qualifiers: Hypertension type: essential hypertension Qualified Code(s): I10 - Essential (primary) hypertension Plan: CLONIDINE 0.1MG PATCH, COREG 6.25MG PO BID, CONTINUE TO MONITOR (6) Hypothyroidism Status: Acute Qualifiers: Hypothyroidism type: acquired Qualified Code(s): E03.9 - Hypothyroidism, unspecified Plan: CONTINUE SYNTHROID (7) Hyperlipidemia Status: Chronic Qualifiers: Hyperlipidemia type: mixed hyperlipidemia Qualified Code(s): E78.2 - Mixed hyperlipidemia Plan: CONTINUE LIPITOR (8) Hypoproteinemia Status: Acute Plan: PROCALAMINE, CONTINUE TO MONITOR
[2018-09-27] MEDS: TESSALON PERLES PO PRN (23:52)
[2018-09-28] MEDS: CITRACAL + VITAMIN D PO SCH ×3 (01:23→22:22)
[2018-09-28] MEDS: ROXICODONE TAB 5 MG PO PRN ×2 (03:14→19:45)
[2018-09-28] MEDS: ROBITUSSIN DM PO PRN ×2 (05:05→18:47)
[2018-09-28] MEDS: ZOFRAN TAB 4 MG PO PRN (05:05)
[2018-09-28] MEDS: FORTAZ or TAZICEF VIAL INJ IVP SCH ×4 (05:05→23:13)
[2018-09-28] MEDS: XOPENEX 1.25 MG/3 ML NEBULE NEB SCH ×3 (05:28→21:09)
[2018-09-28 06:07] LABS: BASOPHILS % (AUTO) 0.1 % (0.2-1.0); EOSINOPHILS # (AUTO) 0.1 x10^3/uL (0.0-0.2); EOSINOPHILS % (AUTO) 0.6 % (0.9-2.9); HEMATOCRIT 35.5 % (36.0-47.0); HEMOGLOBIN 11.3 g/dL (12.0-16.0); LYMPHOCYTES # (AUTO) 1.3 X10^3/uL (1.3-2.9); MEAN CORPUSCULAR HEMOGLOBIN 25.2 pg (27.0-34.0); MEAN CORPUSCULAR HGB CONC 31.9 g/dL (33.0-35.0); MEAN CORPUSCULAR VOLUME 78.9 fL (80.0-100.0); MEAN PLATELET VOLUME 9.5 fL (7.4-11.0); MONOCYTES % (AUTO) 8.2 % (0.0-13.0); NEUTROPHILS # (AUTO) 9.8 x10^3/uL (2.2-4.8); NEUTROPHILS % (AUTO) 80.1 % (42.0-75.0); PLATELET COUNT 165 X10^3/uL (150.0-450.0); WHITE BLOOD COUNT 12.2 X10^3/uL (3.6-10.0)
[2018-09-28 06:25] LABS: ALANINE AMINOTRANSFERASE 27 Units/L (12-78); ALKALINE PHOSPHATASE 86 Units/L (46-116); ASPARTATE AMINO TRANSFERASE 20 Units/L (15-37); BLOOD UREA NITROGEN 17 mg/dL (7-18); CALCIUM 9.6 mg/dL (8.5-10.1); CARBON DIOXIDE 24.8 mmol/L (21-32); CHLORIDE 107 mmol/L (98-107); COR CA(FOR HYPOALB) 10.4 mg/dL (8.5-10.1); COR NA(FOR HYPERGLY) 142 mmol/L (136-145); CREATININE 0.63 mg/dL (0.55-1.02); SODIUM 141 mmol/L (136-145); TOTAL PROTEIN 6.5 g/dL (6.4-8.2); eGFR NON BLACK RACES > 60 (>60)
[2018-09-28 06:44] LABS: BAND NEUTROPHILS % 4 % (0-10)
[2018-09-28 06:45] LABS: PLATELET MORPHOLOGY COMMENT NORMAL (NORMAL)
[2018-09-28] MEDS: ALBUMIN HUMAN 25%- 100 ML 100 ML IV SCH (08:49)
[2018-09-28] MEDS: ZINC SULFATE PO SCH (08:53)
[2018-09-28] MEDS: COREG TAB 3.125 MG PO SCH ×3 (08:53→23:14)
[2018-09-28] MEDS: VITAMIN C PO SCH (08:53)
[2018-09-28] MEDS: VITAMIN D3 PO SCH (08:53)
[2018-09-28] MEDS: FOLIC ACID TAB 1 MG PO SCH (08:54)
[2018-09-28] MEDS: THEO-DUR TAB 200 MG PO SCH ×3 (08:54→23:14)
[2018-09-28] MEDS: MUCINEX DM PO SCH ×2 (08:54→22:22)
[2018-09-28] MEDS: DIFLUCAN 200 MG IV PREMIX* 200 MG/100 ML BAG IV SCH (08:57)
[2018-09-28] MEDS: DALIRESP PO SCH (08:57)
[2018-09-28] MEDS: TESSALON PERLES PO PRN ×2 (09:50→23:15)
[2018-09-28] MEDS: PULMICORT NEB TX 0.5 MG NEB SCH ×2 (13:30→21:09)
[2018-09-28] MEDS: BROVANA IN SCH ×2 (13:30→21:09)
[2018-09-28] MEDS: REQUIP PO SCH (18:47)
--- NOTE | 2018-09-28 20:35 | PCM.PROG ---
Progress Note - Progress Note for Day of Date of Exam: 09/26/18 - Subjective Subjective: WAS ADMITTED FOR ACUTE COPD EXACERBATION, ACUTE BRONCHITIS, AND RESPIRATORY DISTRESS. PATIENT CONTINUES WITH INTERMITTENT CONFUSION AND AGITATION AT TIMES. SHE IS DROWSY THIS MORNING. FAMILY REPORTS THAT SHE IS EXCESSIVELY DROWSY AT TIMES. SHE ALSO CONTINUES WITH A PRODUCTIVE COUGH. ON EXAMINATION, HEART IS NORMAL IN RATE AND RHYTHM. BILATERAL LUNGS CONTINUE WITH SCATTERED WHEEZING. ABDOMEN IS ROUND, SOFT, AND NON-TENDER WITH NORMAL BOWEL SOUNDS NOTED IN ALL QUADRANTS. HER VITALS THIS MORNING ARE 98.4-95-29-98%-134/70. LABS WERE OBTAINED. ABNORMAL LAB VALUES INCLUDE THE FOLLOWING: WBC 13.9, BUN 20, GLUCOSE 154, TOTAL BILI 6.1, ALBUMIN 2.3. SPUTUM CULTURE REPORTS GROWTH OF ACINETOBACTER BAUMANII/HAEMOLY. SHE IS CURRENTLY RECEIVING IV FORTAZ, IV SOLU-MEDROL, RESPIRATORY TREATMENTS, SUPPLEMENTAL OXYGEN, AND HER HOME MEDICATIONS. TODAY, WE WILL DECREASE THE SEROQUEL TO 50MG PO BID. OTHERWISE, WE WILL CONTINUE WITH CURRENT PLAN OF CARE. WE WILL FOLLOW UP WITH AM LABS AND CONTINUE TO MONITOR. - Past Medical Family Social History Past Med/Fam/Surg Hx: No changes since H&P Allergies: Allergies cefdinir Allergy (Verified 10/13/17 06:55) ciprofloxacin Allergy (Verified 10/13/17 06:55) clarithromycin Allergy (Verified 10/13/17 06:55) clindamycin Allergy (Verified 10/13/17 06:55) doxycycline Allergy (Verified 10/13/17 06:55) erythromycin base Allergy (Verified 10/13/17 06:55) gabapentin [From Neurontin] Allergy (Verified 10/13/17 06:55) levofloxacin [From Levaquin] Allergy (Verified 10/13/17 06:55) nitrofurantoin Allergy (Verified 10/13/17 06:55) Penicillins Allergy (Verified 10/13/17 06:55) phenazopyridine Allergy (Verified 10/13/17 06:55) rifampin Allergy (Verified 10/13/17 06:55) - Review of Systems ROS: No change since H&P - Vital Signs and I&O's Vital Signs: Temperature 97.9 F Pulse Rate [Left Brachial] 120 Pulse Rate 101 Respiratory Rate 26 Blood Pressure [Left Arm] 174/96 Blood Pressure [Right Arm] 186/119 Blood Pressure 174/79 O2 Sat by Pulse Oximetry 99 Intake and Output: Intake & Output 09/26/18 09/27/18 09/28/18 09/29/18 11:59 11:59 11:59 11:59 Intake Total 1379 / 1379 1471 / 1471 1726 / 1726 600 / 600 Output Total 2075 / 2075 1250 / 1250 1250 / 1250 Balance -696 / -696 221 / 221 476 / 476 600 / 600 - Physical Exam Oriented: Normal Eyes: Normal Ear: Normal Nose: Normal Throat: Normal Respiratory: Generalized, Diminished, Wheezes Cardiovascular: Tachycardia. negative: S3, S4, Murmur : Normal Auscultation: Bowel Sounds: Normal Palpation: Normal Tenderness: Normal Skin: Normal Musculoskeletal: Normal Psychiatric: Normal Mood Description: Calm Affect: Normal Speech Pattern: Clear, Inappropriate - Laboratory and Diagnostics Result Diagrams: 09/28/18 05:45 09/28/18 05:45 Labs: 09/17/18 16:24 Blood Blood Culture - Final 09/17/18 16:10 Blood Blood Culture - Final 09/17/18 14:40 Sputum - Expectorated Sputum Sputum Culture - Final Acinetobacter Baumanii/Haemoly 09/17/18 14:40 Sputum - Expectorated Sputum - Final Laboratory WBC 12.2 X10^3/uL (3.6-10.0) H 09/28/18 05:45 RBC 4.50 X10^6/uL (3.5-5.4) 09/28/18 05:45 Hgb 11.3 g/dL (12.0-16.0) L 09/28/18 05:45 Hct 35.5 % (36.0-47.0) L 09/28/18 05:45 MCV 78.9 fL (80.0-100.0) L 09/28/18 05:45 MCH 25.2 pg (27.0-34.0) L 09/28/18 05:45 MCHC 31.9 g/dL (33.0-35.0) L 09/28/18 05:45 RDW 17.0 % (11.6-16.5) H 09/28/18 05:45 Plt Count 165 X10^3/uL (150.0-450.0) 09/28/18 05:45 Plt Count Comment Adequate (ADEQUATE) 09/28/18 05:45 MPV 9.5 fL (7.4-11.0) 09/28/18 05:45 Neut % (Auto) 80.1 % (42.0-75.0) H 09/28/18 05:45 Lymph % (Auto) 11.0 % (21.0-51.0) L 09/28/18 05:45 [place] % (Auto) 8.2 % (0.0-13.0) 09/28/18 05:45 Eos % (Auto) 0.6 % (0.9-2.9) L 09/28/18 05:45 Baso % (Auto) 0.1 % (0.2-1.0) L 09/28/18 05:45 Neut # (Auto) 9.8 x10^3/uL (2.2-4.8) H 09/28/18 05:45 Lymph # (Auto) 1.3 X10^3/uL (1.3-2.9) 09/28/18 05:45 [place] # (Auto) 1.0 x10^3/uL (0.3-0.8) H 09/28/18 05:45 Eos # (Auto) 0.1 x10^3/uL (0.0-0.2) 09/28/18 05:45 Baso # (Auto) 0.0 X10^3/uL (0.0-0.1) 09/28/18 05:45 Absolute Nucleated RBC 0.0 /100WBC 09/28/18 05:45 Total Counted 100 09/28/18 05:45 Neutrophils % (Manual) 78 % (39-76) H 09/28/18 05:45 Band Neutrophils % 4 % (0-10) 09/28/18 05:45 Lymphocytes % (Manual) 14 % (13-43) 09/28/18 05:45 Monocytes % (Manual) 4 % (4-9) 09/28/18 05:45 Eosinophils % (Manual) 3 % (0-6) 09/20/18 05:38 Plt Morphology Comment Normal (NORMAL) 09/28/18 05:45 RBC Morphology Normal (NORMAL) 09/28/18 05:45 Hypochromasia Slight A 09/26/18 04:03 Poikilocytosis Slight A 09/23/18 05:41 Anisocytosis Slight A 09/26/18 04:03 D-Dimer < 100 ng/mL (0-400) 09/17/18 12:47 Sample Site Right brachial 09/25/18 06:10 ABG pH 7.570 (7.35-7.45) H* 09/25/18 06:10 ABG pCO2 37.0 mmHg (35.0-45.0) 09/25/18 06:10 ABG pO2 105.0 mmHg (80.0-100.0) H 09/25/18 06:10 ABG HCO3 33.9 mmol/L (22-26) H* 09/25/18 06:10 ABG O2 Saturation 99.0 % (90-100) 09/25/18 06:10 ABG Base Excess 11.1 mmol/L (-2.0-2.0) H 09/25/18 06:10 Earle Test Na 09/25/18 06:10 A-a Gradient 48.0 mmHg 09/25/18 06:10 FiO2 28.0 09/25/18 06:10 Blood Gas Comments Andre well jts 09/25/18 06:10 Sodium 141 mmol/L (136-145) 09/28/18 05:45 Corrected Sodium 142 mmol/L (136-145) 09/28/18 05:45 Potassium 4.0 mmol/L (3.5-5.1) 09/28/18 05:45 Chloride 107 mmol/L (98-107) 09/28/18 05:45 Carbon Dioxide 24.8 mmol/L (21-32) 09/28/18 05:45 BUN 17 mg/dL (7-18) 09/28/18 05:45 Creatinine 0.63 mg/dL (0.55-1.02) 09/28/18 05:45 Est GFR (MDRD) Af Amer > 60 (>60) 09/28/18 05:45 Est GFR (MDRD) Non-Af > 60 (>60) 09/28/18 05:45 Glucose 149 mg/dL (65-99) H 09/28/18 05:45 Calcium 9.6 mg/dL (8.5-10.1) 09/28/18 05:45 Corrected Calcium 10.4 mg/dL (8.5-10.1) H 09/28/18 05:45 Magnesium 2.1 mg/dL (1.7-2.9) 09/23/18 05:41 Total Bilirubin 0.30 mg/dL (0.2-1.0) 09/28/18 05:45 AST 20 Units/L (15-37) 09/28/18 05:45 ALT 27 Units/L (12-78) 09/28/18 05:45 Alkaline Phosphatase 86 Units/L (46-116) 09/28/18 05:45 Ammonia 13 umol/L (11-32) 09/22/18 15:47 Creatine Kinase 117 Units/L (26-192) 09/19/18 17:56 CK-MB (CK-2) 2.0 ng/mL (0-4.0) 09/19/18 17:56 CK/CKMB % Calc 1.7 % (<4) 09/19/18 17:56 Troponin I < 0.02 ng/mL (0-1.5) 09/19/18 17:56 B-Natriuretic Peptide 105 pg/mL (0-79) H 09/17/18 12:47 Total Protein 6.5 g/dL (6.4-8.2) 09/28/18 05:45 Albumin 3.0 g/dL (3.4-5.0) L 09/28/18 05:45 Globulin 3.5 g/dL (2.5-4.5) 09/28/18 05:45 Albumin/Globulin Ratio 0.9 Ratio (1.1-2.1) L 09/28/18 05:45 Specimen Type Catherized urine 09/22/18 14:47 Urine Color Yellow (YELLOW) 09/22/18 14:47 Urine Appearance Slightly hazy (CLEAR) 09/22/18 14:47 Urine pH 6.0 (5.0 - 8.0) 09/22/18 14:47 Ur Specific [place] 1.020 (1.000-1.030) 09/22/18 14:47 Urine Protein 2+ (NEGATIVE) 09/22/18 14:47 Urine Glucose (UA) Negative (NEGATIVE) 09/22/18 14:47 Urine Ketones Negative (NEGATIVE) 09/22/18 14:47 Urine Occult Blood 5+ (NEGATIVE) 09/22/18 14:47 Urine Nitrite Negative (NEGATIVE) 09/22/18 14:47 Urine Bilirubin Negative (NEGATIVE) 09/22/18 14:47 Urine Urobilinogen Normal (NORMAL) 09/22/18 14:47 Ur Leukocyte Esterase 1+ (NEGATIVE) 09/22/18 14:47 Urine RBC 10-20 /HPF (NONE SEEN) 09/22/18 14:47 Urine WBC 0-2 /HPF (NONE SEEN) 09/22/18 14:47 Ur Squamous Epith Cells Rare /HPF (NEGATIVE) 09/22/18 14:47 Amorphous Sediment 1+ /HPF (NEGATIVE) 09/22/18 14:47 Urine Bacteria Trace /HPF (NEGATIVE) 09/22/18 14:47 Ur Culture Indicated? No/not indicated 09/22/18 14:47 Salicylates 3.4 mg/dL (2.8-20) 09/22/18 15:47 Urine Opiates Screen Negative (NEG=<300) 09/19/18 09:00 Urine Methadone Screen Negative (NEG=<300) 09/19/18 09:00 Ur Barbiturates Screen Negative (NEG=<200) 09/19/18 09:00 Ur Phencyclidine Scrn Negative (NEG=<25) 09/19/18 09:00 Ur Amphetamines Screen Negative (NEG=<1000) 09/19/18 09:00 U Benzodiazepines Scrn Negative (NEG=<200) 09/19/18 09:00 Urine Cocaine Screen Negative (NEG=<300) 09/19/18 09:00 U Marijuana (THC) Screen Negative (NEG=<50) 09/19/18 09:00 Influenza Type A (PCR) Negative (NEGATIVE) 09/17/18 14:40 Influenza Type B (PCR) Negative (NEGATIVE) 09/17/18 14:40 - Plan (1) Bronchitis Status: Acute Plan: IV ANTIBIOTICS, RESPIRATORY TREATMENTS, SUPPLEMENTAL OXYGEN, CONTINUE TO MONITOR. (2) COPD with acute exacerbation Status: Acute Plan: SOLU-MEDROL 80MG IV Q8H, RESPIRATORY TREATMENTS, SUPPLEMENTAL OXYGEN, CONTINUE HOME MEDS, CONTINUE TO MONITOR (3) Respiratory distress Status: Acute Plan: SOLU-MEDROL 80MG IV Q8H, RESPIRATORY TREATMENTS, SUPPLEMENTAL OXYGEN, CONTINUE TO MONITOR (4) Altered mental status, unspecified Status: Acute Qualifiers: Altered mental status type: transient alteration of awareness Qualified Code(s): R40.4 - Transient alteration of awareness Plan: SEROQUEL 50MG PO BID, CONTINUE TO MONITOR (5) HTN (hypertension) Status: Chronic Qualifiers: Hypertension type: essential hypertension Qualified Code(s): I10 - Essential (primary) hypertension Plan: CLONIDINE 0.1MG PATCH, COREG 6.25MG PO BID, CONTINUE TO MONITOR (6) Hypothyroidism Status: Acute Qualifiers: Hypothyroidism type: acquired Qualified Code(s): E03.9 - Hypothyroidism, unspecified Plan: CONTINUE SYNTHROID (7) Hyperlipidemia Status: Chronic Qualifiers: Hyperlipidemia type: mixed hyperlipidemia Qualified Code(s): E78.2 - Mixed hyperlipidemia Plan: CONTINUE LIPITOR (8) Hypoproteinemia Status: Acute Plan: PROCALAMINE, CONTINUE TO MONITOR
[2018-09-28] MEDS: LIPITOR TAB 40 MG PO SCH ×2 (22:22→23:15)
[2018-09-28] MEDS: PEPCID TAB 20 MG PO SCH ×2 (22:23→23:15)
[2018-09-28] MEDS: PROCALAMINE 3 % 1,000 ML IV SCH (23:53)
[2018-09-29] MEDS: FORTAZ or TAZICEF VIAL INJ IVP SCH (05:33)
[2018-09-29] MEDS: XOPENEX 1.25 MG/3 ML NEBULE NEB SCH (05:36)
[2018-09-29 06:04] LABS: ABG ALLEN TEST POS; ABG BASE EXCESS 3.5 mmol/L (-2.0-2.0); ABG HCO3 28.5 mmol/L (22-26)
--- NOTE | 2018-09-29 06:08 | RAD ---
Chest, one view Indication: Shortness of breath Comparison: 09/25/2018 Findings: The heart is normal in size. There is stable hyperinflation of the lungs with flattening of the hemidiaphragms, compatible with COPD. No focal infiltrate, effusion or pneumothorax is identified. There is no acute osseous abnormality. Impression: COPD without acute cardiopulmonary abnormality. Reported By:
[2018-09-29 06:21] LABS: BASOPHILS % (AUTO) 0.1 % (0.2-1.0); EOSINOPHILS # (AUTO) 0.1 x10^3/uL (0.0-0.2); EOSINOPHILS % (AUTO) 1.1 % (0.9-2.9); HEMATOCRIT 36.5 % (36.0-47.0); HEMOGLOBIN 11.7 g/dL (12.0-16.0); LYMPHOCYTES # (AUTO) 1.7 X10^3/uL (1.3-2.9); LYMPHOCYTES % (AUTO) 12.3 % (21.0-51.0); MEAN CORPUSCULAR HEMOGLOBIN 25.1 pg (27.0-34.0); MEAN CORPUSCULAR VOLUME 78.5 fL (80.0-100.0); MEAN PLATELET VOLUME 9.6 fL (7.4-11.0); MONOCYTES # (AUTO) 1.1 x10^3/uL (0.3-0.8); MONOCYTES % (AUTO) 7.9 % (0.0-13.0); NEUTROPHILS % (AUTO) 78.6 % (42.0-75.0); PLATELET COUNT 187 X10^3/uL (150.0-450.0); RED BLOOD COUNT 4.64 X10^6/uL (3.5-5.4); RED CELL DISTRIBUTION WIDTH 17.2 % (11.6-16.5)
[2018-09-29 06:31] LABS: ALANINE AMINOTRANSFERASE 28 Units/L (12-78); ALBUMIN 3.3 g/dL (3.4-5.0); ALKALINE PHOSPHATASE 85 Units/L (46-116); ASPARTATE AMINO TRANSFERASE 19 Units/L (15-37); BLOOD UREA NITROGEN 12 mg/dL (7-18); CALCIUM 10.2 mg/dL (8.5-10.1); CARBON DIOXIDE 24.2 mmol/L (21-32); CHLORIDE 106 mmol/L (98-107); COR CA(FOR HYPOALB) 10.8 mg/dL (8.5-10.1); COR NA(FOR HYPERGLY) 140 mmol/L (136-145); CREATININE 0.57 mg/dL (0.55-1.02); SODIUM 139 mmol/L (136-145); TOTAL PROTEIN 6.8 g/dL (6.4-8.2); eGFR NON BLACK RACES > 60 (>60)
[2018-09-29 06:41] LABS: PLATELET MORPHOLOGY COMMENT NORMAL (NORMAL)
[2018-09-29] MEDS: PULMICORT NEB TX 0.5 MG NEB SCH (08:11)
[2018-09-29] MEDS: BROVANA IN SCH (08:11)
[2018-09-29] MEDS: ALBUMIN HUMAN 25%- 100 ML 100 ML IV SCH (09:43)
[2018-09-29] MEDS: DALIRESP PO SCH (09:50)
[2018-09-29] MEDS: MUCINEX DM PO SCH (09:50)
[2018-09-29] MEDS: FOLIC ACID TAB 1 MG PO SCH (09:51)
[2018-09-29] MEDS: ZINC SULFATE PO SCH (09:51)
[2018-09-29] MEDS: CITRACAL + VITAMIN D PO SCH (09:51)
[2018-09-29] MEDS: THEO-DUR TAB 200 MG PO SCH (09:51)
[2018-09-29] MEDS: VITAMIN C PO SCH (09:51)
[2018-09-29] MEDS: VITAMIN D3 PO SCH (09:52)
[2018-09-29] MEDS: DIFLUCAN 200 MG IV PREMIX* 200 MG/100 ML BAG IV SCH (09:52)
[2018-09-29] MEDS: CATAPRES-TTS-2 TD SCH (09:53)
[2018-09-29] MEDS: COREG TAB 3.125 MG PO SCH (09:56)
[2018-09-29] MEDS ORDERED: NS 100 ML IV 100 ML IV ONE (10:59)
[2018-09-29 12:49] VITALS: BP 178/100
== END 2018-09-29 13:20 | disposition home or self-care (01) | DRG 192 ==
LOC: ER 11:34 → MED/SURG 16:15 → ICU 09-19 08:45
PROVIDERS: ADMIT Obstetrics & Gynecology Obstetrics; ATTEND Internal Medicine
DX: J44.1 Chronic obstructive pulmonary disease with (acute) exacerbation; E77.8 Other disorders of glycoprotein metabolism; B96.89 Other specified bacterial agents as the cause of diseases classified elsewhere; R00.0 Tachycardia, unspecified; R06.02 Shortness of breath; R06.03 Acute respiratory distress; E78.2 Mixed hyperlipidemia; I10 Essential (primary) hypertension; M13.89 Other specified arthritis, multiple sites; J20.8 Acute bronchitis due to other specified organisms; R47.81 Slurred speech; E03.8 Other specified hypothyroidism; K21.9 Gastro-esophageal reflux disease without esophagitis; R26.89 Other abnormalities of gait and mobility; Z99.81 Dependence on supplemental oxygen; R40.4 Transient alteration of awareness; M54.2 Cervicalgia
CPT/HCPCS: 36415; 36600; 70450; 71010; 71020; 71045; 71046; 80053; 80307; 81001; 81003; 82140; 82550; 82553; 82803; 83735; 83880; 84132; 84484; 85025; 85378; 87040; 87070; 87077; 87186; 87205; 87502; 93005; 94640; 94669; 94760; 96365; 97110; 97162; 97530; 99284; A4222; B5200; P9047; Q0169; G0434; G6038; J0713; J1160; J1450; J1630; J1940; J2270; J2310; J2920; J3490; J7512; J7620; J7626; S0181

== ENCOUNTER 2021-09-25 08:59 | Inpatient (IN) ==
--- NOTE | 2021-09-25 09:30 | DR.AMS ---
HPI Time Seen Time Seen by Provider: 09/25/21 09:27 PCP Primary Care Physician: CEDRICK HPI Comment HPI Comment: PATIENT IS 71YR OLD FEMALE IN ER VIA EMS WITH GENERALIZED WEAKNESS, AMS AND FREQUENT FALLS FOR FEVERAL DAYS. WORSE TODAY. NO FEVER, COUGH OR CONGESTION. NO VOMITING OR DIARRHEA. SOB ON EXERTION ANS CHEST DISCOMFORT. HISTORY COPD ON HOME O2. OXYGEN IS 2L/M. HISTORY HTN AND DEMENTIA. SAID PATIENTS DEMENTIA HAS GOTTEN WORSE. Complaint Cheif Complaint Doctors Comments: AMS. FREQUENT FALLS, GENERALIZED WEAKNESS. Chief Complaint:: EMS STATES PER SPOUSE PT. HAS HAD A CHANGE IN HER MENTAL STATUS WITHIN THE LAST 12 HOURS. SPOUSE STATES PT. HAS HAD INCREASING DEMENTIA X 1 WEEK. PT. WAS SEEN IN THE ER ON WEDNESDAY FOR GENERALIZED WEAKNESS. COVID-19 Coronavirus risk:travel/contact w/high risk person: No Has patient experienced Coronavirus symptoms: No Reviewed Nurses Notes Reviewed: Yes Source History Provided: Family Member and EMS Mode of Arrival Mode of Arrival: EMS Timing Onset of Chief Complaint: 09/24/21 Came On: Suddenly Symptoms: Unchanged Symptom Onset: Unknown Duration Duration: Constant Duration: Days Quality Quality: Change in Behavior, Confusion and Memory Loss Severity Severity: Moderate and Unable to care for self Context Recent: None History Of: Dementia Associated Signs and Symptoms Associated Signs and Symptoms: Generalized Weakness PMH PMH Past Medical History: Yes Past Medical History: Arthritis, COPD, Dementia, GERD and Hypertension Past Surgical History: Yes Surgical History: Abdominal Surgery, Cholecystectomy, [employer]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 and Hysterectomy Family History History of Family Medical Conditions: Yes Family Medical History: Diabetes Mellitus, Cancer, [place], Coronary Artery Disease and Hypertension Social History Does patient currently use any type of tobacco product: No Have you used tobacco products in the last 12 months: No Type of Tobacco Use: None Does any household member use tobacco: No Alcohol Use: None Do you use any recreational Drugs:: No Lives With: Spouse Lives Where: Home Travel Risk Coronavirus risk:travel/contact w/high risk person: No Has patient experienced Coronavirus symptoms: No Infectious screening In the last 2 months have you had wt loss of >10#?: NO Have you had fever, night sweats or hemotysis?: No Have you traveled outside the country in the last 6 months?: No Isolation: Standard ROS Review of Systems Constitutional: No Symptoms Reported, See HPI, Weakness and Fatigue; negative Fever Eyes: No Symptoms Reported and See HPI ENTM: No Symptoms Reported and See HPI; negative Nose Discharge and Nose Congestion Respiratoy: No Symptoms Reported, See HPI and Short of Breath (ON EXERTION.); negative Moist Cough Cardiovascular: No Symptoms Reported, See HPI and Palpitations Gastrointestinal/Abdominal: No Symptoms Reported and See HPI; negative Abdominal Pain, Diarrhea and Vomiting Genitourinary: See HPI and Other (URINARY INCONTINENCE.) Neurological: No Symptoms Reported, See HPI, Weakness and Other (FREQUENT FALLS.) Musculoskeletal: See HPI and Back Pain Integumentary: See HPI and Other (SMALL SKIN ERUPTION RIGHT BUTT.) Hematologic/Lymphatic: No Symptoms Reported and See HPI Endocrine: See HPI and Decreased Appetite Psychiatric: No Symptoms Reported and See HPI All Other Systems: Reviewed and Negative PE Vitals Vital Signs: Temp Pulse Resp BP BP Pulse Ox 09/25/21 11:00 113 H 142/77 97 09/25/21 10:45 114 H 98 09/25/21 10:37 135/92 09/25/21 10:30 111 H 98 09/25/21 10:15 113 H 09/25/21 10:00 112 H 155/70 98 09/25/21 09:45 115 H 09/25/21 09:30 111 H 141/80 98 09/25/21 09:22 98.6 F 111 H 17 144/81 97 09/25/21 09:21 112 H 144/81 98 09/20/21 15:21 164/69 General Limitations: Altered Mental Status General Appearance: Alert and In No Apparent Distress Head Head Exam: Normal Inspection, Atraumatic and Normocephalic Head Exam Physical: Other (NONE NOTED.) Eyes Eye exam: Normal Appearance; negative Scleral Icterus and Conjunctival Injection Pupils: Regular, Round: Bilateral and Reactive: Bilateral ENT ENT Exam: Normal Exam, Normal Oropharynx, Normal External Ear Exam and TM's Normal Bilaterally External Ear Exam: Normal External Inspection; negative Mastoid Tenderness TM/Canal Exam: Bilateral: Normal Nose Exam: Normal Nose Exam Mouth Exam: Normal Inspection Throat Exam: Normal Inspection; negative Tonsillar Erythema, Tonsillomegaly and Tonsillar Exudate Neck Neck Exam: Normal Inspection and Trachea Midline; negative Tenderness Chest Chest Inspection: Normal Inspection and Symmetric Chest Wall Rise; negative Tenderness Respiratory Respiratory Exam: Normal Lung Sounds Bilat; negative Accessory Muscle Use, Chest Wall Tenderness and Respiratory Distress Respiratory Exam: Bilateral: Rhonchi and Lower: Rhonchi Cardiovascular Cardiovascular Exam: Normal Rhythm, Tachycardia and Normal Heart Sounds; negative Systolic Murmur and Diastolic Murmur Abdominal Exam Abdominal Exam: Normal Inspection, Normal Bowel Sounds and Soft; negative Tenderness Extremities Extremities Exam: Normal Inspection Back Back Exam: Normal Inspection and Paraspinal Tenderness Neurological Neurological Exam: Alert Patient Oriented To: Person; negative Place and Time Speech: Other (PATIENT IS NOT COMPREHENDING.) Cranial Nerve Exam: Gag reflex (XI): Normal Motor Strength - LUE: 5/5 Motor Strength - RUE: 5/5 Motor Strength - LLE: 4/5 Motor Strength - RLE: 4/5 Upper Motor Neuron Exam: Babinski Sign: Normal Psychological Psychiatric Exam: Flat Affect Expanded Psychiatric Exam: Poor Eye Contact Skin Skin Exam: Warm, Dry, Intact and Normal Color MDM Additional Information Obtained Additional Information Obtained From: Old Records and Family Differential Diagnosis Metabolic: Dehydration, Hypercalcemia, Hypernatremia, Hypoglycemia and Hyponatremia Structural: CVA Infectious: Sepsis and UTI COURSE Treatment Treatment: SEE ORDERS. Consultation Consultation Comments: DISCUSSED PATIENT WITH DR. PHILIP. HE WILL ADMIT PATIENT. Education/Counseling Education/Counseling: Patient Educated On: Diagnosis ROR Labs Reviewed Laboratory Results Reviewed?: Yes Result Diagrams: 09/25/21 09:59 09/25/21 09:59 Laboratory: WBC 8.8 X10^3/uL (3.6-10.0) 09/25/21 09:59 RBC 4.09 X10^6/uL (3.5-5.4) 09/25/21 09:59 Hgb 12.4 g/dL (12.0-16.0) 09/25/21 09:59 Hct 36.9 % (36.0-47.0) 09/25/21 09:59 MCV 90.2 fL (80.0-100.0) 09/25/21 09:59 MCH 30.3 pg (27.0-34.0) 09/25/21 09:59 MCHC 33.5 g/dL (33.0-35.0) 09/25/21 09:59 RDW 13.8 % (11.6-16.5) 09/25/21 09:59 Plt Count 181 X10^3/uL (150.0-450.0) 09/25/21 09:59 MPV 10.5 fL (7.4-11.0) 09/25/21 09:59 Neut % (Auto) 66.5 % (42.0-75.0) 09/25/21 09:59 Lymph % (Auto) 22.6 % (21.0-51.0) 09/25/21 09:59 [place] % (Auto) 7.5 % (0.0-13.0) 09/25/21 09:59 Eos % (Auto) 2.9 % (0.9-2.9) 09/25/21 09:59 Baso % (Auto) 0.5 % (0.2-1.0) 09/25/21 09:59 Neut # (Auto) 5.9 x10^3/uL (2.2-4.8) H 09/25/21 09:59 Lymph # (Auto) 2.0 X10^3/uL (1.3-2.9) 09/25/21 09:59 [place] # (Auto) 0.7 x10^3/uL (0.3-0.8) 09/25/21 09:59 Eos # (Auto) 0.3 x10^3/uL (0.0-0.2) H 09/25/21 09:59 Baso # (Auto) 0.0 X10^3/uL (0.0-0.1) 09/25/21 09:59 Absolute Nucleated RBC 0.1 /100WBC 09/25/21 09:59 Sample Site Rrad 09/25/21 10:32 ABG pH 7.430 (7.35-7.45) 09/25/21 10:32 ABG pCO2 45.0 mmHg (35.0-45.0) 09/25/21 10:32 ABG pO2 76.0 mmHg (80.0-100.0) L 09/25/21 10:32 ABG HCO3 29.9 mmol/L (22-26) H 09/25/21 10:32 ABG O2 Saturation 95.0 % (90-100) 09/25/21 10:32 ABG Base Excess 4.8 mmol/L (-2.0-2.0) H 09/25/21 10:32 Earle Test Pos 09/25/21 10:32 A-a Gradient 67.0 mmHg 09/25/21 10:32 FiO2 28.0 09/25/21 10:32 Blood Gas Comments Pt brittny well elj 09/25/21 10:32 Sodium 139 mmol/L (136-145) 09/25/21 09:59 Corrected Sodium 139 mmol/L (136-145) 09/25/21 09:59 Potassium 3.9 mmol/L (3.5-5.1) 09/25/21 09:59 Chloride 104 mmol/L (98-107) 09/25/21 09:59 Carbon Dioxide 27.4 mmol/L (21-32) 09/25/21 09:59 BUN 17 mg/dL (7-18) 09/25/21 09:59 Creatinine 0.63 mg/dL (0.55-1.02) 09/25/21 09:59 Est GFR (MDRD) Af Amer > 60 (>60) 09/25/21 09:59 Est GFR (MDRD) Non-Af > 60 (>60) 09/25/21 09:59 Glucose 117 mg/dL (65-99) H 09/25/21 09:59 Calcium 9.7 mg/dL (8.5-10.1) 09/25/21 09:59 Corrected Calcium 10.3 mg/dL (8.5-10.1) H 09/25/21 09:59 Total Bilirubin 0.30 mg/dL (0.2-1.0) 09/25/21 09:59 AST 11 Units/L (15-37) L 09/25/21 09:59 ALT 18 Units/L (12-78) 09/25/21 09:59 Alkaline Phosphatase 118 Units/L (46-116) H 09/25/21 09:59 Creatine Kinase 39 Units/L (26-192) 09/25/21 09:59 CK-MB (CK-2) < 1.0 ng/mL (0-4.0) 09/25/21 09:59 CK/CKMB % Calc 2.6 % (<4) 09/25/21 09:59 Troponin I < 0.02 ng/mL (0-1.5) 09/25/21 09:59 Total Protein 7.1 g/dL (6.4-8.2) 09/25/21 09:59 Albumin 3.2 g/dL (3.4-5.0) L 09/25/21 09:59 Globulin 3.9 g/dL (2.5-4.5) 09/25/21 09:59 Albumin/Globulin Ratio 0.8 Ratio (1.1-2.1) L 09/25/21 09:59 Amylase 31 Units/L (25-115) 09/25/21 09:59 Lipase 64 Units/L (73-393) L 09/25/21 09:59 XRAY XRAY Interpreted by: Radiologist (REPORTS NOTED AND DISCUSSED WITH PATIENT.) and Self EKG Rate: 111 [place]: Normal Rhythm: ST Block: IVCD Hypertrophy: LAE ST: Nonsp Opioid Opioid Risk Tool Age (Darron box if 16-45): No History of Preadolescent Sexual Abuse: No Total: 0 Total Score Risk Category: Low Risk Copyright: [facility] predicting aberrant behaviors Diagnosis Discharge Problem: Generalized weakness, Falls frequently Altered mental status Qualifiers: Altered mental status type: disorientation Qualified Code(s): R41.0 - Disorientation, unspecified Instructions Forms: Precautions for COVID19 [facility] Social Distancing
[2021-09-25 10:06] LABS: BASOPHILS % (AUTO) 0.5 % (0.2-1.0); EOSINOPHILS # (AUTO) 0.3 x10^3/uL (0.0-0.2); EOSINOPHILS % (AUTO) 2.9 % (0.9-2.9); HEMATOCRIT 36.9 % (36.0-47.0); HEMOGLOBIN 12.4 g/dL (12.0-16.0); LYMPHOCYTES % (AUTO) 22.6 % (21.0-51.0); MEAN CORPUSCULAR HEMOGLOBIN 30.3 pg (27.0-34.0); MEAN CORPUSCULAR HGB CONC 33.5 g/dL (33.0-35.0); MEAN CORPUSCULAR VOLUME 90.2 fL (80.0-100.0); MEAN PLATELET VOLUME 10.5 fL (7.4-11.0); MONOCYTES # (AUTO) 0.7 x10^3/uL (0.3-0.8); MONOCYTES % (AUTO) 7.5 % (0.0-13.0); NEUTROPHILS # (AUTO) 5.9 x10^3/uL (2.2-4.8); NEUTROPHILS % (AUTO) 66.5 % (42.0-75.0); PLATELET COUNT 181 X10^3/uL (150.0-450.0); RED BLOOD COUNT 4.09 X10^6/uL (3.5-5.4); RED CELL DISTRIBUTION WIDTH 13.8 % (11.6-16.5); WHITE BLOOD COUNT 8.8 X10^3/uL (3.6-10.0)
[2021-09-25 10:29] LABS: ALANINE AMINOTRANSFERASE 18 Units/L (12-78); ALBUMIN 3.2 g/dL (3.4-5.0); ALKALINE PHOSPHATASE 118 Units/L (46-116); AMYLASE 31 Units/L (25-115); ASPARTATE AMINO TRANSFERASE 11 Units/L (15-37); BLOOD UREA NITROGEN 17 mg/dL (7-18); CALCIUM 9.7 mg/dL (8.5-10.1); CARBON DIOXIDE 27.4 mmol/L (21-32); CHLORIDE 104 mmol/L (98-107); CKMB % 2.6 % (<4); COR CA(FOR HYPOALB) 10.3 mg/dL (8.5-10.1); COR NA(FOR HYPERGLY) 139 mmol/L (136-145); CREATINE KINASE 39 Units/L (26-192); CREATINE KINASE MB < 1.0 ng/mL (0-4.0); CREATININE 0.63 mg/dL (0.55-1.02); LIPASE 64 Units/L (73-393); SODIUM 139 mmol/L (136-145); TOTAL PROTEIN 7.1 g/dL (6.4-8.2); TROPONIN I < 0.02 ng/mL (0-1.5); eGFR NON BLACK RACES > 60 (>60)
--- NOTE | 2021-09-25 10:34 | CT ---
HISTORYAMSSTUDYBRAIN W/O CONCOMPARISONNoneTECHNIQUEMultiple CT axial images of the head were obtained without IV contrast. Coronal and sagittal images were reconstructed. Dose reduction techniques included Automated Exposure Control (AEC) and adjustment of mA and kV.FINDINGSAge-related findings include central and cortical atrophy with areas of low density in the periventricular white matter compatible with micro-ischemic changes. Otherwise clifton and white matter have normal differentiation.There is no mass, shift, or hemorrhage. Cerebellar tonsils are at an appropriate level. No fluid in the sinuses or mucosal thickening to suggest sinusitis. There is no mastoid effusion.IMPRESSION1. No acute findingElectronically signed by: Sai Tilley (Sep 25, 2021 10:32:53)
--- NOTE | 2021-09-25 10:36 | RAD ---
HISTORYAMS, SOBSTUDYCHEST, 1 [id number] lungs are clear. No pneumothorax or significant effusion.Heart size probably normal when accounting for magnification and slight rotation.Bones are unremarkable.IMPRESSION1. No significant abnormalityElectronically signed by: Sai Tilley (Sep 25, 2021 10:34:09)
[2021-09-25 10:40] LABS: ABG ALLEN TEST POS; ABG BASE EXCESS 4.8 mmol/L (-2.0-2.0); ABG HCO3 29.9 mmol/L (22-26)
[2021-09-25 11:45] LABS: BILIRUBIN,URINE NEGATIVE (NEGATIVE); BLOOD/HEMOGLOBIN,URINE NEGATIVE (NEGATIVE); GLUCOSE, URINE NEGATIVE (NEGATIVE); KETONES,URINE 1+ (NEGATIVE); LEUKOCYTE ESTERASE ,URINE 1+ (NEGATIVE); NITRITES,URINE NEGATIVE (NEGATIVE); PROTEIN,URINE 2+ (NEGATIVE); UROBILINOGEN,URINE NORMAL (NORMAL)
[2021-09-25 11:47] LABS: COLOR,URINE YELLOW (YELLOW)
[2021-09-25 11:48] LABS: APPEARANCE,URINE HAZY (CLEAR)
[2021-09-25 11:54] LABS: BACTERIA,URINE 2+ /HPF (NEGATIVE); GRANULAR CASTS,URINE RARE /LPF (NEGATIVE); HYALINE CASTS, URINE FEW /LPF (NEGATIVE); SQUAMOUS EPITHELIAL CELL,UR MODERATE /HPF (NEGATIVE)
[2021-09-25] MEDS: NS 1,000 ML IV 1,000 ML IV SCH (13:59)
[2021-09-25 14:18] VITALS: BMI 25.7
[2021-09-25 16:40] LABS: CKMB % 2.4 % (<4); CREATINE KINASE 45 Units/L (26-192); CREATINE KINASE MB 1.1 ng/mL (0-4.0); TROPONIN I < 0.02 ng/mL (0-1.5)
[2021-09-25] MEDS: ULTRAM PO PRN (17:07)
[2021-09-25 22:48] LABS: CKMB % 2.4 % (<4); CREATINE KINASE 42 Units/L (26-192); CREATINE KINASE MB < 1.0 ng/mL (0-4.0); TROPONIN I < 0.02 ng/mL (0-1.5)
[2021-09-26] MEDS: NS 1,000 ML IV 1,000 ML IV SCH ×2 (06:58→15:31)
[2021-09-26 07:20] LABS: BASOPHILS % (AUTO) 0.3 % (0.2-1.0); EOSINOPHILS # (AUTO) 0.2 x10^3/uL (0.0-0.2); EOSINOPHILS % (AUTO) 1.8 % (0.9-2.9); HEMATOCRIT 35.5 % (36.0-47.0); HEMOGLOBIN 11.8 g/dL (12.0-16.0); LYMPHOCYTES % (AUTO) 22.5 % (21.0-51.0); MEAN CORPUSCULAR HEMOGLOBIN 29.9 pg (27.0-34.0); MEAN CORPUSCULAR HGB CONC 33.2 g/dL (33.0-35.0); MEAN CORPUSCULAR VOLUME 90.1 fL (80.0-100.0); MEAN PLATELET VOLUME 10.9 fL (7.4-11.0); MONOCYTES # (AUTO) 0.6 x10^3/uL (0.3-0.8); MONOCYTES % (AUTO) 7.2 % (0.0-13.0); NEUTROPHILS # (AUTO) 6.1 x10^3/uL (2.2-4.8); NEUTROPHILS % (AUTO) 68.2 % (42.0-75.0); PLATELET COUNT 185 X10^3/uL (150.0-450.0); RED BLOOD COUNT 3.94 X10^6/uL (3.5-5.4); RED CELL DISTRIBUTION WIDTH 13.3 % (11.6-16.5)
[2021-09-26 07:30] LABS: ALANINE AMINOTRANSFERASE 16 Units/L (12-78); ALBUMIN 3.1 g/dL (3.4-5.0); ALKALINE PHOSPHATASE 120 Units/L (46-116); ASPARTATE AMINO TRANSFERASE 12 Units/L (15-37); BLOOD UREA NITROGEN 10 mg/dL (7-18); CALCIUM 9.2 mg/dL (8.5-10.1); CARBON DIOXIDE 27.2 mmol/L (21-32); CHLORIDE 103 mmol/L (98-107); COR CA(FOR HYPOALB) 9.9 mg/dL (8.5-10.1); CREATININE 0.52 mg/dL (0.55-1.02); MAGNESIUM 1.9 mg/dL (1.7-2.9); SODIUM 138 mmol/L (136-145); TOTAL PROTEIN 6.9 g/dL (6.4-8.2); eGFR NON BLACK RACES > 60 (>60)
[2021-09-26] MEDS ORDERED: K-DUR TAB 20 MEQ PO PRN (07:36)
[2021-09-26] MEDS ORDERED: POTASSIUM CHL 60 MEQ/NS 0.45% 500 ML IV PRN (07:36)
[2021-09-26] MEDS ORDERED: POTASSIUM CHL 40 MEQ/NS 0.45% 500 ML IV PRN (07:36)
[2021-09-26] MEDS: K-RIDER 10 MEQ/NS 100 ML 10 MEQ/100 ML BAG IV PRN ×4 (08:10→14:08)
--- NOTE | 2021-09-26 09:32 | DR.H&P ---
H&P - History & Physical for Day of: H&P Date: 09/25/21 - Chief Complaint Chief Complaint: weakness, ams, frequent falls - History of Present Illness History of Present Illness: IS A 71 YEAR OLD PATIENT OF OURS. SHE PRESENTED TO THE ER VIA EMS WITH REPORTS OF GENERALIZED WEAKNESS, ALTERED MENTAL STATUS, AND FREQUENT FALLS. PATIENTS SPOUSE REPORTS THAT SYMPTOMS HAVE BEEN PRESENT FOR SEVERAL DAYS, BUT HAVE PROGRESSIVELY GOTTEN WORSE. PATIENT AND SPOUSE DENY FEVER, COUGH, CONGESTION, VOMITING, OR DIARRHEA. PATIENT ADMITS TO SHORTNESS OF BREATH. SHE HAS A HISTORY OF COPD AND USES HOME OXYGEN AT 2 LPM. SPOUSE REPORTS THAT PATIENT DOES HAVE A HISTORY OF DEMENTIA, GERD, AND HTN WELL. ON ARRIVAL TO THE ER, VITALS WERE 98.6-111-17-97%-144/81. LABS WERE OBTAINED. ABNORMAL LAB VALUES INCLUDE THE FOLLOWING: GLUCOSE 117, AST 11, ALK PHOS 118, ALBUMIN 3.2, LIPASE 64. CARDIAC ENZYMES WERE WITHIN NORMAL LIMITS. URINALYSIS REVEALED: WBC 5-10, RBC 3-5, LEUKOCYTES 1+, BACTERIA 2+. COVID-19 NEGATIVE. URINE CULTURE WAS SET UP. A BRAIN CT WAS OBTAINED AND REVEALED NO ACUTE FINDINGS. CHEST XRAY REVEALED: 1. No significant abnormality. EKG REVEALED: SINUS TACHYCARDIA WITH HR 111. A PAVON CATHETER WAS INSERTED IN THE ER. PATIENT WAS ADMITTED TO THE HOSPITAL FOR FURTHER EVALUATION AND TREATMENT OF UTI, AMS, GENERALIZED WEAKNESS, AND FREQUENT FALLS. SHE WAS STARTED ON NORMAL SALINE AT KVO, BACTRIM DS 1 TABLET BID, THE POTASSIUM AND MAGNESIUM PROTOCOL, AND HOME MEDICATIONS OF LIPITOR, ZYRTEC, MPTRIN, SYNTHROID, ATIVAN, SINGULAIR, HEMOCYTE PLUS, ZYPREXA, PRILOSEC, REQUIP, AND ULTRAM WERE RESUMED. OTHERWISE, WE PLAN TO FOLLOW UP WITH AM LABS AND CONTINUE TO MONITOR. TIME SPENT ON CLINICAL ASSESSMENT, REVIEWING LABS AND IMAGING, DECISION MAKING, AND DOCUMENTATION GREATER THAN 75 MINUTES. 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 - Family History Family Medical History: Diabetes Mellitus, Cancer, [place], Coronary Artery Disease, Hypertension - Social History Does patient currently use any type of tobacco product: No Have you used tobacco products in the last 12 months: No Type of Tobacco Use: None Does any household member use tobacco: No Alcohol Use: None Drug Use: None - Medications Home Medications: cefdinir Allergy (Verified 09/25/21 10:59) ciprofloxacin Allergy (Verified 09/25/21 10:59) clarithromycin Allergy (Verified 09/25/21 10:59) clindamycin Allergy (Verified 09/25/21 10:59) doxycycline Allergy (Verified 09/25/21 10:59) erythromycin base Allergy (Verified 09/25/21 10:59) gabapentin [From Neurontin] Allergy (Verified 09/25/21 10:59) levofloxacin [From Levaquin] Allergy (Verified 09/25/21 10:59) nitrofurantoin Allergy (Verified 09/25/21 10:59) Penicillins Allergy (Verified 09/25/21 10:59) phenazopyridine Allergy (Verified 09/25/21 10:59) rifampin Allergy (Verified 09/25/21 10:59) CONTINUE taking the following medications iron-folic acid-mv, min cmb#15 [Hemocyte-Plus] 1 cap PO DAILY 09/25/21 [History] nystatin 10 ml PO QID 09/25/21 [History] - Review of Systems Constitutional: Weakness Eyes: No Symptoms Reported ENT: No Symptoms Reported Respiratory: No Symptoms Reported Cardiovascular: No Symptoms Reported Gastrointestinal: Abdominal Pain Genitourinary: No Symptoms Reported Musculoskeletal: No Symptoms Reported Skin: No Symptoms Reported Neurological: Weakness, Confusion - Physical Exam Vital Signs: Temperature 97.5 F Pulse Rate [Left Brachial] 103 Pulse Rate 107 Respiratory Rate 20 Blood Pressure [Left Arm] 134/66 Blood Pressure 132/88 O2 Sat by Pulse Oximetry 97 Oriented: Person Eyes: Normal Ear: Normal Nose: Normal Throat: Normal Respiratory: Diminished Throughout Cardiovascular: Tachycardia : Normal Auscultation: Bowel Sounds: Normal Palpation: Normal Tenderness: Suprapubic Skin: Normal Musculoskeletal: Normal Psychiatric: Normal Mood Description: Calm Affect: Normal Speech Pattern: Inappropriate - Assessment/Plan (1) Urinary tract infection Qualifiers: Urinary tract infection type: site unspecified Hematuria presence: without hematuria Qualified Code(s): N39.0 - Urinary tract infection, site not specified Status: Acute Plan: ADMIT, NORMAL SALINE AT KVO, BACTRIM DS 1 TABLET BID, THE POTASSIUM AND MAGNESIUM PROTOCOL, AND HOME MEDICATIONS OF LIPITOR, ZYRTEC, MPTRIN, SYNTHROID, ATIVAN, SINGULAIR, HEMOCYTE PLUS, ZYPREXA, PRILOSEC, REQUIP, AND ULTRAM WERE RESUMED. (2) Altered mental status Qualifiers: Altered mental status type: disorientation Qualified Code(s): R41.0 - Disorientation, unspecified Status: Acute (3) Falls frequently Status: Acute (4) Generalized weakness Status: Acute (5) Acute hypokalemia Status: Acute - Allergies Allergies/Adverse Reactions: Allergies Allergy/AdvReac Type Severity Reaction Status Date / Time cefdinir Allergy Verified 09/25/21 10:59 ciprofloxacin Allergy Verified 09/25/21 10:59 clarithromycin Allergy Verified 09/25/21 10:59 clindamycin Allergy Verified 09/25/21 10:59 doxycycline Allergy Verified 09/25/21 10:59 erythromycin base Allergy Verified 09/25/21 10:59 gabapentin [From Neurontin] Allergy Verified 09/25/21 10:59 levofloxacin [From Levaquin] Allergy Verified 09/25/21 10:59 nitrofurantoin Allergy Verified 09/25/21 10:59 Penicillins Allergy Verified 09/25/21 10:59 phenazopyridine Allergy Verified 09/25/21 10:59 rifampin Allergy Verified 09/25/21 10:59
[2021-09-26] MEDS: BACTRIM DS TAB PO SCH ×2 (10:05→21:00)
[2021-09-26] MEDS: MAGNESIUM SULFATE 1 GRAM/100 mL PREMIX 1 G/100 ML BAG IV PRN ×2 (16:25→18:26)
[2021-09-27 05:46] LABS: BASOPHILS # (AUTO) 0.2 X10^3/uL (0.0-0.1); BASOPHILS % (AUTO) 1.8 % (0.2-1.0); EOSINOPHILS # (AUTO) 0.2 x10^3/uL (0.0-0.2); EOSINOPHILS % (AUTO) 1.9 % (0.9-2.9); HEMOGLOBIN 11.6 g/dL (12.0-16.0); LYMPHOCYTES % (AUTO) 22.1 % (21.0-51.0); MEAN CORPUSCULAR HEMOGLOBIN 29.7 pg (27.0-34.0); MEAN CORPUSCULAR HGB CONC 33.1 g/dL (33.0-35.0); MEAN CORPUSCULAR VOLUME 89.5 fL (80.0-100.0); MEAN PLATELET VOLUME 10.9 fL (7.4-11.0); MONOCYTES # (AUTO) 0.6 x10^3/uL (0.3-0.8); NEUTROPHILS # (AUTO) 6.2 x10^3/uL (2.2-4.8); NEUTROPHILS % (AUTO) 67.2 % (42.0-75.0); PLATELET COUNT 180 X10^3/uL (150.0-450.0); RED CELL DISTRIBUTION WIDTH 13.2 % (11.6-16.5); WHITE BLOOD COUNT 9.1 X10^3/uL (3.6-10.0)
[2021-09-27 05:59] LABS: ALANINE AMINOTRANSFERASE 15 Units/L (12-78); ALBUMIN 2.9 g/dL (3.4-5.0); ALKALINE PHOSPHATASE 114 Units/L (46-116); ASPARTATE AMINO TRANSFERASE 12 Units/L (15-37); BLOOD UREA NITROGEN 7 mg/dL (7-18); CALCIUM 9.2 mg/dL (8.5-10.1); CARBON DIOXIDE 26.6 mmol/L (21-32); CHLORIDE 105 mmol/L (98-107); COR CA(FOR HYPOALB) 10.1 mg/dL (8.5-10.1); CREATININE 0.61 mg/dL (0.55-1.02); MAGNESIUM 2.6 mg/dL (1.7-2.9); SODIUM 138 mmol/L (136-145); TOTAL PROTEIN 6.7 g/dL (6.4-8.2); eGFR NON BLACK RACES > 60 (>60)
[2021-09-27] MEDS: BACTRIM DS TAB PO SCH ×2 (09:13→21:35)
[2021-09-27] MEDS ORDERED: MOTRIN TAB 400 MG PO PRN (09:56)
[2021-09-27] MEDS: ULTRAM PO PRN ×3 (10:00→19:12)
--- NOTE | 2021-09-27 11:40 | PCM.PROG ---
Progress Note - Progress Note for Day of Date of Exam: 09/27/21 - Subjective Subjective: WAS ADMITTED FOR TREATMENT OF UTI, AMS, GENERALIZED WEAKNESS, AND FREQUENT FALLS. TODAY, SHE IS LYING IN BED WITH EYES CLOSED ON MORNING ROUNDS. SHE AWAKENS AND RESPONDS VERBALLY, TO VERBAL STIMULI. SPOUSE REPORTS THAT SHE CONTINUES WITH CONFUSION AND AGITATION AT TIMES. SHE WAS FEBR ILE THROUGHOUT THE NIGHT. ON EXAMINATION, HEART IS REGULAR IN RATE AND RHYTHM. BILATERAL LUNGS NOTED WITH DIMINISHED LUNG SOUNDS THROUGHOUT. ABDOMEN IS ROUND, SOFT, AND NOTED WITH SUPRAPUBIC TENDERNESS. HER VITALS THIS MORNING ARE: 97.8-95-20-98%-150/65. LABS WERE OBTAINED. ABNORMAL LAB VALUES INCLUDE THE FOLLOWING: HGB 11.6, HCT 35.0, AST 12, ALBUMIN 2.9. URINE CULTURE IS PENDING. PRELIMINARY CULTURE REPORTS GROWTH OF GRAM POSITIVE COCCI. SHE IS CURRENTLY RECEIVING NORMAL SALINE AT KVO, BACTRIM DS 1 TABLET BID, THE POTASSIUM AND MAGNESIUM PROTOCOL, AND HOME MEDICATIONS OF LIPITOR, ZYRTEC, MOTRIN, SYNTHROID, ATIVAN, SINGULAIR, HEMOCYTE PLUS, ZYPREXA, PRILOSEC, REQUIP, AND ULTRAM WERE RESUMED. WE WILL CONTINUE WITH CURRENT PLAN OF CARE TODAY. OTHERWISE, WE PLAN TO FOLLOW UP WITH AM LABS AND CONTINUE TO MONITOR. TIME SPENT ON CLINICAL ASSESSMENT, REVIEWING LABS AND IMAGING, DECISION MAKING, AND DOCUMENTATION GREATER THAN 45 MINUTES. - Past Medical Family Social History Past Med/Fam/Surg Hx: No changes since H&P Allergies: Allergies cefdinir Allergy (Verified 09/25/21 10:59) ciprofloxacin Allergy (Verified 09/25/21 10:59) clarithromycin Allergy (Verified 09/25/21 10:59) clindamycin Allergy (Verified 09/25/21 10:59) doxycycline Allergy (Verified 09/25/21 10:59) erythromycin base Allergy (Verified 09/25/21 10:59) gabapentin [From Neurontin] Allergy (Verified 09/25/21 10:59) levofloxacin [From Levaquin] Allergy (Verified 09/25/21 10:59) nitrofurantoin Allergy (Verified 09/25/21 10:59) Penicillins Allergy (Verified 09/25/21 10:59) phenazopyridine Allergy (Verified 09/25/21 10:59) rifampin Allergy (Verified 09/25/21 10:59) - Review of Systems ROS: No change since H&P - Vital Signs and I&O's Vital Signs: Temperature 97.8 F Pulse Rate [Left Brachial] 95 Pulse Rate 107 Respiratory Rate 20 Blood Pressure [Left Arm] 150/65 Blood Pressure 132/88 O2 Sat by Pulse Oximetry 98 Intake and Output: Intake & Output 09/24/21 09/25/21 09/26/21 09/27/21 11:59 11:59 11:59 11:59 Intake Total 1172 / 1172 2635 / 2635 Output Total 850 / 850 1974 Balance 322 / 322 660 / 660 - Physical Exam Oriented: Person Eyes: Normal Ear: Normal Nose: Normal Throat: Normal Cardiovascular: Normal : Normal Auscultation: Bowel Sounds: Normal Palpation: Normal Tenderness: Suprapubic Skin: Normal Musculoskeletal: Normal Psychiatric: Normal Mood Description: Calm Affect: Normal Speech Pattern: Inappropriate - Laboratory and Diagnostics Result Diagrams: 09/27/21 05:20 09/27/21 05:20 Labs: 09/25/21 11:33 Urine,Catheterized Urine Culture - Preliminary Laboratory WBC 9.1 X10^3/uL (3.6-10.0) 09/27/21 05:20 RBC 3.90 X10^6/uL (3.5-5.4) 09/27/21 05:20 Hgb 11.6 g/dL (12.0-16.0) L 09/27/21 05:20 Hct 35.0 % (36.0-47.0) L 09/27/21 05:20 MCV 89.5 fL (80.0-100.0) 09/27/21 05:20 MCH 29.7 pg (27.0-34.0) 09/27/21 05:20 MCHC 33.1 g/dL (33.0-35.0) 09/27/21 05:20 RDW 13.2 % (11.6-16.5) 09/27/21 05:20 Plt Count 180 X10^3/uL (150.0-450.0) 09/27/21 05:20 MPV 10.9 fL (7.4-11.0) 09/27/21 05:20 Neut % (Auto) 67.2 % (42.0-75.0) 09/27/21 05:20 Lymph % (Auto) 22.1 % (21.0-51.0) 09/27/21 05:20 [place] % (Auto) 7.0 % (0.0-13.0) 09/27/21 05:20 Eos % (Auto) 1.9 % (0.9-2.9) 09/27/21 05:20 Baso % (Auto) 1.8 % (0.2-1.0) H 09/27/21 05:20 Neut # (Auto) 6.2 x10^3/uL (2.2-4.8) H 09/27/21 05:20 Lymph # (Auto) 2.0 X10^3/uL (1.3-2.9) 09/27/21 05:20 [place] # (Auto) 0.6 x10^3/uL (0.3-0.8) 09/27/21 05:20 Eos # (Auto) 0.2 x10^3/uL (0.0-0.2) 09/27/21 05:20 Baso # (Auto) 0.2 X10^3/uL (0.0-0.1) H 09/27/21 05:20 Absolute Nucleated RBC 0.1 /100WBC 09/27/21 05:20 Sample Site Rrad 09/25/21 10:32 ABG pH 7.430 (7.35-7.45) 09/25/21 10:32 ABG pCO2 45.0 mmHg (35.0-45.0) 09/25/21 10:32 ABG pO2 76.0 mmHg (80.0-100.0) L 09/25/21 10:32 ABG HCO3 29.9 mmol/L (22-26) H 09/25/21 10:32 ABG O2 Saturation 95.0 % (90-100) 09/25/21 10:32 ABG Base Excess 4.8 mmol/L (-2.0-2.0) H 09/25/21 10:32 Earle Test Pos 09/25/21 10:32 A-a Gradient 67.0 mmHg 09/25/21 10:32 FiO2 28.0 09/25/21 10:32 Blood Gas Comments Pt brittny well elj 09/25/21 10:32 Sodium 138 mmol/L (136-145) 09/27/21 05:20 Corrected Sodium TNP 09/27/21 05:20 Potassium 3.9 mmol/L (3.5-5.1) 09/27/21 05:20 Chloride 105 mmol/L (98-107) 09/27/21 05:20 Carbon Dioxide 26.6 mmol/L (21-32) 09/27/21 05:20 BUN 7 mg/dL (7-18) 09/27/21 05:20 Creatinine 0.61 mg/dL (0.55-1.02) 09/27/21 05:20 Est GFR (MDRD) Af Amer > 60 (>60) 09/27/21 05:20 Est GFR (MDRD) Non-Af > 60 (>60) 09/27/21 05:20 Glucose 92 mg/dL (65-99) 09/27/21 05:20 Calcium 9.2 mg/dL (8.5-10.1) 09/27/21 05:20 Corrected Calcium 10.1 mg/dL (8.5-10.1) 09/27/21 05:20 Magnesium 2.6 mg/dL (1.7-2.9) 09/27/21 05:20 Total Bilirubin 0.30 mg/dL (0.2-1.0) 09/27/21 05:20 AST 12 Units/L (15-37) L 09/27/21 05:20 ALT 15 Units/L (12-78) 09/27/21 05:20 Alkaline Phosphatase 114 Units/L (46-116) 09/27/21 05:20 Creatine Kinase 42 Units/L (26-192) 09/25/21 22:17 CK-MB (CK-2) < 1.0 ng/mL (0-4.0) 09/25/21 22:17 CK/CKMB % Calc 2.4 % (<4) 09/25/21 22:17 Troponin I < 0.02 ng/mL (0-1.5) 09/25/21 22:17 Total Protein 6.7 g/dL (6.4-8.2) 09/27/21 05:20 Albumin 2.9 g/dL (3.4-5.0) L 09/27/21 05:20 Globulin 3.8 g/dL (2.5-4.5) 09/27/21 05:20 Albumin/Globulin Ratio 0.8 Ratio (1.1-2.1) L 09/27/21 05:20 Amylase 31 Units/L (25-115) 09/25/21 09:59 Lipase 64 Units/L (73-393) L 09/25/21 09:59 Specimen Type Catherized urine 09/25/21 11:33 Urine Color Yellow (YELLOW) 09/25/21 11:33 Urine Appearance Hazy (CLEAR) 09/25/21 11:33 Urine pH 5.0 (5.0 - 8.0) 09/25/21 11:33 Ur Specific [place] 1.025 (1.000-1.030) 09/25/21 11:33 Urine Protein 2+ (NEGATIVE) 09/25/21 11:33 Urine Glucose (UA) Negative (NEGATIVE) 09/25/21 11:33 Urine Ketones 1+ (NEGATIVE) 09/25/21 11:33 Urine Occult Blood Negative (NEGATIVE) 09/25/21 11:33 Urine Nitrite Negative (NEGATIVE) 09/25/21 11:33 Urine Bilirubin Negative (NEGATIVE) 09/25/21 11:33 Urine Urobilinogen Normal (NORMAL) 09/25/21 11:33 Ur Leukocyte Esterase 1+ (NEGATIVE) 09/25/21 11:33 Urine RBC 3-5 /HPF (0-3) A 09/25/21 11:33 Urine WBC 5-10 /HPF (0-5) A 09/25/21 11:33 Ur Squamous Epith Cells Moderate /HPF (NEGATIVE) 09/25/21 11:33 Amorphous Sediment 2+ /HPF (NEGATIVE) 09/25/21 11:33 Urine Bacteria 2+ /HPF (NEGATIVE) 09/25/21 11:33 Hyaline Casts Few /LPF (NEGATIVE) 09/25/21 11:33 Granular Casts Rare /LPF (NEGATIVE) 09/25/21 11:33 Urine Mucus Few /HPF (NEGATIVE) 09/25/21 11:33 Ur Culture Indicated? Yes/culture set up 09/25/21 11:33 SARS CoV-2 RNA Rapid ERVIN Negative (NEGATIVE) 09/25/21 11:06 - Plan (1) Urinary tract infection Status: Acute Qualifiers: Urinary tract infection type: site unspecified Hematuria presence: without hematuria Qualified Code(s): N39.0 - Urinary tract infection, site not speci fied Plan: NORMAL SALINE AT KVO, BACTRIM DS 1 TABLET BID, THE POTASSIUM AND MAGNESIUM PROTOCOL, AND HOME MEDICATIONS OF LIPITOR, ZYRTEC, MPTRIN, SYNTHROID, ATIVAN, SINGULAIR, HEMOCYTE PLUS, ZYPREXA, PRILOSEC, REQUIP, AND ULTRAM WERE RESUMED. (2) Altered mental status Status: Acute Qualifiers: Altered mental status type: disorientation Qualified Code(s): R41.0 - Disorientation, unspecified (3) Falls frequently Status: Acute (4) Generalized weakness Status: Acute (5) Acute hypokalemia Status: Acute
[2021-09-27] MEDS: PriLOSEC PO SCH (13:13)
[2021-09-27] MEDS: SINGULAIR TAB 10 MG PO SCH (13:13)
[2021-09-27] MEDS: SYNTHROID 50 mcg TAB PO SCH (13:13)
[2021-09-27] MEDS: ATIVAN TAB 0.5 MG PO PRN (13:14)
[2021-09-27] MEDS: NS 1,000 ML IV 1,000 ML IV SCH (21:35)
[2021-09-27] MEDS: LIPITOR TAB 40 MG PO SCH (21:35)
[2021-09-27] MEDS: ZyPREXA TAB 5 MG PO SCH (21:36)
[2021-09-27] MEDS: REQUIP PO SCH (21:36)
[2021-09-28 04:47] LABS: BASOPHILS # (AUTO) 0.1 X10^3/uL (0.0-0.1); BASOPHILS % (AUTO) 0.6 % (0.2-1.0); EOSINOPHILS # (AUTO) 0.2 x10^3/uL (0.0-0.2); EOSINOPHILS % (AUTO) 2.2 % (0.9-2.9); HEMATOCRIT 34.1 % (36.0-47.0); HEMOGLOBIN 11.5 g/dL (12.0-16.0); LYMPHOCYTES # (AUTO) 2.4 X10^3/uL (1.3-2.9); LYMPHOCYTES % (AUTO) 23.5 % (21.0-51.0); MEAN CORPUSCULAR HEMOGLOBIN 29.9 pg (27.0-34.0); MEAN CORPUSCULAR HGB CONC 33.6 g/dL (33.0-35.0); MEAN CORPUSCULAR VOLUME 88.8 fL (80.0-100.0); MONOCYTES % (AUTO) 9.7 % (0.0-13.0); NEUTROPHILS # (AUTO) 6.6 x10^3/uL (2.2-4.8); PLATELET COUNT 178 X10^3/uL (150.0-450.0); RED BLOOD COUNT 3.84 X10^6/uL (3.5-5.4); RED CELL DISTRIBUTION WIDTH 13.8 % (11.6-16.5); WHITE BLOOD COUNT 10.3 X10^3/uL (3.6-10.0)
[2021-09-28 05:00] LABS: ALANINE AMINOTRANSFERASE 17 Units/L (12-78); ALBUMIN 2.9 g/dL (3.4-5.0); ALKALINE PHOSPHATASE 117 Units/L (46-116); ASPARTATE AMINO TRANSFERASE 13 Units/L (15-37); BLOOD UREA NITROGEN 8 mg/dL (7-18); CALCIUM 9.2 mg/dL (8.5-10.1); CARBON DIOXIDE 25.9 mmol/L (21-32); CHLORIDE 101 mmol/L (98-107); COR CA(FOR HYPOALB) 10.1 mg/dL (8.5-10.1); CREATININE 0.63 mg/dL (0.55-1.02); SODIUM 137 mmol/L (136-145); TOTAL PROTEIN 6.9 g/dL (6.4-8.2); eGFR NON BLACK RACES > 60 (>60)
[2021-09-28] MEDS ORDERED: MOTRIN TAB 800 MG PO ONE (05:31)
[2021-09-28] MEDS: NS 1,000 ML IV 1,000 ML IV SCH ×2 (06:44→19:46)
[2021-09-28] MEDS: BACTRIM DS TAB PO SCH ×2 (09:13→20:55)
[2021-09-28] MEDS: SINGULAIR TAB 10 MG PO SCH (09:14)
[2021-09-28] MEDS: SYNTHROID 50 mcg TAB PO SCH (09:14)
[2021-09-28] MEDS: HEMOCYTE-PLUS PO SCH (09:14)
[2021-09-28] MEDS: ZyrTEC TAB 10 MG PO SCH (09:14)
[2021-09-28] MEDS: PriLOSEC PO SCH (09:14)
[2021-09-28] MEDS: REQUIP PO SCH (20:56)
[2021-09-28] MEDS: LIPITOR TAB 40 MG PO SCH (20:57)
[2021-09-28] MEDS: ULTRAM PO PRN (20:57)
[2021-09-28] MEDS: ZyPREXA TAB 5 MG PO SCH (20:57)
[2021-09-29 05:08] LABS: BASOPHILS % (AUTO) 0.4 % (0.2-1.0); EOSINOPHILS # (AUTO) 0.3 x10^3/uL (0.0-0.2); EOSINOPHILS % (AUTO) 3.6 % (0.9-2.9); HEMATOCRIT 34.9 % (36.0-47.0); HEMOGLOBIN 11.6 g/dL (12.0-16.0); LYMPHOCYTES % (AUTO) 24.9 % (21.0-51.0); MEAN CORPUSCULAR HEMOGLOBIN 29.8 pg (27.0-34.0); MEAN CORPUSCULAR HGB CONC 33.3 g/dL (33.0-35.0); MEAN CORPUSCULAR VOLUME 89.4 fL (80.0-100.0); MEAN PLATELET VOLUME 11.8 fL (7.4-11.0); MONOCYTES # (AUTO) 0.9 x10^3/uL (0.3-0.8); MONOCYTES % (AUTO) 11.2 % (0.0-13.0); NEUTROPHILS # (AUTO) 4.8 x10^3/uL (2.2-4.8); NEUTROPHILS % (AUTO) 59.9 % (42.0-75.0); PLATELET COUNT 175 X10^3/uL (150.0-450.0); RED CELL DISTRIBUTION WIDTH 13.9 % (11.6-16.5)
[2021-09-29] MEDS: ULTRAM PO PRN ×2 (05:28→22:37)
[2021-09-29 05:39] LABS: ALANINE AMINOTRANSFERASE 17 Units/L (12-78); ALBUMIN 2.9 g/dL (3.4-5.0); ALKALINE PHOSPHATASE 121 Units/L (46-116); ASPARTATE AMINO TRANSFERASE 15 Units/L (15-37); BLOOD UREA NITROGEN 7 mg/dL (7-18); CALCIUM 9.4 mg/dL (8.5-10.1); CARBON DIOXIDE 23.7 mmol/L (21-32); CHLORIDE 100 mmol/L (98-107); COR CA(FOR HYPOALB) 10.3 mg/dL (8.5-10.1); SODIUM 136 mmol/L (136-145); TOTAL PROTEIN 7.1 g/dL (6.4-8.2); eGFR NON BLACK RACES > 60 (>60)
[2021-09-29] MEDS: NS 1,000 ML IV 1,000 ML IV SCH ×2 (07:03→08:33)
[2021-09-29] MEDS: BACTRIM DS TAB PO SCH ×2 (08:33→21:27)
[2021-09-29] MEDS: SINGULAIR TAB 10 MG PO SCH (08:33)
[2021-09-29] MEDS: HEMOCYTE-PLUS PO SCH (08:33)
[2021-09-29] MEDS: SYNTHROID 50 mcg TAB PO SCH (08:33)
[2021-09-29] MEDS: PriLOSEC PO SCH (08:33)
[2021-09-29] MEDS: ZyrTEC TAB 10 MG PO SCH (08:34)
--- NOTE | 2021-09-29 09:34 | PCM.PROG ---
Progress Note - Progress Note for Day of Date of Exam: 09/28/21 - Subjective Subjective: WAS ADMITTED FOR TREATMENT OF UTI, AMS, GENERALIZED WEAKNESS, AND FREQUENT FALLS. TODAY, SHE IS LYING IN BED WITH EYES CLOSED ON MORNING ROUNDS. SHE AWAKENS AND RESPONDS VERBALLY, TO VERBAL STIMULI, BUT CONTINUES WITH DISORIENTATION. SPOUSE REPORTS THAT SHE CONTINUES WITH WEAKNESS. ON EXAMINATION, HEART IS REGULAR IN RATE AND RHYTHM. BILATERAL LUNGS NOTED WITH DIMINISHED LUNG SOUNDS THROUGHOUT. ABDOMEN IS ROUND, SOFT, AND NOTED WITH SUPRAPUBIC TENDERNESS. HER VITALS THIS MORNING ARE: 98.7-90-21-96%-120/60. LABS WERE OBTAINED. ABNORMAL LAB VALUES INCLUDE THE FOLLOWING: WBC 10.3, HGB 11.5, HCT 34.1, AST 13, ALK PHOS 117, ALBUMIN 2.9. URINE CULTURE IS PENDING. PRELIMINARY CULTURE REPORTS GROWTH OF GRAM POSITIVE COCCI. SHE IS CURRENTLY RECEIVING NORMAL SALINE AT KVO, BACTRIM DS 1 TABLET BID, THE POTASSIUM AND MAGNESIUM PROTOCOL, AND HOME MEDICATIONS OF LIPITOR, ZYRTEC, MOTRIN, SYNTHROID, ATIVAN, SINGULAIR, HEMOCYTE PLUS, ZYPREXA, PRILOSEC, REQUIP, AND ULTRAM WERE RESUMED. WE WILL CONTINUE WITH CURRENT PLAN OF CARE TODAY. OTHERWISE, WE PLAN TO FOLLOW UP WITH AM LABS AND CONTINUE TO MONITOR. SPOUSE IS ARRANGING PLACEMENT AT GROUP HOME CARE DUE TO NOT BEING ABLE TO CARE FOR PATIENT AT HOME BY HIMSELF. WE WILL DISCUSS WITH CASE MANAGEMENT AND ARRANGE PLACEMENT. TIME SPENT ON CLINICAL ASSESSMENT, REVIEWING LABS AND IMAGING, DECISION MAKING, AND DOCUMENTATION GREATER THAN 45 MINUTES. - Past Medical Family Social History Past Med/Fam/Surg Hx: No changes since H&P Allergies: Allergies cefdinir Allergy (Verified 09/25/21 10:59) ciprofloxacin Allergy (Verified 09/25/21 10:59) clarithromycin Allergy (Verified 09/25/21 10:59) clindamycin Allergy (Verified 09/25/21 10:59) doxycycline Allergy (Verified 09/25/21 10:59) erythromycin base Allergy (Verified 09/25/21 10:59) gabapentin [From Neurontin] Allergy (Verified 09/25/21 10:59) levofloxacin [From Levaquin] Allergy (Verified 09/25/21 10:59) nitrofurantoin Allergy (Verified 09/25/21 10:59) Penicillins Allergy (Verified 09/25/21 10:59) phenazopyridine Allergy (Verified 09/25/21 10:59) rifampin Allergy (Verified 09/25/21 10:59) - Review of Systems ROS: No change since H&P - Vital Signs and I&O's Vital Signs: Temperature 98.6 F Pulse Rate [Left Brachial] 101 Pulse Rate 107 Respiratory Rate 19 Blood Pressure [Left Arm] 142/60 Blood Pressure 132/88 O2 Sat by Pulse Oximetry 94 Intake and Output: Intake & Output 09/26/21 09/27/21 09/28/21 09/29/21 11:59 11:59 11:59 11:59 Intake Total 1172 / 1172 2635 / 2635 1530 / 1530 1200 / 1200 Output Total 850 / 850 1974 / 1974 725 / 725 1900 / 1900 Balance 322 / 322 660 / 660 805 / 805 -700 / -700 - Physical Exam Oriented: Person Eyes: Normal Ear: Normal Nose: Normal Throat: Normal Cardiovascular: Normal : Normal Auscultation: Bowel Sounds: Normal Tenderness: Suprapubic Skin: Normal Musculoskeletal: Normal Psychiatric: Normal Mood Description: Calm Affect: Normal Speech Pattern: Unclear - Laboratory and Diagnostics Result Diagrams: 09/29/21 04:15 09/29/21 04:15 Labs: 09/25/21 11:33 Urine,Catheterized Urine Culture - Preliminary Laboratory WBC 8.0 X10^3/uL (3.6-10.0) 09/29/21 04:15 RBC 3.90 X10^6/uL (3.5-5.4) 09/29/21 04:15 Hgb 11.6 g/dL (12.0-16.0) L 09/29/21 04:15 Hct 34.9 % (36.0-47.0) L 09/29/21 04:15 MCV 89.4 fL (80.0-100.0) 09/29/21 04:15 MCH 29.8 pg (27.0-34.0) 09/29/21 04:15 MCHC 33.3 g/dL (33.0-35.0) 09/29/21 04:15 RDW 13.9 % (11.6-16.5) 09/29/21 04:15 Plt Count 175 X10^3/uL (150.0-450.0) 09/29/21 04:15 MPV 11.8 fL (7.4-11.0) H 09/29/21 04:15 Neut % (Auto) 59.9 % (42.0-75.0) 09/29/21 04:15 Lymph % (Auto) 24.9 % (21.0-51.0) 09/29/21 04:15 [place] % (Auto) 11.2 % (0.0-13.0) 09/29/21 04:15 Eos % (Auto) 3.6 % (0.9-2.9) H 09/29/21 04:15 Baso % (Auto) 0.4 % (0.2-1.0) 09/29/21 04:15 Neut # (Auto) 4.8 x10^3/uL (2.2-4.8) 09/29/21 04:15 Lymph # (Auto) 2.0 X10^3/uL (1.3-2.9) 09/29/21 04:15 [place] # (Auto) 0.9 x10^3/uL (0.3-0.8) H 09/29/21 04:15 Eos # (Auto) 0.3 x10^3/uL (0.0-0.2) H 09/29/21 04:15 Baso # (Auto) 0.0 X10^3/uL (0.0-0.1) 09/29/21 04:15 Absolute Nucleated RBC 0.1 /100WBC 09/29/21 04:15 Sample Site Rrad 09/25/21 10:32 ABG pH 7.430 (7.35-7.45) 09/25/21 10:32 ABG pCO2 45.0 mmHg (35.0-45.0) 09/25/21 10:32 ABG pO2 76.0 mmHg (80.0-100.0) L 09/25/21 10:32 ABG HCO3 29.9 mmol/L (22-26) H 09/25/21 10:32 ABG O2 Saturation 95.0 % (90-100) 09/25/21 10:32 ABG Base Excess 4.8 mmol/L (-2.0-2.0) H 09/25/21 10:32 Earle Test Pos 09/25/21 10:32 A-a Gradient 67.0 mmHg 09/25/21 10:32 FiO2 28.0 09/25/21 10:32 Blood Gas Comments Pt brittny well elj 09/25/21 10:32 Sodium 136 mmol/L (136-145) 09/29/21 04:15 Corrected Sodium TNP 09/29/21 04:15 Potassium 4.0 mmol/L (3.5-5.1) 09/29/21 04:15 Chloride 100 mmol/L (98-107) 09/29/21 04:15 Carbon Dioxide 23.7 mmol/L (21-32) 09/29/21 04:15 BUN 7 mg/dL (7-18) 09/29/21 04:15 Creatinine 0.60 mg/dL (0.55-1.02) 09/29/21 04:15 Est GFR (MDRD) Af Amer > 60 (>60) 09/29/21 04:15 Est GFR (MDRD) Non-Af > 60 (>60) 09/29/21 04:15 Glucose 96 mg/dL (65-99) 09/29/21 04:15 Calcium 9.4 mg/dL (8.5-10.1) 09/29/21 04:15 Corrected Calcium 10.3 mg/dL (8.5-10.1) H 09/29/21 04:15 Magnesium 2.6 mg/dL (1.7-2.9) 09/27/21 05:20 Total Bilirubin 0.30 mg/dL (0.2-1.0) 09/29/21 04:15 AST 15 Units/L (15-37) 09/29/21 04:15 ALT 17 Units/L (12-78) 09/29/21 04:15 Alkaline Phosphatase 121 Units/L (46-116) H 09/29/21 04:15 Creatine Kinase 42 Units/L (26-192) 09/25/21 22:17 CK-MB (CK-2) < 1.0 ng/mL (0-4.0) 09/25/21 22:17 CK/CKMB % Calc 2.4 % (<4) 09/25/21 22:17 Troponin I < 0.02 ng/mL (0-1.5) 09/25/21 22:17 Total Protein 7.1 g/dL (6.4-8.2) 09/29/21 04:15 Albumin 2.9 g/dL (3.4-5.0) L 09/29/21 04:15 Globulin 4.2 g/dL (2.5-4.5) 09/29/21 04:15 Albumin/Globulin Ratio 0.7 Ratio (1.1-2.1) L 09/29/21 04:15 Amylase 31 Units/L (25-115) 09/25/21 09:59 Lipase 64 Units/L (73-393) L 09/25/21 09:59 Specimen Type Catherized urine 09/25/21 11:33 Urine Color Yellow (YELLOW) 09/25/21 11:33 Urine Appearance Hazy (CLEAR) 09/25/21 11:33 Urine pH 5.0 (5.0 - 8.0) 09/25/21 11:33 Ur Specific [place] 1.025 (1.000-1.030) 09/25/21 11:33 Urine Protein 2+ (NEGATIVE) 09/25/21 11:33 Urine Glucose (UA) Negative (NEGATIVE) 09/25/21 11:33 Urine Ketones 1+ (NEGATIVE) 09/25/21 11:33 Urine Occult Blood Negative (NEGATIVE) 09/25/21 11:33 Urine Nitrite Negative (NEGATIVE) 09/25/21 11:33 Urine Bilirubin Negative (NEGATIVE) 09/25/21 11:33 Urine Urobilinogen Normal (NORMAL) 09/25/21 11:33 Ur Leukocyte Esterase 1+ (NEGATIVE) 09/25/21 11:33 Urine RBC 3-5 /HPF (0-3) A 09/25/21 11:33 Urine WBC 5-10 /HPF (0-5) A 09/25/21 11:33 Ur Squamous Epith Cells Moderate /HPF (NEGATIVE) 09/25/21 11:33 Amorphous Sediment 2+ /HPF (NEGATIVE) 09/25/21 11:33 Urine Bacteria 2+ /HPF (NEGATIVE) 09/25/21 11:33 Hyaline Casts Few /LPF (NEGATIVE) 09/25/21 11:33 Granular Casts Rare /LPF (NEGATIVE) 09/25/21 11:33 Urine Mucus Few /HPF (NEGATIVE) 09/25/21 11:33 Ur Culture Indicated? Yes/culture set up 09/25/21 11:33 SARS CoV-2 RNA Rapid ERVIN Negative (NEGATIVE) 09/25/21 11:06 - Plan (1) Urinary tract infection Status: Acute Qualifiers: Urinary tract infection type: site unspecified Hematuria presence: without hematuria Qualified Code(s): N39.0 - Urinary tract infection, site not specified Plan: NORMAL SALINE AT KVO, BACTRIM DS 1 TABLET BID, THE POTASSIUM AND MAGNESIUM PROTOCOL, AND HOME MEDICATIONS OF LIPITOR, ZYRTEC, MPTRIN, SYNTHROID, ATIVAN, SINGULAIR, HEMOCYTE PLUS, ZYPREXA, PRILOSEC, REQUIP, AND ULTRAM WERE RESUMED. (2) Altered mental status Status: Acute Qualifiers: Altered mental status type: disorientation Qualified Code(s): R41.0 - Disorientation, unspecified (3) Falls frequently Status: Acute (4) Generalized weakness Status: Acute (5) Acute hypokalemia Status: Acute
--- NOTE | 2021-09-29 09:36 | PCM.PROG ---
Progress Note - Progress Note for Day of Date of Exam: 09/29/21 - Subjective Subjective: WAS ADMITTED FOR TREATMENT OF UTI, AMS, GENERALIZED WEAKNESS, AND FREQUENT FALLS. TODAY, SHE IS LYING IN BED WITH EYES CLOSED ON MORNING ROUNDS. SHE AWAKENS AND RESPONDS VERBALLY, TO VERBAL STIMULI, BUT CONTINUES WITH DISORIENTATION. SPOUSE REPORTS THAT SHE CONTINUES WITH WEAKNESS. ON EXAMINATION, HEART IS REGULAR IN RATE AND RHYTHM. BILATERAL LUNGS NOTED WITH DIMINISHED LUNG SOUNDS THROUGHOUT. ABDOMEN IS ROUND, SOFT, AND NON-TENDER. NORMAL BOWEL SOUNDS NOTED IN ALL QUADRANTS. HER VITALS THIS MORNING ARE: 98.6-100-19-94%-142/60. LABS WERE OBTAINED. ABNORMAL LAB VALUES INCLUDE THE FOLLOWING: HGB 11.6, HCT 34.9, ALK PHOS 121, ALBUMIN 2.9. URINE CULTURE IS PENDING. PRELIMINARY CULTURE REPORTS GROWTH OF GRAM POSITIVE COCCI. SHE IS CURRENTLY RECEIVING NORMAL SALINE AT KVO, BACTRIM DS 1 TABLET BID, THE POTASSIUM AND MAGNESIUM PROTOCOL, AND HOME MEDICATIONS OF LIPITOR, ZYRTEC, MOTRIN, SYNTHROID, ATIVAN, SINGULAIR, HEMOCYTE PLUS, ZYPREXA, PRILOSEC, REQUIP, AND ULTRAM WERE RESUMED. WE WILL CONTINUE WITH CURRENT PLAN OF CARE TODAY. OTHERWISE, WE PLAN TO FOLLOW UP WITH AM LABS AND CONTINUE TO MONITOR. SPOUSE IS REQUESTING PLACEMENT AT LONG-TERM CARE DUE TO NOT BEING ABLE TO CARE FOR PATIENT AT HOME BY HIMSELF. WE WILL DISCUSS WITH CASE MANAGEMENT AND ARRANGE PLACEMENT. TIME SPENT ON CLINICAL ASSESSMENT, REVIEWING LABS AND IMAGING, DECISION MAKING, AND DOCUMENTATION GREATER THAN 45 MINUTES. - Past Medical Family Social History Past Med/Fam/Surg Hx: No changes since H&P Allergies: Allergies cefdinir Allergy (Verified 09/25/21 10:59) ciprofloxacin Allergy (Verified 09/25/21 10:59) clarithromycin Allergy (Verified 09/25/21 10:59) clindamycin Allergy (Verified 09/25/21 10:59) doxycycline Allergy (Verified 09/25/21 10:59) erythromycin base Allergy (Verified 09/25/21 10:59) gabapentin [From Neurontin] Allergy (Verified 09/25/21 10:59) levofloxacin [From Levaquin] Allergy (Verified 09/25/21 10:59) nitrofurantoin Allergy (Verified 09/25/21 10:59) Penicillins Allergy (Verified 09/25/21 10:59) phenazopyridine Allergy (Verified 09/25/21 10:59) rifampin Allergy (Verified 09/25/21 10:59) - Review of Systems ROS: No change since H&P - Vital Signs and I&O's Vital Signs: Temperature 98.6 F Pulse Rate [Left Brachial] 101 Pulse Rate 107 Respiratory Rate 19 Blood Pressure [Left Arm] 142/60 Blood Pressure 132/88 O2 Sat by Pulse Oximetry 94 Intake and Output: Intake & Output 09/26/21 09/27/21 09/28/21 09/29/21 11:59 11:59 11:59 11:59 Intake Total 1172 / 1172 2635 / 2635 1530 / 1530 1200 / 1200 Output Total 850 / 850 1974 / 1974 725 / 725 1900 / 1900 Balance 322 / 322 660 / 660 805 / 805 -700 / -700 - Physical Exam Oriented: Person Eyes: Normal Ear: Normal Nose: Normal Throat: Normal Cardiovascular: Normal : Normal Auscultation: Bowel Sounds: Normal Palpation: Normal Tenderness: Suprapubic Skin: Normal Musculoskeletal: Normal Psychiatric: Normal Mood Description: Calm Affect: Normal Speech Pattern: Unclear - Laboratory and Diagnostics Result Diagrams: 09/29/21 04:15 09/29/21 04:15 Labs: 09/25/21 11:33 Urine,Catheterized Urine Culture - Preliminary Laboratory WBC 8.0 X10^3/uL (3.6-10.0) 09/29/21 04:15 RBC 3.90 X10^6/uL (3.5-5.4) 09/29/21 04:15 Hgb 11.6 g/dL (12.0-16.0) L 09/29/21 04:15 Hct 34.9 % (36.0-47.0) L 09/29/21 04:15 MCV 89.4 fL (80.0-100.0) 09/29/21 04:15 MCH 29.8 pg (27.0-34.0) 09/29/21 04:15 MCHC 33.3 g/dL (33.0-35.0) 09/29/21 04:15 RDW 13.9 % (11.6-16.5) 09/29/21 04:15 Plt Count 175 X10^3/uL (150.0-450.0) 09/29/21 04:15 MPV 11.8 fL (7.4-11.0) H 09/29/21 04:15 Neut % (Auto) 59.9 % (42.0-75.0) 09/29/21 04:15 Lymph % (Auto) 24.9 % (21.0-51.0) 09/29/21 04:15 [place] % (Auto) 11.2 % (0.0-13.0) 09/29/21 04:15 Eos % (Auto) 3.6 % (0.9-2.9) H 09/29/21 04:15 Baso % (Auto) 0.4 % (0.2-1.0) 09/29/21 04:15 Neut # (Auto) 4.8 x10^3/uL (2.2-4.8) 09/29/21 04:15 Lymph # (Auto) 2.0 X10^3/uL (1.3-2.9) 09/29/21 04:15 [place] # (Auto) 0.9 x10^3/uL (0.3-0.8) H 09/29/21 04:15 Eos # (Auto) 0.3 x10^3/uL (0.0-0.2) H 09/29/21 04:15 Baso # (Auto) 0.0 X10^3/uL (0.0-0.1) 09/29/21 04:15 Absolute Nucleated RBC 0.1 /100WBC 09/29/21 04:15 Sample Site Rrad 09/25/21 10:32 ABG pH 7.430 (7.35-7.45) 09/25/21 10:32 ABG pCO2 45.0 mmHg (35.0-45.0) 09/25/21 10:32 ABG pO2 76.0 mmHg (80.0-100.0) L 09/25/21 10:32 ABG HCO3 29.9 mmol/L (22-26) H 09/25/21 10:32 ABG O2 Saturation 95.0 % (90-100) 09/25/21 10:32 ABG Base Excess 4.8 mmol/L (-2.0-2.0) H 09/25/21 10:32 Earle Test Pos 09/25/21 10:32 A-a Gradient 67.0 mmHg 09/25/21 10:32 FiO2 28.0 09/25/21 10:32 Blood Gas Comments Pt brittny well elj 09/25/21 10:32 Sodium 136 mmol/L (136-145) 09/29/21 04:15 Corrected Sodium TNP 09/29/21 04:15 Potassium 4.0 mmol/L (3.5-5.1) 09/29/21 04:15 Chloride 100 mmol/L (98-107) 09/29/21 04:15 Carbon Dioxide 23.7 mmol/L (21-32) 09/29/21 04:15 BUN 7 mg/dL (7-18) 09/29/21 04:15 Creatinine 0.60 mg/dL (0.55-1.02) 09/29/21 04:15 Est GFR (MDRD) Af Amer > 60 (>60) 09/29/21 04:15 Est GFR (MDRD) Non-Af > 60 (>60) 09/29/21 04:15 Glucose 96 mg/dL (65-99) 09/29/21 04:15 Calcium 9.4 mg/dL (8.5-10.1) 09/29/21 04:15 Corrected Calcium 10.3 mg/dL (8.5-10.1) H 09/29/21 04:15 Magnesium 2.6 mg/dL (1.7-2.9) 09/27/21 05:20 Total Bilirubin 0.30 mg/dL (0.2-1.0) 09/29/21 04:15 AST 15 Units/L (15-37) 09/29/21 04:15 ALT 17 Units/L (12-78) 09/29/21 04:15 Alkaline Phosphatase 121 Units/L (46-116) H 09/29/21 04:15 Creatine Kinase 42 Units/L (26-192) 09/25/21 22:17 CK-MB (CK-2) < 1.0 ng/mL (0-4.0) 09/25/21 22:17 CK/CKMB % Calc 2.4 % (<4) 09/25/21 22:17 Troponin I < 0.02 ng/mL (0-1.5) 09/25/21 22:17 Total Protein 7.1 g/dL (6.4-8.2) 09/29/21 04:15 Albumin 2.9 g/dL (3.4-5.0) L 09/29/21 04:15 Globulin 4.2 g/dL (2.5-4.5) 09/29/21 04:15 Albumin/Globulin Ratio 0.7 Ratio (1.1-2.1) L 09/29/21 04:15 Amylase 31 Units/L (25-115) 09/25/21 09:59 Lipase 64 Units/L (73-393) L 09/25/21 09:59 Specimen Type Catherized urine 09/25/21 11:33 Urine Color Yellow (YELLOW) 09/25/21 11:33 Urine Appearance Hazy (CLEAR) 09/25/21 11:33 Urine pH 5.0 (5.0 - 8.0) 09/25/21 11:33 Ur Specific [place] 1.025 (1.000-1.030) 09/25/21 11:33 Urine Protein 2+ (NEGATIVE) 09/25/21 11:33 Urine Glucose (UA) Negative (NEGATIVE) 09/25/21 11:33 Urine Ketones 1+ (NEGATIVE) 09/25/21 11:33 Urine Occult Blood Negative (NEGATIVE) 09/25/21 11:33 Urine Nitrite Negative (NEGATIVE) 09/25/21 11:33 Urine Bilirubin Negative (NEGATIVE) 09/25/21 11:33 Urine Urobilinogen Normal (NORMAL) 09/25/21 11:33 Ur Leukocyte Esterase 1+ (NEGATIVE) 09/25/21 11:33 Urine RBC 3-5 /HPF (0-3) A 09/25/21 11:33 Urine WBC 5-10 /HPF (0-5) A 09/25/21 11:33 Ur Squamous Epith Cells Moderate /HPF (NEGATIVE) 09/25/21 11:33 Amorphous Sediment 2+ /HPF (NEGATIVE) 09/25/21 11:33 Urine Bacteria 2+ /HPF (NEGATIVE) 09/25/21 11:33 Hyaline Casts Few /LPF (NEGATIVE) 09/25/21 11:33 Granular Casts Rare /LPF (NEGATIVE) 12/23/21 11:33 Urine Mucus Few /HPF (NEGATIVE) 09/25/21 11:33 Ur Culture Indicated? Yes/culture set up 09/25/21 11:33 SARS CoV-2 RNA Rapid ERVIN Negative (NEGATIVE) 09/25/21 11:06 - Plan (1) Urinary tract infection Status: Acute Qualifiers: Urinary tract infection type: site unspecified Hematuria presence: without hematuria Qualified Code(s): N39.0 - Urinary tract infection, site not specified Plan: NORMAL SALINE AT KVO, BACTRIM DS 1 TABLET BID, THE POTASSIUM AND MAGNESIUM PROTOCOL, AND HOME MEDICATIONS OF LIPITOR, ZYRTEC, MPTRIN, SYNTHROID, ATIVAN, SINGULAIR, HEMOCYTE PLUS, ZYPREXA, PRILOSEC, REQUIP, AND ULTRAM WERE RESUMED. (2) Altered mental status Status: Acute Qualifiers: Altered mental status type: disorientation Qualified Code(s): R41.0 - Disorientation, unspecified (3) Falls frequently Status: Acute (4) Generalized weakness Status: Acute (5) Acute hypokalemia Status: Acute
[2021-09-29] MEDS: ATIVAN TAB 0.5 MG PO PRN ×2 (10:45→21:35)
[2021-09-29] MEDS: LIPITOR TAB 40 MG PO SCH (21:27)
[2021-09-29] MEDS: ZyPREXA TAB 5 MG PO SCH (21:29)
[2021-09-29] MEDS: REQUIP PO SCH (21:29)
[2021-09-30 05:23] LABS: BASOPHILS % (AUTO) 0.5 % (0.2-1.0); EOSINOPHILS # (AUTO) 0.2 x10^3/uL (0.0-0.2); EOSINOPHILS % (AUTO) 2.4 % (0.9-2.9); HEMATOCRIT 34.7 % (36.0-47.0); LYMPHOCYTES # (AUTO) 2.4 X10^3/uL (1.3-2.9); LYMPHOCYTES % (AUTO) 28.2 % (21.0-51.0); MEAN CORPUSCULAR HEMOGLOBIN 30.4 pg (27.0-34.0); MEAN CORPUSCULAR HGB CONC 34.5 g/dL (33.0-35.0); MEAN CORPUSCULAR VOLUME 88.1 fL (80.0-100.0); MEAN PLATELET VOLUME 11.6 fL (7.4-11.0); MONOCYTES # (AUTO) 1.1 x10^3/uL (0.3-0.8); MONOCYTES % (AUTO) 12.9 % (0.0-13.0); NEUTROPHILS # (AUTO) 4.7 x10^3/uL (2.2-4.8); PLATELET COUNT 204 X10^3/uL (150.0-450.0); RED BLOOD COUNT 3.94 X10^6/uL (3.5-5.4); RED CELL DISTRIBUTION WIDTH 13.6 % (11.6-16.5); WHITE BLOOD COUNT 8.4 X10^3/uL (3.6-10.0)
[2021-09-30 05:51] LABS: ALANINE AMINOTRANSFERASE 22 Units/L (12-78); ALBUMIN 2.9 g/dL (3.4-5.0); ALKALINE PHOSPHATASE 130 Units/L (46-116); ASPARTATE AMINO TRANSFERASE 19 Units/L (15-37); BLOOD UREA NITROGEN 10 mg/dL (7-18); CALCIUM 9.7 mg/dL (8.5-10.1); CARBON DIOXIDE 25.9 mmol/L (21-32); CHLORIDE 100 mmol/L (98-107); COR CA(FOR HYPOALB) 10.6 mg/dL (8.5-10.1); CREATININE 0.62 mg/dL (0.55-1.02); SODIUM 134 mmol/L (136-145); TOTAL PROTEIN 7.4 g/dL (6.4-8.2); eGFR NON BLACK RACES > 60 (>60)
[2021-09-30] MEDS: PriLOSEC PO SCH (09:32)
[2021-09-30] MEDS: ZyrTEC TAB 10 MG PO SCH (09:32)
[2021-09-30] MEDS: HEMOCYTE-PLUS PO SCH (09:32)
[2021-09-30] MEDS: SYNTHROID 50 mcg TAB PO SCH (09:32)
[2021-09-30] MEDS: ULTRAM PO PRN (09:32)
[2021-09-30] MEDS: SINGULAIR TAB 10 MG PO SCH (09:32)
[2021-09-30] MEDS: BACTRIM DS TAB PO SCH ×2 (10:29→20:56)
[2021-09-30] MEDS: NS 1,000 ML IV 1,000 ML IV SCH ×2 (10:30→20:56)
--- NOTE | 2021-09-30 16:08 | PCM.PROG ---
Progress Note - Progress Note for Day of Date of Exam: 09/30/21 - Subjective Subjective: WAS ADMITTED FOR TREATMENT OF UTI, AMS, GENERALIZED WEAKNESS, AND FREQUENT FALLS. TODAY, SHE IS LYING IN BED WITH EYES CLOSED ON MORNING ROUNDS. SHE AWAKENS AND RESPONDS VERBALLY, TO VERBAL STIMULI, BUT CONTINUES WITH DISORIENTATION. SPOUSE REPORTS THAT SHE CONTINUES WITH WEAKNESS. ON EXAMINATION, HEART IS REGULAR IN RATE AND RHYTHM. BILATERAL LUNGS NOTED WITH DIMINISHED LUNG SOUNDS THROUGHOUT. ABDOMEN IS ROUND, SOFT, AND NON-TENDER. NORMAL BOWEL SOUNDS NOTED IN ALL QUADRANTS. HER VITALS THIS MORNING ARE: 98.3-99-20-91%-136/61. LABS WERE OBTAINED. ABNORMAL LAB VALUES INCLUDE THE FOLLOWING: HCT 34.7, SODIUM 134, GLUCOSE 110, ALK PHOS 130, ALBUMIN 2.9. URINE CULTURE IS PENDING. PRELIMINARY CULTURE REPORTS GROWTH OF GRAM POSITIVE COCCI. SHE IS CURRENTLY RECEIVING NORMAL SALINE AT KVO, BACTRIM DS 1 TABLET BID, THE POTASSIUM AND MAGNESIUM PROTOCOL, AND HOME MEDICATIONS OF LIPITOR, ZYRTEC, MOTRIN, SYNTHROID, ATIVAN, SINGULAIR, HEMOCYTE PLUS, ZYPREXA, PRILOSEC, REQUIP, AND ULTRAM WERE RESUMED. WE WILL CONTINUE WITH CURRENT PLAN OF CARE TODAY. OTHERWISE, WE PLAN TO FOLLOW UP WITH AM LABS AND CONTINUE TO MONITOR. WE ARE ATTEMPTING TO ARRANGE PLACEMENT AT SITE SAFETY COORDINATOR CARE. TIME SPENT ON CLINICAL ASSESSMENT, REVIEWING LABS AND IMAGING, DECISION MAKING, AND DOCUMENTATION GREATER THAN 45 MINUTES. - Past Medical Family Social History Past Med/Fam/Surg Hx: No changes since H&P Allergies: Allergies cefdinir Allergy (Verified 09/25/21 10:59) ciprofloxacin Allergy (Verified 09/25/21 10:59) clarithromycin Allergy (Verified 09/25/21 10:59) clindamycin Allergy (Verified 09/25/21 10:59) doxycycline Allergy (Verified 09/25/21 10:59) erythromycin base Allergy (Verified 09/25/21 10:59) gabapentin [From Neurontin] Allergy (Verified 09/25/21 10:59) levofloxacin [From Levaquin] Allergy (Verified 09/25/21 10:59) nitrofurantoin Allergy (Verified 09/25/21 10:59) Penicillins Allergy (Verified 09/25/21 10:59) phenazopyridine Allergy (Verified 09/25/21 10:59) rifampin Allergy (Verified 09/25/21 10:59) - Review of Systems ROS: No change since H&P - Vital Signs and I&O's Vital Signs: Temperature 98.4 F Pulse Rate [Left Brachial] 96 Pulse Rate 107 Respiratory Rate 22 Blood Pressure [Left Arm] 116/56 Blood Pressure 132/88 O2 Sat by Pulse Oximetry 96 Intake and Output: Intake & Output 09/28/21 09/29/21 09/30/21 10/01/21 11:59 11:59 11:59 11:59 Intake Total 1530 / 1530 1200 / 1200 1045 / 1045 240 / 240 Output Total 725 / 725 1900 / 1900 2700 / 2700 Balance 805 / 805 -700 / -700 -1655 / -1655 240 / 240 - Physical Exam Oriented: Person Eyes: Normal Ear: Normal Nose: Normal Throat: Normal Cardiovascular: Normal : Normal Auscultation: Bowel Sounds: Normal Tenderness: Suprapubic Skin: Normal Musculoskeletal: Normal Psychiatric: Normal Mood Description: Calm Affect: Normal Speech Pattern: Unclear - Laboratory and Diagnostics Result Diagrams: 09/30/21 04:40 09/30/21 04:40 Labs: 09/25/21 11:33 Urine,Catheterized Urine Culture - Preliminary Laboratory WBC 8.4 X10^3/uL (3.6-10.0) 09/30/21 04:40 RBC 3.94 X10^6/uL (3.5-5.4) 09/30/21 04:40 Hgb 12.0 g/dL (12.0-16.0) 09/30/21 04:40 Hct 34.7 % (36.0-47.0) L 09/30/21 04:40 MCV 88.1 fL (80.0-100.0) 09/30/21 04:40 MCH 30.4 pg (27.0-34.0) 09/30/21 04:40 MCHC 34.5 g/dL (33.0-35.0) 09/30/21 04:40 RDW 13.6 % (11.6-16.5) 09/30/21 04:40 Plt Count 204 X10^3/uL (150.0-450.0) 09/30/21 04:40 MPV 11.6 fL (7.4-11.0) H 09/30/21 04:40 Neut % (Auto) 56.0 % (42.0-75.0) 09/30/21 04:40 Lymph % (Auto) 28.2 % (21.0-51.0) 09/30/21 04:40 [place] % (Auto) 12.9 % (0.0-13.0) 09/30/21 04:40 Eos % (Auto) 2.4 % (0.9-2.9) 09/30/21 04:40 Baso % (Auto) 0.5 % (0.2-1.0) 09/30/21 04:40 Neut # (Auto) 4.7 x10^3/uL (2.2-4.8) 09/30/21 04:40 Lymph # (Auto) 2.4 X10^3/uL (1.3-2.9) 09/30/21 04:40 [place] # (Auto) 1.1 x10^3/uL (0.3-0.8) H 09/30/21 04:40 Eos # (Auto) 0.2 x10^3/uL (0.0-0.2) 09/30/21 04:40 Baso # (Auto) 0.0 X10^3/uL (0.0-0.1) 09/30/21 04:40 Absolute Nucleated RBC 0.0 /100WBC 09/30/21 04:40 Sample Site Rrad 09/25/21 10:32 ABG pH 7.430 (7.35-7.45) 09/25/21 10:32 ABG pCO2 45.0 mmHg (35.0-45.0) 09/25/21 10:32 ABG pO2 76.0 mmHg (80.0-100.0) L 09/25/21 10:32 ABG HCO3 29.9 mmol/L (22-26) H 09/25/21 10:32 ABG O2 Saturation 95.0 % (90-100) 09/25/21 10:32 ABG Base Excess 4.8 mmol/L (-2.0-2.0) H 09/25/21 10:32 Earle Test Pos 09/25/21 10:32 A-a Gradient 67.0 mmHg 09/25/21 10:32 FiO2 28.0 09/25/21 10:32 Blood Gas Comments Pt brittny well elj 09/25/21 10:32 Sodium 134 mmol/L (136-145) L 09/30/21 04:40 Corrected Sodium TNP 09/30/21 04:40 Potassium 3.9 mmol/L (3.5-5.1) 09/30/21 04:40 Chloride 100 mmol/L (98-107) 09/30/21 04:40 Carbon Dioxide 25.9 mmol/L (21-32) 09/30/21 04:40 BUN 10 mg/dL (7-18) 09/30/21 04:40 Creatinine 0.62 mg/dL (0.55-1.02) 09/30/21 04:40 Est GFR (MDRD) Af Amer > 60 (>60) 09/30/21 04:40 Est GFR (MDRD) Non-Af > 60 (>60) 09/30/21 04:40 Glucose 110 mg/dL (65-99) H 09/30/21 04:40 Calcium 9.7 mg/dL (8.5-10.1) 09/30/21 04:40 Corrected Calcium 10.6 mg/dL (8.5-10.1) H 09/30/21 04:40 Magnesium 2.6 mg/dL (1.7-2.9) 09/27/21 05:20 Total Bilirubin 0.30 mg/dL (0.2-1.0) 09/30/21 04:40 AST 19 Units/L (15-37) 09/30/21 04:40 ALT 22 Units/L (12-78) 09/30/21 04:40 Alkaline Phosphatase 130 Units/L (46-116) H 09/30/21 04:40 Creatine Kinase 42 Units/L (26-192) 09/25/21 22:17 CK-MB (CK-2) < 1.0 ng/mL (0-4.0) 09/25/21 22:17 CK/CKMB % Calc 2.4 % (<4) 09/25/21 22:17 Troponin I < 0.02 ng/mL (0-1.5) 09/25/21 22:17 Total Protein 7.4 g/dL (6.4-8.2) 09/30/21 04:40 Albumin 2.9 g/dL (3.4-5.0) L 09/30/21 04:40 Globulin 4.5 g/dL (2.5-4.5) 09/30/21 04:40 Albumin/Globulin Ratio 0.6 Ratio (1.1-2.1) L 09/30/21 04:40 Amylase 31 Units/L (25-115) 09/25/21 09:59 Lipase 64 Units/L (73-393) L 09/25/21 09:59 Specimen Type Catherized urine 09/25/21 11:33 Urine Color Yellow (YELLOW) 09/25/21 11:33 Urine Appearance Hazy (CLEAR) 09/25/21 11:33 Urine pH 5.0 (5.0 - 8.0) 09/25/21 11:33 Ur Specific [place] 1.025 (1.000-1.030) 09/25/21 11:33 Urine Protein 2+ (NEGATIVE) 09/25/21 11:33 Urine Glucose (UA) Negative (NEGATIVE) 09/25/21 11:33 Urine Ketones 1+ (NEGATIVE) 09/25/21 11:33 Urine Occult Blood Negative (NEGATIVE) 09/25/21 11:33 Urine Nitrite Negative (NEGATIVE) 09/25/21 11:33 Urine Bilirubin Negative (NEGATIVE) 09/25/21 11:33 Urine Urobilinogen Normal (NORMAL) 09/25/21 11:33 Ur Leukocyte Esterase 1+ (NEGATIVE) 09/25/21 11:33 Urine RBC 3-5 /HPF (0-3) A 09/25/21 11:33 Urine WBC 5-10 /HPF (0-5) A 09/25/21 11:33 Ur Squamous Epith Cells Moderate /HPF (NEGATIVE) 09/25/21 11:33 Amorphous Sediment 2+ /HPF (NEGATIVE) 09/25/21 11:33 Urine Bacteria 2+ /HPF (NEGATIVE) 09/25/21 11:33 Hyaline Casts Few /LPF (NEGATIVE) 09/25/21 11:33 Granular Casts Rare /LPF (NEGATIVE) 09/25/21 11:33 Urine Mucus Few /HPF (NEGATIVE) 09/25/21 11:33 Ur Culture Indicated? Yes/culture set up 09/25/21 11:33 SARS CoV-2 RNA Rapid ERVIN Negative (NEGATIVE) 09/25/21 11:06 - Plan (1) Urinary tract infection Status: Acute Qualifiers: Urinary tract infection type: site unspecified Hematuria presence: without hematuria Qualified Code(s): N39.0 - Urinary tract infection, site not specified Plan: NORMAL SALINE AT KVO, BACTRIM DS 1 TABLET BID, THE POTASSIUM AND MAGNESIUM PROTOCOL, AND HOME MEDICATIONS OF LIPITOR, ZYRTEC, MPTRIN, SYNTHROID, ATIVAN, SINGULAIR, HEMOCYTE PLUS, ZYPREXA, PRILOSEC, REQUIP, AND ULTRAM WERE RESUMED. (2) Altered mental status Status: Acute Qualifiers: Altered mental status type: disorientation Qualified Code(s): R41.0 - Disorientation, unspecified (3) Falls frequently Status: Acute (4) Generalized weakness Status: Acute (5) Acute hypokalemia Status: Acute
[2021-09-30] MEDS: ZyPREXA TAB 5 MG PO SCH (20:56)
[2021-09-30] MEDS: REQUIP PO SCH (20:56)
[2021-09-30] MEDS: LIPITOR TAB 40 MG PO SCH (20:56)
[2021-10-01 04:57] LABS: BASOPHILS % (AUTO) 0.5 % (0.2-1.0); EOSINOPHILS # (AUTO) 0.4 x10^3/uL (0.0-0.2); HEMOGLOBIN 11.8 g/dL (12.0-16.0); LYMPHOCYTES # (AUTO) 2.1 X10^3/uL (1.3-2.9); MEAN CORPUSCULAR HGB CONC 33.7 g/dL (33.0-35.0); MEAN CORPUSCULAR VOLUME 88.9 fL (80.0-100.0); MEAN PLATELET VOLUME 11.6 fL (7.4-11.0); MONOCYTES # (AUTO) 0.9 x10^3/uL (0.3-0.8); MONOCYTES % (AUTO) 9.9 % (0.0-13.0); NEUTROPHILS # (AUTO) 5.5 x10^3/uL (2.2-4.8); NEUTROPHILS % (AUTO) 61.6 % (42.0-75.0); PLATELET COUNT 187 X10^3/uL (150.0-450.0); RED BLOOD COUNT 3.94 X10^6/uL (3.5-5.4); RED CELL DISTRIBUTION WIDTH 13.3 % (11.6-16.5); WHITE BLOOD COUNT 8.9 X10^3/uL (3.6-10.0)
[2021-10-01 05:13] LABS: ALANINE AMINOTRANSFERASE 22 Units/L (12-78); ALBUMIN 2.9 g/dL (3.4-5.0); ALKALINE PHOSPHATASE 122 Units/L (46-116); ASPARTATE AMINO TRANSFERASE 17 Units/L (15-37); BLOOD UREA NITROGEN 10 mg/dL (7-18); CALCIUM 9.5 mg/dL (8.5-10.1); CARBON DIOXIDE 24.5 mmol/L (21-32); CHLORIDE 101 mmol/L (98-107); COR CA(FOR HYPOALB) 10.4 mg/dL (8.5-10.1); CREATININE 0.66 mg/dL (0.55-1.02); SODIUM 134 mmol/L (136-145); TOTAL PROTEIN 7.2 g/dL (6.4-8.2); eGFR NON BLACK RACES > 60 (>60)
[2021-10-01] MEDS: NS 1,000 ML IV 1,000 ML IV SCH ×2 (07:17→15:14)
[2021-10-01] MEDS: BACTRIM DS TAB PO SCH ×2 (08:33→21:18)
[2021-10-01] MEDS: SINGULAIR TAB 10 MG PO SCH (08:34)
[2021-10-01] MEDS: SYNTHROID 50 mcg TAB PO SCH (08:35)
[2021-10-01] MEDS: HEMOCYTE-PLUS PO SCH (08:35)
[2021-10-01] MEDS: PriLOSEC PO SCH (08:36)
[2021-10-01] MEDS: ZyrTEC TAB 10 MG PO SCH (08:36)
[2021-10-01] MEDS: SINEMET (PLAIN) 10/100 MG PO SCH ×2 (10:12→21:18)
--- NOTE | 2021-10-01 15:04 | PCM.PROG ---
Progress Note - Progress Note for Day of Date of Exam: 10/01/21 - Subjective Subjective: WAS ADMITTED FOR TREATMENT OF UTI, AMS, GENERALIZED WEAKNESS, AND FREQUENT FALLS. TODAY, SHE IS LYING IN BED WITH EYES CLOSED ON MORNING ROUNDS. SHE AWAKENS AND RESPONDS VERBALLY, TO VERBAL STIMULI, BUT CONTINUES WITH DISORIENTATION. SPOUSE REPORTS THAT SHE CONTINUES WITH WEAKNESS. ON EXAMINATION, HEART IS REGULAR IN RATE AND RHYTHM. BILATERAL LUNGS NOTED WITH DIMINISHED LUNG SOUNDS THROUGHOUT. ABDOMEN IS ROUND, SOFT, AND NON-TENDER. NORMAL BOWEL SOUNDS NOTED IN ALL QUADRANTS. HER VITALS THIS MORNING ARE: 98.0-93-18-95%-133/65. LABS WERE OBTAINED. ABNORMAL LAB VALUES INCLUDE THE FOLLOWING: HGB 11.8, HCT 35.0, SODIUM 134, GLUCOSE 103, ALK PHOS 122, ALBUMIN 2.9. URINE IS POSITIVE FOR GROWTH OF GRAM POSITIVE COCCI. SHE IS CURRENTLY RECEIVING NORMAL SALINE AT KVO, BACTRIM DS 1 TABLET BID, THE POTASSIUM AND MAGNESIUM PROTOCOL, AND HOME MEDICATIONS OF LIPITOR, ZYRTEC, MOTRIN, SYNTHROID, ATIVAN, SINGULAIR, HEMOCYTE PLUS, ZYPREXA, PRILOSEC, REQUIP, AND ULTRAM WERE RESUMED. WE WILL CONTINUE WITH CURRENT PLAN OF CARE TODAY. OTHERWISE, WE PLAN TO FOLLOW UP WITH AM LABS AND CONTINUE TO MONITOR. WE ARE ATTEMPTING TO ARRANGE PLACEMENT AT [facility]. TIME SPENT ON CLINICAL ASSESSMENT, REVIEWING LABS AND IMAGING, DECISION MAKING, AND DOCUMENTATION GREATER THAN 45 MINUTES. - Past Medical Family Social History Past Med/Fam/Surg Hx: No changes since H&P Allergies: Allergies cefdinir Allergy (Verified 09/25/21 10:59) ciprofloxacin Allergy (Verified 09/25/21 10:59) clarithromycin Allergy (Verified 09/25/21 10:59) clindamycin Allergy (Verified 09/25/21 10:59) doxycycline Allergy (Verified 09/25/21 10:59) erythromycin base Allergy (Verified 09/25/21 10:59) gabapentin [From Neurontin] Allergy (Verified 09/25/21 10:59) levofloxacin [From Levaquin] Allergy (Verified 09/25/21 10:59) nitrofurantoin Allergy (Verified 09/25/21 10:59) Penicillins Allergy (Verified 09/25/21 10:59) phenazopyridine Allergy (Verified 09/25/21 10:59) rifampin Allergy (Verified 09/25/21 10:59) - Review of Systems ROS: No change since H&P - Vital Signs and I&O's Vital Signs: Temperature 98.5 F Pulse Rate [Left Brachial] 100 Pulse Rate 107 Respiratory Rate 24 Blood Pressure [Left Arm] 124/59 Blood Pressure 132/88 O2 Sat by Pulse Oximetry 96 Intake and Output: Intake & Output 09/29/21 09/30/21 10/01/21 10/02/21 11:59 11:59 11:59 11:59 Intake Total 1200 / 1200 1045 / 1045 1011 / 1011 268 / 268 Output Total 1900 / 1900 2700 / 2700 1550 / 1550 Balance -700 / -700 -1655 / -1655 -539 / -539 268 / 268 - Physical Exam Oriented: Person Eyes: Normal Ear: Normal Nose: Normal Throat: Normal Cardiovascular: Normal : Normal Auscultation: Bowel Sounds: Normal Tenderness: Suprapubic Skin: Normal Musculoskeletal: Normal Psychiatric: Normal Mood Description: Calm Affect: Normal Speech Pattern: Unclear - Laboratory and Diagnostics Result Diagrams: 10/01/21 04:05 10/01/21 04:05 Labs: 09/25/21 11:33 Urine,Catheterized Urine Culture - Preliminary Laboratory WBC 8.9 X10^3/uL (3.6-10.0) 10/01/21 04:05 RBC 3.94 X10^6/uL (3.5-5.4) 10/01/21 04:05 Hgb 11.8 g/dL (12.0-16.0) L 10/01/21 04:05 Hct 35.0 % (36.0-47.0) L 10/01/21 04:05 MCV 88.9 fL (80.0-100.0) 10/01/21 04:05 MCH 30.0 pg (27.0-34.0) 10/01/21 04:05 MCHC 33.7 g/dL (33.0-35.0) 10/01/21 04:05 RDW 13.3 % (11.6-16.5) 10/01/21 04:05 Plt Count 187 X10^3/uL (150.0-450.0) 10/01/21 04:05 MPV 11.6 fL (7.4-11.0) H 10/01/21 04:05 Neut % (Auto) 61.6 % (42.0-75.0) 10/01/21 04:05 Lymph % (Auto) 24.0 % (21.0-51.0) 10/01/21 04:05 [place] % (Auto) 9.9 % (0.0-13.0) 10/01/21 04:05 Eos % (Auto) 4.0 % (0.9-2.9) H 10/01/21 04:05 Baso % (Auto) 0.5 % (0.2-1.0) 10/01/21 04:05 Neut # (Auto) 5.5 x10^3/uL (2.2-4.8) H 10/01/21 04:05 Lymph # (Auto) 2.1 X10^3/uL (1.3-2.9) 10/01/21 04:05 [place] # (Auto) 0.9 x10^3/uL (0.3-0.8) H 10/01/21 04:05 Eos # (Auto) 0.4 x10^3/uL (0.0-0.2) H 10/01/21 04:05 Baso # (Auto) 0.0 X10^3/uL (0.0-0.1) 10/01/21 04:05 Absolute Nucleated RBC 0.0 /100WBC 10/01/21 04:05 Sample Site Rrad 09/25/21 10:32 ABG pH 7.430 (7.35-7.45) 09/25/21 10:32 ABG pCO2 45.0 mmHg (35.0-45.0) 09/25/21 10:32 ABG pO2 76.0 mmHg (80.0-100.0) L 09/25/21 10:32 ABG HCO3 29.9 mmol/L (22-26) H 09/25/21 10:32 ABG O2 Saturation 95.0 % (90-100) 09/25/21 10:32 ABG Base Excess 4.8 mmol/L (-2.0-2.0) H 09/25/21 10:32 Earle Test Pos 09/25/21 10:32 A-a Gradient 67.0 mmHg 09/25/21 10:32 FiO2 28.0 09/25/21 10:32 Blood Gas Comments Pt brittny well elj 09/25/21 10:32 Sodium 134 mmol/L (136-145) L 10/01/21 04:05 Corrected Sodium TNP 10/01/21 04:05 Potassium 3.8 mmol/L (3.5-5.1) 10/01/21 04:05 Chloride 101 mmol/L (98-107) 10/01/21 04:05 Carbon Dioxide 24.5 mmol/L (21-32) 10/01/21 04:05 BUN 10 mg/dL (7-18) 10/01/21 04:05 Creatinine 0.66 mg/dL (0.55-1.02) 10/01/21 04:05 Est GFR (MDRD) Af Amer > 60 (>60) 10/01/21 04:05 Est GFR (MDRD) Non-Af > 60 (>60) 10/01/21 04:05 Glucose 103 mg/dL (65-99) H 10/01/21 04:05 Calcium 9.5 mg/dL (8.5-10.1) 10/01/21 04:05 Corrected Calcium 10.4 mg/dL (8.5-10.1) H 10/01/21 04:05 Magnesium 2.6 mg/dL (1.7-2.9) 09/27/21 05:20 Total Bilirubin 0.20 mg/dL (0.2-1.0) 10/01/21 04:05 AST 17 Units/L (15-37) 10/01/21 04:05 ALT 22 Units/L (12-78) 10/01/21 04:05 Alkaline Phosphatase 122 Units/L (46-116) H 10/01/21 04:05 Creatine Kinase 42 Units/L (26-192) 09/25/21 22:17 CK-MB (CK-2) < 1.0 ng/mL (0-4.0) 09/25/21 22:17 CK/CKMB % Calc 2.4 % (<4) 09/25/21 22:17 Troponin I < 0.02 ng/mL (0-1.5) 09/25/21 22:17 Total Protein 7.2 g/dL (6.4-8.2) 10/01/21 04:05 Albumin 2.9 g/dL (3.4-5.0) L 10/01/21 04:05 Globulin 4.3 g/dL (2.5-4.5) 10/01/21 04:05 Albumin/Globulin Ratio 0.7 Ratio (1.1-2.1) L 10/01/21 04:05 Amylase 31 Units/L (25-115) 09/25/21 09:59 Lipase 64 Units/L (73-393) L 09/25/21 09:59 Specimen Type Catherized urine 09/25/21 11:33 Urine Color Yellow (YELLOW) 09/25/21 11:33 Urine Appearance Hazy (CLEAR) 09/25/21 11:33 Urine pH 5.0 (5.0 - 8.0) 09/25/21 11:33 Ur Specific [place] 1.025 (1.000-1.030) 09/25/21 11:33 Urine Protein 2+ (NEGATIVE) 09/25/21 11:33 Urine Glucose (UA) Negative (NEGATIVE) 09/25/21 11:33 Urine Ketones 1+ (NEGATIVE) 09/25/21 11:33 Urine Occult Blood Negative (NEGATIVE) 09/25/21 11:33 Urine Nitrite Negative (NEGATIVE) 09/25/21 11:33 Urine Bilirubin Negative (NEGATIVE) 09/25/21 11:33 Urine Urobilinogen Normal (NORMAL) 09/25/21 11:33 Ur Leukocyte Esterase 1+ (NEGATIVE) 09/25/21 11:33 Urine RBC 3-5 /HPF (0-3) A 09/25/21 11:33 Urine WBC 5-10 /HPF (0-5) A 09/25/21 11:33 Ur Squamous Epith Cells Moderate /HPF (NEGATIVE) 09/25/21 11:33 Amorphous Sediment 2+ /HPF (NEGATIVE) 09/25/21 11:33 Urine Bacteria 2+ /HPF (NEGATIVE) 09/25/21 11:33 Hyaline Casts Few /LPF (NEGATIVE) 09/25/21 11:33 Granular Casts Rare /LPF (NEGATIVE) 09/25/21 11:33 Urine Mucus Few /HPF (NEGATIVE) 09/25/21 11:33 Ur Culture Indicated? Yes/culture set up 09/25/21 11:33 SARS CoV-2 RNA Rapid ERVIN Negative (NEGATIVE) 09/25/21 11:06 - Plan (1) Urinary tract infection Status: Acute Qualifiers: Urinary tract infection type: site unspecified Hematuria presence: without hematuria Qualified Code(s): N39.0 - Urinary tract infection, site not specified Plan: NORMAL SALINE AT KVO, BACTRIM DS 1 TABLET BID, THE POTASSIUM AND MAGNESIUM PROTOCOL, AND HOME MEDICATIONS OF LIPITOR, ZYRTEC, MPTRIN, SYNTHROID, ATIVAN, SINGULAIR, HEMOCYTE PLUS, ZYPREXA, PRILOSEC, REQUIP, AND ULTRAM WERE RESUMED. (2) Altered mental status Status: Acute Qualifiers: Altered mental status type: disorientation Qualified Code(s): R41.0 - Disorientation, unspecified (3) Falls frequently Status: Acute (4) Generalized weakness Status: Acute (5) Acute hypokalemia Status: Acute
[2021-10-01] MEDS: ULTRAM PO PRN ×2 (16:06→21:46)
[2021-10-01] MEDS: ATIVAN TAB 0.5 MG PO PRN (16:09)
[2021-10-01] MEDS: ZyPREXA TAB 5 MG PO SCH (21:18)
[2021-10-01] MEDS: LIPITOR TAB 40 MG PO SCH (21:18)
[2021-10-01] MEDS: REQUIP PO SCH (21:18)
[2021-10-02] MEDS: NS 1,000 ML IV 1,000 ML IV SCH ×2 (03:30→08:47)
[2021-10-02 05:04] LABS: BASOPHILS % (AUTO) 0.4 % (0.2-1.0); EOSINOPHILS # (AUTO) 0.3 x10^3/uL (0.0-0.2); EOSINOPHILS % (AUTO) 3.4 % (0.9-2.9); HEMATOCRIT 33.2 % (36.0-47.0); HEMOGLOBIN 11.3 g/dL (12.0-16.0); LYMPHOCYTES # (AUTO) 2.4 X10^3/uL (1.3-2.9); LYMPHOCYTES % (AUTO) 25.4 % (21.0-51.0); MEAN CORPUSCULAR VOLUME 88.1 fL (80.0-100.0); MEAN PLATELET VOLUME 11.5 fL (7.4-11.0); MONOCYTES # (AUTO) 0.9 x10^3/uL (0.3-0.8); MONOCYTES % (AUTO) 9.3 % (0.0-13.0); NEUTROPHILS # (AUTO) 5.7 x10^3/uL (2.2-4.8); NEUTROPHILS % (AUTO) 61.5 % (42.0-75.0); PLATELET COUNT 204 X10^3/uL (150.0-450.0); RED BLOOD COUNT 3.78 X10^6/uL (3.5-5.4); RED CELL DISTRIBUTION WIDTH 13.3 % (11.6-16.5); WHITE BLOOD COUNT 9.4 X10^3/uL (3.6-10.0)
[2021-10-02 05:22] LABS: ALANINE AMINOTRANSFERASE 9 Units/L (12-78); ALBUMIN 2.8 g/dL (3.4-5.0); ALKALINE PHOSPHATASE 125 Units/L (46-116); ASPARTATE AMINO TRANSFERASE 16 Units/L (15-37); BLOOD UREA NITROGEN 9 mg/dL (7-18); CALCIUM 9.5 mg/dL (8.5-10.1); CARBON DIOXIDE 25.7 mmol/L (21-32); CHLORIDE 101 mmol/L (98-107); COR CA(FOR HYPOALB) 10.5 mg/dL (8.5-10.1); CREATININE 0.53 mg/dL (0.55-1.02); SODIUM 134 mmol/L (136-145); eGFR NON BLACK RACES > 60 (>60)
[2021-10-02] MEDS: BACTRIM DS TAB PO SCH (08:35)
[2021-10-02] MEDS: SYNTHROID 50 mcg TAB PO SCH (08:35)
[2021-10-02] MEDS: SINGULAIR TAB 10 MG PO SCH (08:36)
[2021-10-02] MEDS: HEMOCYTE-PLUS PO SCH (08:36)
[2021-10-02] MEDS: SINEMET (PLAIN) 10/100 MG PO SCH (08:36)
[2021-10-02] MEDS: PriLOSEC PO SCH (08:36)
[2021-10-02] MEDS: ZyrTEC TAB 10 MG PO SCH (08:37)
[2021-10-02 12:01] VITALS: BP 119/61
== END 2021-10-02 12:20 | DRG 690 ==
LOC: MED/SURG 08:59 → ER 08:59 → MED/SURG 13:21
PROVIDERS: ADMIT Internal Medicine; ATTEND Internal Medicine
DX: R94.31 Abnormal electrocardiogram [ECG] [EKG]; R29.6 Repeated falls; N39.0 Urinary tract infection, site not specified; R06.02 Shortness of breath; B96.89 Other specified bacterial agents as the cause of diseases classified elsewhere; R53.1 Weakness; J44.9 Chronic obstructive pulmonary disease, unspecified; E87.6 Hypokalemia; I10 Essential (primary) hypertension; Z99.81 Dependence on supplemental oxygen; K21.9 Gastro-esophageal reflux disease without esophagitis; Z20.822 Contact with and (suspected) exposure to COVID-19; R41.0 Disorientation, unspecified